=== PATIENT | female | born 1935 | race Caucasian/White ===

== ENCOUNTER 2017-04-07 12:33 | Emergency (ER) | payer MEDICARE, BC ==
[2017-04-07 12:46] VITALS: BP 160/62
[2017-04-07] MEDS ORDERED: Diltiazem IR 60 MG Tab PO ONE (13:30)
--- NOTE | 2017-04-07 13:30 | EDM.PDOC ---
ED HPI GENERAL MEDICAL PROBLEM - General Chief Complaint: Chest Pain Stated Complaint: [facility] Time Seen by Provider: 04/07/17 12:48 Source of Information: Reports: Patient History Limitations: Reports: No Limitations - History of Present Illness INITIAL COMMENTS - FREE TEXT/NARRATIVE: The patient is an 82-year-old female with a history of coronary artery disease, hypertension, myasthenia gravis, paroxysmal atrial fibrillation with chief complaint of chest pain. She states that her pain started around 11:30 this morning. She was at rest watching TV. States that she had some substernal heaviness. She thinks it may have radiated towards her left arm. The pain came on all of a sudden. There is no clear provoking factor. States that by the time the ambulance services arrived her pain was subsiding. She is not sure exactly how long it lasted. Her pain was completely gone before she got to the emergency department. She did not take any medications for the pain. States that she thinks it may be a bit like when she had her heart attack many years ago but not as severe. No shortness of breath. No nausea or abdominal pain. No cough, fever, or recent illness. She has chronic lower extremity swelling states this isn't any worse than usual. No leg pain. 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: Reports: EKG, IV/IO, Oxygen - Related Data Allergies Allergy/AdvReac Type Severity Reaction Status Date / Time amoxicillin [From Augmentin] Allergy Airway Verified 04/07/17 12:47 Tightness clavulanic acid Allergy Airway Verified 04/07/17 12:47 [From Augmentin] Tightness heparin Allergy Anaphylactic Verified 04/07/17 12:47 Shock Home Meds: Home Meds Aspirin [[place] Aspirin] 81 mg PO DAILY 05/26/14 [History] Losartan Potassium 100 mg PO DAILY 05/26/14 [History] Metoprolol Tartrate 75 mg PO BID 05/26/14 [History] sulfaSALAzine 500 mg PO BID 05/26/14 [History] Hyoscyamine Sulfate 0.125 mg PO QID 06/14/16 [History] Pyridostigmine [place] 60 mg PO DAILY 06/14/16 [History] Apixaban [Eliquis] 2.5 mg PO BID 04/07/17 [History] Calcium Citrate/Vitamin D3 [Calcium Citrate + D] 1 tab PO BIDMEALS 04/07/17 [ History] Diltiazem [Cardizem] 90 mg PO Q6HR 04/07/17 [History] Furosemide [Lasix] 40 mg PO DAILY 04/07/17 [History] Pantoprazole [ProTONIX] 40 mg PO ACBREAKFAST 04/07/17 [History] Prednisone [IJD: Prednisone] 12.5 mg PO DAILY 04/07/17 [History] atorvaSTATin [Lipitor] 40 mg PO BEDTIME 04/07/17 [History] Past Medical History HEENT History: Reports: Hard of Hearing, Impaired Vision Cardiovascular History: Reports: CAD, High Cholesterol, Hypertension, [place], Stents , Other (See Below) Other Cardiovascular History: edema, cardiolyte stress test in [place] February 2017 was clear Gastrointestinal History: Reports: Cholelithiasis, Other (See Below) Other Gastrointestinal History: ulcerative colitis Genitourinary History: Reports: Urinary Incontinence Musculoskeletal History: Reports: Arthritis Neurological History: Reports: Other (See Below) Other Neuro History: myasthinia gravis Hematologic History: Reports: Other (See Below) Other Hematologic History: is on blood thinners - Past Surgical History Cardiovascular Surgical History: Reports: Coronary Artery Stent GI Surgical History: Reports: Appendectomy, Cholecystectomy Female Surgical History: Reports: Hysterectomy Social & Family History - Family History Family Medical History: Noncontributory - Tobacco Use Smoking Status *Q: Never Smoker Second Hand Smoke Exposure: No - Caffeine Use Caffeine Use: Reports: None - Alcohol Use Days Per Week of Alcohol Use: 0 - Recreational Drug Use Recreational Drug Use: No ED ROS GENERAL - Review of Systems Review Of Systems: See Below Constitutional: Reports: No Symptoms. Denies: Fever, Weakness HEENT: Reports: No Symptoms Respiratory: Denies: Shortness of Breath, Cough Cardiovascular: Reports: Chest Pain Endocrine: Reports: No Symptoms GI/Abdominal: Denies: Abdominal Pain, Nausea : Reports: No Symptoms Musculoskeletal: Reports: No Symptoms Skin: Reports: No Symptoms Neurological: Reports: No Symptoms Psychiatric: Reports: No Symptoms ED EXAM, GENERAL - Physical Exam Exam: See Below Exam Limited By: No Limitations General Appearance: Alert, WD/WN, No Apparent Distress Eye Exam: Bilateral Eye: Normal Inspection Ears: Normal External Exam Nose: Normal Inspection, Normal Mucosa, No Blood Throat/Mouth: Normal Inspection, Normal Voice, No Airway Compromise Head: Atraumatic, Normocephalic Neck: Normal Inspection, Supple, Full Range of Motion Respiratory/Chest: No Respiratory Distress, Lungs Clear, Normal Breath Sounds, No Accessory Muscle Use Cardiovascular: Normal Peripheral Pulses, Regular Rate, Rhythm, No Murmur GI/Abdominal: Soft, Non-Tender. No: Rebound Back Exam: Normal Inspection Extremities: Non-Tender, Pedal Edema (mild, symmetric, 1+. ). No: Leg Pain Neurological: Alert, Oriented, Normal Cognition, No Motor/Sensory Deficits Psychiatric: Normal Affect, Normal Mood Skin Exam: Warm, Dry, Intact, Normal Color, No Rash Course - Vital Signs Last Recorded V/S: Last Vital Signs Temp 36.5 C 04/07/17 12:35 Pulse 58 L 04/07/17 12:35 Resp 18 04/07/17 12:35 BP 160/62 H 04/07/17 12:35 Pulse Ox 97 04/07/17 13:38 - Orders/Labs/Meds Orders: Active Orders 24 hr Category Date Time Status EKG 12 Lead [EKG Documentation Completion] [RC] STAT Care 04/07/17 12:48 Active Chest 1V Frontal [CR] Stat Exams 04/07/17 12:48 Taken Labs: Laboratory Tests 04/07/17 04/07/17 04/07/17 Range/Units 13:00 13:00 14:50 WBC 7.83 (3.98-10.04) K/mm3 RBC 4.13 (3.98-5.22) M/mm3 Hgb 14.1 (11.2-15.7) gm/L Hct 42.5 (34.1-44.9) % MCV 102.9 H (79.4-94.8) fl MCH 34.1 H (25.6-32.2) pg MCHC 33.2 (32.2-35.5) g/dl RDW Std Deviation 54.0 H (36.4-46.3) fL Plt Count 84 L (182-369) K/mm3 MPV 11.2 (9.4-12.3) fl Neut % (Auto) 87.7 H (34.0-71.1) % Lymph % (Auto) 6.6 L (19.3-51.7) % [place] % (Auto) 5.1 (4.7-12.5) % Eos % (Auto) 0 L (0.7-5.8) Baso % (Auto) 0.1 (0.1-1.2) % Neut # (Auto) 6.86 H (1.56-6.13) K/mm3 Lymph # (Auto) 0.52 L (1.18-3.74) K/mm3 [place] # (Auto) 0.40 H (0.24-0.36) K/mm3 Eos # (Auto) 0.00 L (0.04-0.36) K/mm3 Baso # (Auto) 0.01 (0.01-0.08) K/mm3 Manual Slide Review Abnormal smear Sodium 142 (136-145) mEq/L Potassium 3.7 (3.5-5.1) mEq/L Chloride 105 (98-107) mEq/L Carbon Dioxide 27 (21-32) mEq/L Anion Gap 13.7 (5-15) BUN 28 H (7-18) mg/dL Creatinine 1.6 H (0.55-1.02) mg/dL Est Cr Clr Drug Dosing 22.04 mL/min Estimated GFR (MDRD) 31 (>60) mL/min BUN/Creatinine Ratio 17.5 (14-18) Glucose 162 H (83-115) mg/dL Calcium 9.2 (8.5-10.1) mg/dL Total Bilirubin 0.5 (0.2-1.0) mg/dL AST 37 (15-37) U/L ALT 50 (14-59) U/L Alkaline Phosphatase 97 (46-116) U/L Troponin I < 0.017 < 0.017 (0.00-0.056) ng/mL Total Protein 7.4 (6.4-8.2) g/dl Albumin 3.7 (3.4-5.0) g/dl Globulin 3.7 gm/dL Albumin/Globulin Ratio 1.0 (1-2) Lipase 205 (73-393) U/L Meds: Medications Discontinued Medications Generic Name Dose Route Start Last Admin Trade Name Freq PRN Reason Stop Dose Admin Diltiazem HCl 90 mg 04/07/17 13:30 04/07/17 13:34 Cardizem PO 04/07/17 13:31 90 mg ONETIME ONE Administration Hyoscyamine 0.125 mg 04/07/17 14:40 06/29/17 14:51 Hyomax-Sl SL 04/07/17 14:41 0.125 mg ONETIME ONE Administration Pyridostigmine [place] 60 mg 04/07/17 15:00 04/07/17 14:51 Mestinon PO 04/07/17 15:01 60 mg ONETIME ONE Administration - Re-Assessments/Exams Free Text/Narrative Re-Assessment/Exam: 04/07/17 13:56 EKG shows normal sinus rhythm, T-wave flattening throughout the precordial leads , no significant ST abnormality. Chest x-ray shows mild cardiomegaly, otherwise unremarkable with no significant change compared to June 2016. Her first troponin is negative. Given her age, known history of coronary artery disease, and fairly typical story, we will observe her in the emergency department and repeat cardiac enzymes and EKG. 04/07/17 16:03 Repeat troponin negative. Patient has been chest pain free throughout her emergency department stay. She feels well and would like to go home. Discussed need for follow-up and also encouraged her to return to the emergency department should she have any recurrence of chest pain or other concerning symptoms. She understood. Departure - Departure Time of Disposition: 16:03 Disposition: Home, Self-Care 01 Clinical Impression: Chest pain Qualifiers: Chest pain type: unspecified Qualified Code(s): R07.9 - Chest pain, unspecified Instructions: Nonspecific Chest Pain, [id number] Referrals: Tom Slaughter MD [Primary Care Provider] - Forms: ED Department Discharge Additional Instructions: 1. Follow up with your primary doctor as soon as possible for further care 2. Return to the Emergency Department if you have return of chest pain, shortness of breath, or any other concerning symptoms - My Orders Last 24 Hours: My Active Orders 04/07/17 12:48 EKG 12 Lead [EKG Documentation Completion] [RC] STAT Chest 1V Frontal [CR] Stat - Assessment/Plan Last 24 Hours: My Active Orders 04/07/17 12:48 EKG 12 Lead [EKG Documentation Completion] [RC] STAT Chest 1V Frontal [CR] Stat
[2017-04-07] MEDS ORDERED: Hyoscyamine 0.125 MG Tab.SL SL ONE (14:40)
--- NOTE | 2017-04-08 08:25 | CR ---
Chest: Portable view of the chest was obtained. Comparison: Previous chest x-ray of 06/14/16. Heart is enlarged. Tortuous thoracic aorta is seen. Lungs are clear. Minimal scoliosis is present within the spine. Impression: 1. Scoliosis and mild cardiomegaly. 2. Nothing acute is appreciated on portable chest x-ray. Diagnostic code #2
== END 2017-04-07 16:09 | disposition home or self-care (01) ==
LOC: JD.ED 12:33
DX: R07.9 Chest pain, unspecified (principal); I10 Essential (primary) hypertension; I25.10 Atherosclerotic heart disease of native coronary artery without angina pectoris; I25.2 Old myocardial infarction; M19.90 Unspecified osteoarthritis, unspecified site; Z95.5 Presence of coronary angioplasty implant and graft; Z90.49 Acquired absence of other specified parts of digestive tract; Z90.710 Acquired absence of both cervix and uterus; Z79.82 Long term (current) use of aspirin; Z79.899 Other long term (current) drug therapy; Z88.1 Allergy status to other antibiotic agents; Z88.8 Allergy status to other drugs, medicaments and biological substances
CPT/HCPCS: 36415; 71010; 80053; 83690; 84484; 85025; 93005; 99285; A9270; 99284

== ENCOUNTER 2017-06-22 12:35 | Inpatient (IN) | payer MEDICARE, BC ==
[2017-06-22] MEDS ORDERED: Diltiazem 25 MG/5 ML SDV IVPUSH ONE ×2 (12:57→13:30)
[2017-06-22] MEDS ORDERED: Furosemide 40 MG/4 ML VIAL IVPUSH ONE (12:58)
--- NOTE | 2017-06-22 13:01 | EDM.PDOC ---
ED HPI GENERAL MEDICAL PROBLEM - General Chief Complaint: Cardiovascular Problem Stated Complaint: RAPID HEART RATE Time Seen by Provider: 06/22/17 12:48 Source of Information: Reports: Patient, Family (daughter) History Limitations: Reports: No Limitations - History of Present Illness INITIAL COMMENTS - FREE TEXT/NARRATIVE: 82-year-old female presents the ED with palpitations in her chest that she appreciated shortly before going to bed last night. She had to sleep sitting up part of the night due to developing differential dyspnea and orthopnea. She states she does have a mild cough which is bringing up a little bit of greenish sputum. No source associated fever or chills. Of note patient has a history of chronic atrial fibrillation. Monitor shows atrial fibrillation with a rate of high as high as 160/m. She has associated dizziness lightheadedness is weakness in her legs when she tries to walk. She denies any central chest pressure discomfort. Of note she is on Cardizem 90 mg 4 times a day and I'm not sure why she's on this regimen versus the extended release preparations. She is also on metoprolol 75 mg twice a day for heart rate control. She is on Lasix 40 mg once daily. She is appreciated her lower extremity is becoming more swollen the last while she blames it on the prednisone that she is slowly weaning off of. Onset: Sudden Onset Date: 06/21/17 Onset Time: 21:00 Duration: Hour(s): Location: Reports: Generalized (Palpitations in the chest with associated shortness of breath weakness and dizziness.) Quality: Reports: Same as Previous Episode Severity: Moderate Improves with: Reports: Rest Worsens with: Reports: Movement Context: Reports: Other. Denies: Activity, Lifting, Sick Contact, Trauma Associated Symptoms: Reports: Cough (With a little bit of greenish sputum at times.), Loss of Appetite, Malaise, Shortness of Breath, Weakness (Particularly in her lower extremities when she tries to walk). Denies: Confusion ( Spontaneous rapid heart rate about 21 hours last night), Chest Pain, Diaphoresis , Fever/Chills, Headaches, Nausea/Vomiting, Rash, Syncope Treatments SUCCESSFACTORS CONSULTANT: Reports: Other (see below) (None.) - Related Data Allergies Allergy/AdvReac Type Severity Reaction Status Date / Time amoxicillin [From Augmentin] Allergy Airway Verified 06/22/17 16:02 Tightness clavulanic acid Allergy Airway Verified 06/22/17 16:02 [From Augmentin] Tightness heparin Allergy Anaphylactic Verified 06/22/17 16:02 Shock Home Meds: Home Meds Aspirin [Gaines Aspirin] 81 mg PO DAILY 05/26/14 [History] Losartan Potassium 100 mg PO DAILY 05/26/14 [History] Metoprolol Tartrate 100 mg PO BID 05/26/14 [History] sulfaSALAzine 500 mg PO BID 05/26/14 [History] Hyoscyamine Sulfate 0.125 mg PO TID 06/14/16 [History] Pyridostigmine [place] 60 mg PO TID 06/14/16 [History] Apixaban [Eliquis] 2.5 mg PO BID 04/07/17 [History] Calcium Citrate/Vitamin D3 [Calcium Citrate + D] 1 tab PO BIDMEALS 04/07/17 [ History] Furosemide [Lasix] 40 mg PO QAM 04/07/17 [History] Pantoprazole [ProTONIX] 40 mg PO ACBREAKFAST 04/07/17 [History] Prednisone [IJD: Prednisone] 12.5 mg PO DAILY 04/07/17 [History] atorvaSTATin [Lipitor] 40 mg PO DAILY 04/07/17 [History] Furosemide [Lasix] 20 mg PO ASDIRECTED 06/22/17 [History] Past Medical History HEENT History: Reports: Hard of Hearing, Impaired Vision Cardiovascular History: Reports: CAD, High Cholesterol, Hypertension, [place], Stents , Other (See Below) Other Cardiovascular History: edema, cardiolyte stress test in [place] February 2017 was clear Gastrointestinal History: Reports: Cholelithiasis, Other (See Below) Other Gastrointestinal History: ulcerative colitis Genitourinary History: Reports: Urinary Incontinence Musculoskeletal History: Reports: Arthritis Neurological History: Reports: Other (See Below) Other Neuro History: myasthinia gravis Hematologic History: Reports: Other (See Below) Other Hematologic History: is on blood thinners - Past Surgical History Cardiovascular Surgical History: Reports: Coronary Artery Stent GI Surgical History: Reports: Appendectomy, Cholecystectomy Female Surgical History: Reports: Hysterectomy Social & Family History - Family History Family Medical History: Noncontributory - Tobacco Use Smoking Status *Q: Never Smoker Second Hand Smoke Exposure: No - Caffeine Use Caffeine Use: Reports: None - Alcohol Use Days Per Week of Alcohol Use: 0 - Recreational Drug Use Recreational Drug Use: No - Living Situation & Occupation Living situation: Reports: , Alone Occupation: Retired ED ROS GENERAL - Review of Systems Review Of Systems: See Below Constitutional: Reports: Malaise, Weakness, Fatigue, Decreased Appetite. Denies : Fever, Chills, Weight Loss HEENT: Reports: Other (Complains of sores in her nose. She blames whatever medications for this.) Respiratory: Reports: Shortness of Breath, Cough. Denies: Wheezing, Pleuritic Chest Pain, Hemoptysis (With a little greenish sputum once in a while) Cardiovascular: Reports: Blood Pressure Problem, Dyspnea on Exertion ( few weeks.), Edema (Worse the last), Lightheadedness, Palpitations. Denies: Chest Pain, Claudication, Orthopnea (Chronic hypertension) Endocrine: Reports: Fatigue (See history of present illness) GI/Abdominal: Reports: Diarrhea (Occasional problems with diarrhea. Never has to worry about constipation) : Reports: Frequency, Incontinence Musculoskeletal: Reports: Neck Pain, Shoulder Pain, Back Pain (Both urge and stress components), Joint Pain (Knees and hips at times) Skin: Reports: Bruising (Bruises easily because she is on Eliquis.) Neurological: Reports: No Symptoms Psychiatric: Reports: No Symptoms Hematologic/Lymphatic: Reports: No Symptoms Immunologic: Reports: No Symptoms ED EXAM, GENERAL - Physical Exam Exam: See Below Exam Limited By: No Limitations General Appearance: Alert, WD/WN, Anxious, Mild Distress Eye Exam: Bilateral Eye: Normal Inspection Throat/Mouth: Normal Inspection, Normal Oropharynx, Other (Lips are dry and chapped.) Head: Atraumatic, Normocephalic Neck: Normal Inspection, Supple, Limited Range of Motion, Tender Lateral. No: Full Range of Motion, Lymphadenopathy (L), Lymphadenopathy (R) Respiratory/Chest: No Accessory Muscle Use, Respiratory Distress (Mild tachypnea at rest 22-24/m), Rales (A few scattered rales in both bases with occasional expiratory wheeze in the right lung field.) Cardiovascular: No Gallop, No Murmur, No Rub, Tachycardia (Atrial fibrillation as high as 160/m), Irregularly Irregular. No: Normal Peripheral Pulses Peripheral Pulses: 1+: Posterior Tibial (L), Posterior Tibial (R), Dorsalis Pedis (L), Dorsalis Pedis (R) GI/Abdominal: Normal Bowel Sounds, Soft, Non-Tender, No Organomegaly, Distended (Mildly distended in the upper abdomen and tip into percussion compatible with some aerophagia.) Back Exam: Normal Inspection, Full Range of Motion, Other. No: CVA Tenderness ( L) (Mild kyphosis thoracic spine), CVA Tenderness (R) Extremities: Pedal Edema (3+ pitting edema almost up to the tibial tuberosities bilaterally.) Neurological: Alert, Oriented, CN II-XII Intact, Normal Cognition. No: Normal Gait Psychiatric: Normal Affect, Normal Mood Skin Exam: Warm, Dry, Intact, No Rash, Pallor (Slight pallor.) EKG INTERPRETATION EKG Date: 06/22/17 Time: 12:55 Rhythm: A-Fib (With rate of 90-1 60/m) Rate (Beats/Min): 143 [place]: LAD-Left Austin Deviation (Mild left axis deviation at -21) P-Wave: Variable QRS: Other (Decreased voltage in both the precordial and limb leads.) ST-T: Other (Abnormal repolarization pattern probably related to rate. Mild ST segment depression in V6 lead 1 nonspecific but could be apical ischemia.) QT: Normal Course - Vital Signs Last Recorded V/S: Last Vital Signs Temp 36.7 C 06/22/17 18:46 Pulse 92 06/22/17 18:46 Resp 20 06/22/17 18:46 BP 132/71 06/22/17 18:46 Pulse Ox 92 L 06/22/17 18:46 - Orders/Labs/Meds Orders: Active Orders 24 hr Category Date Time Status Admission Status [Patient Status] [ADT] Routine ADT 06/22/17 15:24 Active EKG Documentation Completion [RC] STAT Care 06/22/17 12:51 Inactive Peripheral IV Care [RC] Q2HR Care 06/22/17 12:57 Active Chest 1V Frontal [CR] Stat Exams 06/22/17 12:56 Taken Diltiazem 125 mg Med 06/22/17 13:00 Active Sodium Chloride 0.9% [Normal Saline] 100 ml IV ASDIRECTED Sodium Chloride 0.9% [Saline Flush] Med 06/22/17 12:57 Active 10 ml FLUSH ASDIRECTED PRN Peripheral IV Insertion Adult [OM.PC] Stat Oth 06/22/17 12:57 Ordered Medication Orders Acetaminophen (Tylenol) 650 mg PO Q4H PRN PRN Reason: Pain (Mild 1-3)/fever Hydrocodone Bitart/Acetaminophen ([place] 325-5 Mg) 1 tab PO Q4H PRN PRN Reason: Pain (moderate 4-6) Albuterol/Ipratropium (Duoneb 3.0-0.5 Mg/3 Ml) 3 ml NEB Q4H PRN PRN Reason: Shortness Of Breath/wheezing Apixaban (Eliquis) 2.5 mg PO BID [facility] Aspirin (Halfprin) 81 mg PO DAILY [facility] Bisacodyl (Dulcolax) 5 mg PO DAILY PRN PRN Reason: Constipation Calcium Carbonate (Calcium Carbonate/Vitamin D 1500 Mg-200 Unit) 1 tab PO BIDMEALS [facility] Last Admin: 06/22/17 17:15 Dose: 1 tab Docusate Sodium (Colace) 100 mg PO BID PRN PRN Reason: Constipation Furosemide (Lasix) 20 mg PO DAILY@1400 [facility] Last Admin: 06/22/17 16:32 Dose: Not Given Furosemide (Lasix) 40 mg PO QAM [facility] Hydralazine HCl (Apresoline) 20 mg IVPUSH Q4H PRN PRN Reason: Hypertension Hydromorphone HCl (Dilaudid) 0.25 mg IVPUSH Q2H PRN PRN Reason: Pain (severe 7-10) Hyoscyamine (Hyomax-Sl) 0.125 mg SL TID [facility] Last Admin: 06/22/17 17:21 Dose: Diltiazem HCl 125 mg/ Sodium (Chloride) 125 mls @ 10 mls/hr IV ASDIRECTED [facility] PRN Reason: 10 MG/HR Last Infusion: 06/22/17 19:17 Dose: 12.5 mg/hr, 12.5 mls/hr Infusion: 06/22/17 17:16 Dose: 15 mg/hr, 15 mls/hr Infusion: 06/22/17 16:28 Dose: 12.5 mg/hr, 12.5 mls/hr Infusion: 06/22/17 16:01 Dose: 10 mg/hr, 10 mls/hr Admin: 06/22/17 13:20 Dose: 10 mg/hr, 10 mls/hr Promethazine HCl 12.5 mg/ (Sodium Chloride) 50.5 mls @ 100 mls/hr IV Q6H PRN PRN Reason: Nausea/Vomiting Lorazepam (Ativan) 0.25 mg IV Q6H PRN PRN Reason: Anxiety Losartan Potassium (Cozaar) 100 mg PO DAILY [facility] Magnesium Sulfate (Pharmacy To Dose - Magnesium Replacement) 1 dose .XX ASDIRECTED [facility] Metoprolol Tartrate (Lopressor) 100 mg PO BID [facility] Metoprolol Tartrate (Lopressor) 5 mg IVPUSH Q4H PRN PRN Reason: Tachycardia Ondansetron HCl (Zofran) 4 mg IV Q6H PRN PRN Reason: Nausea/Vomiting Pantoprazole Sodium (Protonix) 40 mg PO ACBREAKFAST [facility] Polyethylene Glycol (Miralax) 17 gm PO DAILY PRN PRN Reason: Constipation Potassium Chloride (Pharmacy To Dose - Potassium Replacement) 1 dose .XX ASDIRECTED [facility] Prednisone (Prednisone) 12.5 mg PO DAILY [facility] Pyridostigmine [place] (Mestinon) 60 mg PO TID [facility] Rosuvastatin Calcium (Crestor) 10 mg PO DAILY [facility] Senna/Docusate Sodium (Senna Plus) 1 tab PO BID PRN PRN Reason: Constipation Sodium Chloride (Saline Flush) 10 ml FLUSH ASDIRECTED PRN PRN Reason: Keep Vein Open Last Admin: 06/22/17 13:20 Dose: 10 ml Sulfasalazine (Sulfasalazine) 500 mg PO BID [facility] Temazepam (Restoril) 7.5 mg PO BEDTIME PRN PRN Reason: Sleep Labs: Laboratory Tests 06/22/17 06/22/17 06/22/17 Range/Units 12:45 12:45 12:45 WBC 8.71 (3.98-10.04) K/mm3 RBC 4.36 (3.98-5.22) M/mm3 Hgb 14.5 (11.2-15.7) gm/L Hct 45.3 H (34.1-44.9) % MCV 103.9 H (79.4-94.8) fl MCH 33.3 H (25.6-32.2) pg MCHC 32.0 L (32.2-35.5) g/dl RDW Std Deviation 57.4 H (36.4-46.3) fL Plt Count 87 L (182-369) K/mm3 MPV 12.5 H (9.4-12.3) fl Neutrophils % (Manual) 72 H (40-60) % Band Neutrophils % 7 (0-10) % Lymphocytes % (Manual) 17 L (20-40) % Atypical Lymphs % 0 % Monocytes % (Manual) 4 (2-10) % Eosinophils % (Manual) 0 L (0.7-5.8) % Basophils % (Manual) 0 L (0.1-1.2) Platelet Estimate See note Anisocytosis 1+ slight Macrocytosis 1+ slight RBC Morph Comment Not Reportable PT 11.1 (8.0-13.0) SECONDS INR 1.02 Sodium 144 (136-145) mEq/L Potassium 3.2 L (3.5-5.1) mEq/L Chloride 105 (98-107) mEq/L Carbon Dioxide 30 (21-32) mEq/L Anion Gap 12.2 (5-15) BUN 15 (7-18) mg/dL Creatinine 1.3 H (0.55-1.02) mg/dL Est Cr Clr Drug Dosing 27.12 mL/min Estimated GFR (MDRD) 39 (>60) mL/min BUN/Creatinine Ratio 11.5 L (14-18) Glucose 141 H (83-115) mg/dL Calcium 9.1 (8.5-10.1) mg/dL Magnesium 1.7 L (1.8-2.4) mg/dl Total Bilirubin 0.6 (0.2-1.0) mg/dL AST 35 (15-37) U/L ALT 39 (14-59) U/L Alkaline Phosphatase 83 (46-116) U/L CK-MB (CK-2) 0.9 (0-3.6) ng/ml Troponin I < 0.017 (0.00-0.056) ng/mL C-Reactive Protein 0.5 (<1.0) mg/dL NT-Pro-B Natriuret Pep 1172 H (0-450) pg/mL Total Protein 7.6 (6.4-8.2) g/dl Albumin 3.6 (3.4-5.0) g/dl Globulin 4.0 gm/dL Albumin/Globulin Ratio 0.9 L (1-2) Free T4 (0.76-1.46) ng/dL TSH 3rd Generation (0.358-3.74) uIU/mL Urine Color (Yellow) Urine Appearance (Clear) Urine pH (5.0-8.0) Ur Specific [place] (1.005-1.030) Urine Protein (Negative) Urine Glucose (UA) (Negative) Urine Ketones (Negative) Urine Occult Blood (Negative) Urine Nitrite (Negative) Urine Bilirubin (Negative) Urine Urobilinogen (0.2-1.0) Ur Leukocyte Esterase (Negative) Urine RBC (0-5) /hpf Urine WBC (0-5) /hpf Ur Epithelial Cells (0-5) /hpf Urine Bacteria (FEW) /hpf Hyaline Casts (0-5) /lpf Urine Mucus (FEW) /hpf 06/22/17 06/22/17 Range/Units 12:45 15:20 WBC (3.98-10.04) K/mm3 RBC (3.98-5.22) M/mm3 Hgb (11.2-15.7) gm/L Hct (34.1-44.9) % MCV (79.4-94.8) fl MCH (25.6-32.2) pg MCHC (32.2-35.5) g/dl RDW Std Deviation (36.4-46.3) fL Plt Count (182-369) K/mm3 MPV (9.4-12.3) fl Neutrophils % (Manual) (40-60) % Band Neutrophils % (0-10) % Lymphocytes % (Manual) (20-40) % Atypical Lymphs % % Monocytes % (Manual) (2-10) % Eosinophils % (Manual) (0.7-5.8) % Basophils % (Manual) (0.1-1.2) Platelet Estimate Anisocytosis Macrocytosis RBC Morph Comment PT (8.0-13.0) SECONDS INR Sodium (136-145) mEq/L Potassium (3.5-5.1) mEq/L Chloride (98-107) mEq/L Carbon Dioxide (21-32) mEq/L Anion Gap (5-15) BUN (7-18) mg/dL Creatinine (0.55-1.02) mg/dL Est Cr Clr Drug Dosing mL/min Estimated GFR (MDRD) (>60) mL/min BUN/Creatinine Ratio (14-18) Glucose (83-115) mg/dL Calcium (8.5-10.1) mg/dL Magnesium (1.8-2.4) mg/dl Total Bilirubin (0.2-1.0) mg/dL AST (15-37) U/L ALT (14-59) U/L Alkaline Phosphatase (46-116) U/L CK-MB (CK-2) (0-3.6) ng/ml Troponin I (0.00-0.056) ng/mL C-Reactive Protein (<1.0) mg/dL NT-Pro-B Natriuret Pep (0-450) pg/mL Total Protein (6.4-8.2) g/dl Albumin (3.4-5.0) g/dl Globulin gm/dL Albumin/Globulin Ratio (1-2) Free T4 1.07 (0.76-1.46) ng/dL TSH 3rd Generation 1.215 (0.358-3.74) uIU/mL Urine Color Yellow (Yellow) Urine Appearance Clear (Clear) Urine pH 7.0 (5.0-8.0) Ur Specific [place] 1.015 (1.005-1.030) Urine Protein Negative (Negative) Urine Glucose (UA) Negative (Negative) Urine Ketones Negative (Negative) Urine Occult Blood Negative (Negative) Urine Nitrite Negative (Negative) Urine Bilirubin Negative (Negative) Urine Urobilinogen 0.2 (0.2-1.0) Ur Leukocyte Esterase Negative (Negative) Urine RBC 0-5 (0-5) /hpf Urine WBC 0-5 (0-5) /hpf Ur Epithelial Cells 0-5 (0-5) /hpf Urine Bacteria Rare (FEW) /hpf Hyaline Casts 0-5 (0-5) /lpf Urine Mucus Not seen (FEW) /hpf Meds: Medications Generic Name Dose Route Start Last Admin Trade Name Freq PRN Reason Stop Dose Admin Acetaminophen 650 mg 06/22/17 15:48 Tylenol PO Q4H PRN Pain (Mild 1-3)/fever Hydrocodone Bitart/Acetaminophen 1 tab 06/22/17 15:48 [place] 325-5 Mg PO Q4H PRN Pain (moderate 4-6) Albuterol/Ipratropium 3 ml 06/22/17 15:48 Duoneb 3.0-0.5 Mg/3 Ml NEB Q4H PRN Shortness Of Breath/wheezing Apixaban 2.5 mg 06/22/17 21:00 Eliquis PO BID [facility] Aspirin 81 mg 06/23/17 09:00 Halfprin PO DAILY [facility] Bisacodyl 5 mg 06/22/17 15:48 Dulcolax PO DAILY PRN Constipation Calcium Carbonate 1 tab 06/22/17 17:00 06/22/17 17:15 Calcium Carbonate/Vitamin D 1500 Mg-200 Unit PO 1 tab BIDMEALS [facility] Administration Docusate Sodium 100 mg 06/22/17 15:48 Colace PO BID PRN Constipation Furosemide 20 mg 06/22/17 16:00 06/22/17 16:32 Lasix PO Not Given DAILY@1400 [facility] Furosemide 40 mg 06/23/17 08:00 Lasix PO QAM [facility] Hydralazine HCl 20 mg 06/22/17 15:53 Apresoline IVPUSH Q4H PRN Hypertension Hydromorphone HCl 0.25 mg 06/22/17 15:48 Dilaudid IVPUSH Q2H PRN Pain (severe 7-10) Hyoscyamine 0.125 mg 06/22/17 16:04 06/22/17 17:21 Hyomax-Sl SL Not Given TID [facility] Diltiazem HCl 125 mg/ Sodium 125 mls @ 10 mls/hr 06/22/17 13:00 06/22/17 19: 17 Chloride IV 12.5 mg/hr ASDIRECTED [facility] 12.5 mls/hr 10 MG/HR Infusion Promethazine HCl 12.5 mg/ 50.5 mls @ 100 mls/hr 06/22/17 15:48 Sodium Chloride IV Q6H PRN Nausea/Vomiting Lorazepam 0.25 mg 06/22/17 15:48 Ativan IV Q6H PRN Anxiety Losartan Potassium 100 mg 06/23/17 09:00 Cozaar PO DAILY [facility] Magnesium Sulfate 1 dose 06/22/17 16:00 Pharmacy To Dose - Magnesium Replacement .XX ASDIRECTED [facility] Metoprolol Tartrate 100 mg 06/22/17 21:00 Lopressor PO BID [facility] Metoprolol Tartrate 5 mg 06/22/17 15:53 Lopressor IVPUSH Q4H PRN Tachycardia Ondansetron HCl 4 mg 06/22/17 15:48 Zofran IV Q6H PRN Nausea/Vomiting Pantoprazole Sodium 40 mg 06/23/17 06:00 Protonix PO ACBREAKFAST [facility] Polyethylene Glycol 17 gm 06/22/17 15:48 Miralax PO DAILY PRN Constipation Potassium Chloride 1 dose 06/22/17 16:00 Pharmacy To Dose - Potassium Replacement .XX ASDIRECTED [facility] Prednisone 12.5 mg 06/23/17 09:00 Prednisone PO DAILY [facility] Pyridostigmine [place] 60 mg 06/22/17 21:00 Mestinon PO TID [facility] Rosuvastatin Calcium 10 mg 06/23/17 09:00 Crestor PO DAILY [facility] Senna/Docusate Sodium 1 tab 06/22/17 15:48 Senna Plus PO BID PRN Constipation Sodium Chloride 10 ml 06/22/17 12:57 06/22/17 13:20 Saline Flush FLUSH 10 ml ASDIRECTED PRN Administration Keep Vein Open Sulfasalazine 500 mg 06/22/17 21:00 Sulfasalazine PO BID [facility] Temazepam 7.5 mg 06/22/17 15:48 Restoril PO BEDTIME PRN Sleep Discontinued Medications Generic Name Dose Route Start Last Admin Trade Name Freq PRN Reason Stop Dose Admin Diltiazem HCl 10 mg 06/22/17 12:57 06/22/17 13:19 Diltiazem IVPUSH 06/22/17 12:58 10 mg ONETIME ONE Administration Diltiazem HCl 10 mg 06/22/17 13:30 06/22/17 13:47 Diltiazem IVPUSH 06/22/17 13:31 10 mg ONETIME ONE Administration Furosemide 40 mg 06/22/17 12:58 06/22/17 13:19 Lasix IVPUSH 06/22/17 12:59 40 mg NOW ONE Administration - Radiology Interpretation Free Text/Narrative:: 82-year-old female presents the ED with palpitations that she recognizes started shortly after supper last night around 2100 hrs. She had a set up part of the night due to orthopnea and PND. She has a history of chronic atrial fibrillation usually controlled with Cardizem 90 mg 4 times daily and Toprol 75 mg twice a day. She presents with atrial fibrillation with a rate as high as 160 /min. Associated rales in both lower lobes congestive heart failure evident. She is dependent edema to both knees bilaterally. No chest pain. Plan Cardizem 10 mg IV bolus then drip at 10 mg per hour. Routine labs to include BNP. We'll also be given Lasix 40 mg IV as I can hear rales in both lower lobes. - Re-Assessments/Exams Free Text/Narrative Re-Assessment/Exam: 06/22/17 13:29 heart rate had come down into the 1 teens after the initial dose of Cardizem 10 mg IV bolus however it is back up to 144/m. Will give her another 10 mg Cardizem BP is 132/76. Free Text/Narrative Re-Assessment/Exam: 06/22/17 14:24 labs are from the back. They reveal a white count of 8.71 with 72 % neutrophils and 7% band cells. MCV is elevated at 103.9 hemoglobin is 14.5 hematocrit of 45.3 platelets are low side at 87,000. Coags show a PT of 11.1 INR 1.02. Sodium 144 potassium low at 3.2 chloride 105 bicarbonate 31. Creatinine is 1.3 EGFR is 39 and a gap is 12.2 glucose is 141. Magnesium slightly low at 1.7 BP and P is elevated at 1172. The discussion I had is that her Cardizem was recently discontinued by Dr. Allen taking press tender short goods as she was taking 90 mg 4 times daily. The reason for not being again on a long or extended release preparation apparently is because her insurance company would not pay for the medication. Dr. Allen taking it increased her metoprolol from 75 twice a day to 100 mg twice a day in the hopes of keeping her in regular rhythm. Obviously this has not worked. On speaking with the pharmacy they indicate that insurance company will pay for verapamil is likely to make her edema and her lower extremities a little worse however. It would be 80 mg 220 mg 3 times a day for rate control. Currently she is in failure and chest x-ray shows bilateral small pleural effusions. She would probably benefit therefore for short-term hospitalization to introduce cardiac calcium channel anshul to beta anshul therapy as it can cause a heart block. 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 06/22/17 14:26 Current rate is 80/min BP 108 /93 she feels much better [place] get a full deep breath. She is on Cardizem drip at 10 mg per hour. Departure - Departure Time of Disposition: 16:42 Disposition: Admitted As Inpatient 65 Condition: Fair Clinical Impression: Atrial fibrillation with RVR, Hypokalemia Congestive heart failure Qualifiers: Congestive heart failure type: unspecified congestive heart failure type Congestive heart failure chronicity: acute on chronic Qualified Code(s): I50.9 - Heart failure, unspecified - My Orders Last 24 Hours: My Active Orders 06/22/17 12:51 EKG Documentation Completion [RC] STAT 06/22/17 12:56 Chest 1V Frontal [CR] Stat 06/22/17 12:57 Peripheral IV Care [RC] Q2HR Sodium Chloride 0.9% [Saline Flush] 10 ml FLUSH ASDIRECTED PRN Peripheral IV Insertion Adult [OM.PC] Stat 06/22/17 13:00 Diltiazem 125 mg Sodium Chloride 0.9% [Normal Saline] 100 ml IV ASDIRECTED 06/22/17 15:24 Admission Status [Patient Status] [ADT] Routine - Assessment/Plan Last 24 Hours: My Active Orders 06/22/17 12:51 EKG Documentation Completion [RC] STAT 06/22/17 12:56 Chest 1V Frontal [CR] Stat 06/22/17 12:57 Peripheral IV Care [RC] Q2HR Sodium Chloride 0.9% [Saline Flush] 10 ml FLUSH ASDIRECTED PRN Peripheral IV Insertion Adult [OM.PC] Stat 06/22/17 13:00 Diltiazem 125 mg Sodium Chloride 0.9% [Normal Saline] 100 ml IV ASDIRECTED 06/22/17 15:24 Admission Status [Patient Status] [ADT] Routine
[2017-06-22] MEDS: Sodium Chloride 0.9% 10 ML Syringe FLUSH PRN (13:20)
[2017-06-22] MEDS: Diltiazem 125 MG in Sodium Chloride 0.9% 100 ML IV SCH ×2 (13:20→22:37)
--- NOTE | 2017-06-22 15:27 | PCM.HP ---
H&P History of Present Illness - General Date of Service: 06/22/17 Admit Problem/Dx: Atrial Fibrillation with RVR Source of Information: Patient, Old Records, Provider, RN Notes Reviewed History Limitations: Reports: No Limitations - History of Present Illness Initial Comments - Free Text/Narative: This is an 81-year-old elderly white female with past medical history of impaired hearing/vision, coronary artery disease, hypertension, hyperlipidemia, history of NH status post stents placement, edema, history of ulcerative colitis , cholelithiasis, urinary incontinence, history of partial arthritis, myasthenia gravis, and GERD who presents to the emergency department with complaints of heart palpitation that started last night. She reports an associated symptoms of mild cough with a little bit of greenish sputum, dizziness, lightheadedness and weakness on her lower extremity. She denies any fever or chills or shortness of breath. No chest pain or chest pressure. Patient carries a history of chronic atrial fibrillation on eliquis. Patient has been having issues related to rate control medications. She has been recently switched to a different type of rate control meds. Patient follows Dr. Choi for routine cardiac care. Her initial workup in the emergency department shows a CBC remarkable for hematocrit of 45.3, MCV of 103.9, MCHC of 32, platelet count of 87, neutrophils of 72% and lymphocytes of 17%. Her chemistry is remarkable for potassium of 3.2 , creatinine of 1.3, glucose of 141, and proBNP of 1172. Her UA is negative for urinary tract infection. Chest x-ray shows enlarged heart with possible bilateral pleural effusions. On presentation to the emergency department, she was found to have heart rates in the 140s-160s. She received initial treatment in the emergency department to improvement her heart rate. She was on Cardizem drip before she was sent to the unit for further management. She is full code. - Related Data Allergies/Adverse Reactions: Allergies Allergy/AdvReac Type Severity Reaction Status Date / Time amoxicillin [From Augmentin] Allergy Airway Verified 06/22/17 16:02 Tightness clavulanic acid Allergy Airway Verified 06/22/17 16:02 [From Augmentin] Tightness heparin Allergy Anaphylactic Verified 06/22/17 16:02 Shock Home Medications: Home Meds Aspirin [Drew Aspirin] 81 mg PO DAILY 08/17/14 [History] Losartan Potassium 100 mg PO DAILY 05/26/14 [History] Metoprolol Tartrate 100 mg PO BID 05/26/14 [History] sulfaSALAzine 500 mg PO BID 05/26/14 [History] Hyoscyamine Sulfate 0.125 mg PO TID 06/14/16 [History] Pyridostigmine [place] 60 mg PO TID 06/14/16 [History] Apixaban [Eliquis] 2.5 mg PO BID 04/07/17 [History] Calcium Citrate/Vitamin D3 [Calcium Citrate + D] 1 tab PO BIDMEALS 04/07/17 [ History] Furosemide [Lasix] 40 mg PO QAM 04/07/17 [History] Pantoprazole [ProTONIX] 40 mg PO ACBREAKFAST 04/07/17 [History] Prednisone [IJD: Prednisone] 12.5 mg PO DAILY 04/07/17 [History] atorvaSTATin [Lipitor] 40 mg PO DAILY 04/07/17 [History] Furosemide [Lasix] 20 mg PO ASDIRECTED 06/22/17 [History] Past Medical History HEENT History: Reports: Hard of Hearing, Impaired Vision Cardiovascular History: Reports: CAD, High Cholesterol, Hypertension, NH, Stents , Other (See Below) Other Cardiovascular History: edema[place] cardi[place] was clear Gastrointestinal History: Reports: Cholelithiasis, Other (See Below) Other Gastrointestinal History: ulcerative colitis Genitourinary History: Reports: Urinary Incontinence [employer]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: Reports: Musculoskeletal History: Reports: Arthritis Neurological History: Reports: Other (See Below) Other Neuro History: myasthinia gravis Hematologic History: Reports: Other (See Below) Other Hematologic History: is on blood thinners - Past Surgical History Cardiovascular Surgical History: Reports: Coronary Artery Stent GI Surgical History: Reports: Appendectomy, Cholecystectomy Female Surgical History: Reports: Hysterectomy Social & Family History - Family History Family Medical History: Noncontributory - Tobacco Use Smoking Status *Q: Never Smoker Second Hand Smoke Exposure: No - Caffeine Use Caffeine Use: Reports: None - Alcohol Use Days Per Week of Alcohol Use: 0 - Recreational Drug Use Recreational Drug Use: No - Living Situation & Occupation Living situation: Reports: , Alone Occupation: Retired H&P Review of Systems - Review of Systems: Review Of Systems: See Below General: Reports: Malaise, Weakness, Fatigue, Decreased Appetite. Denies: Fever , Chills HEENT: Reports: No Symptoms Pulmonary: Reports: Shortness of Breath, Cough Cardiovascular: Reports: Palpitations, Dyspnea on Exertion, Edema, Lightheadedness, Blood Pressure Problem. Denies: Chest Pain, Orthopnea, Syncope , Claudication Gastrointestinal: Reports: Diarrhea. Denies: Abdominal Pain, Nausea, Vomiting Genitourinary: Reports: Frequency, Incontinence Musculoskeletal: Reports: Neck Pain, Shoulder Pain, Back Pain, Joint Pain Skin: Reports: Bruising Psychiatric: Denies: Depression, Anxiety, Agitation, Hallucinations, Suicidal Ideation Neurological: Reports: Weakness, Gait Disturbance. Denies: Confusion, Difficulty Walking Hematologic/Lymphatic: Reports: Easy Bruising Immunologic: Reports: No Symptoms Exam - Exam Exam: See Below - Vital Signs Vital Signs: Last Vital Signs Temp 36.7 C 06/22/17 12:42 Pulse 145 H 06/22/17 12:42 Resp 22 H 06/22/17 12:42 BP 162/107 H 06/22/17 12:42 Pulse Ox 94 L 06/22/17 12:42 Weight: 170 kg - Exam General: Alert, Oriented, Cooperative, Mild Distress HEENT: Conjunctiva Clear, EACs Clear, EOMI, Mucosa Moist & [place], Nares Patent, Normal Nasal Septum, Posterior Pharynx Clear, Pupils Equal, Pupils Reactive, TMs Clear. No: Hearing Intact Neck: Supple, Trachea Midline, JVD Lungs: Normal Respiratory Effort, Decreased Breath Sounds Cardiovascular: Irregular Rhythm GI/Abdominal Exam: Normal Bowel Sounds, Soft, Non-Tender, No Organomegaly, No Distention, No Abnormal Bruit, No Mass, Pelvis Stable (Female) Exam: Deferred Rectal (Female) Exam: Deferred Back Exam: Normal Inspection, Decreased Range of Motion Extremities: Normal Inspection, Normal Range of Motion, Normal Capillary Refill , Pedal Edema Peripheral Pulses: 1+: Dorsalis Pedis (L), Dorsalis Pedis (R) Skin: Warm, Dry, Intact Neuro Extensive - Mental Status: Oriented x3, Normal Cognition, Memory Intact Neuro Extensive - Motor, Sensory, Reflexes: CN II-XII Intact (limited but intact ), Abnormal Gait Psychiatric: Alert, Normal Affect, Normal Mood - Patient Data Lab Results Last 24 hrs: Laboratory Results - last 24 hr 06/22/17 06/22/17 06/22/17 Range/Units 12:45 12:45 12:45 WBC 8.71 (3.98-10.04) K/mm3 RBC 4.36 (3.98-5.22) M/mm3 Hgb 14.5 (11.2-15.7) gm/L Hct 45.3 H (34.1-44.9) % MCV 103.9 H (79.4-94.8) fl MCH 33.3 H (25.6-32.2) pg MCHC 32.0 L (32.2-35.5) g/dl RDW Std Deviation 57.4 H (36.4-46.3) fL Plt Count 87 L (182-369) K/mm3 MPV 12.5 H (9.4-12.3) fl Neutrophils % (Manual) 72 H (40-60) % Band Neutrophils % 7 (0-10) % Lymphocytes % (Manual) 17 L (20-40) % Atypical Lymphs % 0 % Monocytes % (Manual) 4 (2-10) % Eosinophils % (Manual) 0 L (0.7-5.8) % Basophils % (Manual) 0 L (0.1-1.2) Platelet Estimate See note Anisocytosis 1+ slight Macrocytosis 1+ slight RBC Morph Comment Not Reportable PT 11.1 (8.0-13.0) SECONDS INR 1.02 Sodium 144 (136-145) mEq/L Potassium 3.2 L (3.5-5.1) mEq/L Chloride 105 (98-107) mEq/L Carbon Dioxide 30 (21-32) mEq/L Anion Gap 12.2 (5-15) BUN 15 (7-18) mg/dL Creatinine 1.3 H (0.55-1.02) mg/dL Est Cr Clr Drug Dosing 27.12 mL/min Estimated GFR (MDRD) 39 (>60) mL/min BUN/Creatinine Ratio 11.5 L (14-18) Glucose 141 H (83-115) mg/dL Calcium 9.1 (8.5-10.1) mg/dL Magnesium 1.7 L (1.8-2.4) mg/dl Total Bilirubin 0.6 (0.2-1.0) mg/dL AST 35 (15-37) U/L ALT 39 (14-59) U/L Alkaline Phosphatase 83 (46-116) U/L CK-MB (CK-2) 0.9 (0-3.6) ng/ml Troponin I < 0.017 (0.00-0.056) ng/mL C-Reactive Protein 0.5 (<1.0) mg/dL NT-Pro-B Natriuret Pep 1172 H (0-450) pg/mL Total Protein 7.6 (6.4-8.2) g/dl Albumin 3.6 (3.4-5.0) g/dl Globulin 4.0 gm/dL Albumin/Globulin Ratio 0.9 L (1-2) Result Diagrams: 06/23/17 06:22 06/23/17 06:22 EKG INTERPRETATION EKG Date: 06/22/17 Time: 12:55 Rhythm: A-Fib Rate (Beats/Min): 143 [place]: LAD-Left [place] Deviation QT: Normal *Q Meaningful Use (ADM) - VTE *Q VTE Criteria *Q: - Stroke *Q Stroke Criteria *Q: - AMI *Q AMI Criteria *Q: Problem List Initiated/Reviewed/Updated: Yes Orders Last 24hrs: Active Orders 24 hr Category Date Time Status EKG Documentation Completion [RC] STAT Care 06/22/17 12:51 Inactive EKG Documentation Completion [RC] STAT Care 06/22/17 12:56 Active Oxygen Therapy [RC] ASDIRECTED Care 06/22/17 12:57 Active Peripheral IV Care [RC] . DIRECTED Care 06/22/17 12:57 Active Chest 1V Frontal [CR] Stat Exams 06/22/17 12:56 Taken URINALYSIS W/MICROSCOPIC [UA W/MICROSCOPIC] [URIN] Stat Lab 06/22/17 15:20 Ordered Diltiazem 125 mg Med 06/22/17 13:00 Active Sodium Chloride 0.9% [Normal Saline] 100 ml IV ASDIRECTED Sodium Chloride 0.9% [Saline Flush] Med 06/22/17 12:57 Active 10 ml FLUSH ASDIRECTED PRN Peripheral IV Insertion Adult [OM.PC] Stat Oth 06/22/17 12:57 Ordered Medication Orders Diltiazem HCl 125 mg/ Sodium (Chloride) 125 mls @ 10 mls/hr IV ASDIRECTED ELVIN PRN Reason: 10 MG/HR Last Admin: 06/22/17 13:20 Dose: 10 mg/hr, 10 mls/hr Sodium Chloride (Saline Flush) 10 ml FLUSH ASDIRECTED PRN PRN Reason: Keep Vein Open Last Admin: 06/22/17 13:20 Dose: 10 ml Assessment/Plan Comment:: Assessment/Plan: Acute: A-Fib with RVR - HR as high as 160s - She does not drink alcohol or smoke cigarettes - She used to be on cardizem but now switched to Metoprolol 100 mg po BID 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 - She is on eliquis for stroke prophylaxis - Thyroid panel - Titrate to wean off cardizem drip and resume home Metoprolol regimen - If no response to BB, will call her greenhouse superintendent in am for further input Elevated Pro-BNP Level - ProBNP 1172 - She carries no hx/o HF - Unsure if she ever had 2D echo done in the past - This is likely 2/2 uncontrolled HR as above - 2D echo to r/o HF Mild E-lytes Abnormality - K 3.2 and Mg 1.7 - Will replete - Subsequent levels for pharmacy to replete and monitor Chronic: Severe hearing impairment Impaired vision Hypertension Hyperlipidemia CAD/NH status post stents History of cholelithiasis Ulcerative colitis Urinary incontinence Osteoarthritis Myasthenia gravis Plan: Admit to ICU Resume Home Meds Routine AM Labs PT/OT consult SW/CM for d/c planning Additional orders as above Code status: 1
[2017-06-22] MEDS ORDERED: Acetaminophen/HYDROcodone 325-5 MG Tab PO PRN (15:48)
[2017-06-22] MEDS ORDERED: Acetaminophen 325 MG Tab PO PRN (15:48)
[2017-06-22] MEDS ORDERED: Albuterol/Ipratropium 3.0-0.5 MG/3 ML Neb Soln NEB PRN (15:48)
[2017-06-22] MEDS ORDERED: HYDROmorphone 1 MG/ML Syringe IVPUSH PRN (15:48)
[2017-06-22] MEDS ORDERED: LORazepam 2 MG/ML MDV IV PRN (15:48)
[2017-06-22] MEDS ORDERED: Promethazine 12.5 MG in Sodium Chloride 0.9% 50 ML IV PRN (15:48)
[2017-06-22] MEDS ORDERED: Docusate Sodium 100 MG Cap PO PRN (15:48)
[2017-06-22] MEDS ORDERED: Polyethylene Glycol 3350 Powder 17 GM Packet PO PRN (15:48)
[2017-06-22] MEDS ORDERED: Ondansetron 4 MG/2 ML SDV IV PRN (15:48)
[2017-06-22] MEDS ORDERED: Bisacodyl 5 MG Tab PO PRN (15:48)
[2017-06-22] MEDS ORDERED: hydrALAZINE 20 MG/ML SDV IVPUSH PRN (15:53)
[2017-06-22] MEDS: Furosemide 20 MG Tab PO SCH (16:32)
[2017-06-22] MEDS: Calcium Carbonate/Vitamin D3 1500 MG-200 Units Tab PO SCH (17:15)
[2017-06-22] MEDS: Hyoscyamine 0.125 MG Tab.SL SL SCH ×2 (17:21→20:38)
[2017-06-22] MEDS ORDERED: FLU Vacc TS 2017-18 (65yr UP)/PF 180 MCG/0.5 ML Syringe IM ONE (17:30)
[2017-06-22] MEDS: Apixaban 5 MG Tab PO SCH (20:38)
[2017-06-22] MEDS: Metoprolol Tartrate 50 MG Tab PO SCH (20:38)
[2017-06-22] MEDS: sulfaSALAzine 500 MG Tab PO SCH (20:38)
[2017-06-22] MEDS ORDERED: Magnesium Sulfate/Water 2 GM in Premix Bag 1 BAG IV ONE (22:35)
[2017-06-22] MEDS: Potassium Chloride 10 MEQ in Premix Bag 1 BAG IV SCH (23:19)
[2017-06-23] MEDS: Potassium Chloride 10 MEQ in Premix Bag 1 BAG IV SCH (00:23)
[2017-06-23] MEDS: Temazepam 7.5 MG Cap PO PRN ×2 (01:28→20:24)
[2017-06-23] MEDS: Pantoprazole 40 MG Tab.CR PO SCH (06:20)
[2017-06-23] MEDS: Calcium Carbonate/Vitamin D3 1500 MG-200 Units Tab PO SCH ×2 (06:20→16:45)
[2017-06-23] MEDS: Furosemide 40 MG Tab PO SCH (07:45)
[2017-06-23] MEDS: Potassium Chloride 20 MEQ Tab.ER PO SCH ×2 (07:45→11:50)
[2017-06-23] MEDS: sulfaSALAzine 500 MG Tab PO SCH ×2 (09:04→20:24)
[2017-06-23] MEDS: predniSONE 5 MG Tab PO SCH (09:05)
[2017-06-23] MEDS: Apixaban 5 MG Tab PO SCH ×2 (09:07→20:24)
[2017-06-23] MEDS: Rosuvastatin 10 MG Tab PO SCH (09:08)
[2017-06-23] MEDS: Hyoscyamine 0.125 MG Tab.SL SL SCH ×3 (09:08→20:25)
[2017-06-23] MEDS: Metoprolol Tartrate 50 MG Tab PO SCH ×2 (09:09→20:21)
[2017-06-23] MEDS: Aspirin 81 MG Tab.EC PO SCH (09:09)
[2017-06-23] MEDS: Losartan 100 MG Tab PO SCH (09:10)
--- NOTE | 2017-06-23 10:31 | CR ---
Chest: Frontal view of the chest was obtained. Comparison: Previous chest x-ray of 04/07/17. Heart is slightly enlarged. Mild increased density noted within both lung bases. Lungs otherwise are clear. Pulmonary vessels are prominent which appear fairly stable. Bony structures are grossly intact. Impression: 1. Mild increased density within both lung bases most likely representing mild atelectasis. 2. Cardiomegaly with mild chronic pulmonary vascular congestion. Diagnostic code #3
--- NOTE | 2017-06-23 12:04 | PCM.PN ---
- General Info Date of Service: 06/23/17 Admission Dx/Problem (Free Text): Atrial Fibrillation with RVR Subjective Update: Follow Up Functional Status: Reports: Pain Controlled, Tolerating Diet, Urinating. Denies : New Symptoms - Review of Systems General: Denies: Fever, Weakness, Fatigue, Malaise, Chills HEENT: Reports: No Symptoms Pulmonary: Denies: Shortness of Breath Cardiovascular: Denies: Chest Pain, Palpitations, Dyspnea on Exertion, Edema, Lightheadedness Gastrointestinal: Denies: Abdominal Pain, Nausea, Vomiting Genitourinary: Reports: No Symptoms Musculoskeletal: Reports: No Symptoms Skin: Reports: No Symptoms Neurological: Reports: Gait Disturbance. Denies: Confusion, Difficulty Walking , Weakness Psychiatric: Denies: Depression, Anxiety, Agitation, Hallucinations, Suicidal Ideation Systems Review Comment:: No overnight or acute issues. Her heart rate is now much more controlled. She feels pretty good. She denies any acute issues - Patient Data Vitals - Most Recent: Last Vital Signs Temp 36.3 C 06/23/17 11:00 Pulse 63 06/23/17 11:00 Resp 19 06/23/17 11:00 BP 111/63 06/23/17 11:00 Pulse Ox 92 L 06/23/17 11:00 Weight - Most Recent: 78.517 kg I&O - Last 24 Hours: Intake & Output 06/22/17 06/23/17 06/23/17 22:59 06:59 14:59 Intake Total 180 747 300 Output Total 1150 200 300 Balance -970 547 0 Lab Results Last 24 Hours: Laboratory Results - last 24 hr 06/23/17 06/23/17 Range/Units 06:22 06:22 WBC 7.33 (3.98-10.04) K/mm3 RBC 4.05 (3.98-5.22) M/mm3 Hgb 13.8 (11.2-15.7) gm/L Hct 41.9 (34.1-44.9) % MCV 103.5 H (79.4-94.8) fl MCH 34.1 H (25.6-32.2) pg MCHC 32.9 (32.2-35.5) g/dl RDW Std Deviation 55.3 H (36.4-46.3) fL Plt Count 72 L (182-369) K/mm3 MPV 11.5 (9.4-12.3) fl Neut % (Auto) 66.6 (34.0-71.1) % Lymph % (Auto) 23.5 (19.3-51.7) % [place] % (Auto) 8.9 (4.7-12.5) % Eos % (Auto) 0.8 (0.7-5.8) Baso % (Auto) 0.1 (0.1-1.2) % Neut # (Auto) 4.88 (1.56-6.13) K/mm3 Lymph # (Auto) 1.72 (1.18-3.74) K/mm3 [place] # (Auto) 0.65 H (0.24-0.36) K/mm3 Eos # (Auto) 0.06 (0.04-0.36) K/mm3 Baso # (Auto) 0.01 (0.01-0.08) K/mm3 Manual Slide Review Abnormal smear Sodium 145 (136-145) mEq/L Potassium 3.3 L (3.5-5.1) mEq/L Chloride 107 (98-107) mEq/L Carbon Dioxide 29 (21-32) mEq/L Anion Gap 12.3 (5-15) BUN 14 (7-18) mg/dL Creatinine 1.0 (0.55-1.02) mg/dL Est Cr Clr Drug Dosing 35.26 mL/min Estimated GFR (MDRD) 53 (>60) mL/min BUN/Creatinine Ratio 14.0 (14-18) Glucose 99 (83-115) mg/dL Calcium 9.0 (8.5-10.1) mg/dL Magnesium 2.1 (1.8-2.4) mg/dl NT-Pro-B Natriuret Pep 1746 H (0-450) pg/mL Med Orders - Current: Current Medications Acetaminophen (Tylenol) 650 mg PO Q4H PRN PRN Reason: Pain (Mild 1-3)/fever Hydrocodone Bitart/Acetaminophen ([place] 325-5 Mg) 1 tab PO Q4H PRN PRN Reason: Pain (moderate 4-6) Albuterol/Ipratropium (Duoneb 3.0-0.5 Mg/3 Ml) 3 ml NEB Q4H PRN PRN Reason: Shortness Of Breath/wheezing Apixaban (Eliquis) 2.5 mg PO BID [facility] Last Admin: 06/23/17 09:07 Dose: 2.5 mg Aspirin (Halfprin) 81 mg PO DAILY [facility] Last Admin: 06/23/17 09:09 Dose: 81 mg Bisacodyl (Dulcolax) 5 mg PO DAILY PRN PRN Reason: Constipation Calcium Carbonate (Calcium Carbonate/Vitamin D 1500 Mg-200 Unit) 1 tab PO BIDMEALS [facility] Last Admin: 06/23/17 06:20 Dose: 1 tab Docusate Sodium (Colace) 100 mg PO BID PRN PRN Reason: Constipation Furosemide (Lasix) 20 mg PO DAILY@1400 [facility] Last Admin: 06/22/17 16:32 Dose: Not Given Furosemide (Lasix) 40 mg PO QAM [facility] Last Admin: 06/23/17 07:45 Dose: 40 mg Hydralazine HCl (Apresoline) 20 mg IVPUSH Q4H PRN PRN Reason: Hypertension Hydromorphone HCl (Dilaudid) 0.25 mg IVPUSH Q2H PRN PRN Reason: Pain (severe 7-10) Hyoscyamine (Hyomax-Sl) 0.125 mg SL TID [facility] Last Admin: 06/23/17 09:08 Dose: 0.125 mg Diltiazem HCl 125 mg/ Sodium (Chloride) 125 mls @ 10 mls/hr IV ASDIRECTED [facility] PRN Reason: 10 MG/HR Last Infusion: 06/23/17 11:44 Dose: 2.5 mg/hr, 2.5 mls/hr Promethazine HCl 12.5 mg/ (Sodium Chloride) 50.5 mls @ 100 mls/hr IV Q6H PRN PRN Reason: Nausea/Vomiting Lorazepam (Ativan) 0.25 mg IV Q6H PRN PRN Reason: Anxiety Losartan Potassium (Cozaar) 100 mg PO DAILY [facility] Last Admin: 06/23/17 09:10 Dose: 100 mg Magnesium Sulfate (Pharmacy To Dose - Magnesium Replacement) 1 dose .XX ASDIRECTED [facility] Metoprolol Tartrate (Lopressor) 100 mg PO BID [facility] Last Admin: 06/23/17 09:09 Dose: 100 mg Metoprolol Tartrate (Lopressor) 5 mg IVPUSH Q4H PRN PRN Reason: Tachycardia Ondansetron HCl (Zofran) 4 mg IV Q6H PRN PRN Reason: Nausea/Vomiting Pantoprazole Sodium (Protonix) 40 mg PO ACBREAKFAST [facility] Last Admin: 06/23/17 06:20 Dose: 40 mg Polyethylene Glycol (Miralax) 17 gm PO DAILY PRN PRN Reason: Constipation Potassium Chloride (Pharmacy To Dose - Potassium Replacement) 1 dose .XX ASDIRECTED [facility] Prednisone (Prednisone) 12.5 mg PO DAILY [facility] Last Admin: 06/23/17 09:05 Dose: 12.5 mg Pyridostigmine [place] (Mestinon) 60 mg PO TID [facility] Last Admin: 06/23/17 09:15 Dose: 60 mg Rosuvastatin Calcium (Crestor) 10 mg PO DAILY [facility] Last Admin: 06/23/17 09:08 Dose: 10 mg Senna/Docusate Sodium (Senna Plus) 1 tab PO BID PRN PRN Reason: Constipation Sodium Chloride (Saline Flush) 10 ml FLUSH ASDIRECTED PRN PRN Reason: Keep Vein Open Last Admin: 06/22/17 13:20 Dose: 10 ml Sulfasalazine (Sulfasalazine) 500 mg PO BID [facility] Last Admin: 06/23/17 09:04 Dose: 500 mg Temazepam (Restoril) 7.5 mg PO BEDTIME PRN PRN Reason: Sleep Last Admin: 06/23/17 01:28 Dose: 7.5 mg Discontinued Medications Diltiazem HCl (Diltiazem) 10 mg IVPUSH ONETIME ONE Stop: 06/22/17 12:58 Last Admin: 06/22/17 13:19 Dose: 10 mg Diltiazem HCl (Diltiazem) 10 mg IVPUSH ONETIME ONE Stop: 06/22/17 13:31 Last Admin: 06/22/17 13:47 Dose: 10 mg Furosemide (Lasix) 40 mg IVPUSH NOW ONE Stop: 06/22/17 12:59 Last Admin: 06/22/17 13:19 Dose: 40 mg Potassium Chloride 10 meq/ (Premix) 100 mls @ 100 mls/hr IV Q1H [facility] Stop: 06/23/17 00:44 Last Admin: 06/23/17 00:23 Dose: 100 mls/hr Magnesium Sulfate 2 gm/ Premix 50 mls @ 25 mls/hr IV ONETIME ONE Stop: 06/23/17 00:34 Last Admin: 06/22/17 23:21 Dose: 25 mls/hr Potassium Chloride (Klor-Con M20) 40 meq PO Q4H ELVIN Stop: 06/23/17 11:31 Last Admin: 06/23/17 11:50 Dose: 40 meq - Exam General: Alert, Oriented, Cooperative, No Acute Distress, Other (Obese) HEENT: Pupils Equal, Pupils Reactive, EOMI, Mucous Membr. Moist/[place], Other ( Very hard of hearing) Neck: Supple, Trachea Midline, No JVD, No Thyromegaly Lungs: Normal Respiratory Effort, Decreased Breath Sounds Cardiovascular: Irregular Rhythm GI/Abdominal Exam: Normal Bowel Sounds, Soft, Non-Tender, No Organomegaly, No Distention, No Abnormal Bruit, No Mass (Female) Exam: Deferred Back Exam: Normal Inspection, Decreased Range of Motion Extremities: Normal Inspection, Normal Range of Motion, Non-Tender, No Pedal Edema, Normal Capillary Refill Peripheral Pulses: 2+: Dorsalis Pedis (L), Dorsalis Pedis (R) Skin: Warm, Dry, Intact Neurological: No New Focal Deficit Psy/Mental Status: Alert, Normal Affect, Normal Mood - Problem List Review Problem List Initiated/Reviewed/Updated: Yes - My Orders Last 24 Hours: My Active Orders 06/22/17 15:48 Oxygen Therapy [RC] PRN Up With Assistance [RC] ASDIRECTED Up ad Mally [RC] ASDIRECTED VTE/DVT Education [RC] PER UNIT ROUTINE Vital Signs [RC] Q1H Acetaminophen [Tylenol] 650 mg PO Q4H PRN Acetaminophen/HYDROcodone [[place] 325-5 MG] 1 tab PO Q4H PRN Albuterol/Ipratropium [DuoNeb 3.0-0.5 MG/3 ML] 3 ml NEB Q4H PRN Bisacodyl [Dulcolax] 5 mg PO DAILY PRN Docusate Sodium [Colace] 100 mg PO BID PRN Docusate Sodium/Sennosides [Senna Plus] 1 tab PO BID PRN HYDROmorphone [Dilaudid] 0.25 mg IVPUSH Q2H PRN LORazepam [Ativan] 0.25 mg IV Q6H PRN Ondansetron [Zofran] 4 mg IV Q6H PRN Polyethylene Glycol 3350 [MiraLAX] 17 gm PO DAILY PRN Promethazine [Phenergan] 12.5 mg Sodium Chloride 0.9% [Normal Saline] 50 ml IV Q6H Temazepam [Restoril] 7.5 mg PO BEDTIME PRN Resuscitation Status Routine 06/22/17 15:50 RT Aerosol Therapy [RC] .PRN Consult to Case Management [CONS] Routine Consult to Digital Hardware Design Engineer [CONS] Routine Consult to Spiritual Care [CONS] Routine OT Evaluation and Treatment [CONS] Routine PT Evaluation and Treatment [CONS] Routine 06/22/17 15:53 Metoprolol Tartrate [Lopressor] 5 mg IVPUSH Q4H PRN hydrALAZINE [Apresoline] 20 mg IVPUSH Q4H PRN 06/22/17 16:00 Furosemide [Lasix] 20 mg PO DAILY@1400 Magnesium Rep Pharmacy to Dose [Pharmacy to Dose - Magnesium Replacement] 1 dose .XX ASDIRECTED Potassium Rep Pharmacy to Dose [Pharmacy to Dose - Potassium Replacement] 1 dose .XX ASDIRECTED 06/22/17 16:04 Hyoscyamine [Hyomax-SL] 0.125 mg SL TID 06/22/17 17:00 Calcium Carbonate/Vitamin D3 [Calcium Carbonate/Vitamin D 1500 MG-200 Unit] 1 tab PO BIDMEALS 06/22/17 21:00 Apixaban [Eliquis] 2.5 mg PO BID Metoprolol Tartrate [Lopressor] 100 mg PO BID Pyridostigmine [Mestinon] 60 mg PO TID sulfaSALAzine 500 mg PO BID 06/22/17 Dinner Heart Healthy Diet [DIET] 06/23/17 06:00 Pantoprazole [ProTONIX] 40 mg PO ACBREAKFAST 06/23/17 08:00 Furosemide [Lasix] 40 mg PO QAM 06/23/17 09:00 Aspirin [Halfprin] 81 mg PO DAILY Losartan [Cozaar] 100 mg PO DAILY Rosuvastatin [Crestor] 10 mg PO DAILY predniSONE 12.5 mg PO DAILY 06/23/17 16:00 Echo Comp wo Cont [US] Urgent 06/24/17 05:11 BASIC METABOLIC PANEL,BMP [CHEM] AM MAGNESIUM [CHEM] AM 06/25/17 05:11 BASIC METABOLIC PANEL,BMP [CHEM] AM MAGNESIUM [CHEM] AM 06/26/17 05:11 MAGNESIUM [CHEM] AM - Plan Plan:: Assessment/Plan: Acute: A-Fib with RVR - HR is now controlled - She does not drink alcohol or smoke cigarettes - She used to be on cardizem but now switched to Metoprolol 100 mg po BID 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 Choi - She is on eliquis for stroke prophylaxis - Thyroid panel: normal - Titrate to wean off cardizem drip - She is responding well to treatment Elevated Pro-BNP Level - ProBNP 1172 - She carries no hx/o HF - Unsure if she ever had 2D echo done in the past - This is likely 2/2 uncontrolled HR as above - 2D echo: report shows benign result with an EF of 55% Mild E-lytes Abnormality - K 3.2--> 3.3 and Mg 1.7---> 2.1 - Pharmacy to replete and monitor Chronic: Severe hearing impairment Impaired vision Hypertension Hyperlipidemia CAD/VT status post stents History of cholelithiasis Ulcerative colitis Urinary incontinence Osteoarthritis Myasthenia gravis Plan: She is clinically stable Continue to titrate Cardizem to wean off Routine AM Labs SW/CM for d/c planning Additional orders as above Code status: 1
[2017-06-23] MEDS: Furosemide 20 MG Tab PO SCH (13:02)
[2017-06-23] MEDS ORDERED: Bumetanide 1 MG/4 ML MDV IVPUSH ONE (16:24)
[2017-06-24] MEDS: Calcium Carbonate/Vitamin D3 1500 MG-200 Units Tab PO SCH ×2 (06:00→17:28)
[2017-06-24] MEDS: Pantoprazole 40 MG Tab.CR PO SCH (06:01)
[2017-06-24] MEDS: Metoprolol Tartrate 50 MG Tab PO SCH ×3 (07:19→20:26)
[2017-06-24] MEDS: Metoprolol Tartrate 5 MG/5 ML SDV IVPUSH PRN ×2 (07:24→14:17)
[2017-06-24] MEDS ORDERED: Diltiazem 25 MG/5 ML SDV IVPUSH ONE ×2 (07:58→11:08)
--- NOTE | 2017-06-24 08:05 | PCM.PN ---
- General Info Date of Service: 06/24/17 Admission Dx/Problem (Free Text): Atrial Fibrillation with RVR Subjective Update: Follow Up Functional Status: Reports: Pain Controlled, Tolerating Diet, Urinating. Denies : New Symptoms - Review of Systems General: Reports: Weakness, Malaise. Denies: Fever, Chills HEENT: Reports: No Symptoms Pulmonary: Denies: Shortness of Breath Cardiovascular: Reports: Palpitations. Denies: Chest Pain, Dyspnea on Exertion , Lightheadedness Gastrointestinal: Denies: Abdominal Pain, Nausea, Vomiting Genitourinary: Reports: No Symptoms Musculoskeletal: Reports: No Symptoms Skin: Denies: Cyanosis, Pruritis, Rash Neurological: Reports: Difficulty Walking, Weakness, Gait Disturbance. Denies: Confusion Psychiatric: Denies: Confusion, Depression, Anxiety, Agitation, Hallucinations Systems Review Comment:: She had an uneventful night. However this morning she a a sudden spike in her HR in the 140s-150s. She does not feel good and she feels her heart beating fast. She denies any chest pain or shortness of breath. No headaches or vision changes. - Patient Data Vitals - Most Recent: Last Vital Signs Temp 36.0 C 06/24/17 03:00 Pulse 141 H 06/24/17 07:24 Resp 15 06/24/17 03:00 BP 144/77 H 06/24/17 07:24 Pulse Ox 93 L 06/24/17 03:00 Weight - Most Recent: 76.566 kg I&O - Last 24 Hours: Intake & Output 06/23/17 06/24/17 06/24/17 22:59 06:59 14:59 Intake Total 397 450 Output Total 700 300 Balance -303 150 Lab Results Last 24 Hours: Laboratory Results - last 24 hr 06/23/17 06/24/17 Range/Units 06:22 06:15 Sodium 144 (136-145) mEq/L Potassium 3.8 (3.5-5.1) mEq/L Chloride 106 (98-107) mEq/L Carbon Dioxide 30 (21-32) mEq/L Anion Gap 11.8 (5-15) BUN 21 H (7-18) mg/dL Creatinine 1.2 H (0.55-1.02) mg/dL Est Cr Clr Drug Dosing 29.38 mL/min Estimated GFR (MDRD) 43 (>60) mL/min BUN/Creatinine Ratio 17.5 (14-18) Glucose 101 (83-115) mg/dL Calcium 9.2 (8.5-10.1) mg/dL Magnesium 2.0 (1.8-2.4) mg/dl NT-Pro-B Natriuret Pep 1746 H (0-450) pg/mL Med Orders - Current: Current Medications Acetaminophen (Tylenol) 650 mg PO Q4H PRN PRN Reason: Pain (Mild 1-3)/fever Hydrocodone Bitart/Acetaminophen ([place] 325-5 Mg) 1 tab PO Q4H PRN PRN Reason: Pain (moderate 4-6) Albuterol/Ipratropium (Duoneb 3.0-0.5 Mg/3 Ml) 3 ml NEB Q4H PRN PRN Reason: Shortness Of Breath/wheezing Apixaban (Eliquis) 2.5 mg PO BID [facility] Last Admin: 06/23/17 20:24 Dose: 2.5 mg Aspirin (Halfprin) 81 mg PO DAILY [facility] Last Admin: 06/23/17 09:09 Dose: 81 mg Bisacodyl (Dulcolax) 5 mg PO DAILY PRN PRN Reason: Constipation Calcium Carbonate (Calcium Carbonate/Vitamin D 1500 Mg-200 Unit) 1 tab PO BIDMEALS [facility] Last Admin: 06/24/17 06:00 Dose: 1 tab Diltiazem HCl (Diltiazem) 10 mg IVPUSH ONETIME ONE Stop: 06/24/17 07:59 Docusate Sodium (Colace) 100 mg PO BID PRN PRN Reason: Constipation Furosemide (Lasix) 20 mg PO DAILY@1400 [facility] Last Admin: 06/23/17 13:02 Dose: 20 mg Furosemide (Lasix) 40 mg PO QAM [facility] Last Admin: 06/23/17 07:45 Dose: 40 mg Hydralazine HCl (Apresoline) 20 mg IVPUSH Q4H PRN PRN Reason: Hypertension Last Admin: 06/24/17 06:01 Dose: 20 mg Hydromorphone HCl (Dilaudid) 0.25 mg IVPUSH Q2H PRN PRN Reason: Pain (severe 7-10) Hyoscyamine (Hyomax-Sl) 0.125 mg SL TID [facility] Last Admin: 06/23/17 20:25 Dose: 0.125 mg Promethazine HCl 12.5 mg/ (Sodium Chloride) 50.5 mls @ 100 mls/hr IV Q6H PRN PRN Reason: Nausea/Vomiting Lorazepam (Ativan) 0.25 mg IV Q6H PRN PRN Reason: Anxiety Losartan Potassium (Cozaar) 100 mg PO DAILY [facility] Last Admin: 06/23/17 09:10 Dose: 100 mg Magnesium Sulfate (Pharmacy To Dose - Magnesium Replacement) 1 dose .XX ASDIRECTED [facility] Metoprolol Tartrate (Lopressor) 100 mg PO BID [facility] Last Admin: 06/24/17 07:19 Dose: 100 mg Metoprolol Tartrate (Lopressor) 5 mg IVPUSH Q4H PRN PRN Reason: Tachycardia Last Admin: 06/24/17 07:24 Dose: 5 mg Ondansetron HCl (Zofran) 4 mg IV Q6H PRN PRN Reason: Nausea/Vomiting Pantoprazole Sodium (Protonix) 40 mg PO ACBREAKFAST [facility] Last Admin: 06/24/17 06:01 Dose: 40 mg Polyethylene Glycol (Miralax) 17 gm PO DAILY PRN PRN Reason: Constipation Potassium Chloride (Pharmacy To Dose - Potassium Replacement) 1 dose .XX ASDIRECTED [facility] Prednisone (Prednisone) 12.5 mg PO DAILY [facility] Last Admin: 06/23/17 09:05 Dose: 12.5 mg Pyridostigmine [place] (Mestinon) 60 mg PO TID [facility] Last Admin: 06/23/17 20:24 Dose: 60 mg Rosuvastatin Calcium (Crestor) 10 mg PO DAILY [facility] Last Admin: 06/23/17 09:08 Dose: 10 mg Senna/Docusate Sodium (Senna Plus) 1 tab PO BID PRN PRN Reason: Constipation Sodium Chloride (Saline Flush) 10 ml FLUSH ASDIRECTED PRN PRN Reason: Keep Vein Open Last Admin: 06/22/17 13:20 Dose: 10 ml Sulfasalazine (Sulfasalazine) 500 mg PO BID [facility] Last Admin: 06/23/17 20:24 Dose: 500 mg Temazepam (Restoril) 7.5 mg PO BEDTIME PRN PRN Reason: Sleep Last Admin: 06/23/17 20:24 Dose: 7.5 mg Discontinued Medications Bumetanide (Bumex) 0.5 mg IVPUSH ONETIME ONE Stop: 06/23/17 16:25 Last Admin: 06/23/17 16:45 Dose: 0.5 mg Diltiazem HCl (Diltiazem) 10 mg IVPUSH ONETIME ONE Stop: 06/22/17 12:58 Last Admin: 06/22/17 13:19 Dose: 10 mg Diltiazem HCl (Diltiazem) 10 mg IVPUSH ONETIME ONE Stop: 06/22/17 13:31 Last Admin: 06/22/17 13:47 Dose: 10 mg Furosemide (Lasix) 40 mg IVPUSH NOW ONE Stop: 06/22/17 12:59 Last Admin: 06/22/17 13:19 Dose: 40 mg Diltiazem HCl 125 mg/ Sodium (Chloride) 125 mls @ 10 mls/hr IV ASDIRECTED [facility] PRN Reason: 10 MG/HR Last Infusion: 06/23/17 11:44 Dose: 2.5 mg/hr, 2.5 mls/hr Potassium Chloride 10 meq/ (Premix) 100 mls @ 100 mls/hr IV Q1H [facility] Stop: 06/23/17 00:44 Last Admin: 06/23/17 00:23 Dose: 100 mls/hr Magnesium Sulfate 2 gm/ Premix 50 mls @ 25 mls/hr IV ONETIME ONE Stop: 06/23/17 00:34 Last Admin: 06/22/17 23:21 Dose: 25 mls/hr Potassium Chloride (Klor-Con M20) 40 meq PO Q4H [facility] Stop: 06/23/17 11:31 Last Admin: 06/23/17 11:50 Dose: 40 meq - Exam General: Alert, Oriented, Cooperative, No Acute Distress HEENT: Pupils Equal, Pupils Reactive, EOMI, Mucous Membr. Moist/[place], Other ( Very Hard of Hearing) Neck: Supple, Trachea Midline, No JVD, No Thyromegaly Lungs: Normal Respiratory Effort, Decreased Breath Sounds Cardiovascular: Irregular Rhythm, Other (Irregular Rate) GI/Abdominal Exam: Normal Bowel Sounds, Soft, Non-Tender, No Organomegaly, No Distention, No Abnormal Bruit, No Mass (Female) Exam: Deferred Back Exam: Normal Inspection, Decreased Range of Motion Extremities: Normal Inspection, Normal Range of Motion, Non-Tender, No Pedal Edema, Normal Capillary Refill Peripheral Pulses: 2+: Posterior Tibial (L), Posterior Tibial (R), Dorsalis Pedis (L), Dorsalis Pedis (R) Skin: Warm, Dry, Intact Neurological: No New Focal Deficit Psy/Mental Status: Alert, Normal Mood, Anxious - Problem List Review Problem List Initiated/Reviewed/Updated: Yes - My Orders Last 24 Hours: My Active Orders 06/23/17 08:00 Furosemide [Lasix] 40 mg PO QAM 06/23/17 09:00 Aspirin [Halfprin] 81 mg PO DAILY Losartan [Cozaar] 100 mg PO DAILY Rosuvastatin [Crestor] 10 mg PO DAILY predniSONE 12.5 mg PO DAILY 06/23/17 17:20 Patient Status [ADT] Routine 06/24/17 07:58 Diltiazem 10 mg IVPUSH ONETIME ONE 06/25/17 05:11 BASIC METABOLIC PANEL,BMP [CHEM] AM MAGNESIUM [CHEM] AM 06/26/17 05:11 MAGNESIUM [CHEM] AM - Plan Plan:: Assessment/Plan: Acute: A-Fib with Recurrent RVR - HR spi9ke back to 140s-150s - She does not drink alcohol or smoke cigarettes - She is responding well to metoprolol 100 mg po BID up until this morning Elevated Pro-BNP Level - ProBNP 1172 ---> 1746 - She carries no hx/o HF - Unsure if she ever had 2D echo done in the past - This is likely 2/2 uncontrolled HR as above - 2D echo: report shows benign result with an EF of 55% Resolved: Mild E-lytes Abnormality - K 3.2--> 3.3 --> 3.8 - Mg 1.7---> 2.1 - Pharmacy to replete and monitor Chronic: Severe hearing impairment Impaired vision Hypertension Hyperlipidemia CAD/FL status post stents History of cholelithiasis Ulcerative colitis Urinary incontinence Osteoarthritis Myasthenia gravis Plan: She does not look good clinically Give PRN IV Lopressor along with Oral Metoprolol dose Will call her eye care professional for further input If no response to treatment may re-start Cardizem drip Routine AM Labs SW/CM for d/c planning Additional orders as above Code status: 1
[2017-06-24] MEDS ORDERED: HYDROmorphone 0.5 MG/0.5 ML Syringe IVPUSH PRN (08:07)
[2017-06-24] MEDS: Furosemide 40 MG Tab PO SCH (08:25)
[2017-06-24] MEDS: Losartan 100 MG Tab PO SCH (08:25)
[2017-06-24] MEDS: Apixaban 5 MG Tab PO SCH ×2 (08:27→20:25)
[2017-06-24] MEDS: Hyoscyamine 0.125 MG Tab.SL SL SCH ×3 (08:28→20:26)
[2017-06-24] MEDS: Aspirin 81 MG Tab.EC PO SCH (08:28)
[2017-06-24] MEDS: Rosuvastatin 10 MG Tab PO SCH (08:29)
[2017-06-24] MEDS: sulfaSALAzine 500 MG Tab PO SCH ×3 (08:29→20:32)
[2017-06-24] MEDS: predniSONE 5 MG Tab PO SCH (08:30)
[2017-06-24] MEDS: Digoxin 500 MCG/2 ML Amp IVPUSH SCH ×3 (10:07→20:33)
[2017-06-24] MEDS: Diltiazem 125 MG in Sodium Chloride 0.9% 100 ML IV SCH ×2 (15:27→19:31)
[2017-06-24] MEDS ORDERED: Morphine 2 MG/ML Syringe IVPUSH ONE (15:33)
--- NOTE | 2017-06-24 20:26 | PCM.SN ---
- Free Text/Narrative Note: Attempted to reach Dr. Choi but w/o any success. Spoke to the on-call [employer] Service Supervisor in [place], . After discussing case with him, he recommends to cut down on her diuretics, keep BB dose and start her on digoxin for additional rate control. Info relayed to patient and family present at bedside.
[2017-06-25] MEDS: Calcium Carbonate/Vitamin D3 1500 MG-200 Units Tab PO SCH ×2 (06:47→16:33)
[2017-06-25] MEDS: Pantoprazole 40 MG Tab.CR PO SCH (06:47)
--- NOTE | 2017-06-25 07:43 | PCM.PN ---
- General Info Date of Service: 06/25/17 Admission Dx/Problem (Free Text): Atrial Fibrillation with RVR Subjective Update: Follow Up Functional Status: Reports: Pain Controlled, Tolerating Diet, Ambulating, Urinating. Denies: New Symptoms - Review of Systems General: Denies: Fever, Weakness, Fatigue, Malaise, Chills HEENT: Reports: No Symptoms Pulmonary: Denies: Shortness of Breath, Pleuritic Chest Pain, Cough Cardiovascular: Denies: Chest Pain, Palpitations, Dyspnea on Exertion, Edema, Lightheadedness Gastrointestinal: Denies: Abdominal Pain, Nausea, Vomiting Genitourinary: Reports: No Symptoms Musculoskeletal: Reports: No Symptoms Skin: Reports: Bruising. Denies: Cyanosis Neurological: Reports: Gait Disturbance. Denies: Confusion, Dizziness, Difficulty Walking, Weakness Psychiatric: Denies: Depression, Anxiety, Agitation, Cravings, Hallucinations Systems Review Comment:: No overnight or acute issues. She feels pretty good this am. She has ambulated this morning without much spike in her hear rates. She was taken off cardizem drip early this morning. Her HR runs in the 80s-90s. her K is slightly low at 3.4. She has no new complaints. - Patient Data Vitals - Most Recent: Last Vital Signs Temp 36.2 C 06/25/17 04:00 Pulse 80 06/25/17 06:00 Resp 15 06/25/17 04:00 BP 136/72 06/25/17 06:00 Pulse Ox 95 06/25/17 04:00 Weight - Most Recent: 76.34 kg I&O - Last 24 Hours: Intake & Output 06/24/17 06/25/17 06/25/17 22:59 06:59 14:59 Intake Total 720 109 Output Total 700 400 Balance 20 -291 Lab Results Last 24 Hours: Laboratory Results - last 24 hr 06/24/17 06/24/17 06/25/17 Range/Units 15:52 19:48 05:25 Sodium 143 (136-145) mEq/L Potassium 3.4 L (3.5-5.1) mEq/L Chloride 106 (98-107) mEq/L Carbon Dioxide 27 (21-32) mEq/L Anion Gap 13.4 (5-15) BUN 18 (7-18) mg/dL Creatinine 1.1 H (0.55-1.02) mg/dL Est Cr Clr Drug Dosing 32.06 mL/min Estimated GFR (MDRD) 47 (>60) mL/min BUN/Creatinine Ratio 16.4 (14-18) Glucose 93 (83-115) mg/dL Calcium 9.3 (8.5-10.1) mg/dL Magnesium 1.8 (1.8-2.4) mg/dl Troponin I 0.034 (0.00-0.056) ng/mL Digoxin 1.3 (0.9-2.0) ng/mL Med Orders - Current: Current Medications Acetaminophen (Tylenol) 650 mg PO Q4H PRN PRN Reason: Pain (Mild 1-3)/fever Hydrocodone Bitart/Acetaminophen ([place] 325-5 Mg) 1 tab PO Q4H PRN PRN Reason: Pain (moderate 4-6) Albuterol/Ipratropium (Duoneb 3.0-0.5 Mg/3 Ml) 3 ml NEB Q4H PRN PRN Reason: Shortness Of Breath/wheezing Apixaban (Eliquis) 2.5 mg PO BID [facility] Last Admin: 06/24/17 20:25 Dose: 2.5 mg Aspirin (Halfprin) 81 mg PO DAILY [facility] Last Admin: 06/24/17 08:28 Dose: 81 mg Bisacodyl (Dulcolax) 5 mg PO DAILY PRN PRN Reason: Constipation Calcium Carbonate (Calcium Carbonate/Vitamin D 1500 Mg-200 Unit) 1 tab PO BIDMEALS [facility] Last Admin: 06/25/17 06:47 Dose: 1 tab Docusate Sodium (Colace) 100 mg PO BID PRN PRN Reason: Constipation Furosemide (Lasix) 40 mg PO QAM [facility] Last Admin: 06/24/17 08:25 Dose: 40 mg Hydralazine HCl (Apresoline) 20 mg IVPUSH Q4H PRN PRN Reason: Hypertension Last Admin: 06/24/17 06:01 Dose: 20 mg Hydromorphone HCl (Dilaudid) 0.25 mg IVPUSH Q2H PRN PRN Reason: Pain (severe 7-10) Hyoscyamine (Hyomax-Sl) 0.125 mg SL TID [facility] Last Admin: 06/24/17 20:26 Dose: 0.125 mg Promethazine HCl 12.5 mg/ (Sodium Chloride) 50.5 mls @ 100 mls/hr IV Q6H PRN PRN Reason: Nausea/Vomiting Diltiazem HCl 125 mg/ Sodium (Chloride) 125 mls @ 5 mls/hr IV TITRATE [facility]; 5 MG /HR PRN Reason: Protocol Last Titration: 06/25/17 02:20 Dose: 0 mg/hr, 0 mls/hr Lorazepam (Ativan) 0.25 mg IV Q6H PRN PRN Reason: Anxiety Losartan Potassium (Cozaar) 100 mg PO DAILY [facility] Last Admin: 06/24/17 08:25 Dose: 100 mg Magnesium Sulfate (Pharmacy To Dose - Magnesium Replacement) 1 dose .XX ASDIRECTED [facility] Metoprolol Tartrate (Lopressor) 100 mg PO BID [facility] Last Admin: 06/24/17 20:26 Dose: 100 mg Metoprolol Tartrate (Lopressor) 5 mg IVPUSH Q4H PRN PRN Reason: Tachycardia Last Admin: 06/24/17 14:17 Dose: 5 mg Ondansetron HCl (Zofran) 4 mg IV Q6H PRN PRN Reason: Nausea/Vomiting Pantoprazole Sodium (Protonix) 40 mg PO ACBREAKFAST [facility] Last Admin: 06/25/17 06:47 Dose: 40 mg Polyethylene Glycol (Miralax) 17 gm PO DAILY PRN PRN Reason: Constipation Potassium Chloride (Pharmacy To Dose - Potassium Replacement) 1 dose .XX ASDIRECTED [facility] Prednisone (Prednisone) 12.5 mg PO DAILY [facility] Last Admin: 06/24/17 08:30 Dose: 12.5 mg Pyridostigmine [place] (Mestinon) 60 mg PO TID [facility] Last Admin: 06/24/17 20:29 Dose: 60 mg Rosuvastatin Calcium (Crestor) 10 mg PO DAILY [facility] Last Admin: 06/24/17 08:29 Dose: 10 mg Senna/Docusate Sodium (Senna Plus) 1 tab PO BID PRN PRN Reason: Constipation Sodium Chloride (Saline Flush) 10 ml FLUSH ASDIRECTED PRN PRN Reason: Keep Vein Open Last Admin: 06/22/17 13:20 Dose: 10 ml Sulfasalazine (Sulfasalazine) 500 mg PO BID [facility] Last Admin: 06/24/17 20:32 Dose: Not Given Temazepam (Restoril) 7.5 mg PO BEDTIME PRN PRN Reason: Sleep Last Admin: 06/23/17 20:24 Dose: 7.5 mg Discontinued Medications Bumetanide (Bumex) 0.5 mg IVPUSH ONETIME ONE Stop: 06/23/17 16:25 Last Admin: 06/23/17 16:45 Dose: 0.5 mg Digoxin (Lanoxin) 250 mcg IVPUSH Q6H [facility] Stop: 06/24/17 21:16 Last Admin: 06/24/17 20:33 Dose: 250 mcg Diltiazem HCl (Diltiazem) 10 mg IVPUSH ONETIME ONE Stop: 06/22/17 12:58 Last Admin: 06/22/17 13:19 Dose: 10 mg Diltiazem HCl (Diltiazem) 10 mg IVPUSH ONETIME ONE Stop: 06/22/17 13:31 Last Admin: 06/22/17 13:47 Dose: 10 mg Diltiazem HCl (Diltiazem) 10 mg IVPUSH ONETIME ONE Stop: 06/24/17 07:59 Last Admin: 06/24/17 08:32 Dose: 10 mg Diltiazem HCl (Diltiazem) 10 mg IVPUSH ONETIME ONE Stop: 06/24/17 11:09 Last Admin: 06/24/17 11:30 Dose: 10 mg Furosemide (Lasix) 40 mg IVPUSH NOW ONE Stop: 06/22/17 12:59 Last Admin: 06/22/17 13:19 Dose: 40 mg Furosemide (Lasix) 20 mg PO DAILY@1400 [facility] Last Admin: 06/23/17 13:02 Dose: 20 mg Hydromorphone HCl (Dilaudid) 0.25 mg IVPUSH Q2H PRN PRN Reason: Pain (severe 7-10) Diltiazem HCl 125 mg/ Sodium (Chloride) 125 mls @ 10 mls/hr IV ASDIRECTED [facility] PRN Reason: 10 MG/HR Last Infusion: 06/23/17 11:44 Dose: 2.5 mg/hr, 2.5 mls/hr Potassium Chloride 10 meq/ (Premix) 100 mls @ 100 mls/hr IV Q1H [facility] Stop: 06/23/17 00:44 Last Admin: 09/14/17 00:23 Dose: 100 mls/hr Magnesium Sulfate 2 gm/ Premix 50 mls @ 25 mls/hr IV ONETIME ONE Stop: 06/23/17 00:34 Last Admin: 06/22/17 23:21 Dose: 25 mls/hr Morphine Sulfate (Morphine) 0.25 mg IVPUSH ONETIME ONE Stop: 06/24/17 15:34 Last Admin: 06/24/17 17:13 Dose: Not Given Potassium Chloride (Klor-Con M20) 40 meq PO Q4H [facility] Stop: 06/23/17 11:31 Last Admin: 06/23/17 11:50 Dose: 40 meq - Exam General: Alert, Oriented, Cooperative, No Acute Distress HEENT: Pupils Equal, Pupils Reactive, EOMI, Mucous Membr. Moist/[place] Neck: Supple, Trachea Midline, No JVD, No Thyromegaly Lungs: Normal Respiratory Effort, Decreased Breath Sounds Cardiovascular: Irregular Rhythm GI/Abdominal Exam: Normal Bowel Sounds, Soft, Non-Tender, No Organomegaly, No Distention, No Abnormal Bruit, No Mass (Female) Exam: Deferred Back Exam: Normal Inspection, Decreased Range of Motion Extremities: Normal Inspection, Normal Range of Motion, Non-Tender, No Pedal Edema, Normal Capillary Refill Peripheral Pulses: 2+: Dorsalis Pedis (L), Dorsalis Pedis (R) Skin: Warm, Dry, Intact, Ecchymosis Neurological: No New Focal Deficit Psy/Mental Status: Alert, Normal Affect, Normal Mood - Problem List Review Problem List Initiated/Reviewed/Updated: Yes - My Orders Last 24 Hours: My Active Orders 06/24/17 08:07 HYDROmorphone [Dilaudid] 0.25 mg IVPUSH Q2H PRN 06/24/17 15:16 Patient Status [ADT] Routine 06/24/17 15:30 Diltiazem 125 mg Sodium Chloride 0.9% [Normal Saline] 100 ml IV TITRATE 06/26/17 05:11 MAGNESIUM [CHEM] AM - Plan Plan:: Assessment/Plan: Acute: A-Fib with Recurrent RVR, Resolved - HR is now controlled: 80s-90s - She does not drink alcohol or smoke cigarettes - She is now on metoprolol 100 mg po BID and Digoxin 250 mcg po daily Hypokalemia - K 3.4 - 2/2 Inadequate intake and diuretic use - Pharmacy to replete and monitor Resolved: Mild E-lytes Abnormality - K 3.2--> 3.3 --> 3.8 - Mg 1.7---> 2.1 - Pharmacy to replete and monitor Elevated Pro-BNP Level - ProBNP 1172 ---> 1746 - She carries no hx/o HF - Unsure if she ever had 2D echo done in the past - This is likely 2/2 uncontrolled HR as above - 2D echo: report shows benign result with an EF of 55% Chronic: Severe hearing impairment Impaired vision Hypertension Hyperlipidemia CAD/[place] status post stents History of cholelithiasis Ulcerative colitis Urinary incontinence Osteoarthritis Myasthenia gravis Plan: She does not look good clinically Give PRN IV Lopressonr along with Oral Metoprolol dose Will call her provider relations manager for further input If no response to treatment may re-start Cardizem drip Routine AM Labs SW/CM for d/c planning Additional orders as above Code status: 1 LOS anticipate > 96 hrs due to slow response to treatment
[2017-06-25] MEDS: Hyoscyamine 0.125 MG Tab.SL SL SCH ×3 (08:01→20:01)
[2017-06-25] MEDS: Rosuvastatin 10 MG Tab PO SCH (08:01)
[2017-06-25] MEDS: Aspirin 81 MG Tab.EC PO SCH (08:01)
[2017-06-25] MEDS: Apixaban 5 MG Tab PO SCH ×2 (08:03→20:01)
[2017-06-25] MEDS: Furosemide 40 MG Tab PO SCH (08:03)
[2017-06-25] MEDS: Losartan 100 MG Tab PO SCH (08:04)
[2017-06-25] MEDS: Metoprolol Tartrate 50 MG Tab PO SCH ×2 (08:06→20:00)
[2017-06-25] MEDS: sulfaSALAzine 500 MG Tab PO SCH ×2 (08:06→20:01)
[2017-06-25] MEDS: predniSONE 5 MG Tab PO SCH (08:07)
[2017-06-25] MEDS ORDERED: Digoxin 250 MCG Tab PO SCH (12:00)
[2017-06-25] MEDS ORDERED: Magnesium Sulfate/Water 2 GM in Premix Bag 1 BAG IV ONE (19:00)
[2017-06-25] MEDS: Potassium Chloride 20 MEQ Tab.ER PO SCH ×2 (19:26→22:38)
[2017-06-25] MEDS: Sodium Chloride 0.9% 10 ML Syringe FLUSH PRN (19:29)
[2017-06-26] MEDS ORDERED: Diltiazem IR 60 MG Tab PO SCH (06:00)
[2017-06-26] MEDS: Calcium Carbonate/Vitamin D3 1500 MG-200 Units Tab PO SCH ×2 (06:25→16:00)
[2017-06-26] MEDS: Pantoprazole 40 MG Tab.CR PO SCH (06:25)
[2017-06-26] MEDS: Losartan 100 MG Tab PO SCH (08:31)
[2017-06-26] MEDS: Furosemide 40 MG Tab PO SCH (08:31)
[2017-06-26] MEDS: sulfaSALAzine 500 MG Tab PO SCH ×2 (08:32→20:04)
[2017-06-26] MEDS: Hyoscyamine 0.125 MG Tab.SL SL SCH ×3 (08:32→20:03)
[2017-06-26] MEDS: predniSONE 5 MG Tab PO SCH (08:32)
[2017-06-26] MEDS: Apixaban 5 MG Tab PO SCH ×2 (08:32→20:04)
[2017-06-26] MEDS: Aspirin 81 MG Tab.EC PO SCH (08:32)
[2017-06-26] MEDS: Rosuvastatin 10 MG Tab PO SCH (08:32)
[2017-06-26] MEDS: Metoprolol Tartrate 50 MG Tab PO SCH ×2 (08:33→21:39)
[2017-06-26] MEDS ORDERED: Diltiazem 120 MG Cap.CD PO SCH (09:00)
[2017-06-26] MEDS ORDERED: Digoxin 125 MCG Tab PO SCH (12:00)
--- NOTE | 2017-06-26 15:39 | PCM.PN ---
- General Info Date of Service: 06/26/17 Admission Dx/Problem (Free Text): Atrial Fibrillation with RVR Subjective Update: Follow Up Functional Status: Reports: Pain Controlled, Tolerating Diet, Ambulating, Urinating. Denies: New Symptoms - Review of Systems General: Denies: Fever, Weakness, Fatigue, Malaise, Chills HEENT: Reports: No Symptoms Pulmonary: Denies: Shortness of Breath Cardiovascular: Denies: Chest Pain, Palpitations, Dyspnea on Exertion, Edema, Lightheadedness Gastrointestinal: Denies: Abdominal Pain, Nausea, Vomiting Genitourinary: Reports: No Symptoms Musculoskeletal: Reports: No Symptoms Skin: Denies: Cyanosis, Mottled Neurological: Denies: Confusion, Difficulty Walking, Weakness, Gait Disturbance Psychiatric: Denies: No Symptoms, Depression, Anxiety, Agitation, Cravings, Hallucinations Systems Review Comment:: No overnight or acute issues. However she spike again in the 120s-130s this morning at bed. She was not however symptomatic. She is on combined Metoprolol and Digoxin for rate control medications. She denies any new complaints. - Patient Data Vitals - Most Recent: Last Vital Signs Temp 36.6 C 06/26/17 12:00 Pulse 112 H 06/26/17 08:56 Resp 18 06/26/17 12:00 BP 122/77 06/26/17 12:00 Pulse Ox 95 06/26/17 12:00 Weight - Most Recent: 73.21 kg I&O - Last 24 Hours: Intake & Output 06/26/17 06/26/17 06/26/17 06:59 14:59 22:59 Intake Total 600 660 Output Total 600 700 Balance 0 -40 Lab Results Last 24 Hours: Laboratory Results - last 24 hr 06/26/17 06/26/17 Range/Units 05:56 05:56 Sodium 142 (136-145) mEq/L Potassium 3.9 (3.5-5.1) mEq/L Chloride 107 (98-107) mEq/L Carbon Dioxide 25 (21-32) mEq/L Anion Gap 13.9 (5-15) BUN 23 H (7-18) mg/dL Creatinine 1.2 H (0.55-1.02) mg/dL Est Cr Clr Drug Dosing 29.38 mL/min Estimated GFR (MDRD) 43 (>60) mL/min BUN/Creatinine Ratio 19.2 H (14-18) Glucose 102 (83-115) mg/dL Calcium 9.3 (8.5-10.1) mg/dL Magnesium 2.2 2.2 (1.8-2.4) mg/dl Med Orders - Current: Current Medications Acetaminophen (Tylenol) 650 mg PO Q4H PRN PRN Reason: Pain (Mild 1-3)/fever Hydrocodone Bitart/Acetaminophen ([place] 325-5 Mg) 1 tab PO Q4H PRN PRN Reason: Pain (moderate 4-6) Albuterol/Ipratropium (Duoneb 3.0-0.5 Mg/3 Ml) 3 ml NEB Q4H PRN PRN Reason: Shortness Of Breath/wheezing Apixaban (Eliquis) 2.5 mg PO BID [facility] Last Admin: 06/26/17 08:32 Dose: 2.5 mg Aspirin (Halfprin) 81 mg PO DAILY [facility] Last Admin: 06/26/17 08:32 Dose: 81 mg Bisacodyl (Dulcolax) 5 mg PO DAILY PRN PRN Reason: Constipation Calcium Carbonate (Calcium Carbonate/Vitamin D 1500 Mg-200 Unit) 1 tab PO BIDMEALS [facility] Last Admin: 06/26/17 06:25 Dose: 1 tab Diltiazem HCl (Cardizem Cd) 240 mg PO DAILY [facility] Last Admin: 06/26/17 08:56 Dose: 240 mg Docusate Sodium (Colace) 100 mg PO BID PRN PRN Reason: Constipation Furosemide (Lasix) 40 mg PO QAM [facility] Last Admin: 06/26/17 08:31 Dose: 40 mg Hydralazine HCl (Apresoline) 20 mg IVPUSH Q4H PRN PRN Reason: Hypertension Last Admin: 06/24/17 06:01 Dose: 20 mg Hydromorphone HCl (Dilaudid) 0.25 mg IVPUSH Q2H PRN PRN Reason: Pain (severe 7-10) Hyoscyamine (Hyomax-Sl) 0.125 mg SL TID [facility] Last Admin: 06/26/17 08:32 Dose: 0.125 mg Promethazine HCl 12.5 mg/ (Sodium Chloride) 50.5 mls @ 100 mls/hr IV Q6H PRN PRN Reason: Nausea/Vomiting Diltiazem HCl 125 mg/ Sodium (Chloride) 125 mls @ 5 mls/hr IV TITRATE [facility]; 5 MG /HR PRN Reason: Protocol Last Titration: 06/25/17 02:20 Dose: 0 mg/hr, 0 mls/hr Lorazepam (Ativan) 0.25 mg IV Q6H PRN PRN Reason: Anxiety Losartan Potassium (Cozaar) 100 mg PO DAILY [facility] Last Admin: 06/26/17 08:31 Dose: 100 mg Magnesium Sulfate (Pharmacy To Dose - Magnesium Replacement) 1 dose .XX ASDIRECTED [facility] Metoprolol Tartrate (Lopressor) 5 mg IVPUSH Q4H PRN PRN Reason: Tachycardia Last Admin: 06/24/17 14:17 Dose: 5 mg Ondansetron HCl (Zofran) 4 mg IV Q6H PRN PRN Reason: Nausea/Vomiting Pantoprazole Sodium (Protonix) 40 mg PO ACBREAKFAST [facility] Last Admin: 06/26/17 06:25 Dose: 40 mg Polyethylene Glycol (Miralax) 17 gm PO DAILY PRN PRN Reason: Constipation Potassium Chloride (Pharmacy To Dose - Potassium Replacement) 1 dose .XX ASDIRECTED [facility] Prednisone (Prednisone) 12.5 mg PO DAILY [facility] Last Admin: 06/26/17 08:32 Dose: 12.5 mg Pyridostigmine [place] (Mestinon) 60 mg PO TID [facility] Last Admin: 06/26/17 08:32 Dose: 60 mg Rosuvastatin Calcium (Crestor) 10 mg PO DAILY [facility] Last Admin: 06/26/17 08:32 Dose: 10 mg Senna/Docusate Sodium (Senna Plus) 1 tab PO BID PRN PRN Reason: Constipation Sodium Chloride (Saline Flush) 10 ml FLUSH ASDIRECTED PRN PRN Reason: Keep Vein Open Last Admin: 06/25/17 19:29 Dose: 10 ml Sulfasalazine (Sulfasalazine) 500 mg PO BID [facility] Last Admin: 06/26/17 08:32 Dose: 500 mg Temazepam (Restoril) 7.5 mg PO BEDTIME PRN PRN Reason: Sleep Last Admin: 06/23/17 20:24 Dose: 7.5 mg Discontinued Medications Bumetanide (Bumex) 0.5 mg IVPUSH ONETIME ONE Stop: 06/23/17 16:25 Last Admin: 06/23/17 16:45 Dose: 0.5 mg Digoxin (Lanoxin) 250 mcg IVPUSH Q6H [facility] Stop: 06/24/17 21:16 Last Admin: 06/24/17 20:33 Dose: 250 mcg Digoxin (Lanoxin) 250 mcg PO DAILY@1200 [facility] Last Admin: 06/25/17 12:14 Dose: 250 mcg Digoxin (Lanoxin) 125 mcg PO DAILY [facility] Diltiazem HCl (Diltiazem) 10 mg IVPUSH ONETIME ONE Stop: 06/22/17 12:58 Last Admin: 06/22/17 13:19 Dose: 10 mg Diltiazem HCl (Diltiazem) 10 mg IVPUSH ONETIME ONE Stop: 06/22/17 13:31 Last Admin: 06/22/17 13:47 Dose: 10 mg Diltiazem HCl (Diltiazem) 10 mg IVPUSH ONETIME ONE Stop: 06/24/17 07:59 Last Admin: 06/24/17 08:32 Dose: 10 mg Diltiazem HCl (Diltiazem) 10 mg IVPUSH ONETIME ONE Stop: 06/24/17 11:09 Last Admin: 06/24/17 11:30 Dose: 10 mg Furosemide (Lasix) 40 mg IVPUSH NOW ONE Stop: 06/22/17 12:59 Last Admin: 06/22/17 13:19 Dose: 40 mg Furosemide (Lasix) 20 mg PO DAILY@1400 [facility] Last Admin: 06/23/17 13:02 Dose: 20 mg Hydromorphone HCl (Dilaudid) 0.25 mg IVPUSH Q2H PRN PRN Reason: Pain (severe 7-10) Diltiazem HCl 125 mg/ Sodium (Chloride) 125 mls @ 10 mls/hr IV ASDIRECTED [facility] PRN Reason: 10 MG/HR Last Infusion: 06/23/17 11:44 Dose: 2.5 mg/hr, 2.5 mls/hr Potassium Chloride 10 meq/ (Premix) 100 mls @ 100 mls/hr IV Q1H [facility] Stop: 06/23/17 00:44 Last Admin: 06/23/17 00:23 Dose: 100 mls/hr Magnesium Sulfate 2 gm/ Premix 50 mls @ 25 mls/hr IV ONETIME ONE Stop: 06/23/17 00:34 Last Admin: 06/22/17 23:21 Dose: 25 mls/hr Magnesium Sulfate 2 gm/ Premix 50 mls @ 25 mls/hr IV ONETIME ONE Stop: 06/25/17 20:59 Last Admin: 06/25/17 19:30 Dose: 25 mls/hr Metoprolol Tartrate (Lopressor) 100 mg PO BID [facility] Last Admin: 06/26/17 08:33 Dose: 100 mg Morphine Sulfate (Morphine) 0.25 mg IVPUSH ONETIME ONE Stop: 06/24/17 15:34 Last Admin: 06/24/17 17:13 Dose: Not Given Potassium Chloride (Klor-Con M20) 40 meq PO Q4H [facility] Stop: 06/23/17 11:31 Last Admin: 06/23/17 11:50 Dose: 40 meq Potassium Chloride (Klor-Con M20) 20 meq PO Q3H [facility] Stop: 06/25/17 22:01 Last Admin: 06/25/17 22:38 Dose: 20 meq - Exam General: Alert, Oriented, Cooperative, No Acute Distress HEENT: Pupils Equal, Pupils Reactive, EOMI, Mucous Membr. Moist/[place] Neck: Supple, Trachea Midline, No JVD Lungs: Normal Respiratory Effort, Decreased Breath Sounds Cardiovascular: Irregular Rhythm, Other (Irregular Rate) GI/Abdominal Exam: Normal Bowel Sounds, Soft, Non-Tender, No Organomegaly, No Distention, No Abnormal Bruit, No Mass (Female) Exam: Deferred Back Exam: Normal Inspection, Decreased Range of Motion Extremities: Normal Inspection, Normal Range of Motion, Non-Tender, No Pedal Edema, Normal Capillary Refill Peripheral Pulses: 2+: Posterior Tibial (L), Posterior Tibial (R), Dorsalis Pedis (L), Dorsalis Pedis (R) Skin: Warm, Dry, Intact Neurological: No New Focal Deficit Psy/Mental Status: Alert, Normal Affect, Normal Mood - Problem List Review Problem List Initiated/Reviewed/Updated: Yes - My Orders Last 24 Hours: My Active Orders 06/26/17 09:00 Diltiazem [Cardizem CD] 240 mg PO DAILY - Plan Plan:: Assessment/Plan: Acute: A-Fib with Recurrent RVR, - HR is not fully controlled - Will switch her on cardizem oral and stick to possibly lower dose of Metroprolol BID - Her heart rate responds well to treatment but each time she comes off CCB, she goes back to RVR - Verapamil would be a good choice but this medications may exacerbate her her MG, one of Verapamil's Drug Warning - She does not drink alcohol or smoke cigarettes - She is now on metoprolol 100 mg po BID and Digoxin 250 mcg po daily Resolved: Mild E-lytes Abnormality - K 3.2--> 3.3 --> 3.8 - Mg 1.7---> 2.1 - Pharmacy to replete and monitor Elevated Pro-BNP Level - ProBNP 1172 ---> 1746 - She carries no hx/o HF - Unsure if she ever had 2D echo done in the past - This is likely 2/2 uncontrolled HR as above - 2D echo: report shows benign result with an EF of 55% Hypokalemia - K 3.4 ---> 3.9 - 2/2 Inadequate intake and diuretic use - Pharmacy to replete and monitor Chronic: Severe hearing impairment Impaired vision Hypertension Hyperlipidemia CAD/OR status post stents History of cholelithiasis Ulcerative colitis Urinary incontinence Osteoarthritis Myasthenia gravis Plan: She looks much better She failed combination BB and Digoxin She is not responding well with it, will re-start oral cardizem with possible lower dose of BB Start Cardizem CD 240 mg po daily Routine AM Labs SW/CM for d/c planning Additional orders as above Code status: 1 LOS > 96 hrs due to stubborn heart, i.e. slow response to treatment
[2017-06-26] MEDS: Sodium Chloride 0.9% 10 ML Syringe FLUSH PRN (20:04)
[2017-06-27] MEDS ORDERED: Diltiazem IR 60 MG Tab PO SCH (06:00)
[2017-06-27] MEDS: Pantoprazole 40 MG Tab.CR PO SCH (06:53)
[2017-06-27] MEDS: Calcium Carbonate/Vitamin D3 1500 MG-200 Units Tab PO SCH (06:53)
[2017-06-27] MEDS: Apixaban 5 MG Tab PO SCH (08:21)
[2017-06-27] MEDS: predniSONE 5 MG Tab PO SCH (08:21)
[2017-06-27] MEDS: Furosemide 40 MG Tab PO SCH (08:21)
[2017-06-27] MEDS: sulfaSALAzine 500 MG Tab PO SCH (08:21)
[2017-06-27] MEDS: Hyoscyamine 0.125 MG Tab.SL SL SCH (08:21)
[2017-06-27] MEDS: Aspirin 81 MG Tab.EC PO SCH (08:21)
[2017-06-27] MEDS: Metoprolol Tartrate 50 MG Tab PO SCH (08:22)
[2017-06-27] MEDS: Rosuvastatin 10 MG Tab PO SCH (08:22)
[2017-06-27] MEDS: Losartan 100 MG Tab PO SCH (08:24)
[2017-06-27] MEDS ORDERED: Diltiazem 180 MG Cap.CD PO ONE (11:39)
[2017-06-27 12:25] VITALS: BP 123/71
--- NOTE | 2017-06-27 14:48 | PCM.DCSUM1 ---
Discharge Summary - Hospital Course Brief History: This is an 81-year-old elderly white female with past medical history of impaired hearing/vision, coronary artery disease, hypertension, hyperlipidemia, history of VA status post stents placement, edema, history of ulcerative colitis, cholelithiasis, urinary incontinence, history of partial arthritis, myasthenia gravis, and GERD who presents to the emergency department with complaints of heart palpitation and was admitted for medical management of Atrial Fibrillation with RVR. - Discharge Data Discharge Date: 06/27/17 Discharge Disposition: Home, Self-Care 01 Condition: Good - Discharge Diagnosis/Problem(s) (1) Atrial fibrillation with RVR SNOMED Code(s): 686452588289299 ICD Code: I48.91 - UNSPECIFIED ATRIAL FIBRILLATION Status: Acute - Patient Summary/Data Operative Procedure(s) Performed: None Complications: None Consults: Consultations 06/22/17 15:50 Consult to Case Management [CONS] Routine Consult to Building Construction Supervisor [CONS] Routine Consult to Spiritual Care [CONS] Routine OT Evaluation and Treatment [CONS] Routine PT Evaluation and Treatment [CONS] Routine Labs Pending at D/C: None Recommended Follow-up Testing/Procedures: Cardiology and Audiology Hospital Course: Patient was primarily admitted for medical management of acute atrial fibrillation with RVR. Patient carried a history of chronic atrial fibrillation on eliquis. She was initially managed with short acting Cardizem. But due to insurance issues along with peripheral edema, the patient was switched to metoprolol 100 mg by mouth twice a day by her fur designer, Dr. Choi. Unfortunately the patient did not do well and therefore she presented to the emergency department for further management. On presentation, she was found to have heart rates in the 140s and 160s. She received initial treatment with Cardizem drip along with her metoprolol before she was sent to the unit for further treatment. After she was discontinued on Cardizem drip, the patient's heart rate spiked up into the 140s. We attempted to reach her fur designer but without much success. However we were able to get a hold of the on-call cardiology, Dr. Rutherford and based on my discussions with him , he recommended to add digoxin on top of her metoprolol regimen. We felt at the beginning that the combination of digoxin and metoprolol would work out just fine for rate control medications. But our hope quickly diminished , when her heart rate went back up in the 130s-140s. Therefore she was put back on cardizem drip to control her atrial fibrillation with RVR. We offered her Verapamil as an option but the patient and family refused it due to possible exacerbation associated with her underlying myasthenia gravis. With the help of our nurse case management, we were be able to find out that her current insurance would cover long acting Cardizem daily to control her heart rate. Therefore the patient was started on long acting cardizem and her heart rate improved immediately. Her hospital course was fairly uncomplicated. The rest of her chronic medical illness remained stable during this admission. Her heart rate had been fully controlled. However she was advised to check her blood pressure 3 times a day until she sees her primary care doctor on follow-up appointment. She was further advised to only take 20 of her Lasix daily and to take 2 pills ( PRN) for sudden onset of shortness of breath or peripheral edema. Patient expressed understanding and in agreement with the plans as discussed above. All questions were answered. - Patient Instructions Diet: Heart Healthy Diet, Usual Diet as Tolerated Activity: As Tolerated Driving: Do Not Drive Showering/Bathing: May Shower Notify Provider of: Fever, Increased Pain, Swelling and Redness, Nausea and/or Vomiting Other/Special Instructions: - Please take all medications as directed. - Please check you vitals 3 times a day until you see your family doctor. Show your log on follow up visit. - If your symptoms persist or get worse, call your doctor or go to the nearest medical facility and seek immediate care - Discharge Plan Prescriptions/Med Rec: Diltiazem [Cardizem CD] 240 mg PO DAILY #30 cap.cd Home Medications: Home Meds Aspirin [[place] Aspirin] 81 mg PO DAILY 05/26/14 [History] sulfaSALAzine 500 mg PO BID 05/26/14 [History] Hyoscyamine Sulfate 0.125 mg PO TID 06/14/16 [History] Pyridostigmine [place] 60 mg PO TID 06/14/16 [History] Apixaban [Eliquis] 2.5 mg PO BID 04/07/17 [History] Calcium Citrate/Vitamin D3 [Calcium Citrate + D] 1 tab PO BIDMEALS 04/07/17 [ History] Pantoprazole [ProTONIX] 40 mg PO ACBREAKFAST 04/07/17 [History] Prednisone [IJD: Prednisone] 12.5 mg PO DAILY 04/07/17 [History] Diltiazem [Cardizem CD] 240 mg PO DAILY #30 cap.cd 06/27/17 [Rx] Furosemide [Lasix] 20 mg PO ASDIRECTED #0 06/27/17 [Rx] Losartan Potassium 100 mg PO DAILY #0 06/27/17 [Rx] Metoprolol Tartrate 100 mg PO BID #0 06/27/17 [Rx] Patient Handouts: Atrial Fibrillation, [id number] Referrals: Tyler Larsen MD [Physician] - 06/28/17 9:45 am (please arrive 15 minutes early to appt. this appt. is on the [facility] side of the hospital (clinic side)) Tom Slaughter MD [Primary Care Provider] - - Discharge Summary/Plan Comment DC Time >30 min.: Yes (45 mins) Discharge Summary/Plan Comment: Discharge to Home - General Info Date of Service: 06/27/17 Admission Dx/Problem (Free Text: Atrial Fibrillation with RVR Subjective Update: Follow Up Functional Status: Denies: Pain Controlled, Tolerating Diet, Ambulating, Urinating, New Symptoms - Review of Systems General: Denies: Fever, Weakness, Fatigue, Malaise, Chills HEENT: Reports: No Symptoms Pulmonary: Denies: Shortness of Breath Cardiovascular: Denies: Chest Pain, Palpitations, Dyspnea on Exertion, Edema, Lightheadedness Gastrointestinal: Denies: Abdominal Pain, Nausea, Vomiting Musculoskeletal: Reports: No Symptoms Skin: Denies: Cyanosis, Jaundice, Mottled, Pallor, Diaphoresis Neurological: Reports: Gait Disturbance. Denies: Confusion, Difficulty Walking , Weakness Psychiatric: Denies: Depression, Anxiety, Agitation, Cravings, Hallucinations Systems Review Comment: No overnight or acute issues. She is doing relatively well. Her HR is pretty much controlled with oral Cardizem and Metoprolol. She has no new complaints. - Patient Data Vitals - Most Recent: Last Vital Signs Temp 36.6 C 06/27/17 12:00 Pulse 114 H 06/27/17 08:22 Resp 18 06/27/17 12:00 BP 123/71 06/27/17 12:00 Pulse Ox 94 L 06/27/17 12:00 Weight - Most Recent: 73.255 kg I&O - Last 24 hours: Intake & Output 06/26/17 06/27/17 06/27/17 22:59 06:59 14:59 Intake Total 420 360 320 Output Total 700 400 200 Balance -280 -40 120 Med Orders - Current: Current Medications Acetaminophen (Tylenol) 650 mg PO Q4H PRN PRN Reason: Pain (Mild 1-3)/fever Hydrocodone Bitart/Acetaminophen ([place] 325-5 Mg) 1 tab PO Q4H PRN PRN Reason: Pain (moderate 4-6) Albuterol/Ipratropium (Duoneb 3.0-0.5 Mg/3 Ml) 3 ml NEB Q4H PRN PRN Reason: Shortness Of Breath/wheezing Apixaban (Eliquis) 2.5 mg PO BID [facility] Last Admin: 06/27/17 08:21 Dose: 2.5 mg Aspirin (Halfprin) 81 mg PO DAILY [facility] Last Admin: 06/27/17 08:21 Dose: 81 mg Bisacodyl (Dulcolax) 5 mg PO DAILY PRN PRN Reason: Constipation Calcium Carbonate (Calcium Carbonate/Vitamin D 1500 Mg-200 Unit) 1 tab PO BIDMEALS [facility] Last Admin: 06/27/17 06:53 Dose: 1 tab Diltiazem HCl (Cardizem) 60 mg PO Q6HR [facility] Last Admin: 06/27/17 06:53 Dose: 60 mg Docusate Sodium (Colace) 100 mg PO BID PRN PRN Reason: Constipation Furosemide (Lasix) 40 mg PO QAM [facility] Last Admin: 06/27/17 08:21 Dose: 40 mg Hydralazine HCl (Apresoline) 20 mg IVPUSH Q4H PRN PRN Reason: Hypertension Last Admin: 06/24/17 06:01 Dose: 20 mg Hydromorphone HCl (Dilaudid) 0.25 mg IVPUSH Q2H PRN PRN Reason: Pain (severe 7-10) Hyoscyamine (Hyomax-Sl) 0.125 mg SL TID [facility] Last Admin: 06/27/17 08:21 Dose: 0.125 mg Promethazine HCl 12.5 mg/ (Sodium Chloride) 50.5 mls @ 100 mls/hr IV Q6H PRN PRN Reason: Nausea/Vomiting Diltiazem HCl 125 mg/ Sodium (Chloride) 125 mls @ 5 mls/hr IV TITRATE [facility]; 5 MG /HR PRN Reason: Protocol Last Titration: 06/25/17 02:20 Dose: 0 mg/hr, 0 mls/hr Lorazepam (Ativan) 0.25 mg IV Q6H PRN PRN Reason: Anxiety Losartan Potassium (Cozaar) 100 mg PO DAILY [facility] Last Admin: 06/27/17 08:24 Dose: 100 mg Magnesium Sulfate (Pharmacy To Dose - Magnesium Replacement) 1 dose .XX ASDIRECTED [facility] Metoprolol Tartrate (Lopressor) 5 mg IVPUSH Q4H PRN PRN Reason: Tachycardia Last Admin: 06/24/17 14:17 Dose: 5 mg Metoprolol Tartrate (Lopressor) 50 mg PO Q12HR [facility] Last Admin: 06/27/17 08:22 Dose: 50 mg Ondansetron HCl (Zofran) 4 mg IV Q6H PRN PRN Reason: Nausea/Vomiting Pantoprazole Sodium (Protonix) 40 mg PO ACBREAKFAST [facility] Last Admin: 06/27/17 06:53 Dose: 40 mg Polyethylene Glycol (Miralax) 17 gm PO DAILY PRN PRN Reason: Constipation Potassium Chloride (Pharmacy To Dose - Potassium Replacement) 1 dose .XX ASDIRECTED [facility] Prednisone (Prednisone) 12.5 mg PO DAILY [facility] Last Admin: 06/27/17 08:21 Dose: 12.5 mg Pyridostigmine [place] (Mestinon) 60 mg PO TID [facility] Last Admin: 06/27/17 08:21 Dose: 60 mg Rosuvastatin Calcium (Crestor) 10 mg PO DAILY [facility] Last Admin: 06/27/17 08:22 Dose: 10 mg Senna/Docusate Sodium (Senna Plus) 1 tab PO BID PRN PRN Reason: Constipation Sodium Chloride (Saline Flush) 10 ml FLUSH ASDIRECTED PRN PRN Reason: Keep Vein Open Last Admin: 06/26/17 20:04 Dose: 10 ml Sulfasalazine (Sulfasalazine) 500 mg PO BID [facility] Last Admin: 06/27/17 08:21 Dose: 500 mg Temazepam (Restoril) 7.5 mg PO BEDTIME PRN PRN Reason: Sleep Last Admin: 06/23/17 20:24 Dose: 7.5 mg Discontinued Medications Bumetanide (Bumex) 0.5 mg IVPUSH ONETIME ONE Stop: 06/23/17 16:25 Last Admin: 06/23/17 16:45 Dose: 0.5 mg Digoxin (Lanoxin) 250 mcg IVPUSH Q6H [facility] Stop: 06/24/17 21:16 Last Admin: 06/24/17 20:33 Dose: 250 mcg Digoxin (Lanoxin) 250 mcg PO DAILY@1200 [facility] Last Admin: 06/25/17 12:14 Dose: 250 mcg Digoxin (Lanoxin) 125 mcg PO DAILY [facility] Diltiazem HCl (Diltiazem) 10 mg IVPUSH ONETIME ONE Stop: 06/22/17 12:58 Last Admin: 06/22/17 13:19 Dose: 10 mg Diltiazem HCl (Diltiazem) 10 mg IVPUSH ONETIME ONE Stop: 06/22/17 13:31 Last Admin: 06/22/17 13:47 Dose: 10 mg Diltiazem HCl (Diltiazem) 10 mg IVPUSH ONETIME ONE Stop: 06/24/17 07:59 Last Admin: 06/24/17 08:32 Dose: 10 mg Diltiazem HCl (Diltiazem) 10 mg IVPUSH ONETIME ONE Stop: 06/24/17 11:09 Last Admin: 06/24/17 11:30 Dose: 10 mg Diltiazem HCl (Cardizem Cd) 240 mg PO DAILY [facility] Last Admin: 06/26/17 08:56 Dose: 240 mg Diltiazem HCl (Cardizem) 60 mg PO Q6HR [facility] Diltiazem HCl (Cardizem Cd) 180 mg PO ONETIME ONE Stop: 06/27/17 11:40 Last Admin: 06/27/17 11:53 Dose: 180 mg Furosemide (Lasix) 40 mg IVPUSH NOW ONE Stop: 06/22/17 12:59 Last Admin: 06/22/17 13:19 Dose: 40 mg Furosemide (Lasix) 20 mg PO DAILY@1400 [facility] Last Admin: 06/23/17 13:02 Dose: 20 mg Hydromorphone HCl (Dilaudid) 0.25 mg IVPUSH Q2H PRN PRN Reason: Pain (severe 7-10) Diltiazem HCl 125 mg/ Sodium (Chloride) 125 mls @ 10 mls/hr IV ASDIRECTED [facility] PRN Reason: 10 MG/HR Last Infusion: 06/23/17 11:44 Dose: 2.5 mg/hr, 2.5 mls/hr Potassium Chloride 10 meq/ (Premix) 100 mls @ 100 mls/hr IV Q1H [facility] Stop: 06/23/17 00:44 Last Admin: 06/23/17 00:23 Dose: 100 mls/hr Magnesium Sulfate 2 gm/ Premix 50 mls @ 25 mls/hr IV ONETIME ONE Stop: 06/23/17 00:34 Last Admin: 06/22/17 23:21 Dose: 25 mls/hr Magnesium Sulfate 2 gm/ Premix 50 mls @ 25 mls/hr IV ONETIME ONE Stop: 06/25/17 20:59 Last Admin: 06/25/17 19:30 Dose: 25 mls/hr Metoprolol Tartrate (Lopressor) 100 mg PO BID [facility] Last Admin: 06/26/17 08:33 Dose: 100 mg Morphine Sulfate (Morphine) 0.25 mg IVPUSH ONETIME ONE Stop: 06/24/17 15:34 Last Admin: 06/24/17 17:13 Dose: Not Given Potassium Chloride (Klor-Con M20) 40 meq PO Q4H [facility] Stop: 06/23/17 11:31 Last Admin: 06/23/17 11:50 Dose: 40 meq Potassium Chloride (Klor-Con M20) 20 meq PO Q3H [facility] Stop: 06/25/17 22:01 Last Admin: 06/25/17 22:38 Dose: 20 meq - Exam General: Reports: Alert, Oriented, Cooperative, No Acute Distress HEENT: Reports: Pupils Equal, Pupils Reactive, EOMI, Mucous Membr. Moist/[place] Neck: Reports: Supple, Trachea Midline, No JVD, No Thyromegaly Lungs: Reports: Normal Respiratory Effort, Decreased Breath Sounds Cardiovascular: Reports: Irregular Rhythm GI/Abdominal Exam: Normal Bowel Sounds, Soft, Non-Tender, No Organomegaly, No Distention, No Abnormal Bruit, No Mass (Female) Exam: Deferred Rectal (Female) Exam: Deferred Back Exam: Reports: Normal Inspection, Decreased Range of Motion Extremities: Normal Inspection, Normal Range of Motion, Non-Tender, No Pedal Edema, Normal Capillary Refill Skin: Reports: Warm, Dry, Intact Neurological: Reports: No New Focal Deficit Psy/Mental Status: Reports: Alert, Normal Affect, Normal Mood *Q Meaningful Use (DIS) - VTE *Q VTE Criteria *Q: - Stroke *Q Stroke Criteria *Q: - AMI *Q AMI Criteria *Q:
== END 2017-06-27 15:50 | disposition home or self-care (01) | DRG 310 ==
LOC: JD.ED 12:35 → JD.ICU 15:28
PROVIDERS: ADMIT Internal Medicine; ATTEND Internal Medicine
DX: I48.2 Chronic atrial fibrillation (principal); E87.6 Hypokalemia; R60.9 Edema, unspecified; I25.10 Atherosclerotic heart disease of native coronary artery without angina pectoris; I10 Essential (primary) hypertension; Z95.5 Presence of coronary angioplasty implant and graft; E78.00 Pure hypercholesterolemia, unspecified; E78.5 Hyperlipidemia, unspecified; I25.2 Old myocardial infarction; R32 Unspecified urinary incontinence; G70.00 Myasthenia gravis without (acute) exacerbation; K21.9 Gastro-esophageal reflux disease without esophagitis; H91.90 Unspecified hearing loss, unspecified ear; H54.7 Unspecified visual loss; M19.90 Unspecified osteoarthritis, unspecified site; Z79.01 Long term (current) use of anticoagulants; Z79.82 Long term (current) use of aspirin; Z79.899 Other long term (current) drug therapy; Z88.1 Allergy status to other antibiotic agents; Z88.8 Allergy status to other drugs, medicaments and biological substances
CPT/HCPCS: 36415; 71010; 80053; 81001; 82553; 83735; 83880; 84439; 84443; 84484; 85025; 85610; 86140; 93005; 96365; 96366; 96375; 99285; J1940; J3490 ×2; J7030; J7050; 80048; 80162; 93306; 97162-GP; 97165-GO; A9270-GY; J0360; J1160; J3475; J3480

== ENCOUNTER 2017-09-25 20:18 | Emergency (ER) | payer MEDICARE, BC ==
[2017-09-25] MEDS ORDERED: Metoprolol Tartrate 50 MG Tab PO ONE (20:52)
--- NOTE | 2017-09-25 20:58 | EDM.PDOC ---
ED HPI GENERAL MEDICAL PROBLEM - General Chief Complaint: Cardiovascular Problem Stated Complaint: FELL ON ICE KNEE AND HEAD HURTING HER Time Seen by Provider: 09/25/17 20:24 Source of Information: Reports: Patient History Limitations: Reports: No Limitations - History of Present Illness INITIAL COMMENTS - FREE TEXT/NARRATIVE: The patient is an 82-year-old female with a chief complaint of knee pain. She has a history of atrial fibrillation and is on Elaquis for this. She has many other additional medical problems. She states that she slipped and fell and landed on her knee. No loss of consciousness. Denies head injury. She's complaining of left knee pain. Pain is in the front of the knee and is sharp. She is still able to ambulate. Denies headache. No neck pain or back pain. No chest pain or shortness of breath. No abdominal pain. No hip pain. No foot pain. No numbness or tingling or weakness. States she's taken her medications as prescribed. Has not yet taken her evening dose of metoprolol. Declines pain medications at this time. Left Knee Pain Score (Numeric/FACES): 1 - Related Data Allergies Allergy/AdvReac Type Severity Reaction Status Date / Time amoxicillin [From Augmentin] Allergy Airway Verified 06/22/17 16:02 Tightness clavulanic acid Allergy Airway Verified 06/22/17 16:02 [From Augmentin] Tightness heparin Allergy Anaphylactic Verified 06/22/17 16:02 Shock Home Meds: Home Meds Aspirin [[place] Aspirin] 81 mg PO DAILY 05/26/14 [History] sulfaSALAzine 500 mg PO BID 05/26/14 [History] Hyoscyamine Sulfate 0.125 mg PO TID 06/14/16 [History] Pyridostigmine [place] 60 mg PO TID 06/14/16 [History] Apixaban [Eliquis] 2.5 mg PO BID 04/07/17 [History] Calcium Citrate/Vitamin D3 [Calcium Citrate + D] 1 tab PO BIDMEALS 04/07/17 [ History] Pantoprazole [ProTONIX] 40 mg PO ACBREAKFAST 04/07/17 [History] Prednisone [IJD: Prednisone] 10 mg PO DAILY 04/07/17 [History] Diltiazem [Cardizem CD] 240 mg PO DAILY #30 cap.cd 06/27/17 [Rx] Furosemide [Lasix] 20 mg PO DAILY 09/25/17 [History] Furosemide [Lasix] 40 mg PO DAILY 09/25/17 [History] Immodium 2 mg PO ASDIRECTED PRN 09/25/17 [History] Losartan [Cozaar] 100 mg PO DAILY 09/25/17 [History] Metoprolol Tartrate 50 mg PO BID 09/25/17 [History] atorvaSTATin [Lipitor] 40 mg PO DAILY 09/25/17 [History] Past Medical History HEENT History: Reports: Hard of Hearing, Impaired Vision Cardiovascular History: Reports: CAD, High Cholesterol, Hypertension, [place], Stents , Other (See Below) Other Cardiovascular History: [place] Gastrointestinal History: Reports: Cholelithiasis, Other (See Below) Other Gastrointestinal History: ulcerative colitis Genitourinary History: Reports: Urinary Incontinence [employer]ER History: Reports: Musculoskeletal History: Reports: Arthritis Neurological History: Reports: Other (See Below) Other Neuro History: myasthinia gravis Hematologic History: Reports: Other (See Below) Other Hematologic History: is on blood thinners - Past Surgical History Cardiovascular Surgical History: Reports: Coronary Artery Stent GI Surgical History: Reports: Appendectomy, Cholecystectomy Female Surgical History: Reports: Hysterectomy Social & Family History - Family History Family Medical History: Noncontributory - Tobacco Use Smoking Status *Q: Never Smoker Second Hand Smoke Exposure: No - Caffeine Use Caffeine Use: Reports: Coffee, Soda, Tea - Alcohol Use Days Per Week of Alcohol Use: 0 - Recreational Drug Use Recreational Drug Use: No - Living Situation & Occupation Living situation: Reports: , Alone Occupation: Retired ED ROS GENERAL - Review of Systems Review Of Systems: See Below Constitutional: Reports: No Symptoms HEENT: Reports: No Symptoms Respiratory: Denies: Shortness of Breath, Cough Cardiovascular: Denies: Chest Pain Endocrine: Reports: No Symptoms GI/Abdominal: Denies: Abdominal Pain : Reports: No Symptoms Musculoskeletal: Reports: Leg Pain. Denies: Neck Pain, Back Pain Skin: Reports: No Symptoms Neurological: Denies: Dizziness, Headache Psychiatric: Reports: No Symptoms Hematologic/Lymphatic: Reports: No Symptoms Immunologic: Reports: No Symptoms ED EXAM, GENERAL - Physical Exam Exam: See Below Exam Limited By: No Limitations General Appearance: Alert, WD/WN, No Apparent Distress Ears: Normal External Exam Nose: Normal Inspection Throat/Mouth: Normal Inspection, Normal Oropharynx, Normal Voice, No Airway Compromise Head: Atraumatic, Normocephalic Neck: Normal Inspection, Supple, Non-Tender, Full Range of Motion Respiratory/Chest: No Respiratory Distress, Lungs Clear, Normal Breath Sounds, Chest Non-Tender Cardiovascular: Tachycardia, Irregularly Irregular, Other (2+ bilateral lower extremity pitting edema) GI/Abdominal: Soft, Non-Tender, No Distention Back Exam: Normal Inspection. No: Vertebral Tenderness Extremities: Other (Lower extremity: no hip tenderness. No femur tenderness. Positive ecchymosis diffusely of anterior knee and proximal tibia. No deformity. No palpable effusion. Mild to moderate tenderness of the anterior knee at the patella and insertion site. Full range of motion. No distal tibia/ fibula, ankle, or foot tenderness. 2+ pedal pulses present. Distal motor/ sensation/perfusion intact. No additional extremity abnormality.) Neurological: Alert, Oriented, Normal Cognition, No Motor/Sensory Deficits Psychiatric: Normal Affect, Normal Mood Skin Exam: Warm, Dry, Intact, Normal Color, No Rash Course - Vital Signs Last Recorded V/S: Last Vital Signs Temp 36.2 C 09/25/17 20:35 Pulse 141 H 09/25/17 21:40 Resp 22 H 09/25/17 20:35 BP 139/102 H 09/25/17 21:40 Pulse Ox 95 09/25/17 20:35 - Orders/Labs/Meds Orders: Active Orders 24 hr Category Date Time Status EKG 12 Lead [EKG Documentation Completion] [RC] STAT Care 09/25/17 20:46 Active Chest 1V Frontal [CR] Stat Exams 09/25/17 20:46 Taken Knee Min 4V Lt [CR] Stat Exams 09/25/17 20:53 Taken Tibia Fibula Lt [CR] Stat Exams 09/25/17 20:53 Taken Labs: Laboratory Tests 09/25/17 09/25/17 Range/Units 20:45 20:45 WBC 6.43 (3.98-10.04) K/mm3 RBC 4.31 (3.98-5.22) M/mm3 Hgb 14.1 (11.2-15.7) gm/L Hct 43.2 (34.1-44.9) % MCV 100.2 H (79.4-94.8) fl MCH 32.7 H (25.6-32.2) pg MCHC 32.6 (32.2-35.5) g/dl RDW Std Deviation 52.8 H (36.4-46.3) fL Plt Count 109 L (182-369) K/mm3 MPV 12.0 (9.4-12.3) fl Neut % (Auto) 77.8 H (34.0-71.1) % Lymph % (Auto) 10.9 L (19.3-51.7) % [place] % (Auto) 10.3 (4.7-12.5) % Eos % (Auto) 0.3 L (0.7-5.8) Baso % (Auto) 0.2 (0.1-1.2) % Neut # (Auto) 5.01 (1.56-6.13) K/mm3 Lymph # (Auto) 0.70 L (1.18-3.74) K/mm3 [place] # (Auto) 0.66 H (0.24-0.36) K/mm3 Eos # (Auto) 0.02 L (0.04-0.36) K/mm3 Baso # (Auto) 0.01 (0.01-0.08) K/mm3 Sodium 144 (136-145) mEq/L Potassium 3.8 (3.5-5.1) mEq/L Chloride 107 (98-107) mEq/L Carbon Dioxide 26 (21-32) mEq/L Anion Gap 14.8 (5-15) BUN 16 (7-18) mg/dL Creatinine 1.3 H (0.55-1.02) mg/dL Est Cr Clr Drug Dosing 27.12 mL/min Estimated GFR (MDRD) 39 (>60) mL/min BUN/Creatinine Ratio 12.3 L (14-18) Glucose 131 H (83-115) mg/dL Calcium 9.4 (8.5-10.1) mg/dL Magnesium 1.7 L (1.8-2.4) mg/dl Total Bilirubin 0.4 (0.2-1.0) mg/dL AST 36 (15-37) U/L ALT 29 (14-59) U/L Alkaline Phosphatase 92 (46-116) U/L Troponin I < 0.017 (0.00-0.056) ng/mL NT-Pro-B Natriuret Pep 1199 H (0-450) pg/mL Total Protein 7.3 (6.4-8.2) g/dl Albumin 3.4 (3.4-5.0) g/dl Globulin 3.9 gm/dL Albumin/Globulin Ratio 0.9 L (1-2) Meds: Medications Discontinued Medications Generic Name Dose Route Start Last Admin Trade Name Jori PRN Reason Stop Dose Admin Metoprolol Tartrate 50 mg 09/25/17 20:52 09/25/17 21:33 Lopressor PO 09/25/17 20:53 50 mg ONETIME ONE Administration Metoprolol Tartrate 5 mg 09/25/17 21:32 09/25/17 21:40 Lopressor IVPUSH 09/25/17 21:33 5 mg ONETIME ONE Administration - Re-Assessments/Exams Free Text/Narrative Re-Assessment/Exam: 09/25/17 20:57 Noted to be tachycardic by nursing staff at triage. EKG shows atrial fibrillation with rapid ventricular response. Rate is ranging from 140 260. Blood pressure is normal. Patient has no complaint. She states that her heart rate is often fast. She has not yet taken her evening dose of metoprolol. Will give now and monitor. Meanwhile, she states she feels perfectly fine and seems annoyed that we are concerned about her heart rate when she is really here for her knee. She does have 2+ lower extremity edema which she states is a little bit worse than usual. She does take a diuretic and states she's been compliant with it. We will also get a chest x-ray and basic labs in addition to a knee x- ray. 09/25/17 22:17 X-ray of the knee shows small effusion, no fracture. We gave 5 mg of metoprolol IV and also gave her her oral evening dose of 50 mg of metoprolol. Her heart rate is now much improved, now 85-110, she continues to feel well and have a normal blood pressure. She would like to go home. We will discharge her home with plan for primary care follow-up as needed. Discussed return precautions. Departure - Departure Time of Disposition: 22:13 Disposition: Home, Self-Care 01 Clinical Impression: Atrial fibrillation with rapid ventricular response Contusion of left knee Qualifiers: Encounter type: initial encounter Qualified Code(s): S80.02XA - Contusion of left knee, initial encounter Referrals: Tom Slaughter MD [Primary Care Provider] - Forms: ED Department Discharge Additional Instructions: 1. Elevate knee when possible. Ice knee off and on tomorrow. 2. Take acetaminophen (Tylenol) as needed for pain. 3. Follow up with your primary doctor as soon as possible for further care, including a recheck of your knee and to check your heart rate and adjust medications if your heart rate is consistently above 100. 4. Return to the Emergency Department if you have any new concerning symptoms, including worsening pain, difficulty breathing, chest pain, or any other concerning symptoms. - My Orders Last 24 Hours: My Active Orders 09/25/17 20:46 EKG 12 Lead [EKG Documentation Completion] [RC] STAT Chest 1V Frontal [CR] Stat 09/25/17 20:53 Knee Min 4V Lt [CR] Stat Tibia Fibula Lt [CR] Stat - Assessment/Plan Last 24 Hours: My Active Orders 09/25/17 20:46 EKG 12 Lead [EKG Documentation Completion] [RC] STAT Chest 1V Frontal [CR] Stat 09/25/17 20:53 Knee Min 4V Lt [CR] Stat Tibia Fibula Lt [CR] Stat
[2017-09-25] MEDS ORDERED: Metoprolol Tartrate 5 MG/5 ML SDV IVPUSH ONE (21:32)
[2017-09-25 21:33] VITALS: BP 139/102
--- NOTE | 2017-09-26 08:32 | CR ---
Chest: Portable view of the chest was obtained. Comparison: Prior chest x-ray of 06/22/17. Heart size at the upper limits of normal. Atherosclerotic change is noted within the thoracic aorta. Minimal blunting of the costophrenic angles is seen which appears stable. Central pulmonary vessels are mildly increased which also appear stable. Scoliosis and degenerative change is seen within the spine. Impression: 1. Findings as noted above. No significant change from prior chest x-ray. Diagnostic code #3
--- NOTE | 2017-09-26 08:32 | CR ---
Left tibia and fibula: Two views of the left tibia and fibula were obtained. Soft tissue swelling is identified. Osteopenia is noted. Small spur is noted at the attachment of the Achilles tendon to the calcaneus. No acute fracture or other bony abnormality is identified. Impression: 1. Incidental findings. No acute bony abnormality is identified. Diagnostic code #2
--- NOTE | 2017-09-26 08:32 | CR ---
Left knee: Four portable views of the left knee were obtained. Comparison: No prior knee exam. Mild chondrocalcinosis is noted within the medial and lateral menisci. Bony structures are osteopenic. Soft tissue swelling appears to be present anteriorly. Incidental spur is noted at the attachment of the quadriceps and patellar tendons within the patella. Mild degenerative cystic change is seen within the patella. No acute bony abnormality is appreciated. Impression: 1. Chondrocalcinosis. Soft tissue swelling. 2. No acute bony abnormality is appreciated. Diagnostic code #2
== END 2017-09-25 22:25 | disposition home or self-care (01) ==
LOC: SUPCPDRO 20:18 → JD.ED 20:18
DX: S80.02XA Contusion of left knee, initial encounter (principal); I48.91 Unspecified atrial fibrillation; I10 Essential (primary) hypertension; E78.00 Pure hypercholesterolemia, unspecified; I25.10 Atherosclerotic heart disease of native coronary artery without angina pectoris; Z88.1 Allergy status to other antibiotic agents; Z88.8 Allergy status to other drugs, medicaments and biological substances; Z79.82 Long term (current) use of aspirin; Z79.899 Other long term (current) drug therapy; Z95.5 Presence of coronary angioplasty implant and graft; W01.0XXA Fall on same level from slipping, tripping and stumbling without subsequent striking against object, initial encounter
CPT/HCPCS: 36415; 71010; 73564; 73590; 80053; 83735; 83880; 84484; 85025; 93005; 96374; 99284; A9270; 99283; J3490

== ENCOUNTER 2018-01-15 16:02 | Inpatient (IN) | payer MEDICARE, BC ==
[2018-01-15] MEDS ORDERED: Sodium Chloride 0.9% 10 ML Syringe FLUSH PRN (16:23)
[2018-01-15] MEDS ORDERED: Diltiazem 25 MG/5 ML SDV IVPUSH ONE (16:39)
[2018-01-15] MEDS: Diltiazem 125 MG in Sodium Chloride 0.9% 100 ML IV SCH (17:46)
[2018-01-15] MEDS ORDERED: Furosemide 20 MG/2 ML VIAL IVPUSH ONE (17:52)
--- NOTE | 2018-01-15 18:08 | EDM.PDOC ---
ED HPI GENERAL MEDICAL PROBLEM - General Chief Complaint: Cardiovascular Problem Stated Complaint: SHORTNESS OF BREATH Time Seen by Provider: 01/15/18 17:52 Source of Information: Reports: Patient, Old Records History Limitations: Reports: No Limitations - History of Present Illness INITIAL COMMENTS - FREE TEXT/NARRATIVE: 82-year-old female presents for evaluation and treatment of shortness of breath. Reports she's been experiencing shortness of breath for the last 3 days. She also reports orthopnea and worsening of her edema. No chest pain or waking. No fevers, chills, cough, nausea, vomiting or syncope. Patient reports she has a past medical history of A. fib and is currently on blood thinners. Patient also is on Lasix 40 mg in the morning 20 mg evening. She states Her dose of her Lasix so she had 40 mg morning he milligrams this evening due to her worsening edema. PCP is Dr. Eugene. - Related Data Allergies Allergy/AdvReac Type Severity Reaction Status Date / Time amoxicillin [From Augmentin] Allergy Airway Verified 06/22/17 16:02 Tightness clavulanic acid Allergy Airway Verified 06/22/17 16:02 [From Augmentin] Tightness heparin Allergy Anaphylactic Verified 06/22/17 16:02 Shock Home Meds: Home Meds Aspirin [[place] Aspirin] 81 mg PO DAILY 05/26/14 [History] sulfaSALAzine 500 mg PO BID 05/26/14 [History] Hyoscyamine Sulfate 0.125 mg PO TID 06/14/16 [History] Pyridostigmine Only 60 mg PO TID 06/14/16 [History] Apixaban [Eliquis] 2.5 mg PO BID 04/07/17 [History] Calcium Citrate/Vitamin D3 [Calcium Citrate + D] 1 tab PO BIDMEALS 04/07/17 [ History] Pantoprazole [ProTONIX] 40 mg PO ACBREAKFAST 04/07/17 [History] Prednisone [IJD: Prednisone] 10 mg PO DAILY 04/07/17 [History] Diltiazem [Cardizem CD] 240 mg PO DAILY #30 cap.cd 06/27/17 [Rx] Furosemide [Lasix] 20 mg PO DAILY 09/25/17 [History] Furosemide [Lasix] 40 mg PO DAILY 09/25/17 [History] Immodium 2 mg PO ASDIRECTED PRN 09/25/17 [History] Losartan [Cozaar] 100 mg PO DAILY 09/25/17 [History] Metoprolol Tartrate 50 mg PO BID 09/25/17 [History] atorvaSTATin [Lipitor] 40 mg PO DAILY 09/25/17 [History] Past Medical History HEENT History: Reports: Hard of Hearing, Impaired Vision Cardiovascular History: Reports: CAD, High Cholesterol, Hypertension, [place], Stents , Other (See Below) Other Cardiovascular History: edema, cardiolyte stress test in [place] February 2017 was clear Gastrointestinal History: Reports: Cholelithiasis, Other (See Below) Other Gastrointestinal History: ulcerative colitis Genitourinary History: Reports: Urinary Incontinence 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: Musculoskeletal History: Reports: Arthritis Neurological History: Reports: Other (See Below) Other Neuro History: myasthinia gravis Hematologic History: Reports: Other (See Below) Other Hematologic History: is on blood thinners - Past Surgical History Cardiovascular Surgical History: Reports: Coronary Artery Stent GI Surgical History: Reports: Appendectomy, Cholecystectomy Female Surgical History: Reports: Hysterectomy Social & Family History - Family History Family Medical History: Noncontributory - Tobacco Use Smoking Status *Q: Never Smoker Second Hand Smoke Exposure: No - Caffeine Use Caffeine Use: Reports: Coffee, Soda, Tea - Alcohol Use Days Per Week of Alcohol Use: 0 - Recreational Drug Use Recreational Drug Use: No - Living Situation & Occupation Living situation: Reports: , Alone Occupation: Retired ED ROS GENERAL - Review of Systems Review Of Systems: See Below Constitutional: Denies: Fever, Chills Respiratory: Reports: Shortness of Breath. Denies: Cough Cardiovascular: Reports: Edema, Orthopnea. Denies: Chest Pain GI/Abdominal: Denies: Abdominal Pain, Nausea, Vomiting ED EXAM, GENERAL - Physical Exam Exam: See Below Exam Limited By: No Limitations General Appearance: Alert, WD/WN, No Apparent Distress, Obese Ears: Normal External Exam Nose: Normal Inspection Throat/Mouth: Normal Inspection, Normal Voice, No Airway Compromise Respiratory/Chest: No Respiratory Distress, Crackles (right lung base) Cardiovascular: No Murmur, Tachycardia, Irregularly Irregular GI/Abdominal: Soft, Non-Tender Neurological: Alert, Oriented, Normal Cognition Psychiatric: Normal Affect, Normal Mood Skin Exam: Warm, Dry, Normal Color EKG INTERPRETATION EKG Date: 01/15/18 Time: 16:20 Rhythm: A-Fib Rate (Beats/Min): 150 [place]: Normal P-Wave: Present QRS: Normal ST-T: Normal QT: Normal EKG Interpretation Comments: a.fib with RVR rate of 150 bpm. Reviewed by myself and Dr. Mayorga. Course - Vital Signs Last Recorded V/S: Last Vital Signs Temp 36.3 C 01/15/18 16:15 Pulse 150 H 01/15/18 16:15 Resp 20 01/15/18 18:24 BP 119/81 01/15/18 18:24 Pulse Ox 96 01/15/18 18:24 - Orders/Labs/Meds Orders: Active Orders 24 hr Category Date Time Status Cardiac Monitoring [RC] . DIRECTED Care 01/15/18 16:23 Active EKG Documentation Completion [RC] ASDIRECTED Care 01/15/18 16:23 Active Peripheral IV Care [RC] . DIRECTED Care 01/15/18 16:23 Active Chest 1V Frontal [CR] Stat Exams 01/15/18 16:24 Taken UA W/MICROSCOPIC [URIN] Stat Lab 01/15/18 18:04 Ordered Diltiazem 125 mg Med 01/15/18 17:45 Active Sodium Chloride 0.9% [Normal Saline] 100 ml IV TITRATE Sodium Chloride 0.9% [Saline Flush] Med 01/15/18 16:23 Active 10 ml FLUSH ASDIRECTED PRN Peripheral IV Insertion Adult [OM.PC] Routine Oth 01/15/18 16:23 Ordered EKG 12 Lead [EK] Stat Ther 01/15/18 16:23 Ordered Medication Orders Diltiazem HCl 125 mg/ Sodium (Chloride) 125 mls @ 10 mls/hr IV TITRATE ELVIN; Protocol Last Admin: 01/15/18 17:46 Dose: 10 mg/hr, 10 mls/hr Sodium Chloride (Saline Flush) 10 ml FLUSH ASDIRECTED PRN PRN Reason: Keep Vein Open Last Admin: 01/15/18 16:36 Dose: 10 ml Labs: Laboratory Tests 01/15/18 01/15/18 01/15/18 Range/Units 16:33 16:33 16:33 WBC 7.47 (3.98-10.04) K/mm3 RBC 4.52 (3.98-5.22) M/mm3 Hgb 14.4 (11.2-15.7) gm/L Hct 45.2 H (34.1-44.9) % MCV 100.0 H (79.4-94.8) fl MCH 31.9 (25.6-32.2) pg MCHC 31.9 L (32.2-35.5) g/dl RDW Std Deviation 61.4 H (36.4-46.3) fL Plt Count 86 L (182-369) K/mm3 MPV 12.4 H (9.4-12.3) fl Neutrophils % (Manual) 92 H (40-60) % Band Neutrophils % 0 (0-10) % Lymphocytes % (Manual) 6 L (20-40) % Atypical Lymphs % 0 % Monocytes % (Manual) 2 (2-10) % Eosinophils % (Manual) 0 L (0.7-5.8) % Basophils % (Manual) 0 L (0.1-1.2) Platelet Estimate Decreased Plt Morphology Comment See note Poikilocytosis 1+ slight Anisocytosis 1+ slight Macrocytosis 1+ slight RBC Morph Comment Not Reportable PT 11.3 (8.0-13.0) SECONDS INR 1.06 APTT 25 (22-36) SECONDS Sodium 145 (136-145) mEq/L Potassium 4.0 (3.5-5.1) mEq/L Chloride 105 (98-107) mEq/L Carbon Dioxide 31 (21-32) mEq/L Anion Gap 13.0 (5-15) BUN 20 H (7-18) mg/dL Creatinine 1.2 H (0.55-1.02) mg/dL Est Cr Clr Drug Dosing 28.09 mL/min Estimated GFR (MDRD) 43 (>60) mL/min BUN/Creatinine Ratio 16.7 (14-18) Glucose 145 H (83-115) mg/dL Calcium 9.3 (8.5-10.1) mg/dL Magnesium 1.8 (1.8-2.4) mg/dl Total Bilirubin 0.6 (0.2-1.0) mg/dL AST 63 H (15-37) U/L ALT 48 (14-59) U/L Alkaline Phosphatase 195 H (46-116) U/L Troponin I (0.00-0.056) ng/mL NT-Pro-B Natriuret Pep (0-450) pg/mL Total Protein 7.1 (6.4-8.2) g/dl Albumin 3.2 L (3.4-5.0) g/dl Globulin 3.9 gm/dL Albumin/Globulin Ratio 0.8 L (1-2) 01/15/18 01/15/18 Range/Units 16:33 16:33 WBC (3.98-10.04) K/mm3 RBC (3.98-5.22) M/mm3 Hgb (11.2-15.7) gm/L Hct (34.1-44.9) % MCV (79.4-94.8) fl MCH (25.6-32.2) pg MCHC (32.2-35.5) g/dl RDW Std Deviation (36.4-46.3) fL Plt Count (182-369) K/mm3 MPV (9.4-12.3) fl Neutrophils % (Manual) (40-60) % Band Neutrophils % (0-10) % Lymphocytes % (Manual) (20-40) % Atypical Lymphs % % Monocytes % (Manual) (2-10) % Eosinophils % (Manual) (0.7-5.8) % Basophils % (Manual) (0.1-1.2) Platelet Estimate Plt Morphology Comment Poikilocytosis Anisocytosis Macrocytosis RBC Morph Comment PT (8.0-13.0) SECONDS INR APTT (22-36) SECONDS Sodium (136-145) mEq/L Potassium (3.5-5.1) mEq/L Chloride (98-107) mEq/L Carbon Dioxide (21-32) mEq/L Anion Gap (5-15) BUN (7-18) mg/dL Creatinine (0.55-1.02) mg/dL Est Cr Clr Drug Dosing mL/min Estimated GFR (MDRD) (>60) mL/min BUN/Creatinine Ratio (14-18) Glucose (83-115) mg/dL Calcium (8.5-10.1) mg/dL Magnesium (1.8-2.4) mg/dl Total Bilirubin (0.2-1.0) mg/dL AST (15-37) U/L ALT (14-59) U/L Alkaline Phosphatase (46-116) U/L Troponin I 0.017 (0.00-0.056) ng/mL NT-Pro-B Natriuret Pep 979 H (0-450) pg/mL Total Protein (6.4-8.2) g/dl Albumin (3.4-5.0) g/dl Globulin gm/dL Albumin/Globulin Ratio (1-2) Meds: Medications Generic Name Dose Route Start Last Admin Trade Name Freq PRN Reason Stop Dose Admin Diltiazem HCl 125 mg/ Sodium 125 mls @ 10 mls/hr 01/15/18 17:45 01/15/18 17: 46 Chloride IV 10 mg/hr TITRATE ELVIN 10 mls/hr Administration Protocol 10 MG/HR Sodium Chloride 10 ml 01/15/18 16:23 01/15/18 16:36 Saline Flush FLUSH 10 ml ASDIRECTED PRN Administration Keep Vein Open Discontinued Medications Generic Name Dose Route Start Last Admin Trade Name Freq PRN Reason Stop Dose Admin Diltiazem HCl 10 mg 01/15/18 16:39 01/15/18 16:44 Diltiazem IVPUSH 01/15/18 16:40 10 mg ONETIME ONE Administration Furosemide 20 mg 01/15/18 17:52 01/15/18 18:23 Lasix IVPUSH 01/15/18 17:53 20 mg ONETIME ONE Administration - Radiology Interpretation Free Text/Narrative:: chest xray shows a small right sided pleural effusion. - Re-Assessments/Exams Free Text/Narrative Re-Assessment/Exam: 01/15/18 19:02 Patient is feeling improved after the Cardizem bolus and drip. However, her heart rate is still ranging from 90s to 120s on the 10 mg per hour Cardizem drip. We also did put her on some oxygen her oxygen sats would dip into the low 90s on room air. I Feel her shortness breath is accommodation of a small pleural effusion on her chest x-ray and A. fib with RVR. I discussed the labs, imaging EKG with the patient. I do feel she would benefit for an admission for medication adjustments and to stay on the Cardizem drip. She is in agreement with this. I discussed the case with Dr. Evans, hospice on-call. He agrees to the admission. She'll go to the ICU due to her Cardizem drip. Departure - Departure Time of Disposition: 19:11 Disposition: Admitted As Inpatient 65 Condition: Fair Clinical Impression: Atrial fibrillation with RVR, Pleural effusion on right, Hypoxia Referrals: Tom Slaughter MD [Primary Care Provider] - Forms: ED Department Discharge Additional Instructions: Patient admitted to ICU under Dr. Evans for A. fib with RVR, hypoxia and a right-sided pleural effusion. - My Orders Last 24 Hours: My Active Orders 01/15/18 16:23 Cardiac Monitoring [RC] . DIRECTED EKG Documentation Completion [RC] ASDIRECTED Peripheral IV Care [RC] . DIRECTED Sodium Chloride 0.9% [Saline Flush] 10 ml FLUSH ASDIRECTED PRN Peripheral IV Insertion Adult [OM.PC] Routine EKG 12 Lead [EK] Stat 01/15/18 16:24 Chest 1V Frontal [CR] Stat 01/15/18 17:45 Diltiazem 125 mg Sodium Chloride 0.9% [Normal Saline] 100 ml IV TITRATE 01/15/18 18:04 UA W/MICROSCOPIC [URIN] Stat - Assessment/Plan Last 24 Hours: My Active Orders 01/15/18 16:23 Cardiac Monitoring [RC] . DIRECTED EKG Documentation Completion [RC] ASDIRECTED Peripheral IV Care [RC] . DIRECTED Sodium Chloride 0.9% [Saline Flush] 10 ml FLUSH ASDIRECTED PRN Peripheral IV Insertion Adult [OM.PC] Routine EKG 12 Lead [EK] Stat 01/15/18 16:24 Chest 1V Frontal [CR] Stat 01/15/18 17:45 Diltiazem 125 mg Sodium Chloride 0.9% [Normal Saline] 100 ml IV TITRATE 01/15/18 18:04 UA W/MICROSCOPIC [URIN] Stat
[2018-01-15] MEDS ORDERED: Acetaminophen/HYDROcodone 325-5 MG Tab PO PRN (19:16)
[2018-01-15] MEDS ORDERED: Temazepam 7.5 MG Cap PO PRN (19:16)
[2018-01-15] MEDS ORDERED: LORazepam 2 MG/ML SDV IV PRN (19:16)
[2018-01-15] MEDS ORDERED: HYDROmorphone 0.5 MG/0.5 ML SYRINGE IVPUSH PRN (19:16)
[2018-01-15] MEDS ORDERED: Polyethylene Glycol 3350 Powder 17 GM Packet PO PRN (19:16)
[2018-01-15] MEDS ORDERED: Bisacodyl 5 MG Tab PO PRN (19:16)
[2018-01-15] MEDS ORDERED: Promethazine 6.25 MG in Sodium Chloride 0.9% 50 ML IV PRN (19:16)
[2018-01-15] MEDS ORDERED: Docusate Sodium 100 MG Cap PO PRN (19:16)
[2018-01-15] MEDS ORDERED: Acetaminophen 325 MG Tab PO PRN (19:16)
[2018-01-15] MEDS ORDERED: Albuterol/Ipratropium 3.0-0.5 MG/3 ML Neb Soln NEB PRN (19:16)
[2018-01-15] MEDS ORDERED: Magnesium Sulfate/Water 2 GM in Premix Bag 1 BAG IV PRN (19:29)
[2018-01-15] MEDS ORDERED: LORazepam 2 MG/ML SDV IVPUSH PRN (19:29)
[2018-01-15] MEDS ORDERED: Magnesium Sulfate/Water 50 ML IV ONE (20:30)
[2018-01-15] MEDS: Metoprolol Tartrate 50 MG Tab PO SCH (20:39)
[2018-01-15] MEDS: sulfaSALAzine 500 MG Tab PO SCH (20:39)
[2018-01-15] MEDS: Apixaban 5 MG Tab PO SCH (20:40)
[2018-01-15] MEDS: Hyoscyamine 0.125 MG Tab.SL PO SCH (20:41)
[2018-01-15] MEDS ORDERED: Metoprolol Tartrate 50 MG Tab PO SCH (21:00)
--- NOTE | 2018-01-15 21:02 | PCM.HP ---
H&P History of Present Illness - General Date of Service: 01/15/18 Admit Problem/Dx: Admission Diagnosis/Problem Admission Diagnosis/Problem Atrial fibrillation with rapid ventricular response Source of Information: Patient, Old Records, Provider, RN Notes Reviewed History Limitations: Reports: No Limitations - History of Present Illness Initial Comments - Free Text/Narative: This is an 82-year-old female with past medical hx/o Impaired Vision/Hearing, HTN, HLD, CAD/[place] S/p Stents Placement, Hx/o UC, Urinary Incontinence, OA/DJD and Myasthenia Gravis who presents for evaluation of worsening shortness of breath that has been going on for 3 days now. Her symptom is associated with orthopnea and increasing leg edema. She denies any chest pain, fevers, chills, cough, nausea, vomiting and syncope. Patient carries a hx/o chronic atrial fibrillation and currently on eliquis. Patient tells me she has not felt the same since she was switched to 1 pill a day on her cardizem. She follows Dr. Choi for her routine cardiac care. On presentation to ED, she was found with heart rate in the 150s. Her initial work up in ED shows a CBC remarkable for HCT of 45.2, MCV of 100, MCHC of 31.9, RDW of 61.4, Platelet count of 86, MPV of 12.4, Neutrophils of 92% , and Lymphocytes of 6%. Her chemistry is remarkable for BUN of 20, Cr of 1.2, Glucose of 145, AST of 63, Alk Phos of 195, ProBNP of 979 and Albumin of 3.2. Her UA is not suggestive of UTI. Her CXR shows bilateral pleural effusion. Patient is currently on cardizem drip. She is being admitted to ICU for management of atrial fibrillation with RVR. She is full code. - Related Data Allergies/Adverse Reactions: Allergies Allergy/AdvReac Type Severity Reaction Status Date / Time amoxicillin [From Augmentin] Allergy Airway Verified 06/22/17 16:02 Tightness clavulanic acid Allergy Airway Verified 06/22/17 16:02 [From Augmentin] Tightness heparin Allergy Anaphylactic Verified 06/22/17 16:02 Shock Home Medications: Home Meds Aspirin [[place] Aspirin] 81 mg PO DAILY 05/26/14 [History] sulfaSALAzine 500 mg PO BID 05/26/14 [History] Hyoscyamine Sulfate 0.125 mg PO Q4H 06/14/16 [History] Pyridostigmine [place] 60 mg PO TID 06/14/16 [History] Apixaban [Eliquis] 2.5 mg PO BID 04/07/17 [History] Calcium Citrate/Vitamin D3 [Calcium Citrate + D] 1 tab PO BIDMEALS 04/07/17 [ History] Pantoprazole [ProTONIX] 40 mg PO ACBREAKFAST 04/07/17 [History] Prednisone [IJD: Prednisone] 10 mg PO DAILY 04/07/17 [History] Diltiazem [Cardizem CD] 240 mg PO DAILY #30 cap.cd 06/27/17 [Rx] Furosemide [Lasix] 20 mg PO [id number] 09/25/17 [History] Furosemide [Lasix] 40 mg PO DAILY 09/25/17 [History] Immodium 2 mg PO ASDIRECTED PRN 09/25/17 [History] Losartan [Cozaar] 100 mg PO DAILY 09/25/17 [History] Metoprolol Tartrate 50 mg PO BID 09/25/17 [History] atorvaSTATin [Lipitor] 40 mg PO DAILY 09/25/17 [History] Hyoscyamine [Levsin] 0.125 mg PO TID 01/15/18 [History] Nystatin [Nystatin Oint] 1 applic TOP BID PRN 01/15/18 [History] Potassium Chloride 20 meq PO BID 01/15/18 [History] Past Medical History HEENT History: Reports: Hard of Hearing, Impaired Vision Cardiovascular History: Reports: CAD, High Cholesterol, Hypertension, [place], Stents , Other (See Below) Other Cardiovascular History: edema, cardiolyte stress test in [place] February 2017 was clear Other Respiratory History: Current visit small pleural effusion Gastrointestinal History: Reports: Cholelithiasis, Other (See Below) Other Gastrointestinal History: ulcerative colitis Genitourinary History: Reports: Urinary Incontinence 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: Musculoskeletal History: Reports: Arthritis Neurological History: Reports: Other (See Below) Other Neuro History: myasthinia gravis Hematologic History: Reports: Other (See Below) Other Hematologic History: is on blood thinners - Infectious Disease History Infectious Disease History: Reports: Chicken Pox, Hepatitis C, Measles, Shingles - Past Surgical History Cardiovascular Surgical History: Reports: Coronary Artery Stent GI Surgical History: Reports: Appendectomy, Cholecystectomy Female Surgical History: Reports: Hysterectomy Social & Family History - Family History Family Medical History: Noncontributory - Tobacco Use Smoking Status *Q: Never Smoker Second Hand Smoke Exposure: No - Caffeine Use Caffeine Use: Reports: Coffee, Soda, Tea - Alcohol Use Days Per Week of Alcohol Use: 0 - Recreational Drug Use Recreational Drug Use: No - Living Situation & Occupation Living situation: Reports: , Alone Occupation: Retired H&P Review of Systems - Review of Systems: Review Of Systems: See Below General: Reports: Malaise, Fatigue. Denies: Fever, Chills, Weakness, Decreased Appetite HEENT: Reports: No Symptoms Pulmonary: Reports: Shortness of Breath. Denies: Wheezing, Cough Cardiovascular: Reports: Orthopnea, Edema. Denies: Palpitations, Dyspnea on Exertion, Lightheadedness, Syncope, Claudication, Blood Pressure Problem Gastrointestinal: Denies: Abdominal Pain, Nausea, Vomiting Genitourinary: Reports: No Symptoms Musculoskeletal: Reports: No Symptoms Skin: Denies: Cyanosis, Mottled, Diaphoresis, Bruising Psychiatric: Denies: Confusion, Depression, Mood Lability, Agitation, Cravings, Hallucinations Neurological: Reports: Weakness. Denies: Confusion, Trouble Speaking, Difficulty Walking, Gait Disturbance Hematologic/Lymphatic: Reports: No Symptoms Immunologic: Reports: No Symptoms Exam - Exam Exam: See Below - Vital Signs Vital Signs: Last Vital Signs Temp 36.3 C 01/15/18 16:15 Pulse 111 H 01/15/18 20:39 Resp 20 01/15/18 18:24 BP 122/72 01/15/18 20:39 Pulse Ox 97 01/15/18 20:11 Weight: 73.936 kg - Exam General: Alert, Oriented, Cooperative HEENT: Conjunctiva Clear, EACs Clear, EOMI, Hearing Intact, Mucosa Moist & [place] , Nares Patent, Normal Nasal Septum, Posterior Pharynx Clear, Pupils Equal, Pupils Reactive Neck: Supple, Trachea Midline Lungs: Normal Respiratory Effort, Decreased Breath Sounds Cardiovascular: Irregular Rhythm, Other (Irregular rate) GI/Abdominal Exam: Normal Bowel Sounds, Soft, Non-Tender, No Organomegaly, No Distention, No Abnormal Bruit, No Mass (Female) Exam: Deferred Rectal (Female) Exam: Deferred Back Exam: Normal Inspection, Decreased Range of Motion Extremities: Normal Inspection, Normal Range of Motion, Non-Tender, Other ( Bilateral lower extemity Edema +1) Peripheral Pulses: 2+: Posterior Tibial (L), Posterior Tibial (R), Dorsalis Pedis (L), Dorsalis Pedis (R) Skin: Warm, Dry, Intact Neuro Extensive - Mental Status: Oriented x3, Normal Mood/Affect, Normal Cognition Neuro Extensive - Motor, Sensory, Reflexes: CN II-XII Intact, Abnormal Gait Psychiatric: Alert, Normal Affect, Normal Mood - Patient Data Lab Results Last 24 hrs: Laboratory Results - last 24 hr 01/15/18 01/15/18 01/15/18 Range/Units 16:33 16:33 16:33 WBC 7.47 (3.98-10.04) K/mm3 RBC 4.52 (3.98-5.22) M/mm3 Hgb 14.4 (11.2-15.7) gm/L Hct 45.2 H (34.1-44.9) % MCV 100.0 H (79.4-94.8) fl MCH 31.9 (25.6-32.2) pg MCHC 31.9 L (32.2-35.5) g/dl RDW Std Deviation 61.4 H (36.4-46.3) fL Plt Count 86 L (182-369) K/mm3 MPV 12.4 H (9.4-12.3) fl Neutrophils % (Manual) 92 H (40-60) % Band Neutrophils % 0 (0-10) % Lymphocytes % (Manual) 6 L (20-40) % Atypical Lymphs % 0 % Monocytes % (Manual) 2 (2-10) % Eosinophils % (Manual) 0 L (0.7-5.8) % Basophils % (Manual) 0 L (0.1-1.2) Platelet Estimate Decreased Plt Morphology Comment See note Poikilocytosis 1+ slight Anisocytosis 1+ slight Macrocytosis 1+ slight RBC Morph Comment Not Reportable PT 11.3 (8.0-13.0) SECONDS INR 1.06 APTT 25 (22-36) SECONDS Sodium 145 (136-145) mEq/L Potassium 4.0 (3.5-5.1) mEq/L Chloride 105 (98-107) mEq/L Carbon Dioxide 31 (21-32) mEq/L Anion Gap 13.0 (5-15) BUN 20 H (7-18) mg/dL Creatinine 1.2 H (0.55-1.02) mg/dL Est Cr Clr Drug Dosing 28.09 mL/min Estimated GFR (MDRD) 43 (>60) mL/min BUN/Creatinine Ratio 16.7 (14-18) Glucose 145 H (83-115) mg/dL Calcium 9.3 (8.5-10.1) mg/dL Magnesium 1.8 (1.8-2.4) mg/dl Total Bilirubin 0.6 (0.2-1.0) mg/dL AST 63 H (15-37) U/L ALT 48 (14-59) U/L Alkaline Phosphatase 195 H (46-116) U/L Troponin I (0.00-0.056) ng/mL NT-Pro-B Natriuret Pep (0-450) pg/mL Total Protein 7.1 (6.4-8.2) g/dl Albumin 3.2 L (3.4-5.0) g/dl Globulin 3.9 gm/dL Albumin/Globulin Ratio 0.8 L (1-2) 01/15/18 01/15/18 Range/Units 16:33 16:33 WBC (3.98-10.04) K/mm3 RBC (3.98-5.22) M/mm3 Hgb (11.2-15.7) gm/L Hct (34.1-44.9) % MCV (79.4-94.8) fl MCH (25.6-32.2) pg MCHC (32.2-35.5) g/dl RDW Std Deviation (36.4-46.3) fL Plt Count (182-369) K/mm3 MPV (9.4-12.3) fl Neutrophils % (Manual) (40-60) % Band Neutrophils % (0-10) % Lymphocytes % (Manual) (20-40) % Atypical Lymphs % % Monocytes % (Manual) (2-10) % Eosinophils % (Manual) (0.7-5.8) % Basophils % (Manual) (0.1-1.2) Platelet Estimate Plt Morphology Comment Poikilocytosis Anisocytosis Macrocytosis RBC Morph Comment PT (8.0-13.0) SECONDS INR APTT (22-36) SECONDS Sodium (136-145) mEq/L Potassium (3.5-5.1) mEq/L Chloride (98-107) mEq/L Carbon Dioxide (21-32) mEq/L Anion Gap (5-15) BUN (7-18) mg/dL Creatinine (0.55-1.02) mg/dL Est Cr Clr Drug Dosing mL/min Estimated GFR (MDRD) (>60) mL/min BUN/Creatinine Ratio (14-18) Glucose (83-115) mg/dL Calcium (8.5-10.1) mg/dL Magnesium (1.8-2.4) mg/dl Total Bilirubin (0.2-1.0) mg/dL AST (15-37) U/L ALT (14-59) U/L Alkaline Phosphatase (46-116) U/L Troponin I 0.017 (0.00-0.056) ng/mL NT-Pro-B Natriuret Pep 979 H (0-450) pg/mL Total Protein (6.4-8.2) g/dl Albumin (3.4-5.0) g/dl Globulin gm/dL Albumin/Globulin Ratio (1-2) Result Diagrams: 01/16/18 05:17 01/16/18 05:17 EKG INTERPRETATION EKG Date: 01/15/18 Time: 16:20 Rhythm: A-Fib Rate (Beats/Min): 150 [place]: Normal P-Wave: Absent QRS: Normal ST-T: Normal QT: Normal Problem List Initiated/Reviewed/Updated: Yes Orders Last 24hrs: Active Orders 24 hr Category Date Time Status Admission Status [Patient Status] [ADT] Routine ADT 01/15/18 19:58 Active Ambulate [RC] ASDIRECTED Care 01/15/18 19:16 Active Cardiac Monitoring [RC] . DIRECTED Care 01/15/18 16:23 Active Cardiac Monitoring [RC] CONTINUOUS Care 01/15/18 19:16 Active Height and Weight [RC] DAILY Care 01/15/18 19:16 Active Intake and Output [RC] QSHIFT Care 01/15/18 19:16 Active Oxygen Therapy [RC] PRN Care 01/15/18 19:16 Active Peripheral IV Care [RC] . DIRECTED Care 01/15/18 16:23 Active RT Aerosol Therapy [RC] ASDIRECTED Care 01/15/18 19:19 Active Up ad Mally [RC] ASDIRECTED Care 01/15/18 19:16 Active VTE/DVT Education [RC] PER UNIT ROUTINE Care 01/15/18 19:16 Active Vital Signs [RC] Q4H Care 01/15/18 19:16 Active Consult to Case Management [CONS] Routine Cons 01/15/18 19:19 Active Consult to [place] [CONS] Routine Cons 01/15/18 19:19 Active Consult to Spiritual Care [CONS] Routine Cons 01/15/18 19:19 Active OT Evaluation and Treatment [CONS] Routine Cons 01/15/18 19:19 Active PT Evaluation and Treatment [CONS] Routine Cons 01/15/18 19:19 Active Respiratory Care Assess and Treatment [CONS] Routine Cons 01/15/18 19:19 Active Heart Healthy Diet [DIET] Diet 01/15/18 Dinner Active Chest 1V Frontal [CR] Stat Exams 01/15/18 16:24 Taken BASIC METABOLIC PANEL,BMP [CHEM] AM Lab 01/16/18 05:11 Ordered BASIC METABOLIC PANEL,BMP [CHEM] AM Lab 01/17/18 05:11 Ordered BASIC METABOLIC PANEL,BMP [CHEM] AM Lab 01/18/18 05:11 Ordered CBC WITH AUTO DIFF [HEME] AM Lab 01/16/18 05:11 Ordered CKMB [CHEM] AM Lab 01/16/18 05:11 Ordered CKMB [CHEM] Routine Lab 01/16/18 13:00 Ordered MAGNESIUM [CHEM] AM Lab 01/16/18 05:11 Ordered MAGNESIUM [CHEM] AM Lab 01/17/18 05:11 Ordered MAGNESIUM [CHEM] AM Lab 01/18/18 05:11 Ordered T4 FREE [CHEM] AM Lab 01/16/18 05:11 Ordered TROPONIN I [CHEM] Routine Lab 01/16/18 13:00 Ordered TSH [CHEM] AM Lab 01/16/18 05:11 Ordered UA W/MICROSCOPIC [URIN] Stat Lab 01/15/18 18:04 Ordered Acetaminophen [Tylenol] Med 01/15/18 19:16 Active 650 mg PO Q4H PRN Acetaminophen/HYDROcodone [[place] 325-5 MG] Med 01/15/18 19:16 Active 1 tab PO Q4H PRN Albuterol/Ipratropium [DuoNeb 3.0-0.5 MG/3 ML] Med 01/15/18 19:16 Active 3 ml NEB Q4H PRN Apixaban [Eliquis] Med 01/15/18 21:00 Active 2.5 mg PO BID Aspirin [Halfprin] Med 01/16/18 09:00 Active 81 mg PO DAILY Bisacodyl [Dulcolax] Med 01/15/18 19:16 Active 5 mg PO DAILY PRN Calcium Citrate/Vitamin D3 Med 01/16/18 07:00 Pending 1 tab PO BIDMEALS Diltiazem 125 mg Med 01/15/18 17:45 Active Sodium Chloride 0.9% [Normal Saline] 100 ml IV TITRATE Diltiazem IR [Cardizem] Med 01/16/18 00:00 Active 60 mg PO Q6HR Docusate Sodium [Colace] Med 01/15/18 19:16 Active 100 mg PO BID PRN Docusate Sodium/Sennosides [Senna Plus] Med 01/15/18 19:16 Active 1 tab PO BID PRN Furosemide [Lasix] Med 01/16/18 14:00 Active 20 mg PO DAILY@1400 Furosemide [Lasix] Med 01/16/18 06:00 Active 40 mg PO DAILY@0600 HYDROmorphone [Dilaudid] Med 01/15/18 19:16 Active 0.25 mg IVPUSH Q2H PRN Hyoscyamine [Hyomax-SL] Med 01/15/18 21:00 Active 0.125 mg PO TID LORazepam [Ativan] Med 01/15/18 19:16 Active 0.25 mg IV Q6H PRN LORazepam [Ativan] Med 01/15/18 19:29 Active 2 mg IVPUSH Q4H PRN Magnesium Rep Pharmacy to Dose [Pharmacy to Dose - Med 01/15/18 19:30 Pending Magnesium Replacement] 1 dose .XX ASDIRECTED Magnesium Sulfate/Water [Magnesium Sulfate 2 GM in Med 01/15/18 19:29 Pending Water 50 ML] 2 gm Premix Bag 1 bag IV ASDIRECTED Magnesium Sulfate/Water [Magnesium Sulfate 2 GM in Med 01/15/18 20:30 Active Water 50 ML] 50 ml IV ONETIME Metoprolol Tartrate [Lopressor] Med 01/15/18 21:00 Active 25 mg PO BID Metoprolol Tartrate [Lopressor] Med 01/15/18 19:29 Active 5 mg IVPUSH Q4H PRN Ondansetron [Zofran] Med 01/15/18 19:16 Active 4 mg IV Q6H PRN Pantoprazole [ProTONIX] Med 01/16/18 06:00 Active 40 mg PO ACBREAKFAST Polyethylene Glycol 3350 [MiraLAX] Med 01/15/18 19:16 Active 17 gm PO DAILY PRN Potassium Rep Pharmacy to Dose [Pharmacy to Dose - Med 01/15/18 19:30 Pending Potassium Replacement] 1 dose .XX ASDIRECTED Promethazine [Phenergan] 6.25 mg Med 01/15/18 19:16 Active Sodium Chloride 0.9% [Normal Saline] 50 ml IV Q6H Pyridostigmine [Mestinon] Med 01/15/18 21:00 Active 60 mg PO TID Rosuvastatin [Crestor] Med 01/16/18 09:00 Active 10 mg PO DAILY Sodium Chloride 0.9% [Saline Flush] Med 01/15/18 16:23 Active 10 ml FLUSH ASDIRECTED PRN Temazepam [Restoril] Med 01/15/18 19:16 Active 7.5 mg PO BEDTIME PRN hydrALAZINE [Apresoline] Med 01/15/18 19:29 Active 10 mg IVPUSH Q4H PRN predniSONE Med 01/16/18 07:00 Active 10 mg PO WITHBREAKFAST sulfaSALAzine Med 01/15/18 21:00 Active 500 mg PO BIDPC Peripheral IV Insertion Adult [OM.PC] Routine Oth 01/15/18 16:23 Ordered EKG 12 Lead [EK] Stat Ther 01/15/18 16:23 Ordered Medication Orders Acetaminophen (Tylenol) 650 mg PO Q4H PRN PRN Reason: Pain (Mild 1-3)/fever Hydrocodone Bitart/Acetaminophen ([place] 325-5 Mg) 1 tab PO Q4H PRN PRN Reason: Pain (moderate 4-6) Albuterol/Ipratropium (Duoneb 3.0-0.5 Mg/3 Ml) 3 ml NEB Q4H PRN PRN Reason: Shortness Of Breath/wheezing Apixaban (Eliquis) 2.5 mg PO BID [facility] Last Admin: 01/15/18 20:40 Dose: 2.5 mg Aspirin (Halfprin) 81 mg PO DAILY [facility] Bisacodyl (Dulcolax) 5 mg PO DAILY PRN PRN Reason: Constipation Diltiazem HCl (Cardizem) 60 mg PO Q6HR [facility] Docusate Sodium (Colace) 100 mg PO BID PRN PRN Reason: Constipation Furosemide (Lasix) 20 mg PO DAILY@1400 [facility] Furosemide (Lasix) 40 mg PO DAILY@0600 [facility] Hydralazine HCl (Apresoline) 10 mg IVPUSH Q4H PRN PRN Reason: Hypertension Hydromorphone HCl (Dilaudid) 0.25 mg IVPUSH Q2H PRN PRN Reason: Pain (severe 7-10) Hyoscyamine (Hyomax-Sl) 0.125 mg PO TID [facility] Last Admin: 01/15/18 20:41 Dose: 0.125 mg Diltiazem HCl 125 mg/ Sodium (Chloride) 125 mls @ 10 mls/hr IV TITRATE [facility]; Protocol Last Admin: 01/15/18 17:46 Dose: 10 mg/hr, 10 mls/hr Promethazine HCl 6.25 mg/ (Sodium Chloride) 50.25 mls @ 100 mls/hr IV Q6H PRN PRN Reason: Nausea/Vomiting Magnesium Sulfate 2 gm/ Premix 50 mls @ 25 mls/hr IV ASDIRECTED PRN PRN Reason: Other Magnesium Sulfate (Magnesium Sulfate 2 Gm In Water 50 Ml) 50 mls @ 25 mls/hr IV ONETIME ONE Stop: 01/15/18 22:29 Last Admin: 01/15/18 20:38 Dose: 25 mls/hr Lorazepam (Ativan) 0.25 mg IV Q6H PRN PRN Reason: Anxiety Lorazepam (Ativan) 2 mg IVPUSH Q4H PRN PRN Reason: Seizures Magnesium Sulfate (Pharmacy To Dose - Magnesium Replacement) 1 dose .XX ASDIRECTED [facility] Metoprolol Tartrate (Lopressor) 25 mg PO BID [facility] Last Admin: 01/15/18 20:39 Dose: 25 mg Metoprolol Tartrate (Lopressor) 5 mg IVPUSH Q4H PRN PRN Reason: Tachycardia Non-Formulary Medication (Calcium Citrate/Vitamin D3) 1 tab PO BIDMEALS [facility] Ondansetron HCl (Zofran) 4 mg IV Q6H PRN PRN Reason: Nausea/Vomiting Pantoprazole Sodium (Protonix) 40 mg PO ACBREAKFAST [facility] Polyethylene Glycol (Miralax) 17 gm PO DAILY PRN PRN Reason: Constipation Potassium Chloride (Pharmacy To Dose - Potassium Replacement) 1 dose .XX ASDIRECTED [facility] Prednisone (Prednisone) 10 mg PO WITHBREAKFAST [facility] Pyridostigmine [place] (Mestinon) 60 mg PO TID [facility] Rosuvastatin Calcium (Crestor) 10 mg PO DAILY [facility] Senna/Docusate Sodium (Senna Plus) 1 tab PO BID PRN PRN Reason: Constipation Sodium Chloride (Saline Flush) 10 ml FLUSH ASDIRECTED PRN PRN Reason: Keep Vein Open Last Admin: 01/15/18 16:36 Dose: 10 ml Sulfasalazine (Sulfasalazine) 500 mg PO BIDPC [facility] Last Admin: 01/15/18 20:39 Dose: 500 mg Temazepam (Restoril) 7.5 mg PO BEDTIME PRN PRN Reason: Sleep Assessment/Plan Comment:: Assessment/Plan: Acute: Atrial Fibrillation with RVR - HR in the 150s - She is symptomatic - She carries a hx/o chronic atrial fibrillation on eliquis - She states, she was doing okay before she was switched to 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 a day 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 - She is currently on cardizem drip; titrate to wean wean off - Will start cardizem 60 mg po Q6H once off cardizem drip - Cut down Metoprolol from 50 to 25 mg po BID - Continue eliquis for stroke prophylaxis Pleural Effusion - CXR small right sided effusion - ProBNP 979, mildly elevated - Continue diuretic Mild Congestive Heart Failure - HF with Preserved EF 55% with Moderately Dilated Left Atrium 06/23/2017 - Induced by recent atrial fibrillation - ProBNP 979, mildly elevated - Pleural effusion/Pulmonary Congestion and mild peripheral edema - Heart failure protocol: diuretics, Is/Os, dietary restrictions and daily weight checks Chronic: Impaired Vision/Hearing HTN HLD CAD/[place] S/p Stents Placement Hx/o UC Urinary Incontinence OA/DJD Myasthenia Gravis Plan: Admit to ICU Routine AM Labs Resume Home Meds except BB and CCB PT/OT consult DVT PPx: Already on Eliquis SW/CM for d/c planning Code Status: 1
[2018-01-15] MEDS ORDERED: Nystatin Crm 30 GM Tube TOP PRN (21:57)
[2018-01-16] MEDS ORDERED: Diltiazem IR 60 MG Tab PO SCH
[2018-01-16] MEDS: Pantoprazole 40 MG Tab.CR PO SCH (05:14)
[2018-01-16] MEDS: Diltiazem IR 60 MG Tab PO SCH ×3 (05:14→17:50)
[2018-01-16] MEDS: Furosemide 40 MG Tab PO SCH (05:14)
[2018-01-16] MEDS: hydrALAZINE 20 MG/ML SDV IVPUSH PRN (05:15)
[2018-01-16] MEDS: Metoprolol Tartrate 5 MG/5 ML SDV IVPUSH PRN (05:38)
--- NOTE | 2018-01-16 07:38 | CR ---
Chest: Portable view of the chest was obtained. Comparison: Prior chest x-ray of 09/25/17. Slight blunting of the costophrenic angles are seen. Findings on the right side slightly more prominent than on prior study presumably representing small pleural effusion. Mild pulmonary vascular congestion is seen with slight cardiomegaly which appears stable. Atherosclerotic change is noted within the aorta as well as mild tortuosity. Scoliosis is noted within the spine with scattered degenerative change. Impression: 1. Slight increased right sided pleural effusion from prior study. Pulmonary vascular congestion which appears fairly stable with cardiomegaly and other incidental findings. Diagnostic code #3
[2018-01-16] MEDS: predniSONE 10 MG Tab PO SCH (07:55)
[2018-01-16] MEDS: Potassium Chloride 20 MEQ Tab.ER PO SCH ×2 (07:55→17:50)
[2018-01-16] MEDS ORDERED: Potassium Chloride 20 MEQ Tab.ER PO ONE (08:00)
[2018-01-16] MEDS: Aspirin 81 MG Tab.EC PO SCH (08:09)
[2018-01-16] MEDS: Hyoscyamine 0.125 MG Tab.SL PO SCH ×3 (08:09→20:07)
[2018-01-16] MEDS: Metoprolol Tartrate 50 MG Tab PO SCH (08:09)
[2018-01-16] MEDS: Rosuvastatin 10 MG Tab PO SCH (08:11)
[2018-01-16] MEDS: Apixaban 5 MG Tab PO SCH ×2 (08:11→20:07)
[2018-01-16] MEDS: sulfaSALAzine 500 MG Tab PO SCH ×2 (08:11→17:50)
--- NOTE | 2018-01-16 08:20 | PCM.PN ---
- General Info Date of Service: 01/16/18 Admission Dx/Problem (Free Text): Admission Diagnosis/Problem Admission Diagnosis/Problem Atrial fibrillation with rapid ventricular response Subjective Update: Follow Up Functional Status: Reports: Pain Controlled, Tolerating Diet, Ambulating, Urinating - Review of Systems General: Reports: Fatigue. Denies: Fever, Weakness, Malaise, Chills HEENT: Reports: No Symptoms Pulmonary: Denies: Shortness of Breath Cardiovascular: Reports: Palpitations. Denies: Chest Pain, Dyspnea on Exertion , Lightheadedness Gastrointestinal: Denies: Abdominal Pain, Nausea, Vomiting Genitourinary: Reports: Frequency Musculoskeletal: Reports: No Symptoms Skin: Reports: Bruising. Denies: Cyanosis, Jaundice, Pallor, Diaphoresis Neurological: Denies: Confusion, Difficulty Walking, Weakness, Gait Disturbance Psychiatric: Denies: Depression, Anxiety, Agitation, Hallucinations Systems Review Comment:: No acute issues. She slept pretty good last night. Her K is lightly low this morning. - Patient Data Vitals - Most Recent: Last Vital Signs Temp 36.0 C 01/16/18 07:41 Pulse 133 H 01/16/18 08:09 Resp 20 01/16/18 07:41 BP 133/77 01/16/18 08:09 Pulse Ox 92 L 01/16/18 07:41 Weight - Most Recent: 73.936 kg I&O - Last 24 Hours: Intake & Output 01/15/18 01/16/18 01/16/18 22:59 06:59 14:59 Intake Total 285 Output Total 400 500 Balance -115 -500 Lab Results Last 24 Hours: Laboratory Results - last 24 hr 01/15/18 01/15/18 01/15/18 Range/Units 16:33 16:33 16:33 WBC 7.47 (3.98-10.04) K/mm3 RBC 4.52 (3.98-5.22) M/mm3 Hgb 14.4 (11.2-15.7) gm/L Hct 45.2 H (34.1-44.9) % MCV 100.0 H (79.4-94.8) fl MCH 31.9 (25.6-32.2) pg MCHC 31.9 L (32.2-35.5) g/dl RDW Std Deviation 61.4 H (36.4-46.3) fL Plt Count 86 L (182-369) K/mm3 MPV 12.4 H (9.4-12.3) fl Neut % (Auto) (34.0-71.1) % Lymph % (Auto) (19.3-51.7) % [place] % (Auto) (4.7-12.5) % Eos % (Auto) (0.7-5.8) Baso % (Auto) (0.1-1.2) % Neut # (Auto) (1.56-6.13) K/mm3 Lymph # (Auto) (1.18-3.74) K/mm3 [place] # (Auto) (0.24-0.36) K/mm3 Eos # (Auto) (0.04-0.36) K/mm3 Baso # (Auto) (0.01-0.08) K/mm3 Neutrophils % (Manual) 92 H (40-60) % Band Neutrophils % 0 (0-10) % Lymphocytes % (Manual) 6 L (20-40) % Atypical Lymphs % 0 % Monocytes % (Manual) 2 (2-10) % Eosinophils % (Manual) 0 L (0.7-5.8) % Basophils % (Manual) 0 L (0.1-1.2) Manual Slide Review Platelet Estimate Decreased Plt Morphology Comment See note Poikilocytosis 1+ slight Anisocytosis 1+ slight Macrocytosis 1+ slight RBC Morph Comment Not Reportable PT 11.3 (8.0-13.0) SECONDS INR 1.06 APTT 25 (22-36) SECONDS Sodium 145 (136-145) mEq/L Potassium 4.0 (3.5-5.1) mEq/L Chloride 105 (98-107) mEq/L Carbon Dioxide 31 (21-32) mEq/L Anion Gap 13.0 (5-15) BUN 20 H (7-18) mg/dL Creatinine 1.2 H (0.55-1.02) mg/dL Est Cr Clr Drug Dosing 28.09 mL/min Estimated GFR (MDRD) 43 (>60) mL/min BUN/Creatinine Ratio 16.7 (14-18) Glucose 145 H (83-115) mg/dL Calcium 9.3 (8.5-10.1) mg/dL Magnesium 1.8 (1.8-2.4) mg/dl Total Bilirubin 0.6 (0.2-1.0) mg/dL AST 63 H (15-37) U/L ALT 48 (14-59) U/L Alkaline Phosphatase 195 H (46-116) U/L CK-MB (CK-2) (0-3.6) ng/ml Troponin I (0.00-0.056) ng/mL NT-Pro-B Natriuret Pep (0-450) pg/mL Total Protein 7.1 (6.4-8.2) g/dl Albumin 3.2 L (3.4-5.0) g/dl Globulin 3.9 gm/dL Albumin/Globulin Ratio 0.8 L (1-2) Free T4 (0.76-1.46) ng/dL TSH 3rd Generation (0.358-3.74) uIU/mL Urine Color (Yellow) Urine Appearance (Clear) Urine pH (5.0-8.0) Ur Specific [place] (1.005-1.030) Urine Protein (Negative) Urine Glucose (UA) (Negative) Urine Ketones (Negative) Urine Occult Blood (Negative) Urine Nitrite (Negative) Urine Bilirubin (Negative) Urine Urobilinogen (0.2-1.0) Ur Leukocyte Esterase (Negative) Urine RBC (0-5) /hpf Urine WBC (0-5) /hpf Ur Epithelial Cells (0-5) /hpf Urine Bacteria (FEW) /hpf Hyaline Casts (0-5) /lpf Waxy Casts (0-5) /lpf Urine Mucus (FEW) /hpf 01/15/18 01/15/18 01/15/18 Range/Units 16:33 16:33 21:00 WBC (3.98-10.04) K/mm3 RBC (3.98-5.22) M/mm3 Hgb (11.2-15.7) gm/L Hct (34.1-44.9) % MCV (79.4-94.8) fl MCH (25.6-32.2) pg MCHC (32.2-35.5) g/dl RDW Std Deviation (36.4-46.3) fL Plt Count (182-369) K/mm3 MPV (9.4-12.3) fl Neut % (Auto) (34.0-71.1) % Lymph % (Auto) (19.3-51.7) % [place] % (Auto) (4.7-12.5) % Eos % (Auto) (0.7-5.8) Baso % (Auto) (0.1-1.2) % Neut # (Auto) (1.56-6.13) K/mm3 Lymph # (Auto) (1.18-3.74) K/mm3 [place] # (Auto) (0.24-0.36) K/mm3 Eos # (Auto) (0.04-0.36) K/mm3 Baso # (Auto) (0.01-0.08) K/mm3 Neutrophils % (Manual) (40-60) % Band Neutrophils % (0-10) % Lymphocytes % (Manual) (20-40) % Atypical Lymphs % % Monocytes % (Manual) (2-10) % Eosinophils % (Manual) (0.7-5.8) % Basophils % (Manual) (0.1-1.2) Manual Slide Review Platelet Estimate Plt Morphology Comment Poikilocytosis Anisocytosis Macrocytosis RBC Morph Comment PT (8.0-13.0) SECONDS INR APTT (22-36) SECONDS Sodium (136-145) mEq/L Potassium (3.5-5.1) mEq/L Chloride (98-107) mEq/L Carbon Dioxide (21-32) mEq/L Anion Gap (5-15) BUN (7-18) mg/dL Creatinine (0.55-1.02) mg/dL Est Cr Clr Drug Dosing mL/min Estimated GFR (MDRD) (>60) mL/min BUN/Creatinine Ratio (14-18) Glucose (83-115) mg/dL Calcium (8.5-10.1) mg/dL Magnesium (1.8-2.4) mg/dl Total Bilirubin (0.2-1.0) mg/dL AST (15-37) U/L ALT (14-59) U/L Alkaline Phosphatase (46-116) U/L CK-MB (CK-2) (0-3.6) ng/ml Troponin I 0.017 (0.00-0.056) ng/mL NT-Pro-B Natriuret Pep 979 H (0-450) pg/mL Total Protein (6.4-8.2) g/dl Albumin (3.4-5.0) g/dl Globulin gm/dL Albumin/Globulin Ratio (1-2) Free T4 (0.76-1.46) ng/dL TSH 3rd Generation (0.358-3.74) uIU/mL Urine Color Yellow (Yellow) Urine Appearance Clear (Clear) Urine pH 7.0 (5.0-8.0) Ur Specific [place] 1.020 (1.005-1.030) Urine Protein Negative (Negative) Urine Glucose (UA) Negative (Negative) Urine Ketones Negative (Negative) Urine Occult Blood Trace-intact H (Negative) Urine Nitrite Negative (Negative) Urine Bilirubin Negative (Negative) Urine Urobilinogen 0.2 (0.2-1.0) Ur Leukocyte Esterase Negative (Negative) Urine RBC 0-5 (0-5) /hpf Urine WBC 0-5 (0-5) /hpf Ur Epithelial Cells 0-5 (0-5) /hpf Urine Bacteria Rare (FEW) /hpf Hyaline Casts 0-5 (0-5) /lpf Waxy Casts 0-5 (0-5) /lpf Urine Mucus Not seen (FEW) /hpf 01/16/18 01/16/18 Range/Units 05:17 05:17 WBC 6.61 (3.98-10.04) K/mm3 RBC 4.33 (3.98-5.22) M/mm3 Hgb 14.1 (11.2-15.7) gm/L Hct 42.8 (34.1-44.9) % MCV 98.8 H (79.4-94.8) fl MCH 32.6 H (25.6-32.2) pg MCHC 32.9 (32.2-35.5) g/dl RDW Std Deviation 60.3 H (36.4-46.3) fL Plt Count 70 L (182-369) K/mm3 MPV 12.8 H (9.4-12.3) fl Neut % (Auto) 74.7 H (34.0-71.1) % Lymph % (Auto) 14.8 L (19.3-51.7) % [place] % (Auto) 10.0 (4.7-12.5) % Eos % (Auto) 0.3 L (0.7-5.8) Baso % (Auto) 0.2 (0.1-1.2) % Neut # (Auto) 4.94 (1.56-6.13) K/mm3 Lymph # (Auto) 0.98 L (1.18-3.74) K/mm3 [place] # (Auto) 0.66 H (0.24-0.36) K/mm3 Eos # (Auto) 0.02 L (0.04-0.36) K/mm3 Baso # (Auto) 0.01 (0.01-0.08) K/mm3 Neutrophils % (Manual) (40-60) % Band Neutrophils % (0-10) % Lymphocytes % (Manual) (20-40) % Atypical Lymphs % % Monocytes % (Manual) (2-10) % Eosinophils % (Manual) (0.7-5.8) % Basophils % (Manual) (0.1-1.2) Manual Slide Review Abnormal smear Platelet Estimate Plt Morphology Comment Poikilocytosis Anisocytosis Macrocytosis RBC Morph Comment PT (8.0-13.0) SECONDS INR APTT (22-36) SECONDS Sodium 145 (136-145) mEq/L Potassium 3.3 L (3.5-5.1) mEq/L Chloride 107 (98-107) mEq/L Carbon Dioxide 30 (21-32) mEq/L Anion Gap 11.3 (5-15) BUN 22 H (7-18) mg/dL Creatinine 1.2 H (0.55-1.02) mg/dL Est Cr Clr Drug Dosing 28.09 mL/min Estimated GFR (MDRD) 43 (>60) mL/min BUN/Creatinine Ratio 18.3 H (14-18) Glucose 97 (83-115) mg/dL Calcium 8.9 (8.5-10.1) mg/dL Magnesium 2.4 (1.8-2.4) mg/dl Total Bilirubin (0.2-1.0) mg/dL AST (15-37) U/L ALT (14-59) U/L Alkaline Phosphatase (46-116) U/L CK-MB (CK-2) 0.6 (0-3.6) ng/ml Troponin I (0.00-0.056) ng/mL NT-Pro-B Natriuret Pep (0-450) pg/mL Total Protein (6.4-8.2) g/dl Albumin (3.4-5.0) g/dl Globulin gm/dL Albumin/Globulin Ratio (1-2) Free T4 1.18 (0.76-1.46) ng/dL TSH 3rd Generation 0.713 (0.358-3.74) uIU/mL Urine Color (Yellow) Urine Appearance (Clear) Urine pH (5.0-8.0) Ur Specific [place] (1.005-1.030) Urine Protein (Negative) Urine Glucose (UA) (Negative) Urine Ketones (Negative) Urine Occult Blood (Negative) Urine Nitrite (Negative) Urine Bilirubin (Negative) Urine Urobilinogen (0.2-1.0) Ur Leukocyte Esterase (Negative) Urine RBC (0-5) /hpf Urine WBC (0-5) /hpf Ur Epithelial Cells (0-5) /hpf Urine Bacteria (FEW) /hpf Hyaline Casts (0-5) /lpf Waxy Casts (0-5) /lpf Urine Mucus (FEW) /hpf Med Orders - Current: Current Medications Acetaminophen (Tylenol) 650 mg PO Q4H PRN PRN Reason: Pain (Mild 1-3)/fever Hydrocodone Bitart/Acetaminophen ([place] 325-5 Mg) 1 tab PO Q4H PRN PRN Reason: Pain (moderate 4-6) Albuterol/Ipratropium (Duoneb 3.0-0.5 Mg/3 Ml) 3 ml NEB Q4H PRN PRN Reason: Shortness Of Breath/wheezing Apixaban (Eliquis) 2.5 mg PO BID [facility] Last Admin: 01/16/18 08:11 Dose: 2.5 mg Aspirin (Halfprin) 81 mg PO DAILY [facility] Last Admin: 01/16/18 08:09 Dose: 81 mg Bisacodyl (Dulcolax) 5 mg PO DAILY PRN PRN Reason: Constipation Diltiazem HCl (Cardizem) 60 mg PO Q6HR [facility] Last Admin: 01/16/18 05:14 Dose: 60 mg Docusate Sodium (Colace) 100 mg PO BID PRN PRN Reason: Constipation Furosemide (Lasix) 20 mg PO DAILY@1400 [facility] Furosemide (Lasix) 40 mg PO DAILY@0600 [facility] Last Admin: 01/16/18 05:14 Dose: 40 mg Hydralazine HCl (Apresoline) 10 mg IVPUSH Q4H PRN PRN Reason: Hypertension Last Admin: 01/16/18 05:15 Dose: 10 mg Hydromorphone HCl (Dilaudid) 0.25 mg IVPUSH Q2H PRN PRN Reason: Pain (severe 7-10) Hyoscyamine (Hyomax-Sl) 0.125 mg PO TID [facility] Last Admin: 01/16/18 08:09 Dose: 0.125 mg Diltiazem HCl 125 mg/ Sodium (Chloride) 125 mls @ 10 mls/hr IV TITRATE [facility]; Protocol Last Titration: 01/16/18 00:44 Dose: 0 mg/hr, 0 mls/hr Promethazine HCl 6.25 mg/ (Sodium Chloride) 50.25 mls @ 100 mls/hr IV Q6H PRN PRN Reason: Nausea/Vomiting Lorazepam (Ativan) 0.25 mg IV Q6H PRN PRN Reason: Anxiety Lorazepam (Ativan) 2 mg IVPUSH Q4H PRN PRN Reason: Seizures Magnesium Sulfate (Pharmacy To Dose - Magnesium Replacement) 1 dose .XX ASDIRECTED [facility] Metoprolol Tartrate (Lopressor) 25 mg PO BID [facility] Last Admin: 01/16/18 08:09 Dose: 25 mg Metoprolol Tartrate (Lopressor) 5 mg IVPUSH Q4H PRN PRN Reason: Tachycardia Last Admin: 01/16/18 05:38 Dose: 5 mg Non-Formulary Medication (Calcium Citrate/Vitamin D3) 1 tab PO BIDMEALS [facility] Non-Formulary Medication (Nystatin) 1 applic TOP BID PRN PRN Reason: Rash Ondansetron HCl (Zofran) 4 mg IV Q6H PRN PRN Reason: Nausea/Vomiting Pantoprazole Sodium (Protonix) 40 mg PO ACBREAKFAST [facility] Last Admin: 01/16/18 05:14 Dose: 40 mg Polyethylene Glycol (Miralax) 17 gm PO DAILY PRN PRN Reason: Constipation Potassium Chloride (Pharmacy To Dose - Potassium Replacement) 1 dose .XX ASDIRECTED [facility] Potassium Chloride (Klor-Con M20) 20 meq PO BIDMEALS [facility] Last Admin: 01/16/18 07:55 Dose: 20 meq Prednisone (Prednisone) 10 mg PO WITHBREAKFAST [facility] Last Admin: 01/16/18 07:55 Dose: 10 mg Pyridostigmine [place] (Mestinon) 60 mg PO TID [facility] Last Admin: 01/15/18 22:02 Dose: Not Given Rosuvastatin Calcium (Crestor) 10 mg PO DAILY [facility] Last Admin: 01/16/18 08:11 Dose: 10 mg Senna/Docusate Sodium (Senna Plus) 1 tab PO BID PRN PRN Reason: Constipation Sodium Chloride (Saline Flush) 10 ml FLUSH ASDIRECTED PRN PRN Reason: Keep Vein Open Last Admin: 01/15/18 16:36 Dose: 10 ml Sulfasalazine (Sulfasalazine) 500 mg PO BIDPC [facility] Last Admin: 01/16/18 08:11 Dose: 500 mg Temazepam (Restoril) 7.5 mg PO BEDTIME PRN PRN Reason: Sleep Discontinued Medications Diltiazem HCl (Diltiazem) 10 mg IVPUSH ONETIME ONE Stop: 01/15/18 16:40 Last Admin: 01/15/18 16:44 Dose: 10 mg Diltiazem HCl (Cardizem) 60 mg PO Q6HR [facility] Furosemide (Lasix) 20 mg IVPUSH ONETIME ONE Stop: 01/15/18 17:53 Last Admin: 01/15/18 18:23 Dose: 20 mg Magnesium Sulfate 2 gm/ Premix 50 mls @ 25 mls/hr IV ASDIRECTED PRN PRN Reason: Other Magnesium Sulfate (Magnesium Sulfate 2 Gm In Water 50 Ml) 50 mls @ 25 mls/hr IV ONETIME ONE Stop: 01/15/18 22:29 Last Admin: 01/15/18 20:38 Dose: 25 mls/hr Metoprolol Tartrate (Lopressor) 50 mg PO BID [facility] Non-Formulary Medication (Diltiazem) 240 mg PO DAILY [facility] Non-Formulary Medication (Hyoscyamine [Levsin]) 0.125 mg PO TID [facility] Potassium Chloride (Klor-Con M20) 40 meq PO ONETIME ONE Stop: 01/16/18 08:01 Last Admin: 01/16/18 08:12 Dose: 40 meq - Exam Quality Assessment: No: Supplemental Oxygen General: Alert, Oriented, Cooperative, No Acute Distress HEENT: Pupils Equal, Pupils Reactive, EOMI, Mucous Membr. Moist/[place] Neck: Supple, Trachea Midline, No JVD Lungs: Normal Respiratory Effort, Crackles (right base) Cardiovascular: Irregular Rhythm GI/Abdominal Exam: Normal Bowel Sounds, Soft, Non-Tender, No Organomegaly, No Distention, No Abnormal Bruit, No Mass (Female) Exam: Deferred Back Exam: Normal Inspection, Decreased Range of Motion Extremities: Normal Inspection, Normal Range of Motion, Non-Tender, Normal Capillary Refill, Other (mild bilateral lower extremity edema) Peripheral Pulses: 2+: Dorsalis Pedis (L), Dorsalis Pedis (R) Skin: Warm, Dry, Intact Neurological: No New Focal Deficit Psy/Mental Status: Alert, Normal Affect, Normal Mood - Problem List Review Problem List Initiated/Reviewed/Updated: Yes - My Orders Last 24 Hours: My Active Orders 01/15/18 19:16 Ambulate [RC] ASDIRECTED Cardiac Monitoring [RC] 03,09,15,21 Height and Weight [RC] 04 Intake and Output [RC] 04,16 Oxygen Therapy [RC] PRN Up ad Mally [RC] ASDIRECTED VTE/DVT Education [RC] PER UNIT ROUTINE Vital Signs [RC] Q4HR Acetaminophen [Tylenol] 650 mg PO Q4H PRN Acetaminophen/HYDROcodone [[place] 325-5 MG] 1 tab PO Q4H PRN Albuterol/Ipratropium [DuoNeb 3.0-0.5 MG/3 ML] 3 ml NEB Q4H PRN Bisacodyl [Dulcolax] 5 mg PO DAILY PRN Docusate Sodium [Colace] 100 mg PO BID PRN Docusate Sodium/Sennosides [Senna Plus] 1 tab PO BID PRN HYDROmorphone [Dilaudid] 0.25 mg IVPUSH Q2H PRN LORazepam [Ativan] 0.25 mg IV Q6H PRN Ondansetron [Zofran] 4 mg IV Q6H PRN Polyethylene Glycol 3350 [MiraLAX] 17 gm PO DAILY PRN Promethazine [Phenergan] 6.25 mg Sodium Chloride 0.9% [Normal Saline] 50 ml IV Q6H Temazepam [Restoril] 7.5 mg PO BEDTIME PRN 01/15/18 19:19 RT Aerosol Therapy [RC] ASDIRECTED Consult to Case Management [CONS] Routine Consult to Taker Off Braker Machine [CONS] Routine Consult to Spiritual Care [CONS] Routine OT Evaluation and Treatment [CONS] Routine PT Evaluation and Treatment [CONS] Routine Respiratory Care Assess and Treatment [CONS] Routine 01/15/18 19:29 LORazepam [Ativan] 2 mg IVPUSH Q4H PRN Metoprolol Tartrate [Lopressor] 5 mg IVPUSH Q4H PRN hydrALAZINE [Apresoline] 10 mg IVPUSH Q4H PRN 01/15/18 19:30 Magnesium Rep Pharmacy to Dose [Pharmacy to Dose - Magnesium Replacement] 1 dose .XX ASDIRECTED Potassium Rep Pharmacy to Dose [Pharmacy to Dose - Potassium Replacement] 1 dose .XX ASDIRECTED 01/15/18 21:00 Apixaban [Eliquis] 2.5 mg PO BID Hyoscyamine [Hyomax-SL] 0.125 mg PO TID Metoprolol Tartrate [Lopressor] 25 mg PO BID Pyridostigmine [Mestinon] 60 mg PO TID sulfaSALAzine 500 mg PO BIDPC 01/15/18 21:57 Nystatin 1 applic TOP BID PRN 01/15/18 23:41 Code Status [Resuscitation Status] Routine 01/15/18 Dinner Heart Healthy Diet [DIET] 01/16/18 06:00 Diltiazem IR [Cardizem] 60 mg PO Q6HR Furosemide [Lasix] 40 mg PO DAILY@0600 Pantoprazole [ProTONIX] 40 mg PO ACBREAKFAST 01/16/18 07:00 Calcium Citrate/Vitamin D3 1 tab PO BIDMEALS Potassium Chloride [Klor-Con M20] 20 meq PO BIDMEALS predniSONE 10 mg PO WITHBREAKFAST 01/16/18 09:00 Aspirin [Halfprin] 81 mg PO DAILY Rosuvastatin [Crestor] 10 mg PO DAILY 01/16/18 13:00 CKMB [CHEM] Routine TROPONIN I [CHEM] Routine 01/16/18 14:00 Furosemide [Lasix] 20 mg PO DAILY@1400 01/16/18 Breakfast Fluid Restriction [DIET] Sodium Restricted Diet [DIET] 01/17/18 05:11 BASIC METABOLIC PANEL,BMP [CHEM] AM MAGNESIUM [CHEM] AM 01/18/18 05:11 BASIC METABOLIC PANEL,BMP [CHEM] AM MAGNESIUM [CHEM] AM - Plan Plan:: Assessment/Plan: Acute: Atrial Fibrillation with RVR, Improved - HR in the 150s--> HR < 100 overnight but went into 120s at rest this morning - She is no longer symptomatic - She carries a hx/o chronic atrial fibrillation on eliquis - She states, she was doing okay before she was switched to 1 pill a day cardizem by her infant caregiver - Thyroid panel is within normal limits - She is now off cardizem drip; tstand by if needed if she remains at 120s or higher - Continue Cardizem 60 mg po Q6H - Resume home dose Metoprolol of 50 mg po BID - Continue eliquis for stroke prophylaxis Pleural Effusion, Stable - CXR small right sided effusion - ProBNP 979, mildly elevated - Continue diuretic Mild Congestive Heart Failure - HF with Preserved EF 55% with Moderately Dilated Left Atrium 06/23/2017 - Induced by recent atrial fibrillation - ProBNP 979, mildly elevated - Pleural effusion/Pulmonary Congestion and mild peripheral edema - Heart failure protocol: diuretics, Is/Os, dietary restrictions and daily weight checks Mild Hypokalemia - K 3.3 - 2/2 diuresis - Replete and monitor Chronic: Impaired Vision/Hearing HTN HLD CAD/ND S/p Stents Placement Hx/o UC Renal Insufficiency/CKD Stage 3 Urinary Incontinence OA/DJD Myasthenia Gravis Plan: She is much better clinically but heart rate not fully controlled Continue current treatment Routine AM Labs PT/OT consult DVT PPx: Already on Eliquis SW/CM for d/c planning Additional orders as above Code Status: 1
[2018-01-16] MEDS ORDERED: Metoprolol Tartrate 5 MG/5 ML SDV IVPUSH ONE (08:28)
--- NOTE | 2018-01-16 08:46 | PCM.SN ---
- Free Text/Narrative Note: No acute issues overnight. When asked if she slept good last night, She states "the best night I've had for a long time". Her cardizem drip was stopped at midnight. This morning her resting heart rate was in the 120s and went up to 160s-170s with activity or ambulation. Will give one time dose of PRN Metoprolol of 5 mg IVP and resume back her home Metoprolol dose of 50 mg po BID. Will continue with Cardizem 60 mg po Q6H.
[2018-01-16] MEDS ORDERED: Non-Formulary Medication 1 Each (Hyoscyamine [Levsin] 0.125 MG) PO SCH (09:00)
[2018-01-16] MEDS ORDERED: Metoprolol Tartrate 25 MG Tab PO ONE (09:00)
[2018-01-16] MEDS ORDERED: Non-Formulary Medication 1 Each (Diltiazem 240 MG) PO SCH (09:00)
[2018-01-16] MEDS ORDERED: Non-Formulary Medication 1 Each (Atorvastatin 40 MG) PO SCH (09:00)
[2018-01-16] MEDS: Calcium Carbonate/Vitamin D3 600 MG-200 Units Tab PO SCH ×2 (10:02→17:50)
[2018-01-16] MEDS: Furosemide 20 MG Tab PO SCH (14:48)
[2018-01-16] MEDS ORDERED: Metoprolol Tartrate 50 MG Tab PO SCH (21:00)
[2018-01-17] MEDS: hydrALAZINE 20 MG/ML SDV IVPUSH PRN (05:25)
[2018-01-17] MEDS: Diltiazem IR 60 MG Tab PO SCH ×3 (05:34→12:02)
[2018-01-17] MEDS: Furosemide 40 MG Tab PO SCH (05:34)
[2018-01-17] MEDS: Pantoprazole 40 MG Tab.CR PO SCH (05:34)
[2018-01-17] MEDS: Metoprolol Tartrate 5 MG/5 ML SDV IVPUSH PRN ×3 (06:00→18:53)
--- NOTE | 2018-01-17 07:11 | PCM.PN ---
- General Info Date of Service: 01/17/18 Admission Dx/Problem (Free Text): Admission Diagnosis/Problem Admission Diagnosis/Problem Atrial fibrillation with rapid ventricular response Subjective Update: Follow Up Functional Status: Reports: Pain Controlled, Tolerating Diet, Ambulating, Urinating - Review of Systems General: Reports: Fatigue, Malaise. Denies: Fever, Weakness, Chills HEENT: Denies: Headaches Pulmonary: Denies: Shortness of Breath, Pleuritic Chest Pain, Sputum, Wheezing Cardiovascular: Denies: Chest Pain, Palpitations, Dyspnea on Exertion, Lightheadedness Gastrointestinal: Denies: Abdominal Pain, Constipation, Decreased Appetite, Nausea, Vomiting Genitourinary: Reports: No Symptoms Musculoskeletal: Reports: No Symptoms Skin: Denies: Jaundice, Mottled, Pallor, Diaphoresis, Bruising Neurological: Denies: Confusion, Difficulty Walking, Weakness, Gait Disturbance Psychiatric: Denies: Depression, Anxiety, Agitation, Hallucinations Systems Review Comment:: She did not sleep good last night, she could not tell why and she does not feel good this morning. This morning she went into similar episode yesterday morning. Her heart rate went up to 140s-150s with activity, she had gotten her scheduled oral Cardizem, and PRN IVP Lopressor but so far she is still hovering in the 130a-150s. She is not in acute distress but less energetic than yesterday. Her labs are fairly unremarkable. - Patient Data Vitals - Most Recent: Last Vital Signs Temp 36.2 C 01/17/18 05:23 Pulse 156 H 01/17/18 06:00 Resp 14 01/17/18 06:00 BP 117/81 01/17/18 06:00 Pulse Ox 93 L 01/17/18 06:00 Weight - Most Recent: 73.754 kg I&O - Last 24 Hours: Intake & Output 01/16/18 01/17/18 01/17/18 22:59 06:59 14:59 Intake Total 680 240 Output Total 550 250 Balance 130 -10 Lab Results Last 24 Hours: Laboratory Results - last 24 hr 01/16/18 01/16/18 01/17/18 Range/Units 05:17 13:10 05:25 Sodium 145 136 (136-145) mEq/L Potassium 3.3 L 3.8 (3.5-5.1) mEq/L Chloride 107 103 (98-107) mEq/L Carbon Dioxide 30 32 (21-32) mEq/L Anion Gap 11.3 4.8 L (5-15) BUN 22 H 25 H (7-18) mg/dL Creatinine 1.2 H 1.2 H (0.55-1.02) mg/dL Est Cr Clr Drug Dosing 28.09 28.09 mL/min Estimated GFR (MDRD) 43 43 (>60) mL/min BUN/Creatinine Ratio 18.3 H 20.8 H (14-18) Glucose 97 98 (83-115) mg/dL Calcium 8.9 9.5 (8.5-10.1) mg/dL Magnesium 2.4 2.1 (1.8-2.4) mg/dl CK-MB (CK-2) 0.6 0.5 (0-3.6) ng/ml Troponin I 0.019 (0.00-0.056) ng/mL NT-Pro-B Natriuret Pep (0-450) pg/mL Free T4 1.18 (0.76-1.46) ng/dL TSH 3rd Generation 0.713 (0.358-3.74) uIU/mL 01/17/18 Range/Units 05:25 Sodium (136-145) mEq/L Potassium (3.5-5.1) mEq/L Chloride (98-107) mEq/L Carbon Dioxide (21-32) mEq/L Anion Gap (5-15) BUN (7-18) mg/dL Creatinine (0.55-1.02) mg/dL Est Cr Clr Drug Dosing mL/min Estimated GFR (MDRD) (>60) mL/min BUN/Creatinine Ratio (14-18) Glucose (83-115) mg/dL Calcium (8.5-10.1) mg/dL Magnesium (1.8-2.4) mg/dl CK-MB (CK-2) (0-3.6) ng/ml Troponin I (0.00-0.056) ng/mL NT-Pro-B Natriuret Pep 706 H (0-450) pg/mL Free T4 (0.76-1.46) ng/dL TSH 3rd Generation (0.358-3.74) uIU/mL Med Orders - Current: Current Medications Acetaminophen (Tylenol) 650 mg PO Q4H PRN PRN Reason: Pain (Mild 1-3)/fever Hydrocodone Bitart/Acetaminophen ([place] 325-5 Mg) 1 tab PO Q4H PRN PRN Reason: Pain (moderate 4-6) Albuterol/Ipratropium (Duoneb 3.0-0.5 Mg/3 Ml) 3 ml NEB Q4H PRN PRN Reason: Shortness Of Breath/wheezing Apixaban (Eliquis) 2.5 mg PO BID [facility] Last Admin: 01/16/18 20:07 Dose: 2.5 mg Aspirin (Halfprin) 81 mg PO DAILY [facility] Last Admin: 01/16/18 08:09 Dose: 81 mg Bisacodyl (Dulcolax) 5 mg PO DAILY PRN PRN Reason: Constipation Calcium Carbonate (Calcium Carbonate/Vitamin D 600 Mg-200 Unit) 1 tab PO BIDMEALS [facility] Last Admin: 01/16/18 17:50 Dose: 1 tab Diltiazem HCl (Cardizem) 60 mg PO Q6HR [facility] Last Admin: 01/17/18 05:34 Dose: 60 mg Docusate Sodium (Colace) 100 mg PO BID PRN PRN Reason: Constipation Furosemide (Lasix) 20 mg PO DAILY@1400 [facility] Last Admin: 01/16/18 14:48 Dose: 20 mg Furosemide (Lasix) 40 mg PO DAILY@0600 [facility] Last Admin: 01/17/18 05:34 Dose: 40 mg Hydralazine HCl (Apresoline) 10 mg IVPUSH Q4H PRN PRN Reason: Hypertension Last Admin: 01/17/18 05:25 Dose: 10 mg Hydromorphone HCl (Dilaudid) 0.25 mg IVPUSH Q2H PRN PRN Reason: Pain (severe 7-10) Hyoscyamine (Hyomax-Sl) 0.125 mg PO TID [facility] Last Admin: 01/16/18 20:07 Dose: 0.125 mg Diltiazem HCl 125 mg/ Sodium (Chloride) 125 mls @ 10 mls/hr IV TITRATE [facility]; Protocol Last Titration: 01/16/18 00:44 Dose: 0 mg/hr, 0 mls/hr Promethazine HCl 6.25 mg/ (Sodium Chloride) 50.25 mls @ 100 mls/hr IV Q6H PRN PRN Reason: Nausea/Vomiting Lorazepam (Ativan) 0.25 mg IV Q6H PRN PRN Reason: Anxiety Lorazepam (Ativan) 2 mg IVPUSH Q4H PRN PRN Reason: Seizures Magnesium Sulfate (Pharmacy To Dose - Magnesium Replacement) 1 dose .XX ASDIRECTED [facility] Metoprolol Tartrate (Lopressor) 5 mg IVPUSH Q4H PRN PRN Reason: Tachycardia Last Admin: 01/17/18 06:00 Dose: 5 mg Metoprolol Tartrate (Lopressor) 50 mg PO BID [facility] Last Admin: 01/16/18 20:07 Dose: 50 mg Nystatin (Nystatin Crm) 0 gm TOP BID PRN PRN Reason: Rash Ondansetron HCl (Zofran) 4 mg IV Q6H PRN PRN Reason: Nausea/Vomiting Pantoprazole Sodium (Protonix) 40 mg PO ACBREAKFAST [facility] Last Admin: 01/17/18 05:34 Dose: 40 mg Polyethylene Glycol (Miralax) 17 gm PO DAILY PRN PRN Reason: Constipation Potassium Chloride (Pharmacy To Dose - Potassium Replacement) 1 dose .XX ASDIRECTED [facility] Potassium Chloride (Klor-Con M20) 20 meq PO BIDMEALS [facility] Last Admin: 01/16/18 17:50 Dose: 20 meq Prednisone (Prednisone) 10 mg PO WITHBREAKFAST [facility] Last Admin: 01/16/18 07:55 Dose: 10 mg Pyridostigmine [place] (Mestinon) 60 mg PO TID [facility] Last Admin: 01/16/18 20:06 Dose: 60 mg Rosuvastatin Calcium (Crestor) 10 mg PO DAILY [facility] Last Admin: 01/16/18 08:11 Dose: 10 mg Senna/Docusate Sodium (Senna Plus) 1 tab PO BID PRN PRN Reason: Constipation Sodium Chloride (Saline Flush) 10 ml FLUSH ASDIRECTED PRN PRN Reason: Keep Vein Open Last Admin: 01/15/18 16:36 Dose: 10 ml Sulfasalazine (Sulfasalazine) 500 mg PO BIDPC [facility] Last Admin: 01/16/18 17:50 Dose: 500 mg Temazepam (Restoril) 7.5 mg PO BEDTIME PRN PRN Reason: Sleep Last Admin: 01/17/18 00:00 Dose: 7.5 mg Discontinued Medications Diltiazem HCl (Diltiazem) 10 mg IVPUSH ONETIME ONE Stop: 01/15/18 16:40 Last Admin: 01/15/18 16:44 Dose: 10 mg Diltiazem HCl (Cardizem) 60 mg PO Q6HR [facility] Furosemide (Lasix) 20 mg IVPUSH ONETIME ONE Stop: 01/15/18 17:53 Last Admin: 01/15/18 18:23 Dose: 20 mg Magnesium Sulfate 2 gm/ Premix 50 mls @ 25 mls/hr IV ASDIRECTED PRN PRN Reason: Other Magnesium Sulfate (Magnesium Sulfate 2 Gm In Water 50 Ml) 50 mls @ 25 mls/hr IV ONETIME ONE Stop: 01/15/18 22:29 Last Admin: 01/15/18 20:38 Dose: 25 mls/hr Metoprolol Tartrate (Lopressor) 50 mg PO BID [facility] Metoprolol Tartrate (Lopressor) 25 mg PO BID [facility] Last Admin: 01/16/18 08:09 Dose: 25 mg Metoprolol Tartrate (Lopressor) 5 mg IVPUSH ONETIME ONE Stop: 01/16/18 08:29 Last Admin: 01/16/18 08:33 Dose: 5 mg Metoprolol Tartrate (Lopressor) 25 mg PO ONETIME ONE Stop: 01/16/18 09:01 Last Admin: 01/16/18 10:04 Dose: Not Given Non-Formulary Medication (Diltiazem) 240 mg PO DAILY [facility] Non-Formulary Medication (Hyoscyamine [Levsin]) 0.125 mg PO TID [facility] Potassium Chloride (Klor-Con M20) 40 meq PO ONETIME ONE Stop: 01/16/18 08:01 Last Admin: 01/16/18 08:12 Dose: 40 meq - Exam General: Alert, Oriented, Cooperative, No Acute Distress, Other (appears weak and less energetic ) HEENT: Pupils Equal, Pupils Reactive, Mucous Membr. Moist/[place] Neck: Supple, Trachea Midline, No Thyromegaly Lungs: Normal Respiratory Effort, Decreased Breath Sounds Cardiovascular: Irregular Rhythm, Other (Irregular Rate) GI/Abdominal Exam: Normal Bowel Sounds, Soft, Non-Tender, No Organomegaly, No Distention, No Abnormal Bruit (Female) Exam: Deferred Back Exam: Normal Inspection, Decreased Range of Motion Extremities: Normal Inspection, Normal Range of Motion, Non-Tender, Normal Capillary Refill, Other (Mild distal peripheral edema) Peripheral Pulses: 2+: Dorsalis Pedis (L), Dorsalis Pedis (R) Skin: Warm, Dry, Intact Neurological: No New Focal Deficit Psy/Mental Status: Alert, Normal Affect, Normal Mood - Problem List Review Problem List Initiated/Reviewed/Updated: Yes - My Orders Last 24 Hours: My Active Orders 01/16/18 07:00 Potassium Chloride [Klor-Con M20] 20 meq PO BIDMEALS predniSONE 10 mg PO WITHBREAKFAST 01/16/18 08:21 Incentive Spirometry [RT Incentive Spirometry] [RC] ASDIRECTED 01/16/18 09:00 Aspirin [Halfprin] 81 mg PO DAILY Rosuvastatin [Crestor] 10 mg PO DAILY 01/16/18 09:45 Calcium Carbonate/Vitamin D3 [Calcium Carbonate/Vitamin D 600 MG-200 Unit] 1 tab PO BIDMEALS 01/16/18 14:00 Furosemide [Lasix] 20 mg PO DAILY@1400 01/16/18 21:00 Metoprolol Tartrate [Lopressor] 50 mg PO BID 01/16/18 Breakfast Fluid Restriction [DIET] Sodium Restricted Diet [DIET] 01/18/18 05:11 BASIC METABOLIC PANEL,BMP [CHEM] AM MAGNESIUM [CHEM] AM - Plan Plan:: Assessment/Plan: Acute: Atrial Fibrillation with RVR, - HR this am in the 140s-160s this morning - She is again symptomatic - She carries a hx/o chronic atrial fibrillation on eliquis - She states, she was doing okay before she was switched to 1 pill a day cardizem by her cork floor installer - Thyroid panel is within normal limits - She is now off cardizem drip; stand by if needed if she remains at 120s or higher - Continue Cardizem 60 mg po Q6H; may consider starting 120 mg po BID for concern with compliance - She is now on Metoprolol of 50 mg po BID; may consider to bump it to 75 mg po BID - Continue eliquis for stroke prophylaxis Pleural Effusion, Stable - CXR small right sided effusion - ProBNP 979, mildly elevated--> today 706 - Continue diuretic Mild Congestive Heart Failure - HF with Preserved EF 55% with Moderately Dilated Left Atrium 06/23/2017 - Induced by recent atrial fibrillation - ProBNP 979, mildly elevated--> 706 - Pleural effusion/Pulmonary Congestion and mild peripheral edema - Heart failure protocol: diuretics, Is/Os, dietary restrictions and daily weight checks Resolved: S/p Mild Hypokalemia - K 3.3--> 3.8 - 2/2 diuresis - Replete and monitor Chronic: Impaired Vision/Hearing HTN HLD CAD/TN S/p Stents Placement Hx/o UC Renal Insufficiency/CKD Stage 3 Urinary Incontinence OA/DJD Myasthenia Gravis Plan: She remains in ICU due to not well controlled HR She is not as good as yesterday Will adjust rate control medications Routine AM Labs Hold off PT/OT consult DVT PPx: Already on Eliquis SW/CM for d/c planning Additional orders as above Code Status: 1
[2018-01-17] MEDS: Metoprolol Tartrate 50 MG Tab PO SCH ×3 (07:56→20:50)
[2018-01-17] MEDS: Potassium Chloride 20 MEQ Tab.ER PO SCH ×2 (09:17→17:01)
[2018-01-17] MEDS: Calcium Carbonate/Vitamin D3 600 MG-200 Units Tab PO SCH ×2 (09:17→17:01)
[2018-01-17] MEDS: sulfaSALAzine 500 MG Tab PO SCH ×2 (09:18→18:41)
[2018-01-17] MEDS: Apixaban 5 MG Tab PO SCH ×2 (09:18→20:49)
[2018-01-17] MEDS: Aspirin 81 MG Tab.EC PO SCH (09:19)
[2018-01-17] MEDS: Hyoscyamine 0.125 MG Tab.SL PO SCH ×3 (09:19→20:49)
[2018-01-17] MEDS: Rosuvastatin 10 MG Tab PO SCH (09:19)
[2018-01-17] MEDS: predniSONE 10 MG Tab PO SCH (09:19)
--- NOTE | 2018-01-17 11:22 | PCM.SN ---
- Free Text/Narrative Note: In house pharmacist, Sue, tells me after she was reviewing patient home medications that Salma's Metoprolol was recently increased to 100 mg po BID. However admission MAR showed patient was on 50 mg po BID. Sue also found out patient had no recent fill on her diuretic and yet she was on Lasix 40 mg po at 0600 and 20 mg po at 1400 daily. On the day of admission, patient told me she still got her old rx for Cardizem 60 mg po Q6H but her most recently prescribed dose from her meat cooler was 240 mg po daily. With these inconsistencies, it appears there is a non- compliance in here medical treatment. Will talk to family as soon as they get here today.
[2018-01-17] MEDS: Ondansetron 4 MG/2 ML SDV IV PRN (12:16)
[2018-01-17] MEDS: Furosemide 20 MG Tab PO SCH (13:36)
[2018-01-17] MEDS ORDERED: Diltiazem IR 60 MG Tab PO SCH (21:00)
[2018-01-17] MEDS ORDERED: Diltiazem 120 MG Cap.CD PO ONE (21:53)
[2018-01-18] MEDS: Metoprolol Tartrate 5 MG/5 ML SDV IVPUSH PRN (04:38)
[2018-01-18] MEDS: Calcium Carbonate/Vitamin D3 600 MG-200 Units Tab PO SCH ×2 (06:07→18:07)
[2018-01-18] MEDS: Potassium Chloride 20 MEQ Tab.ER PO SCH ×2 (06:07→18:06)
[2018-01-18] MEDS: Furosemide 40 MG Tab PO SCH (06:07)
[2018-01-18] MEDS: predniSONE 10 MG Tab PO SCH (06:07)
[2018-01-18] MEDS: Pantoprazole 40 MG Tab.CR PO SCH (06:08)
--- NOTE | 2018-01-18 07:03 | PCM.PN ---
- General Info Date of Service: 01/18/18 Admission Dx/Problem (Free Text): Admission Diagnosis/Problem Admission Diagnosis/Problem Atrial fibrillation with rapid ventricular response Subjective Update: Follow Up Functional Status: Reports: Pain Controlled, Tolerating Diet, Ambulating, Urinating - Review of Systems General: Denies: Fever, Weakness, Fatigue, Malaise, Chills HEENT: Reports: No Symptoms Pulmonary: Denies: Shortness of Breath, Pleuritic Chest Pain Cardiovascular: Reports: Edema. Denies: Chest Pain, Palpitations, Dyspnea on Exertion, Lightheadedness Gastrointestinal: Denies: Abdominal Pain, Nausea, Vomiting Genitourinary: Reports: No Symptoms Musculoskeletal: Reports: No Symptoms Skin: Reports: No Symptoms Neurological: Reports: Gait Disturbance. Denies: Confusion, Difficulty Walking , Weakness Psychiatric: Denies: Depression, Anxiety, Agitation, Hallucinations Systems Review Comment:: No overnight or acute issues. She slept all night and feels better this AM. Her heart rate still poorly controlled. She has no complaints this morning. - Patient Data Vitals - Most Recent: Last Vital Signs Temp 36.1 C 01/18/18 04:00 Pulse 126 H 01/18/18 04:38 Resp 16 01/18/18 04:00 BP 110/85 01/18/18 04:38 Pulse Ox 93 L 01/18/18 04:00 Weight - Most Recent: 75.432 kg I&O - Last 24 Hours: Intake & Output 01/17/18 01/18/18 01/18/18 22:59 06:59 14:59 Intake Total 400 200 Output Total 450 200 Balance -50 0 Lab Results Last 24 Hours: Laboratory Results - last 24 hr 01/17/18 01/18/18 Range/Units 05:25 05:33 Sodium 136 145 (136-145) mEq/L Potassium 3.8 4.6 (3.5-5.1) mEq/L Chloride 103 106 (98-107) mEq/L Carbon Dioxide 32 32 (21-32) mEq/L Anion Gap 4.8 L 11.6 (5-15) BUN 25 H 24 H (7-18) mg/dL Creatinine 1.2 H 1.5 H (0.55-1.02) mg/dL Est Cr Clr Drug Dosing 28.09 22.47 mL/min Estimated GFR (MDRD) 43 33 (>60) mL/min BUN/Creatinine Ratio 20.8 H 16.0 (14-18) Glucose 98 98 (83-115) mg/dL Calcium 9.5 9.1 (8.5-10.1) mg/dL Magnesium 2.1 2.0 (1.8-2.4) mg/dl Med Orders - Current: Current Medications Acetaminophen (Tylenol) 650 mg PO Q4H PRN PRN Reason: Pain (Mild 1-3)/fever Hydrocodone Bitart/Acetaminophen ([place] 325-5 Mg) 1 tab PO Q4H PRN PRN Reason: Pain (moderate 4-6) Albuterol/Ipratropium (Duoneb 3.0-0.5 Mg/3 Ml) 3 ml NEB Q4H PRN PRN Reason: Shortness Of Breath/wheezing Apixaban (Eliquis) 2.5 mg PO BID [facility] Last Admin: 01/17/18 20:49 Dose: 2.5 mg Aspirin (Halfprin) 81 mg PO DAILY [facility] Last Admin: 01/17/18 09:19 Dose: 81 mg Bisacodyl (Dulcolax) 5 mg PO DAILY PRN PRN Reason: Constipation Calcium Carbonate (Calcium Carbonate/Vitamin D 600 Mg-200 Unit) 1 tab PO BIDMEALS [facility] Last Admin: 01/18/18 06:07 Dose: 1 tab Diltiazem HCl (Cardizem Cd) 120 mg PO BID [facility] Docusate Sodium (Colace) 100 mg PO BID PRN PRN Reason: Constipation Furosemide (Lasix) 20 mg PO DAILY@1400 [facility] Last Admin: 01/17/18 13:36 Dose: 20 mg Furosemide (Lasix) 40 mg PO DAILY@0600 [facility] Last Admin: 01/18/18 06:07 Dose: 40 mg Hydralazine HCl (Apresoline) 10 mg IVPUSH Q4H PRN PRN Reason: Hypertension Last Admin: 01/17/18 05:25 Dose: 10 mg Hydromorphone HCl (Dilaudid) 0.25 mg IVPUSH Q2H PRN PRN Reason: Pain (severe 7-10) Hyoscyamine (Hyomax-Sl) 0.125 mg PO TID [facility] Last Admin: 01/17/18 20:49 Dose: 0.125 mg Diltiazem HCl 125 mg/ Sodium (Chloride) 125 mls @ 10 mls/hr IV TITRATE [facility]; Protocol Last Titration: 01/16/18 00:44 Dose: 0 mg/hr, 0 mls/hr Promethazine HCl 6.25 mg/ (Sodium Chloride) 50.25 mls @ 100 mls/hr IV Q6H PRN PRN Reason: Nausea/Vomiting Lorazepam (Ativan) 0.25 mg IV Q6H PRN PRN Reason: Anxiety Lorazepam (Ativan) 2 mg IVPUSH Q4H PRN PRN Reason: Seizures Magnesium Sulfate (Pharmacy To Dose - Magnesium Replacement) 1 dose .XX ASDIRECTED [facility] Metoprolol Tartrate (Lopressor) 5 mg IVPUSH Q4H PRN PRN Reason: Tachycardia Last Admin: 01/18/18 04:38 Dose: 5 mg Metoprolol Tartrate (Lopressor) 75 mg PO BID [facility] Last Admin: 01/17/18 20:50 Dose: 75 mg Nystatin (Nystatin Crm) 0 gm TOP BID PRN PRN Reason: Rash Ondansetron HCl (Zofran) 4 mg IV Q6H PRN PRN Reason: Nausea/Vomiting Last Admin: 01/17/18 12:16 Dose: 4 mg Pantoprazole Sodium (Protonix) 40 mg PO ACBREAKFAST [facility] Last Admin: 01/18/18 06:08 Dose: 40 mg Polyethylene Glycol (Miralax) 17 gm PO DAILY PRN PRN Reason: Constipation Potassium Chloride (Pharmacy To Dose - Potassium Replacement) 1 dose .XX ASDIRECTED [facility] Potassium Chloride (Klor-Con M20) 20 meq PO BIDMEALS [facility] Last Admin: 01/18/18 06:07 Dose: 20 meq Prednisone (Prednisone) 10 mg PO WITHBREAKFAST [facility] Last Admin: 01/18/18 06:07 Dose: 10 mg Prednisone (Prednisone) 2.5 mg PO DAILY [facility] Pyridostigmine [place] (Mestinon) 60 mg PO TID [facility] Last Admin: 01/17/18 20:51 Dose: 60 mg Rosuvastatin Calcium (Crestor) 10 mg PO DAILY [facility] Last Admin: 01/17/18 09:19 Dose: 10 mg Senna/Docusate Sodium (Senna Plus) 1 tab PO BID PRN PRN Reason: Constipation Sodium Chloride (Saline Flush) 10 ml FLUSH ASDIRECTED PRN PRN Reason: Keep Vein Open Last Admin: 01/15/18 16:36 Dose: 10 ml [facility]) [facility] Last Admin: 01/17/18 18:41 Dose: 500 mg Temazepam (Restoril) 7.5 mg PO BEDTIME PRN PRN Reason: Sleep Last Admin: 01/17/18 00:00 Dose: 7.5 mg Discontinued Medications Diltiazem HCl (Diltiazem) 10 mg IVPUSH ONETIME ONE Stop: 01/15/18 16:40 Last Admin: 01/15/18 16:44 Dose: 10 mg Diltiazem HCl (Cardizem) 60 mg PO Q6HR [facility] Diltiazem HCl (Cardizem) 60 mg PO Q6HR [facility] Last Admin: 01/17/18 12:02 Dose: 60 mg Diltiazem HCl (Cardizem) 120 mg PO BID [facility] Diltiazem HCl (Cardizem Cd) 120 mg PO ONETIME ONE Stop: 01/17/18 21:54 Last Admin: 01/17/18 22:34 Dose: 120 mg Furosemide (Lasix) 20 mg IVPUSH ONETIME ONE Stop: 01/15/18 17:53 Last Admin: 01/15/18 18:23 Dose: 20 mg Magnesium Sulfate 2 gm/ Premix 50 mls @ 25 mls/hr IV ASDIRECTED PRN PRN Reason: Other Magnesium Sulfate (Magnesium Sulfate 2 Gm In Water 50 Ml) 50 mls @ 25 mls/hr IV ONETIME ONE Stop: 01/15/18 22:29 Last Admin: 01/15/18 20:38 Dose: 25 mls/hr Metoprolol Tartrate (Lopressor) 50 mg PO BID [facility] Metoprolol Tartrate (Lopressor) 25 mg PO BID [facility] Last Admin: 01/16/18 08:09 Dose: 25 mg Metoprolol Tartrate (Lopressor) 5 mg IVPUSH ONETIME ONE Stop: 01/16/18 08:29 Last Admin: 01/16/18 08:33 Dose: 5 mg Metoprolol Tartrate (Lopressor) 25 mg PO ONETIME ONE Stop: 01/16/18 09:01 Last Admin: 01/16/18 10:04 Dose: Not Given Metoprolol Tartrate (Lopressor) 50 mg PO BID [facility] Last Admin: 01/16/18 20:07 Dose: 50 mg Non-Formulary Medication (Diltiazem) 240 mg PO DAILY [facility] Non-Formulary Medication (Hyoscyamine [Levsin]) 0.125 mg PO TID [facility] Potassium Chloride (Klor-Con M20) 40 meq PO ONETIME ONE Stop: 01/16/18 08:01 Last Admin: 01/16/18 08:12 Dose: 40 meq - Exam General: Alert, Oriented, No Acute Distress. No: Cooperative Lungs: Normal Respiratory Effort, Decreased Breath Sounds Cardiovascular: Irregular Rhythm GI/Abdominal Exam: Normal Bowel Sounds, Soft, Non-Tender, No Organomegaly, No Distention, No Abnormal Bruit (Female) Exam: Deferred Back Exam: Normal Inspection, Decreased Range of Motion Extremities: Normal Inspection, Normal Range of Motion, Non-Tender, Slow Capillary Refill, Other (mild bilateral lower extremity edema) Peripheral Pulses: 1+: Dorsalis Pedis (R) Skin: Warm, Dry, Intact Neurological: No New Focal Deficit. No: Normal Gait Psy/Mental Status: Alert, Normal Affect, Normal Mood - Problem List Review Problem List Initiated/Reviewed/Updated: Yes - My Orders Last 24 Hours: My Active Orders 01/17/18 07:38 Metoprolol Tartrate [Lopressor] 75 mg PO BID 01/18/18 09:00 Diltiazem [Cardizem CD] 120 mg PO BID predniSONE 2.5 mg PO DAILY - Plan Plan:: Assessment/Plan: Acute: Atrial Fibrillation with RVR, Still not well controlled - HR still spikes in the 120s-130s with activity/exertion - She is asymptomatic this morning - She carries a hx/o chronic atrial fibrillation on eliquis - She states, she was doing okay before she was switched to 1 pill a day cardizem by her tissue rewinder - Thyroid panel is within normal limits - S/p cardizem drip; currently on Cardizem 120 mg po daily - She is now on Metoprolol of 75 mg po BID - Continue eliquis for stroke prophylaxis - Will consult her Liaison Planner for further input Pleural Effusion, Stable - CXR small right sided effusion - ProBNP 979, mildly elevated--> today 706 - Continue diuretic Congestive Heart Failure, Stable - HF with Preserved EF 55% with Moderately Dilated Left Atrium 06/23/2017 - Induced by recent atrial fibrillation - ProBNP 979, mildly elevated--> 706 - Pleural effusion/Pulmonary Congestion and mild peripheral edema - Heart failure protocol: diuretics, Is/Os, dietary restrictions and daily weight checks Resolved: S/p Mild Hypokalemia - K 3.3--> 3.8 - 2/2 diuresis - Replete and monitor Chronic: Impaired Vision/Hearing HTN HLD CAD/MD S/p Stents Placement Hx/o UC Renal Insufficiency/CKD Stage 3 Urinary Incontinence OA/DJD Myasthenia Gravis Plan: She is clinically stable but not her heart rate Will consider rhythm control medication on top of her rate control-pending input from Dr. Choi Routine AM Labs Hold off PT/OT consult DVT PPx: Already on Eliquis SW/CM for d/c planning Additional orders as above Code Status: 1 LOS > 96 hrs due to slow response to treatment
[2018-01-18] MEDS: Apixaban 5 MG Tab PO SCH ×2 (08:16→20:45)
[2018-01-18] MEDS: Rosuvastatin 10 MG Tab PO SCH (08:17)
[2018-01-18] MEDS: sulfaSALAzine 500 MG Tab PO SCH ×2 (08:18→18:06)
[2018-01-18] MEDS: Hyoscyamine 0.125 MG Tab.SL PO SCH ×3 (08:18→20:45)
[2018-01-18] MEDS: Aspirin 81 MG Tab.EC PO SCH (08:20)
[2018-01-18] MEDS: Metoprolol Tartrate 50 MG Tab PO SCH (08:21)
[2018-01-18] MEDS ORDERED: Diltiazem 120 MG Cap.CD PO SCH (09:00)
--- NOTE | 2018-01-18 09:07 | PCM.SN ---
- Free Text/Narrative Note: Patient's HR still not well controlled. She is already on Cardizem 120 mg po CD daily and Metoprolol Tartrate 75 mg po daily. Her heart rate is in the low tens to teens at rest but jumps to 120s-130s with activities. Decided to call Dr. Choi for input, and we agreed to put her on combination of CCB and Rhythm control meds. So we decided, to d/c BB, continue current dose of Cardizem and start Amiodarone drip (1mg/min for 6 hrs and then 0.5 mg/min for the next 18 hrs); once off drip she will be on Amiodarone 200 mg po BID thereafter. Informed patient and her family about the changes in her cardiac medications.
[2018-01-18] MEDS: predniSONE 5 MG Tab PO SCH (10:16)
[2018-01-18] MEDS: Furosemide 20 MG Tab PO SCH (14:49)
--- NOTE | 2018-01-19 06:47 | PCM.PN ---
- General Info Date of Service: 01/19/18 Admission Dx/Problem (Free Text): Admission Diagnosis/Problem Admission Diagnosis/Problem Atrial fibrillation with rapid ventricular response Subjective Update: Follow Up Functional Status: Reports: Pain Controlled, Tolerating Diet, Ambulating, Urinating - Review of Systems General: Reports: Fatigue HEENT: Reports: No Symptoms Pulmonary: Reports: No Symptoms Cardiovascular: Reports: Edema Gastrointestinal: Reports: No Symptoms Genitourinary: Reports: No Symptoms Musculoskeletal: Reports: No Symptoms Skin: Reports: Bruising Neurological: Reports: No Symptoms Psychiatric: Reports: No Symptoms Systems Review Comment:: No significant overnight or acute issues. She does not feel as good as yesterday but denies any chest pain, shortness of breath or heart palpitations. Her labs are fairly unremarkable. - Patient Data Vitals - Most Recent: Last Vital Signs Temp 37.1 C 01/19/18 04:00 Pulse 102 H 01/18/18 18:23 Resp 24 H 01/19/18 04:00 BP 119/96 H 01/19/18 05:00 Pulse Ox 95 01/19/18 04:00 Weight - Most Recent: 74.933 kg I&O - Last 24 Hours: Intake & Output 01/18/18 01/18/18 01/19/18 14:59 22:59 06:59 Intake Total 300 980 350 Output Total 700 600 Balance 300 280 -250 Lab Results Last 24 Hours: Laboratory Results - last 24 hr 01/17/18 01/18/18 01/18/18 Range/Units 05:25 05:33 05:33 WBC (3.98-10.04) K/mm3 RBC (3.98-5.22) M/mm3 Hgb (11.2-15.7) gm/L Hct (34.1-44.9) % MCV (79.4-94.8) fl MCH (25.6-32.2) pg MCHC (32.2-35.5) g/dl RDW Std Deviation (36.4-46.3) fL Plt Count (182-369) K/mm3 MPV (9.4-12.3) fl Neut % (Auto) (34.0-71.1) % Lymph % (Auto) (19.3-51.7) % Rock % (Auto) (4.7-12.5) % Eos % (Auto) (0.7-5.8) Baso % (Auto) (0.1-1.2) % Neut # (Auto) (1.56-6.13) K/mm3 Lymph # (Auto) (1.18-3.74) K/mm3 Rock # (Auto) (0.24-0.36) K/mm3 Eos # (Auto) (0.04-0.36) K/mm3 Baso # (Auto) (0.01-0.08) K/mm3 Manual Slide Review Sodium 146 H 145 (136-145) mEq/L Potassium 4.6 (3.5-5.1) mEq/L Chloride 106 (98-107) mEq/L Carbon Dioxide 32 (21-32) mEq/L Anion Gap 14.8 11.6 (5-15) BUN 24 H (7-18) mg/dL Creatinine 1.5 H (0.55-1.02) mg/dL Est Cr Clr Drug Dosing 22.47 mL/min Estimated GFR (MDRD) 33 (>60) mL/min BUN/Creatinine Ratio 16.0 (14-18) Glucose 98 (83-115) mg/dL Calcium 9.1 (8.5-10.1) mg/dL Magnesium 2.0 (1.8-2.4) mg/dl Free T4 1.24 (0.76-1.46) ng/dL TSH 3rd Generation 1.291 (0.358-3.74) uIU/mL 01/19/18 01/19/18 Range/Units 05:00 05:00 WBC 7.66 (3.98-10.04) K/mm3 RBC 4.32 (3.98-5.22) M/mm3 Hgb 14.1 (11.2-15.7) gm/L Hct 43.0 (34.1-44.9) % MCV 99.5 H (79.4-94.8) fl MCH 32.6 H (25.6-32.2) pg MCHC 32.8 (32.2-35.5) g/dl RDW Std Deviation 60.6 H (36.4-46.3) fL Plt Count 89 L (182-369) K/mm3 MPV 12.4 H (9.4-12.3) fl Neut % (Auto) 70.4 (34.0-71.1) % Lymph % (Auto) 18.1 L (19.3-51.7) % Rock % (Auto) 10.3 (4.7-12.5) % Eos % (Auto) 0.7 (0.7-5.8) Baso % (Auto) 0.1 (0.1-1.2) % Neut # (Auto) 5.39 (1.56-6.13) K/mm3 Lymph # (Auto) 1.39 (1.18-3.74) K/mm3 Rock # (Auto) 0.79 H (0.24-0.36) K/mm3 Eos # (Auto) 0.05 (0.04-0.36) K/mm3 Baso # (Auto) 0.01 (0.01-0.08) K/mm3 Manual Slide Review Abnormal smear Sodium 143 (136-145) mEq/L Potassium 4.2 (3.5-5.1) mEq/L Chloride 103 (98-107) mEq/L Carbon Dioxide 32 (21-32) mEq/L Anion Gap 12.2 (5-15) BUN 24 H (7-18) mg/dL Creatinine 1.5 H (0.55-1.02) mg/dL Est Cr Clr Drug Dosing 22.47 mL/min Estimated GFR (MDRD) 33 (>60) mL/min BUN/Creatinine Ratio 16.0 (14-18) Glucose 102 (83-115) mg/dL Calcium 9.3 (8.5-10.1) mg/dL Magnesium 2.0 (1.8-2.4) mg/dl Free T4 (0.76-1.46) ng/dL TSH 3rd Generation (0.358-3.74) uIU/mL Med Orders - Current: Current Medications Acetaminophen (Tylenol) 650 mg PO Q4H PRN PRN Reason: Pain (Mild 1-3)/fever Hydrocodone Bitart/Acetaminophen ([place] 325-5 Mg) 1 tab PO Q4H PRN PRN Reason: Pain (moderate 4-6) Albuterol/Ipratropium (Duoneb 3.0-0.5 Mg/3 Ml) 3 ml NEB Q4H PRN PRN Reason: Shortness Of Breath/wheezing Apixaban (Eliquis) 2.5 mg PO BID [facility] Last Admin: 01/18/18 20:45 Dose: 2.5 mg Aspirin (Halfprin) 81 mg PO DAILY [facility] Last Admin: 01/18/18 08:20 Dose: 81 mg Bisacodyl (Dulcolax) 5 mg PO DAILY PRN PRN Reason: Constipation Calcium Carbonate (Calcium Carbonate/Vitamin D 600 Mg-200 Unit) 1 tab PO BIDMEALS [facility] Last Admin: 01/18/18 18:07 Dose: 1 tab Diltiazem HCl (Cardizem Cd) 120 mg PO DAILY [facility] Docusate Sodium (Colace) 100 mg PO BID PRN PRN Reason: Constipation Furosemide (Lasix) 20 mg PO DAILY@1400 [facility] Last Admin: 01/18/18 14:49 Dose: 20 mg Furosemide (Lasix) 40 mg PO DAILY@0600 [facility] Last Admin: 01/18/18 06:07 Dose: 40 mg Hydralazine HCl (Apresoline) 10 mg IVPUSH Q4H PRN PRN Reason: Hypertension Last Admin: 01/17/18 05:25 Dose: 10 mg Hydromorphone HCl (Dilaudid) 0.25 mg IVPUSH Q2H PRN PRN Reason: Pain (severe 7-10) Hyoscyamine (Hyomax-Sl) 0.125 mg PO TID [facility] Last Admin: 01/18/18 20:45 Dose: 0.125 mg Diltiazem HCl 125 mg/ Sodium (Chloride) 125 mls @ 10 mls/hr IV TITRATE [facility]; Protocol Last Titration: 01/16/18 00:44 Dose: 0 mg/hr, 0 mls/hr Promethazine HCl 6.25 mg/ (Sodium Chloride) 50.25 mls @ 100 mls/hr IV Q6H PRN PRN Reason: Nausea/Vomiting Amiodarone HCl/Dextrose (Nexterone In Dextrose 360 Mg/200 Ml) 360 mg in 200 mls @ 16.6 mls/hr IV ASDIRECTED [facility] Stop: 01/19/18 09:30 Last Admin: 01/19/18 03:08 Dose: 16.6 mls/hr Lorazepam (Ativan) 0.25 mg IV Q6H PRN PRN Reason: Anxiety Lorazepam (Ativan) 2 mg IVPUSH Q4H PRN PRN Reason: Seizures Magnesium Sulfate (Pharmacy To Dose - Magnesium Replacement) 1 dose .XX ASDIRECTED [facility] Metoprolol Tartrate (Lopressor) 5 mg IVPUSH Q4H PRN PRN Reason: Tachycardia Last Admin: 01/18/18 04:38 Dose: 5 mg Nystatin (Nystatin Crm) 0 gm TOP BID PRN PRN Reason: Rash Ondansetron HCl (Zofran) 4 mg IV Q6H PRN PRN Reason: Nausea/Vomiting Last Admin: 01/17/18 12:16 Dose: 4 mg Pantoprazole Sodium (Protonix) 40 mg PO ACBREAKFAST [facility] Last Admin: 01/18/18 06:08 Dose: 40 mg Polyethylene Glycol (Miralax) 17 gm PO DAILY PRN PRN Reason: Constipation Potassium Chloride (Pharmacy To Dose - Potassium Replacement) 1 dose .XX ASDIRECTED [facility] Potassium Chloride (Klor-Con M20) 20 meq PO BIDMEALS [facility] Last Admin: 01/18/18 18:06 Dose: 20 meq Prednisone (Prednisone) 10 mg PO WITHBREAKFAST [facility] Last Admin: 01/18/18 06:07 Dose: 10 mg Prednisone (Prednisone) 2.5 mg PO WITHBREAKFAST [facility] Last Admin: 01/18/18 10:16 Dose: 2.5 mg Pyridostigmine [place] (Mestinon) 60 mg PO TID [facility] Last Admin: 01/18/18 20:45 Dose: 60 mg Rosuvastatin Calcium (Crestor) 10 mg PO DAILY [facility] Last Admin: 01/18/18 08:17 Dose: 10 mg Senna/Docusate Sodium (Senna Plus) 1 tab PO BID PRN PRN Reason: Constipation Sodium Chloride (Saline Flush) 10 ml FLUSH ASDIRECTED PRN PRN Reason: Keep Vein Open Last Admin: 01/15/18 16:36 Dose: 10 ml Sulfasalazine (Sulfasalazine) 500 mg PO BIDPC [facility] Last Admin: 01/18/18 18:06 Dose: 500 mg Temazepam (Restoril) 7.5 mg PO BEDTIME PRN PRN Reason: Sleep Last Admin: 01/17/18 00:00 Dose: 7.5 mg Discontinued Medications Diltiazem HCl (Diltiazem) 10 mg IVPUSH ONETIME ONE Stop: 01/15/18 16:40 Last Admin: 01/15/18 16:44 Dose: 10 mg Diltiazem HCl (Cardizem) 60 mg PO Q6HR [facility] Diltiazem HCl (Cardizem) 60 mg PO Q6HR [facility] Last Admin: 01/17/18 12:02 Dose: 60 mg Diltiazem HCl (Cardizem) 120 mg PO BID [facility] Last Admin: 01/18/18 20:39 Dose: Not Given Diltiazem HCl (Cardizem Cd) 120 mg PO BID [facility] Last Admin: 01/18/18 08:19 Dose: 120 mg Diltiazem HCl (Cardizem Cd) 120 mg PO ONETIME ONE Stop: 01/17/18 21:54 Last Admin: 01/17/18 22:34 Dose: 120 mg Furosemide (Lasix) 20 mg IVPUSH ONETIME ONE Stop: 01/15/18 17:53 Last Admin: 01/15/18 18:23 Dose: 20 mg Magnesium Sulfate 2 gm/ Premix 50 mls @ 25 mls/hr IV ASDIRECTED PRN PRN Reason: Other Magnesium Sulfate (Magnesium Sulfate 2 Gm In Water 50 Ml) 50 mls @ 25 mls/hr IV ONETIME ONE Stop: 01/15/18 22:29 Last Admin: 01/15/18 20:38 Dose: 25 mls/hr Amiodarone HCl/Dextrose (Nexterone In Dextrose 360 Mg/200 Ml) 360 mg in 200 mls @ 33.333 mls/hr IV ONETIME ONE Stop: 01/18/18 15:29 Last Admin: 01/18/18 10:14 Dose: 33.333 mls/hr Metoprolol Tartrate (Lopressor) 50 mg PO BID [facility] Metoprolol Tartrate (Lopressor) 25 mg PO BID [facility] Last Admin: 01/16/18 08:09 Dose: 25 mg Metoprolol Tartrate (Lopressor) 5 mg IVPUSH ONETIME ONE Stop: 01/16/18 08:29 Last Admin: 01/16/18 08:33 Dose: 5 mg Metoprolol Tartrate (Lopressor) 25 mg PO ONETIME ONE Stop: 01/16/18 09:01 Last Admin: 01/16/18 10:04 Dose: Not Given Metoprolol Tartrate (Lopressor) 50 mg PO BID [facility] Last Admin: 01/16/18 20:07 Dose: 50 mg Metoprolol Tartrate (Lopressor) 75 mg PO BID [facility] Last Admin: 01/18/18 08:21 Dose: 75 mg Non-Formulary Medication (Diltiazem) 240 mg PO DAILY [facility] Non-Formulary Medication (Hyoscyamine [Levsin]) 0.125 mg PO TID [facility] Potassium Chloride (Klor-Con M20) 40 meq PO ONETIME ONE Stop: 01/16/18 08:01 Last Admin: 01/16/18 08:12 Dose: 40 meq - Exam Quality Assessment: Supplemental Oxygen, DVT Prophylaxis General: Alert, Oriented, Cooperative, No Acute Distress HEENT: Mucous Membr. Moist/[place] Neck: Supple, Trachea Midline, No JVD Lungs: Normal Respiratory Effort, Crackles Cardiovascular: Regular Rate, Irregular Rhythm, Tachycardia GI/Abdominal Exam: Normal Bowel Sounds, Soft, Non-Tender, No Distention (Female) Exam: Deferred Back Exam: Normal Inspection, Full Range of Motion Extremities: Normal Inspection, Normal Range of Motion, Non-Tender, Normal Capillary Refill, Pedal Edema, Other (bilateral hand edema and post tibial +2) Peripheral Pulses: 2+: Radial (L), Radial (R) Skin: Warm, Dry, Intact, Ecchymosis Neurological: No New Focal Deficit, Normal Speech, Normal Tone Psy/Mental Status: Alert, Normal Affect, Normal Mood - Problem List Review Problem List Initiated/Reviewed/Updated: Yes - My Orders Last 24 Hours: My Active Orders 01/18/18 07:00 predniSONE 2.5 mg PO WITHBREAKFAST 01/18/18 15:30 Amiodarone In Dextrose,Iso-Osm [Nexterone in Dextrose 360 MG/200 ML] 360 mg in 200 ml IV ASDIRECTED 01/19/18 10:00 Diltiazem [Cardizem CD] 120 mg PO DAILY - Plan Plan:: Assessment/Plan: Acute: Atrial Fibrillation with RVR, Essentially No Change - HR still spikes in the 120s-130s with activity/exertion - She is asymptomatic this morning - She carries a hx/o chronic atrial fibrillation on eliquis - She states, she was doing okay before she was switched to 1 pill a day cardizem by her ham clerk - Thyroid panel is within normal limits - Continues Cardizem 120 mg po daily; currently on Amiodarone drip--> will switch to oral dosing sometime today - Continue eliquis for stroke prophylaxis - Consulted Dr. Choi and started Amiodarone drip, will d/c gtt at 1100 and then start 200 mg po BID Pleural Effusion, Stable - CXR small right sided effusion --> repeat CXR shows no change - ProBNP 979, mildly elevated--> 706 - Continue IS as directed - Continue diuretic Resolved: S/p Mild Hypokalemia - K 3.3--> 3.8 --> 4.2 - 2/2 diuresis - Replete and monitor S/p Congestive Heart Failure, Stable - HF with Preserved EF 55% with Moderately Dilated Left Atrium 06/23/2017 - Induced by recent atrial fibrillation - ProBNP 979, mildly elevated--> 706 - Pleural effusion/Pulmonary Congestion and mild peripheral edema - Heart failure protocol: diuretics, Is/Os, dietary restrictions and daily weight checks Chronic: Impaired Vision/Hearing HTN HLD CAD/FL S/p Stents Placement Hx/o UC Renal Insufficiency/CKD Stage 3 Urinary Incontinence OA/DJD Myasthenia Gravis Plan: She remains clinically stable and heart rate is essentially the same Continue current treatment Routine AM Labs PT/OT, nursing to ambulate DVT PPx: Already on Eliquis SW/CM for d/c planning Additional orders as above Ambulates w/o symptoms but heart rate about the same with activity Code Status: 1 LOS > 96 hrs due to slow response to treatment
[2018-01-19] MEDS: Pantoprazole 40 MG Tab.CR PO SCH (06:50)
[2018-01-19] MEDS: Furosemide 40 MG Tab PO SCH (06:50)
[2018-01-19] MEDS: Apixaban 5 MG Tab PO SCH ×2 (08:09→20:06)
[2018-01-19] MEDS: Rosuvastatin 10 MG Tab PO SCH (08:09)
[2018-01-19] MEDS: Hyoscyamine 0.125 MG Tab.SL PO SCH ×3 (08:09→20:05)
[2018-01-19] MEDS: Calcium Carbonate/Vitamin D3 600 MG-200 Units Tab PO SCH ×2 (08:09→16:52)
[2018-01-19] MEDS: Aspirin 81 MG Tab.EC PO SCH (08:10)
[2018-01-19] MEDS: predniSONE 10 MG Tab PO SCH (08:10)
[2018-01-19] MEDS: predniSONE 5 MG Tab PO SCH (08:10)
[2018-01-19] MEDS: Potassium Chloride 20 MEQ Tab.ER PO SCH ×2 (08:10→16:52)
[2018-01-19] MEDS: sulfaSALAzine 500 MG Tab PO SCH ×2 (08:11→17:02)
[2018-01-19] MEDS: Metoprolol Tartrate 5 MG/5 ML SDV IVPUSH PRN ×3 (08:27→17:03)
[2018-01-19] MEDS ORDERED: Amiodarone 200 MG Tab PO SCH (10:00)
[2018-01-19] MEDS ORDERED: Diltiazem 120 MG Cap.CD PO SCH (10:00)
--- NOTE | 2018-01-19 10:39 | CR ---
Chest: Frontal view of the chest is obtained utilizing portable technique. Comparison: Prior chest x-ray of 01/15/18. Heart is enlarged. Tortuous thoracic aorta is seen. Continued blunting of the lateral costophrenic angle is noted which appears stable. Pulmonary vessels are slightly congested which is also stable. Bony structures show degenerative change within the spine. Impression: 1. Findings as noted above. No significant change is seen from previous chest x-ray. Diagnostic code #3
[2018-01-19] MEDS: Furosemide 20 MG Tab PO SCH (14:38)
[2018-01-19] MEDS ORDERED: Amiodarone 200 MG Tab PO ONE (19:04)
[2018-01-19] MEDS: Diltiazem 125 MG in Sodium Chloride 0.9% 100 ML IV SCH (23:47)
[2018-01-20] MEDS: Furosemide 40 MG Tab PO SCH (05:49)
[2018-01-20] MEDS: Pantoprazole 40 MG Tab.CR PO SCH (05:50)
[2018-01-20] MEDS: Diltiazem 120 MG Cap.CD PO SCH ×2 (06:01→08:35)
[2018-01-20] MEDS: predniSONE 10 MG Tab PO SCH (06:03)
[2018-01-20] MEDS: predniSONE 5 MG Tab PO SCH (06:03)
[2018-01-20] MEDS: Calcium Carbonate/Vitamin D3 600 MG-200 Units Tab PO SCH ×2 (06:04→17:23)
[2018-01-20] MEDS: Potassium Chloride 20 MEQ Tab.ER PO SCH ×2 (06:04→17:23)
[2018-01-20] MEDS: Amiodarone 200 MG Tab PO SCH ×3 (06:05→20:15)
[2018-01-20] MEDS ORDERED: Diltiazem 120 MG Cap.CD PO SCH (07:00)
--- NOTE | 2018-01-20 07:24 | PCM.PN ---
- General Info Date of Service: 01/20/18 Admission Dx/Problem (Free Text): Admission Diagnosis/Problem Admission Diagnosis/Problem Atrial fibrillation with rapid ventricular response Subjective Update: Follow Up Functional Status: Reports: Pain Controlled, Tolerating Diet, Ambulating, Urinating - Review of Systems General: Reports: Fatigue. Denies: Fever, Weakness, Malaise, Chills HEENT: Reports: No Symptoms Pulmonary: Denies: Shortness of Breath, Pleuritic Chest Pain, Cough Cardiovascular: Denies: Chest Pain, Palpitations, Dyspnea on Exertion, Lightheadedness Gastrointestinal: Denies: Abdominal Pain, Decreased Appetite, Nausea, Vomiting Genitourinary: Reports: No Symptoms Musculoskeletal: Reports: No Symptoms Skin: Reports: Bruising. Denies: Cyanosis, Mottled, Pallor, Diaphoresis Neurological: Denies: Confusion, Difficulty Walking, Weakness, Gait Disturbance Psychiatric: Denies: Depression, Anxiety, Agitation, Hallucinations Systems Review Comment:: No significant overnight or acute issues. She slept pretty good but feels tired/ fatigued. Her HRs were mostly in the 90s-low tens. She has no complaints. - Patient Data Vitals - Most Recent: Last Vital Signs Temp 35.9 C 01/20/18 05:53 Pulse 126 H 01/20/18 06:01 Resp 20 01/20/18 05:53 BP 119/95 H 01/20/18 06:01 Pulse Ox 93 L 01/20/18 05:53 Weight - Most Recent: 74.571 kg I&O - Last 24 Hours: Intake & Output 01/19/18 01/20/18 01/20/18 22:59 06:59 14:59 Intake Total 1100 433 Output Total 825 725 Balance 275 -292 Lab Results Last 24 Hours: Laboratory Results - last 24 hr 01/20/18 01/20/18 01/20/18 Range/Units 05:33 05:33 05:33 WBC 6.61 (3.98-10.04) K/mm3 RBC 4.32 (3.98-5.22) M/mm3 Hgb 13.6 (11.2-15.7) gm/L Hct 43.4 (34.1-44.9) % MCV 100.5 H (79.4-94.8) fl MCH 31.5 (25.6-32.2) pg MCHC 31.3 L (32.2-35.5) g/dl RDW Std Deviation 59.3 H (36.4-46.3) fL Plt Count 77 L (182-369) K/mm3 MPV 11.4 (9.4-12.3) fl Neut % (Auto) 72.9 H (34.0-71.1) % Lymph % (Auto) 15.1 L (19.3-51.7) % [place] % (Auto) 11.2 (4.7-12.5) % Eos % (Auto) 0.3 L (0.7-5.8) Baso % (Auto) 0.2 (0.1-1.2) % Neut # (Auto) 4.82 (1.56-6.13) K/mm3 Lymph # (Auto) 1.00 L (1.18-3.74) K/mm3 [place] # (Auto) 0.74 H (0.24-0.36) K/mm3 Eos # (Auto) 0.02 L (0.04-0.36) K/mm3 Baso # (Auto) 0.01 (0.01-0.08) K/mm3 Manual Slide Review Abnormal smear Sodium 146 H (136-145) mEq/L Potassium 3.8 (3.5-5.1) mEq/L Chloride 106 (98-107) mEq/L Carbon Dioxide 31 (21-32) mEq/L Anion Gap 12.8 (5-15) BUN 20 H (7-18) mg/dL Creatinine 1.3 H (0.55-1.02) mg/dL Est Cr Clr Drug Dosing 25.93 mL/min Estimated GFR (MDRD) 39 (>60) mL/min BUN/Creatinine Ratio 15.4 (14-18) Glucose 96 (83-115) mg/dL Calcium 9.4 (8.5-10.1) mg/dL Magnesium 1.7 L (1.8-2.4) mg/dl NT-Pro-B Natriuret Pep 962 H (0-450) pg/mL Med Orders - Current: Current Medications Acetaminophen (Tylenol) 650 mg PO Q4H PRN PRN Reason: Pain (Mild 1-3)/fever Hydrocodone Bitart/Acetaminophen ([place] 325-5 Mg) 1 tab PO Q4H PRN PRN Reason: Pain (moderate 4-6) Albuterol/Ipratropium (Duoneb 3.0-0.5 Mg/3 Ml) 3 ml NEB Q4H PRN PRN Reason: Shortness Of Breath/wheezing Amiodarone HCl (Cordarone) 400 mg PO BID [facility] Last Admin: 01/20/18 06:05 Dose: 400 mg Apixaban (Eliquis) 2.5 mg PO BID [facility] Last Admin: 01/19/18 20:06 Dose: 2.5 mg Aspirin (Halfprin) 81 mg PO DAILY [facility] Last Admin: 01/19/18 08:10 Dose: 81 mg Bisacodyl (Dulcolax) 5 mg PO DAILY PRN PRN Reason: Constipation Calcium Carbonate (Calcium Carbonate/Vitamin D 600 Mg-200 Unit) 1 tab PO BIDMEALS [facility] Last Admin: 01/20/18 06:04 Dose: 1 tab Diltiazem HCl (Cardizem Cd) 240 mg PO DAILY [facility] Last Admin: 01/20/18 06:01 Dose: 240 mg Docusate Sodium (Colace) 100 mg PO BID PRN PRN Reason: Constipation Furosemide (Lasix) 20 mg PO DAILY@1400 [facility] Last Admin: 01/19/18 14:38 Dose: 20 mg Furosemide (Lasix) 40 mg PO DAILY@0600 [facility] Last Admin: 01/20/18 05:49 Dose: 40 mg Hydralazine HCl (Apresoline) 10 mg IVPUSH Q4H PRN PRN Reason: Hypertension Last Admin: 01/17/18 05:25 Dose: 10 mg Hydromorphone HCl (Dilaudid) 0.25 mg IVPUSH Q2H PRN PRN Reason: Pain (severe 7-10) Hyoscyamine (Hyomax-Sl) 0.125 mg PO TID [facility] Last Admin: 01/19/18 20:05 Dose: 0.125 mg Diltiazem HCl 125 mg/ Sodium (Chloride) 125 mls @ 10 mls/hr IV TITRATE [facility]; Protocol Last Titration: 01/20/18 06:12 Dose: 0 mg/hr, 0 mls/hr Promethazine HCl 6.25 mg/ (Sodium Chloride) 50.25 mls @ 100 mls/hr IV Q6H PRN PRN Reason: Nausea/Vomiting Lorazepam (Ativan) 0.25 mg IV Q6H PRN PRN Reason: Anxiety Lorazepam (Ativan) 2 mg IVPUSH Q4H PRN PRN Reason: Seizures Magnesium Sulfate (Pharmacy To Dose - Magnesium Replacement) 1 dose .XX ASDIRECTED [facility] Metoprolol Tartrate (Lopressor) 5 mg IVPUSH Q4H PRN PRN Reason: Tachycardia Last Admin: 01/19/18 17:03 Dose: 5 mg Nystatin (Nystatin Crm) 0 gm TOP BID PRN PRN Reason: Rash Ondansetron HCl (Zofran) 4 mg IV Q6H PRN PRN Reason: Nausea/Vomiting Last Admin: 01/17/18 12:16 Dose: 4 mg Pantoprazole Sodium (Protonix) 40 mg PO ACBREAKFAST [facility] Last Admin: 01/20/18 05:50 Dose: 40 mg Polyethylene Glycol (Miralax) 17 gm PO DAILY PRN PRN Reason: Constipation Potassium Chloride (Pharmacy To Dose - Potassium Replacement) 1 dose .XX ASDIRECTED [facility] Potassium Chloride (Klor-Con M20) 20 meq PO BIDMEALS [facility] Last Admin: 01/20/18 06:04 Dose: 20 meq Prednisone (Prednisone) 10 mg PO WITHBREAKFAST [facility] Last Admin: 01/20/18 06:03 Dose: 10 mg Prednisone (Prednisone) 2.5 mg PO WITHBREAKFAST [facility] Last Admin: 01/20/18 06:03 Dose: 2.5 mg Pyridostigmine [place] (Mestinon) 60 mg PO TID [facility] Last Admin: 01/19/18 20:05 Dose: 60 mg Rosuvastatin Calcium (Crestor) 10 mg PO DAILY [facility] Last Admin: 01/19/18 08:09 Dose: 10 mg Senna/Docusate Sodium (Senna Plus) 1 tab PO BID PRN PRN Reason: Constipation Sodium Chloride (Saline Flush) 10 ml FLUSH ASDIRECTED PRN PRN Reason: Keep Vein Open Last Admin: 01/15/18 16:36 Dose: 10 ml Sulfasalazine (Sulfasalazine) 500 mg PO BIDPC [facility] Last Admin: 01/19/18 17:02 Dose: 500 mg Temazepam (Restoril) 7.5 mg PO BEDTIME PRN PRN Reason: Sleep Last Admin: 01/17/18 00:00 Dose: 7.5 mg Discontinued Medications Amiodarone HCl (Cordarone) 200 mg PO BID [facility] Last Admin: 01/19/18 10:10 Dose: 200 mg Amiodarone HCl (Cordarone) 400 mg PO ONETIME ONE Stop: 01/19/18 19:05 Last Admin: 01/19/18 19:57 Dose: 400 mg Diltiazem HCl (Diltiazem) 10 mg IVPUSH ONETIME ONE Stop: 01/15/18 16:40 Last Admin: 01/15/18 16:44 Dose: 10 mg Diltiazem HCl (Cardizem) 60 mg PO Q6HR [place]VIN Diltiazem HCl (Cardizem) 60 mg PO Q6HR [facility] Last Admin: 01/17/18 12:02 Dose: 60 mg Diltiazem HCl (Cardizem) 120 mg PO BID [facility] Last Admin: 01/18/18 20:39 Dose: Not Given Diltiazem HCl (Cardizem Cd) 120 mg PO BID [facility] Last Admin: 01/18/18 08:19 Dose: 120 mg Diltiazem HCl (Cardizem Cd) 120 mg PO ONETIME ONE Stop: 01/17/18 21:54 Last Admin: 01/17/18 22:34 Dose: 120 mg Diltiazem HCl (Cardizem Cd) 120 mg PO DAILY [facility] Last Admin: 01/19/18 10:10 Dose: 120 mg Diltiazem HCl (Cardizem Cd) 120 mg PO DAILY [facility] Furosemide (Lasix) 20 mg IVPUSH ONETIME ONE Stop: 01/15/18 17:53 Last Admin: 01/15/18 18:23 Dose: 20 mg Magnesium Sulfate 2 gm/ Premix 50 mls @ 25 mls/hr IV ASDIRECTED PRN PRN Reason: Other Magnesium Sulfate (Magnesium Sulfate 2 Gm In Water 50 Ml) 50 mls @ 25 mls/hr IV ONETIME ONE Stop: 01/15/18 22:29 Last Admin: 01/15/18 20:38 Dose: 25 mls/hr Amiodarone HCl/Dextrose (Nexterone In Dextrose 360 Mg/200 Ml) 360 mg in 200 mls @ 33.333 mls/hr IV ONETIME ONE Stop: 01/18/18 15:29 Last Admin: 01/18/18 10:14 Dose: 33.333 mls/hr Amiodarone HCl/Dextrose (Nexterone In Dextrose 360 Mg/200 Ml) 360 mg in 200 mls @ 16.6 mls/hr IV ASDIRECTED [facility] Stop: 01/19/18 09:30 Last Admin: 01/19/18 03:08 Dose: 16.6 mls/hr Metoprolol Tartrate (Lopressor) 50 mg PO BID [facility] Metoprolol Tartrate (Lopressor) 25 mg PO BID [facility] Last Admin: 01/16/18 08:09 Dose: 25 mg Metoprolol Tartrate (Lopressor) 5 mg IVPUSH ONETIME ONE Stop: 01/16/18 08:29 Last Admin: 01/16/18 08:33 Dose: 5 mg Metoprolol Tartrate (Lopressor) 25 mg PO ONETIME ONE Stop: 01/16/18 09:01 Last Admin: 01/16/18 10:04 Dose: Not Given Metoprolol Tartrate (Lopressor) 50 mg PO BID [facility] Last Admin: 01/16/18 20:07 Dose: 50 mg Metoprolol Tartrate (Lopressor) 75 mg PO BID [facility] Last Admin: 01/18/18 08:21 Dose: 75 mg Non-Formulary Medication (Diltiazem) 240 mg PO DAILY [facility] Non-Formulary Medication (Hyoscyamine [Levsin]) 0.125 mg PO TID [facility] Potassium Chloride (Klor-Con M20) 40 meq PO ONETIME ONE Stop: 01/16/18 08:01 Last Admin: 01/16/18 08:12 Dose: 40 meq - Exam Quality Assessment: No: Supplemental Oxygen General: Alert, Oriented, Cooperative, No Acute Distress HEENT: Pupils Equal, Pupils Reactive, EOMI, Mucous Membr. Moist/[place] Neck: Supple, Trachea Midline, No JVD Lungs: Normal Respiratory Effort, Decreased Breath Sounds Cardiovascular: Irregular Rhythm GI/Abdominal Exam: Normal Bowel Sounds, Soft, Non-Tender, No Organomegaly, No Distention, No Abnormal Bruit, No Mass (Female) Exam: Deferred Back Exam: Normal Inspection, Decreased Range of Motion Extremities: Normal Inspection, Normal Range of Motion, Non-Tender, Normal Capillary Refill, Pedal Edema, Other (Mild bilateral lower extremity edema) Peripheral Pulses: 2+: Dorsalis Pedis (L), Dorsalis Pedis (R) Skin: Warm, Dry, Intact, Ecchymosis Neurological: No New Focal Deficit. No: Normal Gait Psy/Mental Status: Alert, Normal Affect, Normal Mood - Problem List Review Problem List Initiated/Reviewed/Updated: Yes - My Orders Last 24 Hours: My Active Orders 01/20/18 07:00 EKG 12 Lead [EKG Documentation Completion] [RC] AM Amiodarone [Cordarone] 400 mg PO BID Diltiazem [Cardizem CD] 240 mg PO DAILY - Plan Plan:: Assessment/Plan: Acute: Atrial Fibrillation S/p RVR - HR is much improved - She is asymptomatic this morning - She carries a hx/o chronic atrial fibrillation on eliquis - She states, she was doing okay before she was switched to 1 pill a day cardizem by her supervisor [employer] - Thyroid panel is within normal limits - He is fully controlled with Cardizem 240 mg po daily, Amiodarone 400 mg po BID, and Atenolol 50 mg po BID - She ambulates with HR fully controlled; HR < 100 - Continue eliquis for stroke prophylaxis - Consulted Dr. Choi for Amiodarone drip and Cardizem regimen Pleural Effusion, Stable - CXR small right sided effusion --> repeat CXR shows no change - ProBNP 979, mildly elevated--> 706 - Continue IS as directed - Continue diuretic Mild Hypomagnesemia - Mg 1.7 - 2/2 inadequate intake - Pharmacy to replete and monitor Resolved: S/p Mild Hypokalemia - K 3.3--> 3.8 --> 4.2 - 2/2 diuresis - Replete and monitor S/p Congestive Heart Failure, Stable - HF with Preserved EF 55% with Moderately Dilated Left Atrium 06/23/2017 - Induced by recent atrial fibrillation - ProBNP 979, mildly elevated--> 706 - Pleural effusion/Pulmonary Congestion and mild peripheral edema - Heart failure protocol: diuretics, Is/Os, dietary restrictions and daily weight checks Chronic: Impaired Vision/Hearing HTN HLD CAD/AL S/p Stents Placement Hx/o UC Renal Insufficiency/CKD Stage 3 Urinary Incontinence OA/DJD Myasthenia Gravis Chronic Fatigue 2/2 Myasthenia Gravis Plan: She remains clinically stable Continue current treatment Routine AM Labs Nursing to ambulate DVT PPx: Already on Eliquis SW/CM for d/c planning Additional orders as above Ambulates w/o symptoms and heart rate is controlled with activity Code Status: 1 LOS > 96 hrs due to slow response to treatment. Possible d/c in AM
[2018-01-20] MEDS ORDERED: Magnesium Oxide 400 MG Tab PO ONE (08:00)
[2018-01-20] MEDS: Apixaban 5 MG Tab PO SCH ×2 (08:10→20:13)
[2018-01-20] MEDS: Rosuvastatin 10 MG Tab PO SCH (08:10)
[2018-01-20] MEDS: Hyoscyamine 0.125 MG Tab.SL PO SCH ×3 (08:10→20:14)
[2018-01-20] MEDS: Aspirin 81 MG Tab.EC PO SCH (08:10)
[2018-01-20] MEDS: sulfaSALAzine 500 MG Tab PO SCH ×2 (08:10→17:23)
[2018-01-20] MEDS: Metoprolol Tartrate 5 MG/5 ML SDV IVPUSH PRN (08:17)
[2018-01-20] MEDS ORDERED: Loperamide 2 MG Cap PO ONE (08:41)
[2018-01-20] MEDS: Atenolol 50 MG Tab PO SCH ×2 (09:06→20:14)
[2018-01-20] MEDS: Calcium Carbonate 500 MG Tab.Chew PO PRN (11:46)
[2018-01-20] MEDS: Furosemide 20 MG Tab PO SCH (13:59)
--- NOTE | 2018-01-20 18:19 | PCM.SN ---
- Free Text/Narrative Note: Patient did very well today she was on combination of Cardizem and Amiodarone and later on Atenolol was added. Her HR at rest was in the 80s-90s. During ambulation she was asymptomatic and did well. Her observed heat rates were in the 70s-80s.
[2018-01-21] MEDS: Pantoprazole 40 MG Tab.CR PO SCH (05:48)
[2018-01-21] MEDS: Furosemide 40 MG Tab PO SCH (05:48)
[2018-01-21] MEDS: Calcium Carbonate 500 MG Tab.Chew PO PRN ×2 (07:18→11:25)
[2018-01-21] MEDS: Diltiazem 120 MG Cap.CD PO SCH (08:22)
[2018-01-21] MEDS: predniSONE 5 MG Tab PO SCH (08:22)
[2018-01-21] MEDS: Amiodarone 200 MG Tab PO SCH ×2 (08:23→20:03)
[2018-01-21] MEDS: Atenolol 50 MG Tab PO SCH (08:23)
[2018-01-21] MEDS: Aspirin 81 MG Tab.EC PO SCH (08:23)
[2018-01-21] MEDS: Rosuvastatin 10 MG Tab PO SCH (08:24)
[2018-01-21] MEDS: Apixaban 5 MG Tab PO SCH ×2 (08:24→20:02)
[2018-01-21] MEDS: Hyoscyamine 0.125 MG Tab.SL PO SCH ×3 (08:24→20:02)
[2018-01-21] MEDS: predniSONE 10 MG Tab PO SCH (08:24)
[2018-01-21] MEDS: Potassium Chloride 20 MEQ Tab.ER PO SCH ×2 (08:24→17:51)
[2018-01-21] MEDS: Calcium Carbonate/Vitamin D3 600 MG-200 Units Tab PO SCH ×2 (08:24→17:51)
[2018-01-21] MEDS: sulfaSALAzine 500 MG Tab PO SCH ×2 (08:24→17:51)
--- NOTE | 2018-01-21 08:43 | PCM.DCSUM1 ---
Discharge Summary - Hospital Course Brief History: This is an 82-year-old female with past medical hx/o Impaired Vision/Hearing, HTN, HLD, CAD/SC S/p Stents Placement, Hx/o UC, Urinary Incontinence, OA/DJD and Myasthenia Gravis who presents for evaluation of worsening shortness of breath that has been going on for 3 days now. Her symptom is associated with orthopnea and increasing leg edema. She denies any chest pain, fevers, chills, cough, nausea, vomiting and syncope. Patient carries a hx/o chronic atrial fibrillation and currently on eliquis. Patient tells me she has not felt the same since she was switched to 1 pill a day on her cardizem. She follows Dr. Choi for her routine cardiac care. On presentation to ED, she was found with heart rate in the 150s. Her initial work up in ED shows a CBC remarkable for HCT of 45.2, MCV of 100, MCHC of 31.9, RDW of 61.4, Platelet count of 86, MPV of 12.4, Neutrophils of 92%, and Lymphocytes of 6%. Her chemistry is remarkable for BUN of 20, Cr of 1.2, Glucose of 145, AST of 63, Alk Phos of 195, ProBNP of 979 and Albumin of 3.2. Her UA is not suggestive of UTI. Her CXR shows bilateral pleural effusion. Patient is currently on cardizem drip. She is being admitted to ICU for management of atrial fibrillation with RVR. - Discharge Data Discharge Date: 01/22/18 Discharge Disposition: Home, Self-Care 01 Condition: Good - Discharge Diagnosis/Problem(s) (1) Nocturnal hypoxia SNOMED Code(s): 499280928 ICD Code: G47.34 - IDIO SLEEP RELATED NONOBSTRUCTIVE ALVEOLAR HYPOVENTILATION Status: Acute (2) Atrial fibrillation with RVR SNOMED Code(s): 088677084007101 ICD Code: I48.91 - UNSPECIFIED ATRIAL FIBRILLATION Status: Resolved (3) Pleural effusion on right SNOMED Code(s): 40598991 ICD Code: J90 - PLEURAL EFFUSION, NOT ELSEWHERE CLASSIFIED Status: Chronic - Patient Summary/Data Operative Procedure(s) Performed: None Complications: None Consults: Consultations 01/15/18 19:19 Consult to Case Management [CONS] Routine Consult to Molder Feeder [CONS] Routine Consult to Spiritual Care [CONS] Routine OT Evaluation and Treatment [CONS] Routine PT Evaluation and Treatment [CONS] Routine Respiratory Care Assess and Treatment [CONS] Routine Labs Pending at D/C: None Recommended Follow-up Testing/Procedures: None Planned Operative Procedure(s) after DC: None Hospital Course: Patient was primarily admitted for medical management of atrial fibrillation with RVR. She carried a past medical hx/o it and was mainly managed with combined Cardizem IR and Metoprolol XL. We reviewed her current outpatient regimen and it did not match with what she supposed to be on. This we felt the reason why her heart rate was not fully controlled. However; treatment henry, she received Cardizem drip in ED before she was moved to the unit for further management. We resumed her Metoprolol XL home dose of 50 mg po BID (She supposed to be on 100 mg po BID) and she responded well initially. However as soon as she came off the Cardizem drip, she went back to having a poorly controlled hear rate. Her rate stayed in the low tens and teens at rest but went up in the 120s-130s with activities or ambulation. We consulted her pilot highway patrol (Dr. Choi) and he recommended Amiodarone drip along with Cardizem 120 mg po CD. We thought this new regimen would take care her stubborn heart rate but remained unresponsive until we added Atenolol. Thereafter, her rate stayed in the 60-70s at rest and 80-90s with activities. Unfortunately, she was intolerant to the regimen above so we adjusted it down further to Amiodarone 200 mg po BID along with Metoprolol XL 100 mg po BID and that kept her rate pretty much controlled with reduced side effects. Her hospital course was fairly uncomplicated and the rest of her chronic medical illness remained stable during this admission. Patient was stable upon discharge. She was advised to take her new medication as directed and follow her new cardiac regimen. She was further advised to call her PCP or Waiter/[employer] for any issues or concerns after discharge. And most importantly, she was advised to come back or seek immediate care should her symptoms persist or get worse. On the day or discharge, her family members were informed to make sure she checks her vitals and log it as well as to follow parameters provided before she takes her cardiac medications. Patient and her family expressed understanding and in agreement with the plans as discussed above. All their questions were answered. - Patient Instructions Diet: Heart Healthy Diet, Usual Diet as Tolerated Activity: As Tolerated Driving: Do Not Drive Showering/Bathing: May Shower Notify Provider of: Fever, Increased Pain, Swelling and Redness, Nausea and/or Vomiting Other/Special Instructions: - Please take new medication as directed. - Resume all home medications and continue routine home activities as tolerated. - Check you vitals (blood pressure and heart) at least 3 x day and show log on your follow up appointment your PCP and Waiter/[employer]ress [employer]. - Follow blood pressure or heart rate parameters for your cardiac medications as noted on your discharge medication list. - Call or follow up with your PCP for any questions or concerns after discharge. - Come back or seek immediate care should your symptoms persist or get worse - Discharge Plan Prescriptions/Med Rec: Amiodarone [Cordarone] 200 mg PO BID #60 tab Home Medications: Home Meds Aspirin [Ronan Aspirin] 81 mg PO DAILY 05/26/14 [History] sulfaSALAzine 500 mg PO BID 05/26/14 [History] Pyridostigmine La[place] 60 mg PO TID 06/14/16 [History] Apixaban [Eliquis] 2.5 mg PO BID 04/07/17 [History] Calcium Citrate/Vitamin D3 [Calcium Citrate + D] 1 tab PO BIDMEALS 04/07/17 [ History] Pantoprazole [ProTONIX] 40 mg PO ACBREAKFAST 04/07/17 [History] Prednisone [IJD: Prednisone] 10 mg PO DAILY 04/07/17 [History] Furosemide [Lasix] 20 mg PO [id number] 09/25/17 [History] Furosemide [Lasix] 40 mg PO DAILY 09/25/17 [History] Immodium 2 mg PO ASDIRECTED PRN 09/25/17 [History] atorvaSTATin [Lipitor] 40 mg PO DAILY 09/25/17 [History] Hyoscyamine [Levsin] 0.125 mg PO TID 01/15/18 [History] Nystatin [Nystatin Oint] 1 applic TOP BID PRN 01/15/18 [History] Potassium Chloride 20 meq PO BID 01/15/18 [History] predniSONE [Prednisone] 2.5 mg PO DAILY 01/16/18 [History] Metoprolol Tartrate 100 mg PO BID #0 01/21/18 [Rx] Amiodarone [Cordarone] 200 mg PO BID #60 tab 01/22/18 [Rx] Losartan [Cozaar] 100 mg PO DAILY #0 01/22/18 [Rx] Patient Handouts: Hypoxemia, Pleural Effusion, Atrial Fibrillation, Easy-to- Read Referrals: Tom Slaughter MD [Primary Care Provider] - - Discharge Summary/Plan Comment DC Time >30 min.: Yes (45 mins) Discharge Summary/Plan Comment: Discharge to Home - General Info Date of Service: 01/22/18 Admission Dx/Problem (Free Text: Admission Diagnosis/Problem Admission Diagnosis/Problem Atrial fibrillation with rapid ventricular response Subjective Update: Follow Up Functional Status: Reports: Pain Controlled, Tolerating Diet, Ambulating, Urinating. Denies: New Symptoms - Review of Systems General: Reports: Fatigue. Denies: Fever, Weakness, Malaise, Chills HEENT: Reports: No Symptoms Pulmonary: Denies: Shortness of Breath, Pleuritic Chest Pain, Cough Cardiovascular: Denies: Palpitations, Dyspnea on Exertion, Lightheadedness Gastrointestinal: Denies: Abdominal Pain, Nausea, Vomiting Genitourinary: Reports: No Symptoms Musculoskeletal: Reports: No Symptoms Skin: Reports: Bruising. Denies: Cyanosis, Mottled, Pallor, Diaphoresis Neurological: Reports: Gait Disturbance. Denies: Confusion, Difficulty Walking , Weakness Psychiatric: Denies: No Symptoms, Depression, Anxiety, Hallucinations Systems Review Comment: No overnight or cute issues. She slept pretty good. She has no complaints other than on and off fatigue. Her heart rate remains stable; 60-70s at rest and 80s- 90s with ambulation and activities. - Patient Data Vitals - Most Recent: Last Vital Signs Temp 36.4 C 01/21/18 07:22 Pulse 71 01/21/18 08:23 Resp 20 01/21/18 07:22 BP 111/84 01/21/18 08:23 Pulse Ox 90 L 01/21/18 07:22 Weight - Most Recent: 75.75 kg I&O - Last 24 hours: Intake & Output 01/20/18 01/21/18 01/21/18 22:59 06:59 14:59 Intake Total 400 400 Output Total 200 Balance 200 400 Med Orders - Current: Current Medications Acetaminophen (Tylenol) 650 mg PO Q4H PRN PRN Reason: Pain (Mild 1-3)/fever Hydrocodone Bitart/Acetaminophen ([place] 325-5 Mg) 1 tab PO Q4H PRN PRN Reason: Pain (moderate 4-6) Albuterol/Ipratropium (Duoneb 3.0-0.5 Mg/3 Ml) 3 ml NEB Q4H PRN PRN Reason: Shortness Of Breath/wheezing Amiodarone HCl (Cordarone) 400 mg PO BID REPLACED BY [facility] Last Admin: 01/21/18 08:23 Dose: 400 mg Apixaban (Eliquis) 2.5 mg PO BID REPLACED BY [facility] Last Admin: 01/21/18 08:24 Dose: 2.5 mg Aspirin (Halfprin) 81 mg PO DAILY REPLACED BY [facility] Last Admin: 01/21/18 08:23 Dose: 81 mg Atenolol (Tenormin) 50 mg PO BID REPLACED BY [facility] Last Admin: 01/21/18 08:23 Dose: 50 mg Bisacodyl (Dulcolax) 5 mg PO DAILY PRN PRN Reason: Constipation Calcium Carbonate (Calcium Carbonate/Vitamin D 600 Mg-200 Unit) 1 tab PO BIDMEALS REPLACED BY [facility] Last Admin: 01/21/18 08:24 Dose: 1 tab Calcium Carbonate/Glycine (Tums) 500 mg PO Q2H PRN PRN Reason: Indigestion Last Admin: 01/21/18 07:18 Dose: 500 mg Diltiazem HCl (Cardizem Cd) 240 mg PO DAILY REPLACED BY [facility] Last Admin: 01/21/18 08:22 Dose: 240 mg Docusate Sodium (Colace) 100 mg PO BID PRN PRN Reason: Constipation Furosemide (Lasix) 20 mg PO DAILY@1400 REPLACED BY [facility] Last Admin: 01/20/18 13:59 Dose: 20 mg Furosemide (Lasix) 40 mg PO DAILY@0600 REPLACED BY [facility] Last Admin: 01/21/18 05:48 Dose: 40 mg Hydralazine HCl (Apresoline) 10 mg IVPUSH Q4H PRN PRN Reason: Hypertension Last Admin: 01/17/18 05:25 Dose: 10 mg Hydromorphone HCl (Dilaudid) 0.25 mg IVPUSH Q2H PRN PRN Reason: Pain (severe 7-10) Hyoscyamine (Hyomax-Sl) 0.125 mg PO TID REPLACED BY [facility] Last Admin: 01/21/18 08:24 Dose: 0.125 mg Diltiazem HCl 125 mg/ Sodium (Chloride) 125 mls @ 10 mls/hr IV TITRATE REPLACED BY [facility]; Protocol Last Titration: 01/20/18 06:12 Dose: 0 mg/hr, 0 mls/hr Promethazine HCl 6.25 mg/ (Sodium Chloride) 50.25 mls @ 100 mls/hr IV Q6H PRN PRN Reason: Nausea/Vomiting Lorazepam (Ativan) 0.25 mg IV Q6H PRN PRN Reason: Anxiety Lorazepam (Ativan) 2 mg IVPUSH Q4H PRN PRN Reason: Seizures Magnesium Sulfate (Pharmacy To Dose - Magnesium Replacement) 1 dose .XX ASDIRECTED REPLACED BY [facility] Metoprolol Tartrate (Lopressor) 5 mg IVPUSH Q4H PRN PRN Reason: Tachycardia Last Admin: 01/20/18 08:17 Dose: 5 mg Nystatin (Nystatin Crm) 0 gm TOP BID PRN PRN Reason: Rash Ondansetron HCl (Zofran) 4 mg IV Q6H PRN PRN Reason: Nausea/Vomiting Last Admin: 01/17/18 12:16 Dose: 4 mg Pantoprazole Sodium (Protonix) 40 mg PO ACBREAKFAST REPLACED BY [facility] Last Admin: 01/21/18 05:48 Dose: 40 mg Polyethylene Glycol (Miralax) 17 gm PO DAILY PRN PRN Reason: Constipation Potassium Chloride (Pharmacy To Dose - Potassium Replacement) 1 dose .XX ASDIRECTED REPLACED BY [facility] Potassium Chloride (Klor-Con M20) 20 meq PO BIDMEALS REPLACED BY [facility] Last Admin: 01/21/18 08:24 Dose: 20 meq Prednisone (Prednisone) 10 mg PO WITHBREAKFAST REPLACED BY [facility] Last Admin: 01/21/18 08:24 Dose: 10 mg Prednisone (Prednisone) 2.5 mg PO WITHBREAKFAST REPLACED BY [facility] Last Admin: 01/21/18 08:22 Dose: 2.5 mg Pyridostigmine Laurel (Mestinon) 60 mg PO TID REPLACED BY [facility] Last Admin: 01/21/18 08:24 Dose: 60 mg Rosuvastatin Calcium (Crestor) 10 mg PO DAILY REPLACED BY [facility] Last Admin: 01/21/18 08:24 Dose: 10 mg Senna/Docusate Sodium (Senna Plus) 1 tab PO BID PRN PRN Reason: Constipation Sodium Chloride (Saline Flush) 10 ml FLUSH ASDIRECTED PRN PRN Reason: Keep Vein Open Last Admin: 01/15/18 16:36 Dose: 10 ml [facility]al[facility]) [facility] Last Admin: 01/21/18 08:24 Dose: 500 mg Temazepam (Restoril) 7.5 mg PO BEDTIME PRN PRN Reason: Sleep Last Admin: 01/17/18 00:00 Dose: 7.5 mg Discontinued Medications Amiodarone HCl (Cordarone) 200 mg PO BID REPLACED BY [facility] Last Admin: 01/19/18 10:10 Dose: 200 mg Amiodarone HCl (Cordarone) 400 mg PO ONETIME ONE Stop: 01/19/18 19:05 Last Admin: 01/19/18 19:57 Dose: 400 mg Diltiazem HCl (Diltiazem) 10 mg IVPUSH ONETIME ONE Stop: 01/15/18 16:40 Last Admin: 01/15/18 16:44 Dose: 10 mg Diltiazem HCl (Cardizem) 60 mg PO Q6HR REPLACED BY [facility] Diltiazem HCl (Cardizem) 60 mg PO Q6HR REPLACED BY [facility] Last Admin: 01/17/18 12:02 Dose: 60 mg Diltiazem HCl (Cardizem) 120 mg PO BID REPLACED BY [facility] Last Admin: 01/18/18 20:39 Dose: Not Given Diltiazem HCl (Cardizem Cd) 120 mg PO BID REPLACED BY [facility] Last Admin: 01/18/18 08:19 Dose: 120 mg Diltiazem HCl (Cardizem Cd) 120 mg PO ONETIME ONE Stop: 01/17/18 21:54 Last Admin: 01/17/18 22:34 Dose: 120 mg Diltiazem HCl (Cardizem Cd) 120 mg PO DAILY REPLACED BY [facility] Last Admin: 01/19/18 10:10 Dose: 120 mg Diltiazem HCl (Cardizem Cd) 120 mg PO DAILY REPLACED BY [facility] Furosemide (Lasix) 20 mg IVPUSH ONETIME ONE Stop: 01/15/18 17:53 Last Admin: 01/15/18 18:23 Dose: 20 mg Magnesium Sulfate 2 gm/ Premix 50 mls @ 25 mls/hr IV ASDIRECTED PRN PRN Reason: Other Magnesium Sulfate (Magnesium Sulfate 2 Gm In Water 50 Ml) 50 mls @ 25 mls/hr IV ONETIME ONE Stop: 01/15/18 22:29 Last Admin: 01/15/18 20:38 Dose: 25 mls/hr Amiodarone HCl/Dextrose (Nexterone In Dextrose 360 Mg/200 Ml) 360 mg in 200 mls @ 33.333 mls/hr IV ONETIME ONE Stop: 01/18/18 15:29 Last Admin: 01/18/18 10:14 Dose: 33.333 mls/hr Amiodarone HCl/Dextrose (Nexterone In Dextrose 360 Mg/200 Ml) 360 mg in 200 mls @ 16.6 mls/hr IV ASDIRECTED REPLACED BY [facility] Stop: 01/19/18 09:30 Last Admin: 01/19/18 03:08 Dose: 16.6 mls/hr Loperamide HCl (Imodium) 2 mg PO ONETIME ONE Stop: 01/20/18 08:42 Last Admin: 01/20/18 08:55 Dose: 2 mg Magnesium Oxide (Magnesium Oxide) 800 mg PO ONETIME ONE Stop: 01/20/18 08:01 Last Admin: 01/20/18 08:15 Dose: 800 mg Metoprolol Tartrate (Lopressor) 50 mg PO BID REPLACED BY [facility] Metoprolol Tartrate (Lopressor) 25 mg PO BID REPLACED BY [facility] Last Admin: 01/16/18 08:09 Dose: 25 mg Metoprolol Tartrate (Lopressor) 5 mg IVPUSH ONETIME ONE Stop: 01/16/18 08:29 Last Admin: 01/16/18 08:33 Dose: 5 mg Metoprolol Tartrate (Lopressor) 25 mg PO ONETIME ONE Stop: 01/16/18 09:01 Last Admin: 01/16/18 10:04 Dose: Not Given Metoprolol Tartrate (Lopressor) 50 mg PO BID REPLACED BY [facility] Last Admin: 01/16/18 20:07 Dose: 50 mg Metoprolol Tartrate (Lopressor) 75 mg PO BID REPLACED BY [facility] Last Admin: 01/18/18 08:21 Dose: 75 mg Non-Formulary Medication (Diltiazem) 240 mg PO DAILY REPLACED BY [facility] Non-Formulary Medication (Hyoscyamine [Levsin]) 0.125 mg PO TID REPLACED BY [facility] Potassium Chloride (Klor-Con M20) 40 meq PO ONETIME ONE Stop: 01/16/18 08:01 Last Admin: 01/16/18 08:12 Dose: 40 meq - Exam Quality Assessment: Denies: Supplemental Oxygen General: Reports: Alert, Oriented, Cooperative, No Acute Distress HEENT: Reports: Pupils Equal, Pupils Reactive, EOMI, Mucous Membr. Moist/[place] Neck: Reports: Supple, Trachea Midline, No JVD, No Thyromegaly Lungs: Reports: Normal Respiratory Effort, Decreased Breath Sounds Cardiovascular: Reports: Irregular Rhythm GI/Abdominal Exam: Normal Bowel Sounds, Soft, Non-Tender, No Organomegaly, No Distention, No Abnormal Bruit, No Mass (Female) Exam: Deferred Rectal (Female) Exam: Deferred Back Exam: Reports: Normal Inspection, Decreased Range of Motion Extremities: Normal Inspection, Normal Range of Motion, Non-Tender, No Pedal Edema, Normal Capillary Refill, Other (Trace edema on bilateral lower extremity) Skin: Reports: Warm, Dry, Intact Neurological: Reports: No New Focal Deficit Psy/Mental Status: Reports: Alert, Normal Affect, Normal Mood
[2018-01-21] MEDS ORDERED: Scopolamine 1.5 MG Transdermal Patch TOP ONE (11:02)
[2018-01-21] MEDS: Ondansetron 4 MG/2 ML SDV IV PRN (11:25)
[2018-01-21] MEDS: Furosemide 20 MG Tab PO SCH (14:38)
--- NOTE | 2018-01-21 16:36 | PCM.PN ---
- General Info Date of Service: 01/21/18 Admission Dx/Problem (Free Text): Admission Diagnosis/Problem Admission Diagnosis/Problem Atrial fibrillation with rapid ventricular response Subjective Update: Follow Up Functional Status: Reports: Pain Controlled, Tolerating Diet, Ambulating, Urinating - Review of Systems General: Reports: Fatigue. Denies: Fever, Weakness, Malaise, Chills HEENT: Reports: No Symptoms Pulmonary: Denies: Shortness of Breath, Cough, Wheezing Gastrointestinal: Reports: Abdominal Pain (more of discomfort), Flatus, Nausea, Other (dry heaves). Denies: Constipation, Decreased Appetite, Diarrhea, Difficulty Swallowing, Melena Genitourinary: Reports: No Symptoms Musculoskeletal: Reports: No Symptoms Skin: Reports: Bruising. Denies: Mottled, Pallor, Diaphoresis Neurological: Reports: Gait Disturbance. Denies: Confusion, Pre-Existing Deficit, Difficulty Walking, Weakness Psychiatric: Denies: Depression, Anxiety, Agitation, Hallucinations Systems Review Comment:: No significant overnight or acute issues. She is doing just fine. Her HR remains controlled. No Morning labs today. - Patient Data Vitals - Most Recent: Last Vital Signs Temp 36.6 C 01/21/18 16:00 Pulse 71 01/21/18 08:23 Resp 18 01/21/18 16:00 BP 113/70 01/21/18 16:00 Pulse Ox 91 L 01/21/18 16:00 Weight - Most Recent: 75.75 kg I&O - Last 24 Hours: Intake & Output 01/21/18 01/21/18 01/21/18 06:59 14:59 22:59 Intake Total 400 120 400 Output Total 400 Balance 400 -280 400 Med Orders - Current: Current Medications Acetaminophen (Tylenol) 650 mg PO Q4H PRN PRN Reason: Pain (Mild 1-3)/fever Hydrocodone Bitart/Acetaminophen ([place] 325-5 Mg) 1 tab PO Q4H PRN PRN Reason: Pain (moderate 4-6) Albuterol/Ipratropium (Duoneb 3.0-0.5 Mg/3 Ml) 3 ml NEB Q4H PRN PRN Reason: Shortness Of Breath/wheezing Amiodarone HCl (Cordarone) 400 mg PO BID [facility] Last Admin: 01/21/18 08:23 Dose: 400 mg Apixaban (Eliquis) 2.5 mg PO BID [facility] Last Admin: 01/21/18 08:24 Dose: 2.5 mg Aspirin (Halfprin) 81 mg PO DAILY [facility] Last Admin: 01/21/18 08:23 Dose: 81 mg Atenolol (Tenormin) 50 mg PO BID [facility] Last Admin: 01/21/18 08:23 Dose: 50 mg Bisacodyl (Dulcolax) 5 mg PO DAILY PRN PRN Reason: Constipation Calcium Carbonate (Calcium Carbonate/Vitamin D 600 Mg-200 Unit) 1 tab PO BIDMEALS [facility] Last Admin: 01/21/18 08:24 Dose: 1 tab Calcium Carbonate/Glycine (Tums) 500 mg PO Q2H PRN PRN Reason: Indigestion Last Admin: 01/21/18 11:25 Dose: 500 mg Diltiazem HCl (Cardizem Cd) 240 mg PO DAILY [facility] Last Admin: 01/21/18 08:22 Dose: 240 mg Docusate Sodium (Colace) 100 mg PO BID PRN PRN Reason: Constipation Furosemide (Lasix) 20 mg PO DAILY@1400 [facility] Last Admin: 01/21/18 14:38 Dose: 20 mg Furosemide (Lasix) 40 mg PO DAILY@0600 [facility] Last Admin: 01/21/18 05:48 Dose: 40 mg Hydralazine HCl (Apresoline) 10 mg IVPUSH Q4H PRN PRN Reason: Hypertension Last Admin: 01/17/18 05:25 Dose: 10 mg Hydromorphone HCl (Dilaudid) 0.25 mg IVPUSH Q2H PRN PRN Reason: Pain (severe 7-10) Hyoscyamine (Hyomax-Sl) 0.125 mg PO TID [facility] Last Admin: 01/21/18 14:38 Dose: 0.125 mg Diltiazem HCl 125 mg/ Sodium (Chloride) 125 mls @ 10 mls/hr IV TITRATE [facility]; Protocol Last Titration: 01/20/18 06:12 Dose: 0 mg/hr, 0 mls/hr Promethazine HCl 6.25 mg/ (Sodium Chloride) 50.25 mls @ 100 mls/hr IV Q6H PRN PRN Reason: Nausea/Vomiting Lorazepam (Ativan) 0.25 mg IV Q6H PRN PRN Reason: Anxiety Lorazepam (Ativan) 2 mg IVPUSH Q4H PRN PRN Reason: Seizures Magnesium Sulfate (Pharmacy To Dose - Magnesium Replacement) 1 dose .XX ASDIRECTED [facility] Metoprolol Tartrate (Lopressor) 5 mg IVPUSH Q4H PRN PRN Reason: Tachycardia Last Admin: 01/20/18 08:17 Dose: 5 mg Miscellaneous Information (Remove Patch) 1 ea TRDERM ONETIME ONE Stop: 01/24/18 11:16 Nystatin (Nystatin Crm) 0 gm TOP BID PRN PRN Reason: Rash Ondansetron HCl (Zofran) 4 mg IV Q6H PRN PRN Reason: Nausea/Vomiting Last Admin: 01/21/18 11:25 Dose: 4 mg Pantoprazole Sodium (Protonix) 40 mg PO ACBREAKFAST [facility] Last Admin: 01/21/18 05:48 Dose: 40 mg Polyethylene Glycol (Miralax) 17 gm PO DAILY PRN PRN Reason: Constipation Potassium Chloride (Pharmacy To Dose - Potassium Replacement) 1 dose .XX ASDIRECTED [facility] Potassium Chloride (Klor-Con M20) 20 meq PO BIDMEALS [facility] Last Admin: 01/21/18 08:24 Dose: 20 meq Prednisone (Prednisone) 10 mg PO WITHBREAKFAST [facility] Last Admin: 01/21/18 08:24 Dose: 10 mg Prednisone (Prednisone) 2.5 mg PO WITHBREAKFAST [facility] Last Admin: 01/21/18 08:22 Dose: 2.5 mg Pyridostigmine [place] (Mestinon) 60 mg PO TID [facility] Last Admin: 01/21/18 14:38 Dose: 60 mg Rosuvastatin Calcium (Crestor) 10 mg PO DAILY [facility] Last Admin: 01/21/18 08:24 Dose: 10 mg Senna/Docusate Sodium (Senna Plus) 1 tab PO BID PRN PRN Reason: Constipation Sodium Chloride (Saline Flush) 10 ml FLUSH ASDIRECTED PRN PRN Reason: Keep Vein Open Last Admin: 01/15/18 16:36 Dose: 10 ml Sulfasalazine (Sulfasalazine) 500 mg PO BIDPC [facility] Last Admin: 01/21/18 08:24 Dose: 500 mg Temazepam (Restoril) 7.5 mg PO BEDTIME PRN PRN Reason: Sleep Last Admin: 01/17/18 00:00 Dose: 7.5 mg Discontinued Medications Amiodarone HCl (Cordarone) 200 mg PO BID [facility] Last Admin: 01/19/18 10:10 Dose: 200 mg Amiodarone HCl (Cordarone) 400 mg PO ONETIME ONE Stop: 01/19/18 19:05 Last Admin: 01/19/18 19:57 Dose: 400 mg Diltiazem HCl (Diltiazem) 10 mg IVPUSH ONETIME ONE Stop: 01/15/18 16:40 Last Admin: 01/15/18 16:44 Dose: 10 mg Diltiazem HCl (Cardizem) 60 mg PO Q6HR [facility] Diltiazem HCl (Cardizem) 60 mg PO Q6HR [facility] Last Admin: 01/17/18 12:02 Dose: 60 mg Diltiazem HCl (Cardizem) 120 mg PO BID [facility] Last Admin: 01/18/18 20:39 Dose: Not Given Diltiazem HCl (Cardizem Cd) 120 mg PO BID [facility] Last Admin: 01/18/18 08:19 Dose: 120 mg Diltiazem HCl (Cardizem Cd) 120 mg PO ONETIME ONE Stop: 01/17/18 21:54 Last Admin: 01/17/18 22:34 Dose: 120 mg Diltiazem HCl (Cardizem Cd) 120 mg PO DAILY [facility] Last Admin: 01/19/18 10:10 Dose: 120 mg Diltiazem HCl (Cardizem Cd) 120 mg PO DAILY [facility] Furosemide (Lasix) 20 mg IVPUSH ONETIME ONE Stop: 01/15/18 17:53 Last Admin: 01/15/18 18:23 Dose: 20 mg Magnesium Sulfate 2 gm/ Premix 50 mls @ 25 mls/hr IV ASDIRECTED PRN PRN Reason: Other Magnesium Sulfate (Magnesium Sulfate 2 Gm In Water 50 Ml) 50 mls @ 25 mls/hr IV ONETIME ONE Stop: 01/15/18 22:29 Last Admin: 01/15/18 20:38 Dose: 25 mls/hr Amiodarone HCl/Dextrose (Nexterone In Dextrose 360 Mg/200 Ml) 360 mg in 200 mls @ 33.333 mls/hr IV ONETIME ONE Stop: 01/18/18 15:29 Last Admin: 01/18/18 10:14 Dose: 33.333 mls/hr Amiodarone HCl/Dextrose (Nexterone In Dextrose 360 Mg/200 Ml) 360 mg in 200 mls @ 16.6 mls/hr IV ASDIRECTED [facility] Stop: 01/19/18 09:30 Last Admin: 01/19/18 03:08 Dose: 16.6 mls/hr Loperamide HCl (Imodium) 2 mg PO ONETIME ONE Stop: 01/20/18 08:42 Last Admin: 01/20/18 08:55 Dose: 2 mg Magnesium Oxide (Magnesium Oxide) 800 mg PO ONETIME ONE Stop: 01/20/18 08:01 Last Admin: 01/20/18 08:15 Dose: 800 mg Metoprolol Tartrate (Lopressor) 50 mg PO BID [facility] Metoprolol Tartrate (Lopressor) 25 mg PO BID [facility] Last Admin: 01/16/18 08:09 Dose: 25 mg Metoprolol Tartrate (Lopressor) 5 mg IVPUSH ONETIME ONE Stop: 01/16/18 08:29 Last Admin: 01/16/18 08:33 Dose: 5 mg Metoprolol Tartrate (Lopressor) 25 mg PO ONETIME ONE Stop: 01/16/18 09:01 Last Admin: 01/16/18 10:04 Dose: Not Given Metoprolol Tartrate (Lopressor) 50 mg PO BID [facility] Last Admin: 01/16/18 20:07 Dose: 50 mg Metoprolol Tartrate (Lopressor) 75 mg PO BID [facility] Last Admin: 01/18/18 08:21 Dose: 75 mg Non-Formulary Medication (Diltiazem) 240 mg PO DAILY [facility] Non-Formulary Medication (Hyoscyamine [Levsin]) 0.125 mg PO TID [facility] Potassium Chloride (Klor-Con M20) 40 meq PO ONETIME ONE Stop: 01/16/18 08:01 Last Admin: 01/16/18 08:12 Dose: 40 meq Scopolamine (Transderm-Scop) 1.5 mg TOP ONETIME ONE Stop: 01/21/18 11:03 Last Admin: 01/21/18 11:23 Dose: 1.5 mg - Exam General: Alert, Oriented, Cooperative, No Acute Distress HEENT: Pupils Equal, Pupils Reactive, EOMI, Mucous Membr. Moist/[place] Neck: Supple, Trachea Midline, No JVD, No Thyromegaly Lungs: Normal Respiratory Effort, Decreased Breath Sounds Cardiovascular: Irregular Rhythm GI/Abdominal Exam: Normal Bowel Sounds, Soft, Non-Tender, No Organomegaly, No Distention, No Abnormal Bruit, No Mass. No: Guarding, Rigid, Rebound, Tender, Abnormal Bowel Sounds (Female) Exam: Deferred Back Exam: Normal Inspection, Decreased Range of Motion Extremities: Normal Inspection, Normal Range of Motion, Non-Tender, Pedal Edema , Other (mild bilateral lower extremity edema) Peripheral Pulses: 2+: Dorsalis Pedis (L), Dorsalis Pedis (R) Skin: Warm, Dry, Intact Neurological: No New Focal Deficit Psy/Mental Status: Alert, Normal Affect, Normal Mood - Problem List & Annotations (1) Nocturnal hypoxia SNOMED Code(s): 943971491 Code(s): G47.34 - IDIO SLEEP RELATED NONOBSTRUCTIVE ALVEOLAR HYPOVENTILATION Status: Acute Current Visit: Yes (2) Atrial fibrillation with RVR SNOMED Code(s): 905408675147153 Code(s): I48.91 - UNSPECIFIED ATRIAL FIBRILLATION Status: Resolved Current Visit: Yes (3) Pleural effusion on right SNOMED Code(s): 34832441 Code(s): J90 - PLEURAL EFFUSION, NOT ELSEWHERE CLASSIFIED Status: Chronic Current Visit: Yes - Problem List Review Problem List Initiated/Reviewed/Updated: Yes - My Orders Last 24 Hours: My Active Orders 01/20/18 19:39 Overnight Pulse Oximetry [Overnight Pulse Oximetry] [RC] CONTINUOUS 01/21/18 06:19 Patient Status [ADT] Routine 01/21/18 08:38 Ready for Discharge [RC] PER UNIT ROUTINE 01/24/18 11:15 Remove Patch 1 ea TRDERM ONETIME ONE - Plan Plan:: Assessment/Plan: Acute: Atrial Fibrillation S/p RVR, HR Controlled - HR is much improved - She is asymptomatic this morning - She carries a hx/o chronic atrial fibrillation on eliquis - She states, she was doing okay before she was switched to 1 pill a day 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 Choi for Amiodarone drip and Cardizem regimen Pleural Effusion, Stable - CXR small right sided effusion --> repeat CXR shows no change - ProBNP 979, mildly elevated--> 706 - Continue IS as directed - Continue diuretic Mild Hypomagnesemia - Likely Resolved - Mg 1.7 - 2/2 inadequate intake - Pharmacy to replete and monitor Resolved: S/p Mild Hypokalemia - K 3.3--> 3.8 --> 4.2 - 2/2 diuresis - Replete and monitor S/p Congestive Heart Failure, Stable - HF with Preserved EF 55% with Moderately Dilated Left Atrium 06/23/2017 - Induced by recent atrial fibrillation - ProBNP 979, mildly elevated--> 706 - Pleural effusion/Pulmonary Congestion and mild peripheral edema - Heart failure protocol: diuretics, Is/Os, dietary restrictions and daily weight checks Chronic: Impaired Vision/Hearing HTN HLD CAD/SD S/p Stents Placement Hx/o UC Renal Insufficiency/CKD Stage 3 Urinary Incontinence OA/DJD Myasthenia Gravis Chronic Fatigue 2/2 Myasthenia Gravis Plan: She remains clinically stable Continue current treatment Routine AM Labs: BMP and Mg Nursing to ambulate DVT PPx: Already on Eliquis SW/CM for d/c planning Additional orders as above Ambulates w/o symptoms and heart rate is controlled with activity Code Status: 1 LOS > 96 hrs due to slow response to treatment. She is not ready for d/c today since she is nauseous/dry heaving.
[2018-01-21] MEDS ORDERED: Amiodarone 200 MG Tab PO SCH (19:00)
[2018-01-21] MEDS: Metoprolol Tartrate 100 MG Tab PO SCH (20:03)
[2018-01-22] MEDS: Pantoprazole 40 MG Tab.CR PO SCH (05:45)
[2018-01-22] MEDS: Furosemide 40 MG Tab PO SCH (05:45)
[2018-01-22] MEDS: Amiodarone 200 MG Tab PO SCH (09:01)
[2018-01-22] MEDS: Hyoscyamine 0.125 MG Tab.SL PO SCH (09:01)
[2018-01-22] MEDS: Rosuvastatin 10 MG Tab PO SCH (09:01)
[2018-01-22] MEDS: Apixaban 5 MG Tab PO SCH (09:01)
[2018-01-22] MEDS: Potassium Chloride 20 MEQ Tab.ER PO SCH (09:02)
[2018-01-22] MEDS: predniSONE 10 MG Tab PO SCH (09:02)
[2018-01-22] MEDS: predniSONE 5 MG Tab PO SCH (09:02)
[2018-01-22] MEDS: sulfaSALAzine 500 MG Tab PO SCH (09:02)
[2018-01-22] MEDS: Calcium Carbonate/Vitamin D3 600 MG-200 Units Tab PO SCH (09:03)
[2018-01-22] MEDS: Aspirin 81 MG Tab.EC PO SCH (09:03)
[2018-01-22] MEDS: Metoprolol Tartrate 100 MG Tab PO SCH (09:14)
[2018-01-22 09:17] VITALS: BP 114/68
[2018-01-22] MEDS ORDERED: Magnesium Oxide 400 MG Tab PO ONE (11:00)
[2018-01-24] MEDS ORDERED: Remove Patch **SCOPOLAMINE TRDERM ONE (11:15)
== END 2018-01-22 12:45 | disposition home or self-care (01) | DRG 309 ==
LOC: JD.ED 16:02 → JD.ICU 19:49
PROVIDERS: ADMIT Internal Medicine; ATTEND Internal Medicine
DX: I48.91 Unspecified atrial fibrillation (principal); I48.2 Chronic atrial fibrillation; J90 Pleural effusion, not elsewhere classified; I50.32 Chronic diastolic (congestive) heart failure; E78.00 Pure hypercholesterolemia, unspecified; I10 Essential (primary) hypertension; I13.0 Hypertensive heart and chronic kidney disease with heart failure and stage 1 through stage 4 chronic kidney disease, or unspecified chronic kidney disease; R09.02 Hypoxemia; E78.5 Hyperlipidemia, unspecified; E87.6 Hypokalemia; N18.3 Chronic kidney disease, stage 3 (moderate); I25.10 Atherosclerotic heart disease of native coronary artery without angina pectoris; R06.02 Shortness of breath; R06.01 Orthopnea; R60.9 Edema, unspecified; H91.90 Unspecified hearing loss, unspecified ear; H54.7 Unspecified visual loss; R32 Unspecified urinary incontinence; M19.90 Unspecified osteoarthritis, unspecified site; E83.42 Hypomagnesemia; G70.00 Myasthenia gravis without (acute) exacerbation; I25.2 Old myocardial infarction; Z79.01 Long term (current) use of anticoagulants; Z88.1 Allergy status to other antibiotic agents; Z88.8 Allergy status to other drugs, medicaments and biological substances; Z79.82 Long term (current) use of aspirin; Z95.5 Presence of coronary angioplasty implant and graft; Z90.49 Acquired absence of other specified parts of digestive tract; Z90.710 Acquired absence of both cervix and uterus; Z79.52 Long term (current) use of systemic steroids; Z79.899 Other long term (current) drug therapy
CPT/HCPCS: 36415; 71045; 80053; 83735; 83880; 84484; 85025; 85610; 85730; 93005; 96365; 96366; 96375; 96376; 99285; A9270; J3490; J7030; J7050; 80048; 81001; 82553; 84439; 84443; 93010; 94762; 97110-GP; 97116-GP; 97162-GP; 97165-GO; 97530-GO; J0282; J0360; J2405; J3475

== ENCOUNTER 2018-02-21 21:33 | Inpatient (IN) | payer MEDICARE, BC ==
--- NOTE | 2018-02-21 22:14 | EDM.PDOC ---
ED HPI GENERAL MEDICAL PROBLEM - General Chief Complaint: Respiratory Problem Stated Complaint: COUGH Time Seen by Provider: 02/21/18 22:14 Source of Information: Reports: Patient History Limitations: Reports: No Limitations - History of Present Illness INITIAL COMMENTS - FREE TEXT/NARRATIVE: anastasiia female presents the ED per wheelchair due to increased paroxysmal productive cough for the last 3 days. Sputum is dark green in color. No hemoptysis. She did eat a little bit today but appetite is poor. He feels cold all the time someone I therefore no comment that she's had any definitive rigors or severe chills. Not aware of any fever. She is prone to pneumonia. She has COPD. She was never smoker. She uses oxygen usually at 1 L during the nighttime. Sometimes during the day when resting. History of congestive heart failure. Denies any recent chest pain. Throat is sore from coughing so much. Is also somewhat painful to swallow at times. Bowels are working okay. Denies any genitourinary complaints.She uses an incentive spirometer home but does not have any nebulized medications. Onset: Gradual Onset Date: 02/19/18 Duration: Day(s):, Getting Worse Location: Reports: Chest (productive sounding cough take green sputum being produced.) Quality: Reports: Ache, Other (aches all over) Severity: Moderate (low-grade fever) Improves with: Reports: None Worsens with: Reports: Movement Context: Denies: Activity (and lying down.), Exercise, Sick Contact, Trauma, Other Associated Symptoms: Reports: No Other Symptoms (rom coughing so much central chest.), Chest Pain, Cough, cough w sputum, Loss of Appetite, Malaise, Shortness of Breath. 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 below) (none.) - Related Data Allergies Allergy/AdvReac Type Severity Reaction Status Date / Time amoxicillin [From Augmentin] Allergy Airway Verified 02/21/18 21:54 Tightness clavulanic acid Allergy Airway Verified 02/21/18 21:54 [From Augmentin] Tightness heparin Allergy Anaphylactic Verified 02/21/18 21:54 Shock Home Meds: Home Meds Aspirin [[place] Aspirin] 81 mg PO DAILY 05/26/14 [History] sulfaSALAzine 500 mg PO BID 05/26/14 [History] Pyridostigmine Hornell 60 mg PO TID 06/14/16 [History] Apixaban [Eliquis] 2.5 mg PO BID 04/07/17 [History] Calcium Citrate/Vitamin D3 [Calcium Citrate + D] 1 tab PO BIDMEALS 04/07/17 [ History] Pantoprazole [ProTONIX] 40 mg PO ACBREAKFAST 04/07/17 [History] Prednisone [IJD: Prednisone] 10 mg PO DAILY 04/07/17 [History] Furosemide [Lasix] 40 mg PO 0600,1400 09/25/17 [History] Immodium 2 mg PO ASDIRECTED PRN 09/25/17 [History] atorvaSTATin [Lipitor] 40 mg PO DAILY 09/25/17 [History] Hyoscyamine [Levsin] 0.125 mg PO TID 01/15/18 [History] Potassium Chloride 20 meq PO BID 01/15/18 [History] Metoprolol Tartrate 100 mg PO BID #0 01/21/18 [Rx] Amiodarone [Cordarone] 200 mg PO DAILY 02/22/18 [History] Losartan [Cozaar] 50 mg PO BID 02/22/18 [History] Past Medical History HEENT History: Reports: Hard of Hearing, Impaired Vision Cardiovascular History: Reports: Afib (is on Eliquis for this.), CAD, High Cholesterol, Hypertension, OR, Stents, Other (See Below) Other Cardiovascular History: edema, cardiolyte stress test in [place] February 2017 was clear Other Respiratory History: Current visit small pleural effusion Gastrointestinal History: Reports: Cholelithiasis, Other (See Below) Other Gastrointestinal History: ulcerative colitis Genitourinary History: Reports: Urinary Incontinence 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: Musculoskeletal History: Reports: Arthritis Neurological History: Reports: Other (See Below) Other Neuro History: myasthinia gravis Hematologic History: Reports: Other (See Below) Other Hematologic History: is on blood thinners - Infectious Disease History Infectious Disease History: Reports: Chicken Pox, Hepatitis C, Measles, Shingles - Past Surgical History Cardiovascular Surgical History: Reports: Coronary Artery Stent GI Surgical History: Reports: Appendectomy, Cholecystectomy Female Surgical History: Reports: Hysterectomy Social & Family History - Family History Family Medical History: Noncontributory - Tobacco Use Smoking Status *Q: Never Smoker - Caffeine Use Caffeine Use: Reports: Coffee, Soda, Tea Other Caffeine Use: 1-2 cups of coffee and tea per day - Recreational Drug Use Recreational Drug Use: No - Living Situation & Occupation Living situation: Reports: , Alone Occupation: Retired ED ROS GENERAL - Review of Systems Review Of Systems: See Below Constitutional: Reports: Fever, Chills, Malaise, Weakness, Fatigue, Decreased Appetite HEENT: Reports: Hearing Loss (ears bilateral hearing aids.) Respiratory: Reports: Shortness of Breath, Wheezing, Cough, Sputum, Other. Denies: Pleuritic Chest Pain, Hemoptysis (dark green sputum) Cardiovascular: Reports: Chest Pain (has known COPD), Blood Pressure Problem ( rom coughing so much), Dyspnea on Exertion (sometimes mild fluid in her legs), Edema, Palpitations. Denies: Claudication, Lightheadedness, Orthopnea ( hypertension) Endocrine: Reports: Fatigue (ue to being in atrial fibrillation.) GI/Abdominal: Reports: Decreased Appetite, Difficulty Swallowing. Denies: Abdominal Pain, Anorexia, Distension, Flatus (painful to swallow from coughing so much.), Hematemesis, Hematochezia, Melena, Nausea, Vomiting : Reports: Frequency, Incontinence Musculoskeletal: Reports: Back Pain (both urge and stress components to her incontinence), Joint Pain (sips lower back sometime shoulders and neck pain as well.) Skin: Reports: Bruising (ruises very easily as she is on Eliquis for atrial fib. ) Neurological: Reports: Difficulty Walking (in her lower extremities difficulty walking today and yesterday.), Weakness, Gait Disturbance (chronically). Denies : Confusion, Dizziness, Headache, Syncope, Tremors, Trouble Speaking, Change in Speech Psychiatric: Reports: No Symptoms Hematologic/Lymphatic: Reports: No Symptoms Immunologic: Reports: No Symptoms ED EXAM, GENERAL - Physical Exam Exam: See Below Exam Limited By: No Limitations General Appearance: Alert, WD/WN, Mild Distress, Other (looks miserable.) Eye Exam: Bilateral Eye: Periorbital Changes (mild periorbital erythema. No true conjunctivitis.) Ears: Normal TMs (with hearing aids removed TMs appear to be normal.) Throat/Mouth: Normal Inspection, Normal Lips, Normal Oropharynx. No: Normal Teeth Head: Atraumatic, Normocephalic Neck: Normal Inspection, Supple, Non-Tender, Limited Range of Motion (rapid this on lateral rotation.). No: Lymphadenopathy (L), Lymphadenopathy (R) Respiratory/Chest: No Respiratory Distress, Decreased Breath Sounds (facial expiratory wheeze appreciated.reath sounds are diminished in the lower 30% of lungs posteriorly.), Rales, Rhonchi (There is a few rales in both bases as well. ), Wheezing, Other (she is 85% O2 on arrival. 95% on 3 L.). No: Lungs Clear, Normal Breath Sounds, Chest Non-Tender Cardiovascular: No Edema (heart rate is irregular irregular rate around 100/m compared with atrial fibrillation.), No Murmur, No Rub, Irregularly Irregular. No: Normal Peripheral Pulses, Regular Rate, Rhythm Peripheral Pulses: 1+: Posterior Tibial (L), Posterior Tibial (R), Dorsalis Pedis (L), Dorsalis Pedis (R) GI/Abdominal: Normal Bowel Sounds, Soft, Non-Tender, No Organomegaly, Distended (mildly distended upper abdomen with tympany to percussion compatible with aerophagia.), Other. No: Guarding, Rigid, Rebound, Tender (lower abdomen is firm to palpation but nontender.) Back Exam: Normal Inspection, Decreased Range of Motion, Other Extremities: Other (vidence posterior 30 changes both knees both hips with decreased range of motion.) Neurological: Alert, Oriented, CN II-XII Intact, Normal Cognition Psychiatric: Normal Affect, Normal Mood Skin Exam: Warm, Dry, Other (etechial-like hemorrhages particularly on both forearms and dorsal hands likely from being on aliquots.) EKG INTERPRETATION EKG Date: 02/21/18 Time: 22:05 Rhythm: A-Fib (with a rate of 80-160 bpm.) Rate (Beats/Min): 100 Higbee: LAD-Left Higbee Deviation (left axis deviation of -33.) P-Wave: Absent QRS: Other (here is a Q-wave in V1 near Q waves V2 Q-wave in V3. Consider old anteroseptal myocardial infarction. Q waves leads 3 and aVF compatible with old inferior wall myocardial infarction. Tall R-wave lead 1 suggest left ventricular hypertrophy pattern. Decreased voltage throughout the precordial leads compose COPD pattern.) ST-T: Other (T waves inverted in 1 and aVL.Cannot rule out ischemia.) QT: Prolonged (moderately prolonged.) EKG Interpretation Comments: bnormal ECG. Course - Vital Signs Last Recorded V/S: Last Vital Signs Temp 36.4 C 02/21/18 21:55 Pulse 111 H 02/21/18 21:55 Resp 18 02/21/18 21:55 BP 136/96 H 02/21/18 21:55 Pulse Ox 97 02/21/18 22:44 - Orders/Labs/Meds Orders: Active Orders 24 hr Category Date Time Status Oxygen Therapy [RC] ASDIRECTED Care 02/21/18 22:23 Active RT Aerosol Therapy [RC] ASDIRECTED Care 02/21/18 22:26 Active Chest 1V Frontal [CR] Stat Exams 02/21/18 22:22 Taken CULTURE BLOOD [BC] Stat Lab 02/21/18 23:00 Received CULTURE BLOOD [BC] Stat Lab 02/21/18 23:10 Received CULTURE SPUTUM + SMEAR [RM] Stat Lab 02/21/18 22:24 Ordered INFLUENZA A+B AG SCREEN [RM] Stat Lab 02/21/18 23:00 Ordered Sodium Chloride 0.9% [Normal Saline] 1,000 ml Med 02/21/18 22:30 Active IV ASDIRECTED Blood Culture x2 Reflex Set [OM.PC] Stat Oth 02/21/18 22:38 Ordered Medication Orders Acetaminophen (Tylenol) 650 mg PO Q4H PRN PRN Reason: Pain (Mild 1-3)/fever Hydrocodone Bitart/Acetaminophen (Kirkman 325-5 Mg) 1 tab PO Q4H PRN PRN Reason: Pain (moderate 4-6) Albuterol/Ipratropium (Duoneb 3.0-0.5 Mg/3 Ml) 3 ml NEB Q4H PRN PRN Reason: Shortness Of Breath/wheezing Amiodarone HCl (Cordarone) 200 mg PO DAILY [facility]VIN Aspirin (Halfprin) 81 mg PO DAILY [facility]VIN Bisacodyl (Dulcolax) 5 mg PO DAILY PRN PRN Reason: Constipation Docusate Sodium (Colace) 100 mg PO BID PRN PRN Reason: Constipation Furosemide (Lasix) 40 mg PO 0600,1400 [facility]VIN Guaifenesin/Phenylephrine HCl (Robitussin Dm) 10 ml PO Q4H PRN PRN Reason: Cough Hydralazine HCl (Apresoline) 10 mg IVPUSH Q4H PRN PRN Reason: Hypertension Hydromorphone HCl (Dilaudid) 0.25 mg IVPUSH Q2H PRN PRN Reason: Pain (severe 7-10) Sodium Chloride (Normal Saline) 1,000 mls @ 50 mls/hr IV ASDIRECTED [facility] Last Admin: 02/21/18 23:01 Dose: 50 mls/hr Promethazine HCl 6.25 mg/ (Sodium Chloride) 50.25 mls @ 100 mls/hr IV Q6H PRN PRN Reason: Nausea/Vomiting Lorazepam (Ativan) 2 mg IVPUSH Q4H PRN PRN Reason: Seizures Lorazepam (Ativan) 0.25 mg IV Q6H PRN PRN Reason: Anxiety Losartan Potassium (Cozaar) 50 mg PO BID [facility] Magnesium Sulfate (Pharmacy To Dose - Magnesium Replacement) 1 dose .XX ASDIRECTED [facility] Metoprolol Tartrate (Lopressor) 5 mg IVPUSH Q4H PRN PRN Reason: Tachycardia Metoprolol Tartrate (Lopressor) 100 mg PO BID [facility] Non-Formulary Medication (Atorvastatin) 40 mg PO DAILY [facility] Non-Formulary Medication (Calcium Citrate/Vitamin D3) 1 tab PO BIDMEALS [facility] Non-Formulary Medication (Hyoscyamine [Levsin]) 0.125 mg PO TID [facility] Non-Formulary Medication (Immodium) 2 mg PO ASDIRECTED PRN PRN Reason: Diarrhea Non-Formulary Medication (Potassium Chloride [Potassium Chloride]) 20 meq PO BID [facility] Ondansetron HCl (Zofran) 4 mg IV Q6H PRN PRN Reason: Nausea/Vomiting Pantoprazole Sodium (Protonix) 40 mg PO ACBREAKFAST [facility] Polyethylene Glycol (Miralax) 17 gm PO DAILY PRN PRN Reason: Constipation Potassium Chloride (Pharmacy To Dose - Potassium Replacement) 1 dose .XX ASDIRECTED [facility] Potassium Chloride (Klor-Con M20) 40 meq PO Q4H [facility] Stop: 02/22/18 05:01 Prednisone (Prednisone) 10 mg PO DAILY [facility] Pyridostigmine Hornell (Mestinon) 60 mg PO TID [facility] Senna/Docusate Sodium (Senna Plus) 1 tab PO BID PRN PRN Reason: Constipation Sulfasalazine (Sulfasalazine) 500 mg PO BID [facility] Temazepam (Restoril) 7.5 mg PO BEDTIME PRN PRN Reason: Sleep Labs: Laboratory Tests 02/21/18 02/21/18 02/21/18 Range/Units 23:00 23:00 23:00 WBC 7.66 (3.98-10.04) K/mm3 RBC 4.24 (3.98-5.22) M/mm3 Hgb 13.8 (11.2-15.7) gm/L Hct 43.1 (34.1-44.9) % MCV 101.7 H (79.4-94.8) fl MCH 32.5 H (25.6-32.2) pg MCHC 32.0 L (32.2-35.5) g/dl RDW Std Deviation 59.4 H (36.4-46.3) fL Plt Count 85 L (182-369) K/mm3 MPV 12.5 H (9.4-12.3) fl Neutrophils % (Manual) 92 H (40-60) % Band Neutrophils % 0 (0-10) % Lymphocytes % (Manual) 3 L (20-40) % Atypical Lymphs % 0 % Monocytes % (Manual) 5 (2-10) % Eosinophils % (Manual) 0 L (0.7-5.8) % Basophils % (Manual) 0 L (0.1-1.2) Platelet Estimate Decreased Plt Morphology Comment Normal Poikilocytosis 1+ slight Anisocytosis 1+ slight Microcytosis 1+ slight Macrocytosis 1+ slight RBC Morph Comment Abnormal PT 11.4 (9.5-12.1) SECONDS INR 1.05 Sodium 138 (136-145) mEq/L Potassium 3.3 L (3.5-5.1) mEq/L Chloride 98 (98-107) mEq/L Carbon Dioxide 29 (21-32) mEq/L Anion Gap 14.3 (5-15) BUN 17 (7-18) mg/dL Creatinine 1.5 H (0.55-1.02) mg/dL Est Cr Clr Drug Dosing 20.41 mL/min Estimated GFR (MDRD) 33 (>60) mL/min BUN/Creatinine Ratio 11.3 L (14-18) Glucose 118 H (83-115) mg/dL Calcium 9.5 (8.5-10.1) mg/dL Magnesium 2.0 (1.8-2.4) mg/dl Total Bilirubin 1.3 H (0.2-1.0) mg/dL AST 144 H (15-37) U/L ALT 98 H (14-59) U/L Alkaline Phosphatase 364 H (46-116) U/L CK-MB (CK-2) 0.6 (0-3.6) ng/ml Troponin I < 0.017 (0.00-0.056) ng/mL C-Reactive Protein 7.7 H* (<1.0) mg/dL NT-Pro-B Natriuret Pep (0-450) pg/mL Total Protein 7.9 (6.4-8.2) g/dl Albumin 3.1 L (3.4-5.0) g/dl Globulin 4.8 gm/dL Albumin/Globulin Ratio 0.7 L (1-2) /18 Range/Units 23:00 WBC (3.98-10.04) K/mm3 RBC (3.98-5.22) M/mm3 Hgb (11.2-15.7) gm/L Hct (34.1-44.9) % MCV (79.4-94.8) fl MCH (25.6-32.2) pg MCHC (32.2-35.5) g/dl RDW Std Deviation (36.4-46.3) fL Plt Count (182-369) K/mm3 MPV (9.4-12.3) fl Neutrophils % (Manual) (40-60) % Band Neutrophils % (0-10) % Lymphocytes % (Manual) (20-40) % Atypical Lymphs % % Monocytes % (Manual) (2-10) % Eosinophils % (Manual) (0.7-5.8) % Basophils % (Manual) (0.1-1.2) Platelet Estimate Plt Morphology Comment Poikilocytosis Anisocytosis Microcytosis Macrocytosis RBC Morph Comment PT (9.5-12.1) SECONDS INR Sodium (136-145) mEq/L Potassium (3.5-5.1) mEq/L Chloride (98-107) mEq/L Carbon Dioxide (21-32) mEq/L Anion Gap (5-15) BUN (7-18) mg/dL Creatinine (0.55-1.02) mg/dL Est Cr Clr Drug Dosing mL/min Estimated GFR (MDRD) (>60) mL/min BUN/Creatinine Ratio (14-18) Glucose (83-115) mg/dL Calcium (8.5-10.1) mg/dL Magnesium (1.8-2.4) mg/dl Total Bilirubin (0.2-1.0) mg/dL AST (15-37) U/L ALT (14-59) U/L Alkaline Phosphatase (46-116) U/L CK-MB (CK-2) (0-3.6) ng/ml Troponin I (0.00-0.056) ng/mL C-Reactive Protein (<1.0) mg/dL NT-Pro-B Natriuret Pep 1088 H (0-450) pg/mL Total Protein (6.4-8.2) g/dl Albumin (3.4-5.0) g/dl Globulin gm/dL Albumin/Globulin Ratio (1-2) Meds: Medications Generic Name Dose Route Start Last Admin Trade Name Freq PRN Reason Stop Dose Admin Acetaminophen 650 mg 02/22/18 01:22 Tylenol PO Q4H PRN Pain (Mild 1-3)/fever Hydrocodone Bitart/Acetaminophen 1 tab 02/22/18 01:22 Kirkman 325-5 Mg PO Q4H PRN Pain (moderate 4-6) Albuterol/Ipratropium 3 ml 02/22/18 01:22 Duoneb 3.0-0.5 Mg/3 Ml NEB Q4H PRN Shortness Of Breath/wheezing Amiodarone HCl 200 mg 02/22/18 09:00 Cordarone PO DAILY ELVIN Aspirin 81 mg 02/22/18 09:00 Halfprin PO DAILY ELVIN Bisacodyl 5 mg 02/22/18 01:22 Dulcolax PO DAILY PRN Constipation Docusate Sodium 100 mg 02/22/18 01:22 Colace PO BID PRN Constipation Furosemide 40 mg 02/22/18 06:00 Lasix PO 0600,1400 ELVIN Guaifenesin/Phenylephrine HCl 10 ml 02/22/18 01:32 Robitussin Dm PO Q4H PRN Cough Hydralazine HCl 10 mg 02/22/18 01:21 Apresoline IVPUSH Q4H PRN Hypertension Hydromorphone HCl 0.25 mg 02/22/18 01:22 Dilaudid IVPUSH Q2H PRN Pain (severe 7-10) Sodium Chloride 1,000 mls @ 50 mls/hr 02/21/18 22:30 02/21/18 23:01 Normal Saline IV 50 mls/hr ASDIRECTED ELVIN Administration Promethazine HCl 6.25 mg/ 50.25 mls @ 100 mls/hr 02/22/18 01:22 Sodium Chloride IV Q6H PRN Nausea/Vomiting Lorazepam 2 mg 02/22/18 01:21 Ativan IVPUSH Q4H PRN Seizures Lorazepam 0.25 mg 02/22/18 01:22 Ativan IV Q6H PRN Anxiety Losartan Potassium 50 mg 02/22/18 09:00 Cozaar PO BID [facility] Magnesium Sulfate 1 dose 02/22/18 01:30 Pharmacy To Dose - Magnesium Replacement .XX ASDIRECTED [facility]VIN Metoprolol Tartrate 5 mg 02/22/18 01:21 Lopressor IVPUSH Q4H PRN Tachycardia Metoprolol Tartrate 100 mg 02/22/18 09:00 Lopressor PO BID [facility]IN Non-Formulary Medication 40 mg 02/22/18 09:00 Atorvastatin PO DAILY [facility] Non-Formulary Medication 1 tab 02/22/18 07:00 Calcium Citrate/Vitamin D3 PO BIDMEALS [facility] Non-Formulary Medication 0.125 mg 02/22/18 09:00 Hyoscyamine [Levsin] PO TID [facility] Non-Formulary Medication 2 mg 02/22/18 01:28 Immodium PO ASDIRECTED PRN Diarrhea Non-Formulary Medication 20 meq 02/22/18 09:00 Potassium Chloride [Potassium Chloride] PO BID [facility] Ondansetron HCl 4 mg 02/22/18 01:22 Zofran IV Q6H PRN Nausea/Vomiting Pantoprazole Sodium 40 mg 02/22/18 06:00 Protonix PO ACBREAKFAST [facility] Polyethylene Glycol 17 gm 02/22/18 01:22 Miralax PO DAILY PRN Constipation Potassium Chloride 1 dose 02/22/18 01:30 Pharmacy To Dose - Potassium Replacement .XX ASDIRECTED [facility] Potassium Chloride 40 meq 05/16/18 01:00 Klor-Con M20 PO 02/22/18 05:01 Q4H [facility] Prednisone 10 mg 02/22/18 09:00 Prednisone PO DAILY [facility] Pyridostigmine Hornell 60 mg 02/22/18 09:00 Mestinon PO TID [facility] Senna/Docusate Sodium 1 tab 02/22/18 01:22 Senna Plus PO BID PRN Constipation Sulfasalazine 500 mg 02/22/18 09:00 Sulfasalazine PO BID [facility] Temazepam 7.5 mg 02/22/18 01:22 Restoril PO BEDTIME PRN Sleep Discontinued Medications Generic Name Dose Route Start Last Admin Trade Name Freq PRN Reason Stop Dose Admin Albuterol/Ipratropium 3 ml 02/21/18 22:25 02/21/18 22:44 Duoneb 3.0-0.5 Mg/3 Ml NEB 02/21/18 22:26 3 ml ONETIME ONE Administration Levofloxacin/Dextrose 750 mg/ 150 mls @ 100 mls/hr 02/21/18 23:20 02/21/18 23 :26 Premix IV 02/22/18 00:49 100 mls/hr ONETIME ONE Administration - Radiology Interpretation Free Text/Narrative:: 82-year-old female presents the ED with gradually worsening cough over the last 3 days. Sputum is dark green in color and was produced when I was in the examining room. No hemoptysis. Patient has a history of COPD and congestive heart failure. O2 sats were 85% on room air 93-95% on 3 L/m by nasal cannula. Patient is in chronic atrial fibrillation with a rate of anywhere between 80 and 1 60/m. Examination suggests crackles in both bases as well as rhonchi particularly left lower lobe compatible with suspect pneumonia. Plan chest x-ray /ECG routine labs but cultures 2influenza screen. She will likely require admission to the hospital. - Re-Assessments/Exams Free Text/Narrative Re-Assessment/Exam: 02/21/18 23:19 chest x-ray done portably reveals bilateral pleural effusions certainly blunted costophrenic angle on the right side. Cardiac silhouette isenlarged. Her's to be hazy infiltrate at the base of the right lung suggestive of a pneumonia. There is mild diffuse vascular congestion pattern as well. Labs are not yet available. 02/22/18 00:07 Labs are just started to come back now. White count is 7.66 differential pending. Hemoglobin is good at 13.8 with hematocrit of 43.1. MCV is mildly elevated at 101.7. Platelet count is low at 85,000. PT is 11.4 with an INR 1.05. BNP is elevated at 1088. The rest of the labs are pending. 02/22/18 00:26 Differential is now available on the white count. It is 92% neutrophils and no bands. There is 1+ Poikylocytosis, 1+ aniscytosis and 1+ microcytosis and 1+ macrocytosis. Sodium was 138 with slightly low potassium at 3.3. Chloride is 98 with a bicarbonate of 29. Anion gap is 14.3. BUN is 17. Creatinine is 1.5. GFR is 33 i.e. stage IV chronic kidney disease. Glucose is 118. Calcium is 9.5. Magnesium is 2.0. Total bilirubin is 1.3. AST is 144. ALT is 98. Alkaline phosphatase stays elevated at 364. This may be from chronic hepatic congestion. CK-MB fraction is 0.6 with a troponin I of less than 0.017. C-reactive protein is elevated at 7.7. BNP is 1088. Total protein is 7.9 with a slightly low albumin fraction of 3.1. Urinalysis has not yet been done. 02/22/18 00:[address] 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 She is maintaining sats of 93-95% on 3 L /m by nasal cannula. I think she's stable enough to go to the floor on telemetry. 02/22/18 00:39i have spoken with Dr. Sims and he agrees with admission to med surgery floor on telemetry. Departure - Departure Time of Disposition: 00:39 Disposition: Home, Self-Care 01 Preliminary Cause of *Q: Respiratory Failure Condition: Poor Clinical Impression: Hypoxia, Hypokalemia Pneumonia Qualifiers: Pneumonia type: due to unspecified organism Laterality: right Lung location: lower lobe of lung Qualified Code(s): J18.1 - Lobar pneumonia, unspecified organism COPD (chronic obstructive pulmonary disease) Qualifiers: COPD type: COPD with acute exacerbation Qualified Code(s): J44.1 - Chronic obstructive pulmonary disease with (acute) exacerbation CHF exacerbation Qualifiers: Heart failure type: diastolic Qualified Code(s): I50.33 - Acute on chronic diastolic (congestive) heart failure - Discharge Information - My Orders Last 24 Hours: My Active Orders 02/21/18 22:22 Chest 1V Frontal [CR] Stat 02/21/18 22:23 Oxygen Therapy [RC] ASDIRECTED 02/21/18 22:24 CULTURE SPUTUM + SMEAR [RM] Stat 02/21/18 22:26 RT Aerosol Therapy [RC] ASDIRECTED 02/21/18 22:30 Sodium Chloride 0.9% [Normal Saline] 1,000 ml IV ASDIRECTED 02/21/18 22:38 Blood Culture x2 Reflex Set [OM.PC] Stat 02/21/18 23:00 CULTURE BLOOD [BC] Stat INFLUENZA A+B AG SCREEN [RM] Stat 02/21/18 23:10 CULTURE BLOOD [BC] Stat - Assessment/Plan Last 24 Hours: My Active Orders 02/21/18 22:22 Chest 1V Frontal [CR] Stat 02/21/18 22:23 Oxygen Therapy [RC] ASDIRECTED 02/21/18 22:24 CULTURE SPUTUM + SMEAR [RM] Stat 02/21/18 22:26 RT Aerosol Therapy [RC] ASDIRECTED 02/21/18 22:30 Sodium Chloride 0.9% [Normal Saline] 1,000 ml IV ASDIRECTED 02/21/18 22:38 Blood Culture x2 Reflex Set [OM.PC] Stat 02/21/18 23:00 CULTURE BLOOD [BC] Stat INFLUENZA A+B AG SCREEN [RM] Stat 02/21/18 23:10 CULTURE BLOOD [BC] Stat
[2018-02-21] MEDS ORDERED: Albuterol/Ipratropium 3.0-0.5 MG/3 ML Neb Soln NEB ONE (22:25)
[2018-02-21] MEDS ORDERED: Sodium Chloride 0.9% 1,000 ML IV SCH (22:30)
[2018-02-21] MEDS ORDERED: Levofloxacin/Dextrose 5%-Water 750 MG in Premix Bag 1 BAG IV ONE (23:20)
[2018-02-22] MEDS ORDERED: Metoprolol Tartrate 5 MG/5 ML SDV IVPUSH PRN (01:21)
[2018-02-22] MEDS ORDERED: LORazepam 2 MG/ML SDV IVPUSH PRN (01:21)
[2018-02-22] MEDS ORDERED: hydrALAZINE 20 MG/ML SDV IVPUSH PRN (01:21)
[2018-02-22] MEDS ORDERED: Ondansetron 4 MG/2 ML SDV IV PRN (01:22)
[2018-02-22] MEDS ORDERED: Promethazine 6.25 MG in Sodium Chloride 0.9% 50 ML IV PRN (01:22)
[2018-02-22] MEDS ORDERED: Temazepam 7.5 MG Cap PO PRN (01:22)
[2018-02-22] MEDS ORDERED: Polyethylene Glycol 3350 Powder 17 GM Packet PO PRN (01:22)
[2018-02-22] MEDS ORDERED: HYDROmorphone 0.5 MG/0.5 ML SYRINGE IVPUSH PRN (01:22)
[2018-02-22] MEDS ORDERED: Acetaminophen/HYDROcodone 325-5 MG Tab PO PRN (01:22)
[2018-02-22] MEDS ORDERED: Acetaminophen 325 MG Tab PO PRN (01:22)
[2018-02-22] MEDS ORDERED: Bisacodyl 5 MG Tab PO PRN (01:22)
[2018-02-22] MEDS ORDERED: Docusate Sodium 100 MG Cap PO PRN (01:22)
[2018-02-22] MEDS ORDERED: LORazepam 2 MG/ML SDV IV PRN (01:22)
[2018-02-22] MEDS ORDERED: Albuterol/Ipratropium 3.0-0.5 MG/3 ML Neb Soln NEB PRN (01:22)
[2018-02-22] MEDS ORDERED: guaiFENesin/Dextromethorphan 100-10 MG/5 ML Soln 5 ML Cup PO PRN (01:32)
--- NOTE | 2018-02-22 01:35 | PCM.HP ---
H&P History of Present Illness - General Date of Service: 02/22/18 Admit Problem/Dx: Admission Diagnosis/Problem Admission Diagnosis/Problem Pneumonia Source of Information: Patient, Family, Old Records, Provider, RN Notes Reviewed History Limitations: Reports: Respiratory Distress - History of Present Illness Initial Comments - Free Text/Narative: This is an 82 yo elderly white female with past medical hx/o hearing and vision , atrial fibrillation on eliquis, coronary artery disease, hyperlipidemia, hypertension, history of [place] status post stent placement, peripheral edema, history of spinal pleural effusion, ulcerative colitis, urinary incontinence, osteoarthritis/DJD, and myasthenia gravis who was brought into the emergency department for 3 day hx/o worsening productive cough that is dark greenish in color. She denies any fevers or chills. Patient is known me from past numerous admissions for treatment of atrial fibrillation. Her initial workup in the emergency department shows a CBC remarkable for MCV of 101.7, MCH of 32.5, MCHC of 32, RDW of 59.4, platelet count 85, MPV of 12.5, neutrophils of 92%, and lymphocytes of 3%. Her chemistry is remarkable for hypertension and 2.3, creatinine of 1.5, glucose of 118, total bilirubin of 1.3 , AST of 144, ALT of 98, alkaline phosphatase of 364, CRP of 7.7, proBNP of 1088 , and albumin at 3.1. Chest x-ray shows small bilateral pleural effusions with compressive atelectasis. Patient is being admitted for acute bronchitis with possible worsening pleural effusion. She is full code, - Related Data Allergies/Adverse Reactions: Allergies Allergy/AdvReac Type Severity Reaction Status Date / Time amoxicillin [From Augmentin] Allergy Airway Verified 02/21/18 21:54 Tightness clavulanic acid Allergy Airway Verified 02/21/18 21:54 [From Augmentin] Tightness heparin Allergy Anaphylactic Verified 02/21/18 21:54 Shock Home Medications: Home Meds Aspirin [[place] Aspirin] 81 mg PO DAILY 05/26/14 [History] sulfaSALAzine 500 mg PO BID 05/26/14 [History] Pyridostigmine [place] 60 mg PO TID 06/14/16 [History] Apixaban [Eliquis] 2.5 mg PO BID 04/07/17 [History] Calcium Citrate/Vitamin D3 [Calcium Citrate + D] 1 tab PO BIDMEALS 04/07/17 [ History] Pantoprazole [ProTONIX] 40 mg PO ACBREAKFAST 04/07/17 [History] Prednisone [IJD: Prednisone] 10 mg PO DAILY 04/07/17 [History] Furosemide [Lasix] 40 mg PO 0600,1400 09/25/17 [History] Immodium 2 mg PO ASDIRECTED PRN 09/25/17 [History] atorvaSTATin [Lipitor] 40 mg PO DAILY 09/25/17 [History] Hyoscyamine [Levsin] 0.125 mg PO Q4H 01/15/18 [History] Potassium Chloride 20 meq PO BID 01/15/18 [History] Metoprolol Tartrate 100 mg PO BID #0 01/21/18 [Rx] Amiodarone [Cordarone] 200 mg PO DAILY 02/22/18 [History] Ciprofloxacin [Ciprofloxacin 0.3% Ophth Soln] 1 drop EYELF QID 02/22/18 [History ] Ganciclovir [Zirgan] 1 drop EYELF TID 02/22/18 [History] Losartan [Cozaar] 50 mg PO BID 02/22/18 [History] Past Medical History HEENT History: Reports: Hard of Hearing, Impaired Vision Cardiovascular History: Reports: Afib (is on Eliquis for this.), CAD, High Cholesterol, Hypertension, [place], Stents, Other (See Below) Other Cardiovascular History: edema, cardiolyte stress test in [place] February 2017 was clear Other Respiratory History: Current visit small pleural effusion Gastrointestinal History: Reports: Cholelithiasis, Other (See Below) Other Gastrointestinal History: ulcerative colitis Genitourinary History: Reports: Urinary Incontinence [employer] History: Reports: Musculoskeletal History: Reports: Arthritis Neurological History: Reports: Other (See Below) Other Neuro History: myasthinia gravis Hematologic History: Reports: Other (See Below) Other Hematologic History: is on blood thinners - Infectious Disease History Infectious Disease History: Reports: Chicken Pox, Hepatitis C, Measles, Shingles - Past Surgical History Cardiovascular Surgical History: Reports: Coronary Artery Stent GI Surgical History: Reports: Appendectomy, Cholecystectomy Female Surgical History: Reports: Hysterectomy Social & Family History - Family History Family Medical History: Noncontributory - Tobacco Use Smoking Status *Q: Never Smoker - Caffeine Use Caffeine Use: Reports: Coffee, Soda, Tea Other Caffeine Use: 1-2 cups of coffee and tea per day - Recreational Drug Use Recreational Drug Use: No - Living Situation & Occupation Living situation: Reports: , Alone Occupation: Retired H&P Review of Systems - Review of Systems: Review Of Systems: See Below General: Reports: Malaise, Weakness, Fatigue, Decreased Appetite. Denies: Fever , Chills HEENT: Reports: Hearing Changes Pulmonary: Reports: Shortness of Breath, Wheezing, Cough, Sputum Cardiovascular: Reports: Palpitations, Dyspnea on Exertion, Orthopnea, Edema, Lightheadedness, Blood Pressure Problem. Denies: Chest Pain Gastrointestinal: Reports: Decreased Appetite, Difficulty Swallowing Genitourinary: Reports: Frequency, Incontinence Musculoskeletal: Reports: Back Pain, Joint Pain Skin: Reports: Bruising Psychiatric: Denies: Confusion, Depression, Anxiety, Agitation, Hallucinations Neurological: Reports: Difficulty Walking, Weakness, Gait Disturbance. Denies: Confusion Hematologic/Lymphatic: Reports: Easy Bruising Immunologic: Reports: No Symptoms Exam - Exam Exam: See Below - Vital Signs Vital Signs: Last Vital Signs Temp 36.4 C 02/21/18 21:55 Pulse 111 H 02/21/18 21:55 Resp 18 02/21/18 21:55 BP 136/96 H 02/21/18 21:55 Pulse Ox 97 02/21/18 22:44 Weight: 72.575 kg - Exam Quality Assessment: Supplemental Oxygen General: Alert, Oriented, Cooperative, Mild Distress HEENT: Conjunctiva Clear, EACs Clear, EOMI, Hearing Intact, Mucosa Moist & [place] , Nares Patent, Normal Nasal Septum, Posterior Pharynx Clear, Pupils Equal, Pupils Reactive Neck: Supple, Trachea Midline, +2 Carotid Pulse wo Bruit Lungs: Normal Respiratory Effort, Decreased Breath Sounds, Other (dullness to percussion on right base) Cardiovascular: Irregular Rhythm, Other (Irregular Rate) GI/Abdominal Exam: Normal Bowel Sounds, Soft, Non-Tender, No Organomegaly, No Distention, No Abnormal Bruit, No Mass (Female) Exam: Deferred Rectal (Female) Exam: Deferred Back Exam: Normal Inspection, Decreased Range of Motion Extremities: Normal Inspection, Normal Range of Motion, Non-Tender, Pedal Edema Peripheral Pulses: 2+: Posterior Tibial (L), Posterior Tibial (R), Dorsalis Pedis (L), Dorsalis Pedis (R) Skin: Warm, Dry, Intact Neuro Extensive - Mental Status: Oriented x3, Normal Cognition, Memory Intact Neuro Extensive - Motor, Sensory, Reflexes: CN II-XII Intact, Abnormal Gait Psychiatric: Alert, Normal Affect, Normal Mood - Patient Data Lab Results Last 24 hrs: Laboratory Results - last 24 hr 02/21/18 02/21/18 02/21/18 Range/Units 23:00 23:00 23:00 WBC 7.66 (3.98-10.04) K/mm3 RBC 4.24 (3.98-5.22) M/mm3 Hgb 13.8 (11.2-15.7) gm/L Hct 43.1 (34.1-44.9) % MCV 101.7 H (79.4-94.8) fl MCH 32.5 H (25.6-32.2) pg MCHC 32.0 L (32.2-35.5) g/dl RDW Std Deviation 59.4 H (36.4-46.3) fL Plt Count 85 L (182-369) K/mm3 MPV 12.5 H (9.4-12.3) fl Neutrophils % (Manual) 92 H (40-60) % Band Neutrophils % 0 (0-10) % Lymphocytes % (Manual) 3 L (20-40) % Atypical Lymphs % 0 % Monocytes % (Manual) 5 (2-10) % Eosinophils % (Manual) 0 L (0.7-5.8) % Basophils % (Manual) 0 L (0.1-1.2) Platelet Estimate Decreased Plt Morphology Comment Normal Poikilocytosis 1+ slight Anisocytosis 1+ slight Microcytosis 1+ slight Macrocytosis 1+ slight RBC Morph Comment Abnormal PT 11.4 (9.5-12.1) SECONDS INR 1.05 Sodium 138 (136-145) mEq/L Potassium 3.3 L (3.5-5.1) mEq/L Chloride 98 (98-107) mEq/L Carbon Dioxide 29 (21-32) mEq/L Anion Gap 14.3 (5-15) BUN 17 (7-18) mg/dL Creatinine 1.5 H (0.55-1.02) mg/dL Est Cr Clr Drug Dosing 20.41 mL/min Estimated GFR (MDRD) 33 (>60) mL/min BUN/Creatinine Ratio 11.3 L (14-18) Glucose 118 H (83-115) mg/dL Calcium 9.5 (8.5-10.1) mg/dL Magnesium 2.0 (1.8-2.4) mg/dl Total Bilirubin 1.3 H (0.2-1.0) mg/dL AST 144 H (15-37) U/L ALT 98 H (14-59) U/L Alkaline Phosphatase 364 H (46-116) U/L CK-MB (CK-2) 0.6 (0-3.6) ng/ml Troponin I < 0.017 (0.00-0.056) ng/mL C-Reactive Protein 7.7 H* (<1.0) mg/dL NT-Pro-B Natriuret Pep (0-450) pg/mL Total Protein 7.9 (6.4-8.2) g/dl Albumin 3.1 L (3.4-5.0) g/dl Globulin 4.8 gm/dL Albumin/Globulin Ratio 0.7 L (1-2) 02/21/18 Range/Units 23:00 WBC (3.98-10.04) K/mm3 RBC (3.98-5.22) M/mm3 Hgb (11.2-15.7) gm/L Hct (34.1-44.9) % MCV (79.4-94.8) fl MCH (25.6-32.2) pg MCHC (32.2-35.5) g/dl RDW Std Deviation (36.4-46.3) fL Plt Count (182-369) K/mm3 MPV (9.4-12.3) fl Neutrophils % (Manual) (40-60) % Band Neutrophils % (0-10) % Lymphocytes % (Manual) (20-40) % Atypical Lymphs % % Monocytes % (Manual) (2-10) % Eosinophils % (Manual) (0.7-5.8) % Basophils % (Manual) (0.1-1.2) Platelet Estimate Plt Morphology Comment Poikilocytosis Anisocytosis Microcytosis Macrocytosis RBC Morph Comment PT (9.5-12.1) SECONDS INR Sodium (136-145) mEq/L Potassium (3.5-5.1) mEq/L Chloride (98-107) mEq/L Carbon Dioxide (21-32) mEq/L Anion Gap (5-15) BUN (7-18) mg/dL Creatinine (0.55-1.02) mg/dL Est Cr Clr Drug Dosing mL/min Estimated GFR (MDRD) (>60) mL/min BUN/Creatinine Ratio (14-18) Glucose (83-115) mg/dL Calcium (8.5-10.1) mg/dL Magnesium (1.8-2.4) mg/dl Total Bilirubin (0.2-1.0) mg/dL AST (15-37) U/L ALT (14-59) U/L Alkaline Phosphatase (46-116) U/L CK-MB (CK-2) (0-3.6) ng/ml Troponin I (0.00-0.056) ng/mL C-Reactive Protein (<1.0) mg/dL NT-Pro-B Natriuret Pep 1088 H (0-450) pg/mL Total Protein (6.4-8.2) g/dl Albumin (3.4-5.0) g/dl Globulin gm/dL Albumin/Globulin Ratio (1-2) Result Diagrams: 02/22/18 06:10 02/22/18 06:10 Samuel Results Last 24 hrs: Microbiology 02/21/18 23:00 Influenza Type A Antigen Screen - Final Nasal, Left NEGATIVE INFLUENZA A VIRUS AG Influenza Type B Antigen Screen - Final NEGATIVE INFLUENZA B VIRUS AG EKG INTERPRETATION EKG Date: 02/21/18 Time: 10:03 Rhythm: A-Fib Rate (Beats/Min): 99 QRS: Other (Q wave in III, aVF and V1-V3) QT: Prolonged Problem List Initiated/Reviewed/Updated: Yes Orders Last 24hrs: Active Orders 24 hr Category Date Time Status Admission Status [Patient Status] [ADT] Routine ADT 02/22/18 00:40 Active Ambulate [RC] ASDIRECTED Care 02/22/18 01:22 Active Cardiac Monitoring [RC] CONTINUOUS Care 02/22/18 01:22 Active Height and Weight [RC] DAILY Care 02/22/18 01:22 Active Incentive Spirometry [RT Incentive Spirometry] [RC] Care 02/22/18 01:32 Ordered ASDIRECTED Intake and Output [RC] QSHIFT Care 02/22/18 01:22 Active Oxygen Therapy [RC] ASDIRECTED Care 02/21/18 22:23 Active Oxygen Therapy [RC] PRN Care 02/22/18 01:22 Active RT Aerosol Therapy [RC] ASDIRECTED Care 02/21/18 22:26 Active RT Aerosol Therapy [RC] ASDIRECTED Care 02/22/18 01:24 Active Up ad Mally [RC] ASDIRECTED Care 02/22/18 01:22 Active VTE/DVT Education [RC] PER UNIT ROUTINE Care 02/22/18 01:22 Active Vital Signs [RC] Q4H Care 02/22/18 01:22 Active Consult to Case Management [CONS] Routine Cons 02/22/18 01:24 Active Consult to Surgical [place] [CONS] Routine Cons 02/22/18 01:24 Active Consult to Spiritual Care [CONS] Routine Cons 02/22/18 01:24 Active OT Evaluation and Treatment [CONS] Routine Cons 02/22/18 01:24 Active PT Evaluation and Treatment [CONS] Routine Cons 02/22/18 01:24 Active Respiratory Care Assess and Treatment [CONS] Routine Cons 02/22/18 01:24 Active Fluid Restriction [DIET] Diet 02/22/18 Breakfast Ordered Heart Healthy Diet [DIET] Diet 02/22/18 Breakfast Active Chest 1V Frontal [CR] Stat Exams 02/21/18 22:22 Taken Chest wo Cont [CT] Routine Exams 02/22/18 07:00 Ordered BASIC METABOLIC PANEL,BMP [CHEM] AM Lab 02/22/18 05:11 Ordered BASIC METABOLIC PANEL,BMP [CHEM] AM Lab 02/23/18 05:11 Ordered BASIC METABOLIC PANEL,BMP [CHEM] AM Lab 02/24/18 05:11 Ordered BASIC METABOLIC PANEL,BMP [CHEM] AM Lab 02/25/18 05:11 Ordered BASIC METABOLIC PANEL,BMP [CHEM] AM Lab 02/26/18 05:11 Ordered C-REACTIVE PROTEIN [CHEM] AM Lab 02/22/18 05:11 Ordered C-REACTIVE PROTEIN [CHEM] AM Lab 02/23/18 05:11 Ordered C-REACTIVE PROTEIN [CHEM] AM Lab 02/24/18 05:11 Ordered C-REACTIVE PROTEIN [CHEM] Stat Lab 02/22/18 01:24 Ordered CBC WITH AUTO DIFF [HEME] AM Lab 02/22/18 05:11 Ordered CBC WITH AUTO DIFF [HEME] AM Lab 02/23/18 05:11 Ordered CBC WITH AUTO DIFF [HEME] AM Lab 02/24/18 05:11 Ordered CBC WITH AUTO DIFF [HEME] AM Lab 02/25/18 05:11 Ordered CBC WITH AUTO DIFF [HEME] AM Lab 02/26/18 05:11 Ordered CULTURE BLOOD [BC] Stat Lab 02/21/18 23:00 Received CULTURE BLOOD [BC] Stat Lab 02/21/18 23:10 Received CULTURE SPUTUM + SMEAR [RM] Stat Lab 02/21/18 22:24 Ordered INFLUENZA A+B AG SCREEN [RM] Stat Lab 02/21/18 23:00 Ordered MAGNESIUM [CHEM] AM Lab 02/22/18 05:11 Ordered MAGNESIUM [CHEM] AM Lab 02/23/18 05:11 Ordered MAGNESIUM [CHEM] AM Lab 02/24/18 05:11 Ordered MAGNESIUM [CHEM] AM Lab 02/25/18 05:11 Ordered MAGNESIUM [CHEM] AM Lab 02/26/18 05:11 Ordered Acetaminophen [Tylenol] Med 02/22/18 01:22 Ordered 650 mg PO Q4H PRN Acetaminophen/HYDROcodone [[place] 325-5 MG] Med 02/22/18 01:22 Ordered 1 tab PO Q4H PRN Albuterol/Ipratropium [DuoNeb 3.0-0.5 MG/3 ML] Med 02/22/18 01:22 Ordered 3 ml NEB Q4H PRN Amiodarone [Cordarone] Med 02/22/18 09:00 Ordered 200 mg PO DAILY Aspirin [Halfprin] Med 02/22/18 09:00 Ordered 81 mg PO DAILY Bisacodyl [Dulcolax] Med 02/22/18 01:22 Ordered 5 mg PO DAILY PRN Calcium Citrate/Vitamin D3 Med 02/22/18 07:00 Ordered 1 tab PO BIDMEALS Dextromethorphan/guaiFENesin [Robitussin DM] Med 02/22/18 01:32 Ordered 10 ml PO Q4H PRN Docusate Sodium [Colace] Med 02/22/18 01:22 Ordered 100 mg PO BID PRN Docusate Sodium/Sennosides [Senna Plus] Med 02/22/18 01:22 Ordered 1 tab PO BID PRN Furosemide [Lasix] Med 02/22/18 06:00 Ordered 40 mg PO 0600,1400 HYDROmorphone [Dilaudid] Med 02/22/18 01:22 Ordered 0.25 mg IVPUSH Q2H PRN Hyoscyamine [Levsin] Med 02/22/18 09:00 Ordered 0.125 mg PO TID Immodium Med 02/22/18 01:28 Ordered 2 mg PO ASDIRECTED PRN LORazepam [Ativan] Med 02/22/18 01:22 Ordered 0.25 mg IV Q6H PRN LORazepam [Ativan] Med 02/22/18 01:21 Ordered 2 mg IVPUSH Q4H PRN Losartan [Cozaar] Med 02/22/18 09:00 Ordered 50 mg PO BID Magnesium Rep Pharmacy to Dose [Pharmacy to Dose - Med 02/22/18 01:30 Ordered Magnesium Replacement] 1 dose .XX ASDIRECTED Metoprolol Tartrate [Lopressor] Med 02/22/18 09:00 Ordered 100 mg PO BID Metoprolol Tartrate [Lopressor] Med 02/22/18 01:21 Ordered 5 mg IVPUSH Q4H PRN Ondansetron [Zofran] Med 02/22/18 01:22 Ordered 4 mg IV Q6H PRN Pantoprazole [ProTONIX] Med 02/22/18 06:00 Ordered 40 mg PO ACBREAKFAST Polyethylene Glycol 3350 [MiraLAX] Med 02/22/18 01:22 Ordered 17 gm PO DAILY PRN Potassium Chloride [Potassium Chloride] Med 02/22/18 09:00 Ordered 20 meq PO BID Potassium Rep Pharmacy to Dose [Pharmacy to Dose - Med 02/22/18 01:30 Ordered Potassium Replacement] 1 dose .XX ASDIRECTED Promethazine [Phenergan] 6.25 mg Med 02/22/18 01:22 Ordered Sodium Chloride 0.9% [Normal Saline] 50 ml IV Q6H Pyridostigmine [Mestinon] Med 02/22/18 09:00 Ordered 60 mg PO TID Sodium Chloride 0.9% [Normal Saline] 1,000 ml Med 02/21/18 22:30 Active IV ASDIRECTED Temazepam [Restoril] Med 02/22/18 01:22 Ordered 7.5 mg PO BEDTIME PRN atorvaSTATin Med 05/16/18 09:00 Ordered 40 mg PO DAILY hydrALAZINE [Apresoline] Med 02/22/18 01:21 Ordered 10 mg IVPUSH Q4H PRN predniSONE Med 02/22/18 09:00 Ordered 10 mg PO DAILY sulfaSALAzine Med 02/22/18 09:00 Ordered 500 mg PO BID Blood Culture x2 Reflex Set [OM.PC] Stat Oth 02/21/18 22:38 Ordered Resuscitation Status Routine Resus Stat 02/22/18 01:22 Ordered Medication Orders Acetaminophen (Tylenol) 650 mg PO Q4H PRN PRN Reason: Pain (Mild 1-3)/fever Hydrocodone Bitart/Acetaminophen ([place] 325-5 Mg) 1 tab PO Q4H PRN PRN Reason: Pain (moderate 4-6) Albuterol/Ipratropium (Duoneb 3.0-0.5 Mg/3 Ml) 3 ml NEB Q4H PRN PRN Reason: Shortness Of Breath/wheezing Amiodarone HCl (Cordarone) 200 mg PO DAILY [facility] Aspirin (Halfprin) 81 mg PO DAILY [facility] Bisacodyl (Dulcolax) 5 mg PO DAILY PRN PRN Reason: Constipation Docusate Sodium (Colace) 100 mg PO BID PRN PRN Reason: Constipation Furosemide (Lasix) 40 mg PO 0600,1400 [facility] Guaifenesin/Phenylephrine HCl (Robitussin Dm) 10 ml PO Q4H PRN PRN Reason: Cough Hydralazine HCl (Apresoline) 10 mg IVPUSH Q4H PRN PRN Reason: Hypertension Hydromorphone HCl (Dilaudid) 0.25 mg IVPUSH Q2H PRN PRN Reason: Pain (severe 7-10) Sodium Chloride (Normal Saline) 1,000 mls @ 50 mls/hr IV ASDIRECTED [facility] Last Admin: 02/21/18 23:01 Dose: 50 mls/hr Promethazine HCl 6.25 mg/ (Sodium Chloride) 50.25 mls @ 100 mls/hr IV Q6H PRN PRN Reason: Nausea/Vomiting Lorazepam (Ativan) 2 mg IVPUSH Q4H PRN PRN Reason: Seizures Lorazepam (Ativan) 0.25 mg IV Q6H PRN PRN Reason: Anxiety Losartan Potassium (Cozaar) 50 mg PO BID [facility] Magnesium Sulfate (Pharmacy To Dose - Magnesium Replacement) 1 dose .XX ASDIRECTED [facility] Metoprolol Tartrate (Lopressor) 5 mg IVPUSH Q4H PRN PRN Reason: Tachycardia Metoprolol Tartrate (Lopressor) 100 mg PO BID [facility] Non-Formulary Medication (Atorvastatin) 40 mg PO DAILY [facility] Non-Formulary Medication (Calcium Citrate/Vitamin D3) 1 tab PO BIDMEALS [facility] Non-Formulary Medication (Hyoscyamine [Levsin]) 0.125 mg PO TID [facility] Non-Formulary Medication (Immodium) 2 mg PO ASDIRECTED PRN PRN Reason: Diarrhea Non-Formulary Medication (Potassium Chloride [Potassium Chloride]) 20 meq PO BID [facility] Ondansetron HCl (Zofran) 4 mg IV Q6H PRN PRN Reason: Nausea/Vomiting Pantoprazole Sodium (Protonix) 40 mg PO ACBREAKFAST [facility] Polyethylene Glycol (Miralax) 17 gm PO DAILY PRN PRN Reason: Constipation Potassium Chloride (Pharmacy To Dose - Potassium Replacement) 1 dose .XX ASDIRECTED [facility] Prednisone (Prednisone) 10 mg PO DAILY [facility] Pyridostigmine [place] (Mestinon) 60 mg PO TID [facility] Senna/Docusate Sodium (Senna Plus) 1 tab PO BID PRN PRN Reason: Constipation Sulfasalazine (Sulfasalazine) 500 mg PO BID [facility] Temazepam (Restoril) 7.5 mg PO BEDTIME PRN PRN Reason: Sleep Assessment/Plan Comment:: Assessment/Plan: Acute: Bronchitis w/ Compressive Atelectasis - Not fully convince she has pneumonia - Afebrile w/o leukocytosis - CXR shows increased pleural effusion with Atetectasis - Decongestant/Expectorant - IS as directed B/L Pleural Effusions - Has hx/o HF with Preserved EF 55% 06/23/2017 - Last CXR shows small pleural effusions - CT scan in AM to assess severity or quantify - Last dose of Eliquis at 2100 last night - Will offer thoracentesis in AM Permanent Atrial Fibrillation, HR fairly controlled - Continue Amiodarone 2000 mg po daily and Metoprolol 100 m gpo BID - Hold Eliquis 2.5 mg po BID until thoracentesis Mild Heart Failure - proBNP level 1088 - Heart Failure Protocol - AHA diet and 2L fluid restrictions - Saline lock Mild Hypokalemia - K 3.3 - 2/2 loops diuretic use - Replete and monitor Elevated LFTs - Has hx/o Hep C infection and Acetaminophen for pain control - Will monitor Chronic: Impaired Vision/Hearing HTN HLD CAD/TX S/p Stent Placement Hx/o UC Urinary Incontinence OA/DJD Myasthenia Gravis Plan: Admit to [facility] with Tele Resume Home Meds Routine AM Labs PT/OT/RT consult DVT/GI PPx: Eliquis/SCDs and H2B SW/CM for d/c planning Code status: 1
[2018-02-22] MEDS: Potassium Chloride 20 MEQ Tab.ER PO SCH ×4 (02:56→22:06)
[2018-02-22] MEDS ORDERED: Sodium Chloride 0.9% 10 ML Syringe FLUSH PRN (03:37)
[2018-02-22] MEDS: Pantoprazole 40 MG Tab.CR PO SCH (05:10)
[2018-02-22] MEDS: Furosemide 40 MG Tab PO SCH ×2 (05:55→14:25)
[2018-02-22] MEDS: Calcium Carbonate/Vitamin D3 600 MG-200 Units Tab PO SCH ×2 (05:59→17:23)
[2018-02-22] MEDS: sulfaSALAzine 500 MG Tab PO SCH ×2 (05:59→17:23)
--- NOTE | 2018-02-22 07:55 | CR ---
Chest: Portable view of the chest was obtained. Comparison: Prior chest x-ray of 01/19/18. Small pleural effusions are seen. Pleural effusions have diminished from previous exam. Minimal density is noted within the right lung base. This is most likely due to atelectasis from the pleural effusion. Lungs otherwise are clear. Heart size is normal. Tortuous thoracic aorta is seen. Scoliosis and degenerative change is noted within the spine. Impression: 1. Small bilateral pleural effusions having decreased in size from prior chest x-ray. 2. Mild increased density within the right lung base most likely due to compressive atelectasis from the pleural effusion. 3. Other incidental findings. Diagnostic code #3
[2018-02-22] MEDS: Losartan 100 MG Tab PO SCH ×2 (09:29→22:04)
[2018-02-22] MEDS: Rosuvastatin 10 MG Tab PO SCH (09:33)
[2018-02-22] MEDS: Metoprolol Tartrate 50 MG Tab PO SCH ×2 (09:35→22:03)
[2018-02-22] MEDS: predniSONE 10 MG Tab PO SCH (09:38)
[2018-02-22] MEDS: Amiodarone 200 MG Tab PO SCH (09:38)
[2018-02-22] MEDS: Hyoscyamine 0.125 MG Tab.SL SL SCH ×3 (09:38→22:04)
[2018-02-22] MEDS: Aspirin 81 MG Tab.EC PO SCH (09:38)
[2018-02-22] MEDS: Loperamide 2 MG Cap PO PRN ×2 (10:23→10:26)
--- NOTE | 2018-02-22 10:40 | CT ---
CT chest Technique: Multiple axial sections were obtained from above the lung apices inferiorly through the lung bases. Intravenous contrast was not utilized. Comparison: No prior chest CT, previous chest x-ray of 02/21/18. Findings: Small to moderate size right-sided pleural effusion is seen. Minimal left-sided pleural effusion is noted. Atherosclerotic calcification is seen within the aorta. Mild aneurysmal dilatation of the ascending aorta is seen with AP dimension of 4.2 cm. Coronary artery calcification is noted. Small mediastinal lymph nodes are seen which measure within normal limits. Heart is enlarged. Small portion of the visualized upper abdominal structures show no discrete abnormality. Lungs show no acute parenchymal densities. Minimal atelectasis likely on a compressive basis is seen within both lung bases. Impression: 1. Small to moderate size right-sided pleural effusion with minimal left-sided pleural effusion. Pleural effusions cause minimal atelectasis within both lung bases. 2. Ascending aorta shows aneurysmal dilatation with AP dimension of 4.2 cm. 3. Other incidental findings. Diagnostic code #3
[2018-02-22] MEDS ORDERED: GANCICLOVIR EYELF SCH (10:45)
[2018-02-22] MEDS: GANCICLOVIR EYELF SCH ×3 (12:49→22:06)
--- NOTE | 2018-02-22 15:58 | CR ---
Chest: Portable view of the chest was obtained. Comparison: Prior chest x-ray of 02/21/[address] performed earlier on the same day. Decreased right sided pleural effusion is seen from previous studies. Atelectasis is seen within the right lung base. No pneumothorax is seen at this time. Minimal blunting of the lateral left costophrenic angle is seen which is stable. Heart size is mildly enlarged. Slight tortuosity of the thoracic aorta is seen. Minimal scoliosis is noted within the spine. Impression: 1. Decreased right-sided pleural effusion. Mild right basilar atelectasis remains. No pneumothorax is seen at this time. 2. Blunting of the lateral left costophrenic angle compatible with minimal pleural effusion. 3. Slight cardiomegaly. Diagnostic code #2
--- NOTE | 2018-02-22 16:03 | PCM.PRNOTE ---
- Free Text/Narrative Note: DATE OF PROCEDURE: 02/22/2018 PREOPERATIVE DIAGNOSIS: Right Sided Pleural Effusion POSTOPERATIVE DIAGNOSIS: Right Sided Pleural Effusion PROCEDURE PERFORMED: U/S Guided Diagnostic and Therapeutic Right Sided Thoracentesis SURGEON: Gabriel Sims DO DESCRIPTION OF PROCEDURE: After informed consent was obtained, signed, the patient had ultrasound localization in the right hemithorax. The patient was sterilely prepped and topical lidocaine was induced. Stab incision was made and a thoracentesis catheter was inserted and 450 mL of clear monique fluid was obtained without difficulty. Estimated Blood Loss: Minimal The patient tolerated the procedure well w/o any complications. Post procedure chest x-ray is pending.
[2018-02-22] MEDS ORDERED: Apixaban 5 MG Tab PO ONE (21:57)
[2018-02-23] MEDS: Pantoprazole 40 MG Tab.CR PO SCH (07:37)
[2018-02-23] MEDS: Calcium Carbonate/Vitamin D3 600 MG-200 Units Tab PO SCH ×2 (07:38→17:17)
[2018-02-23] MEDS: sulfaSALAzine 500 MG Tab PO SCH ×2 (07:38→17:17)
[2018-02-23] MEDS: Furosemide 40 MG Tab PO SCH ×2 (07:41→14:10)
[2018-02-23] MEDS: Apixaban 5 MG Tab PO SCH ×2 (09:23→21:17)
[2018-02-23] MEDS: Rosuvastatin 10 MG Tab PO SCH (09:23)
--- NOTE | 2018-02-23 09:24 | PCM.DCSUM1 ---
Discharge Summary - Discharge Data Discharge Date: 02/23/18 (Admit date: 02/22/18) Discharge Disposition: Home, Self-Care 01 Preliminary Cause of *Q: Respiratory Failure Condition: Good - Patient Summary/Data Consults: Consultations 02/22/18 01:24 Consult to Case Management [CONS] Routine Consult to Patient Financial Services Specialist [CONS] Routine Consult to Spiritual Care [CONS] Routine OT Evaluation and Treatment [CONS] Routine PT Evaluation and Treatment [CONS] Routine Respiratory Care Assess and Treatment [CONS] Routine - Discharge Plan Home Medications: Home Meds Aspirin [[place] Aspirin] 81 mg PO DAILY 05/26/14 [History] sulfaSALAzine 500 mg PO BID 05/26/14 [History] Pyridostigmine [place] 60 mg PO TID 06/14/16 [History] Apixaban [Eliquis] 2.5 mg PO BID 04/07/17 [History] Calcium Citrate/Vitamin D3 [Calcium Citrate + D] 1 tab PO BIDMEALS 04/07/17 [ History] Pantoprazole [ProTONIX] 40 mg PO ACBREAKFAST 04/07/17 [History] Prednisone [IJD: Prednisone] 10 mg PO DAILY 04/07/17 [History] Furosemide [Lasix] 40 mg PO 0600,1400 09/25/17 [History] Immodium 2 mg PO ASDIRECTED PRN 09/25/17 [History] atorvaSTATin [Lipitor] 40 mg PO DAILY 09/25/17 [History] Hyoscyamine [Levsin] 0.125 mg PO Q4H 01/15/18 [History] Potassium Chloride 20 meq PO BID 01/15/18 [History] Metoprolol Tartrate 100 mg PO BID #0 01/21/18 [Rx] Amiodarone [Cordarone] 200 mg PO DAILY 02/22/18 [History] Ciprofloxacin [Ciprofloxacin 0.3% Ophth Soln] 1 drop EYELF QID 02/22/18 [History ] Ganciclovir [Zirgan] 1 drop EYELF TID 02/22/18 [History] Losartan [Cozaar] 50 mg PO BID 02/22/18 [History] Forms: ED Department Discharge Referrals: Tom Slaughter MD [Primary Care Provider] - - Patient Data Vitals - Most Recent: Last Vital Signs Temp 99.3 F 02/23/18 03:18 Pulse 84 02/23/18 03:19 Resp 18 02/23/18 03:18 BP 97/55 L 02/23/18 03:19 Pulse Ox 92 L 02/23/18 09:05 Weight - Most Recent: 153 lb I&O - Last 24 hours: Intake & Output 02/22/18 02/23/18 02/23/18 22:59 06:59 14:59 Intake Total 1290 300 Output Total 950 300 Balance 340 0 Lab Results - Last 24 hrs: Laboratory Results - last 24 hr 02/22/18 02/22/18 02/23/18 Range/Units 14:30 15:30 05:25 WBC 4.64 (3.98-10.04) K/mm3 RBC 4.35 (3.98-5.22) M/mm3 Hgb 13.9 (11.2-15.7) gm/L Hct 44.4 (34.1-44.9) % MCV 102.1 H (79.4-94.8) fl MCH 32.0 (25.6-32.2) pg MCHC 31.3 L (32.2-35.5) g/dl RDW Std Deviation 60.6 H (36.4-46.3) fL Plt Count 68 L (182-369) K/mm3 MPV 13.0 H (9.4-12.3) fl Neut % (Auto) 73.1 H (34.0-71.1) % Lymph % (Auto) 9.7 L (19.3-51.7) % [place] % (Auto) 16.2 H (4.7-12.5) % Eos % (Auto) 0.6 L (0.7-5.8) Baso % (Auto) 0.0 L (0.1-1.2) % Neut # (Auto) 3.39 (1.56-6.13) K/mm3 Lymph # (Auto) 0.45 L (1.18-3.74) K/mm3 [place] # (Auto) 0.75 H (0.24-0.36) K/mm3 Eos # (Auto) 0.03 L (0.04-0.36) K/mm3 Baso # (Auto) 0.00 L (0.01-0.08) K/mm3 Manual Slide Review Abnormal smear Sodium (136-145) mEq/L Potassium (3.5-5.1) mEq/L Chloride (98-107) mEq/L Carbon Dioxide (21-32) mEq/L Anion Gap (5-15) BUN (7-18) mg/dL Creatinine (0.55-1.02) mg/dL Est Cr Clr Drug Dosing mL/min Estimated GFR (MDRD) (>60) mL/min BUN/Creatinine Ratio (14-18) Glucose (83-115) mg/dL Calcium (8.5-10.1) mg/dL Magnesium (1.8-2.4) mg/dl C-Reactive Protein (<1.0) mg/dL Urine Color Yellow (Yellow) Urine Appearance Slt cloudy H (Clear) Urine pH 6.5 (5.0-8.0) Ur Specific [place] 1.025 (1.005-1.030) Urine Protein 2+ H (Negative) Urine Glucose (UA) Negative (Negative) Urine Ketones Negative (Negative) Urine Occult Blood 1+ H (Negative) Urine Nitrite Negative (Negative) Urine Bilirubin Negative (Negative) Urine Urobilinogen 0.2 (0.2-1.0) Ur Leukocyte Esterase Trace H (Negative) Urine RBC 5-10 H (0-5) /hpf Urine WBC 5-10 H (0-5) /hpf Ur Epithelial Cells 5-10 H (0-5) /hpf Urine Bacteria Few (FEW) /hpf Hyaline Casts 5-10 H (0-5) /lpf Urine Mucus Not seen (FEW) /hpf Body Fluid Site Thoracentesis Fluid Type Thoracentesis fluid Fluid Volume 492 ML Fluid Color Yellow Fluid Appearance Slightly cloudy Fluid pH 7.5 (4.5-10.0) Fluid WBC 0.31 (0.20-0.60) k/mm*3 Fluid RBC 0.004 (0.00-0.010) 10*6/uL Fluid Diff Comment See note Fluid Seg Neutrophils 14.0 (0-25) % Fluid Lymphocytes 56.0 (0-78) % Fluid Monocytes 10.0 (0-71) % Fl Polymorphonucl Cell Not Reportable Fluid Macrophages 12 Fluid Glucose 149 mg/dL Fluid Total Protein 3.9 gm/dl Fluid Albumin Cancelled Fluid LDH 81 U/L 02/23/18 Range/Units 05:25 WBC (3.98-10.04) K/mm3 RBC (3.98-5.22) M/mm3 Hgb (11.2-15.7) gm/L Hct (34.1-44.9) % MCV (79.4-94.8) fl MCH (25.6-32.2) pg MCHC (32.2-35.5) g/dl RDW Std Deviation (36.4-46.3) fL Plt Count (182-369) K/mm3 MPV (9.4-12.3) fl Neut % (Auto) (34.0-71.1) % Lymph % (Auto) (19.3-51.7) % [place] % (Auto) (4.7-12.5) % Eos % (Auto) (0.7-5.8) Baso % (Auto) (0.1-1.2) % Neut # (Auto) (1.56-6.13) K/mm3 Lymph # (Auto) (1.18-3.74) K/mm3 [place] # (Auto) (0.24-0.36) K/mm3 Eos # (Auto) (0.04-0.36) K/mm3 Baso # (Auto) (0.01-0.08) K/mm3 Manual Slide Review Sodium 139 (136-145) mEq/L Potassium 3.8 (3.5-5.1) mEq/L Chloride 102 (98-107) mEq/L Carbon Dioxide 29 (21-32) mEq/L Anion Gap 11.8 (5-15) BUN 19 H (7-18) mg/dL Creatinine 1.6 H (0.55-1.02) mg/dL Est Cr Clr Drug Dosing 20.10 mL/min Estimated GFR (MDRD) 31 (>60) mL/min BUN/Creatinine Ratio 11.9 L (14-18) Glucose 104 (83-115) mg/dL Calcium 9.5 (8.5-10.1) mg/dL Magnesium 2.1 (1.8-2.4) mg/dl C-Reactive Protein 8.7 H* (<1.0) mg/dL Urine Color (Yellow) Urine Appearance (Clear) Urine pH (5.0-8.0) Ur Specific [place] (1.005-1.030) Urine Protein (Negative) Urine Glucose (UA) (Negative) Urine Ketones (Negative) Urine Occult Blood (Negative) Urine Nitrite (Negative) Urine Bilirubin (Negative) Urine Urobilinogen (0.2-1.0) Ur Leukocyte Esterase (Negative) Urine RBC (0-5) /hpf Urine WBC (0-5) /hpf Ur Epithelial Cells (0-5) /hpf Urine Bacteria (FEW) /hpf Hyaline Casts (0-5) /lpf Urine Mucus (FEW) /hpf Body Fluid Site Fluid Type Fluid Volume ML Fluid Color Fluid Appearance Fluid pH (4.5-10.0) Fluid WBC (0.20-0.60) k/mm*3 Fluid RBC (0.00-0.010) 10*6/uL Fluid Diff Comment Fluid Seg Neutrophils (0-25) % Fluid Lymphocytes (0-78) % Fluid Monocytes (0-71) % Fl Polymorphonucl Cell Fluid Macrophages Fluid Glucose mg/dL Fluid Total Protein gm/dl Fluid Albumin Fluid LDH U/L JEFFY Results - Last 24 hrs: Microbiology 02/22/18 15:30 Gram Stain - Preliminary Thoracentesis Fluid - Right Body Fluid Culture - Preliminary NO GROWTH AFTER 1 DAY 02/22/18 02:55 Gram Stain - Final Sputum - Expectorated Sputum Culture - Preliminary 02/21/18 23:10 Aerobic Blood Culture - Preliminary Blood - Venous - Lab Draw NO GROWTH AFTER 1 DAY Anaerobic Blood Culture - Preliminary NO GROWTH AFTER 1 DAY 02/21/18 23:00 Aerobic Blood Culture - Preliminary Blood - Venous NO GROWTH AFTER 1 DAY Anaerobic Blood Culture - Preliminary NO GROWTH AFTER 1 DAY Med Orders - Current: Current Medications Acetaminophen (Tylenol) 650 mg PO Q4H PRN PRN Reason: Pain (Mild 1-3)/fever Hydrocodone Bitart/Acetaminophen ([place] 325-5 Mg) 1 tab PO Q4H PRN PRN Reason: Pain (moderate 4-6) Albuterol/Ipratropium (Duoneb 3.0-0.5 Mg/3 Ml) 3 ml NEB Q4H PRN PRN Reason: Shortness Of Breath/wheezing Amiodarone HCl (Cordarone) 200 mg PO DAILY [facility] Last Admin: 02/22/18 09:38 Dose: 200 mg Apixaban (Eliquis) 2.5 mg PO BID [facility] Aspirin (Halfprin) 81 mg PO DAILY [facility] Last Admin: 02/22/18 09:38 Dose: 81 mg Bisacodyl (Dulcolax) 5 mg PO DAILY PRN PRN Reason: Constipation Calcium Carbonate (Calcium Carbonate/Vitamin D 600 Mg-200 Unit) 1 tab PO BIDMEALS [facility] Last Admin: 02/23/18 07:38 Dose: 1 tab Ciprofloxacin (Ciloxan 0.3% Ophth Soln) 0 ml EYELF QID [facility] Docusate Sodium (Colace) 100 mg PO BID PRN PRN Reason: Constipation Furosemide (Lasix) 40 mg PO 0600,1400 [facility] Last Admin: 02/23/18 07:41 Dose: 40 mg Guaifenesin/Phenylephrine HCl (Robitussin Dm) 10 ml PO Q4H PRN PRN Reason: Cough Hydralazine HCl (Apresoline) 10 mg IVPUSH Q4H PRN PRN Reason: Hypertension Hydromorphone HCl (Dilaudid) 0.25 mg IVPUSH Q2H PRN PRN Reason: Pain (severe 7-10) Last Admin: 02/22/18 15:11 Dose: 0.25 mg Hyoscyamine (Hyomax-Sl) 0.125 mg SL TID [facility] Last Admin: 02/22/18 22:04 Dose: 0.125 mg Promethazine HCl 6.25 mg/ (Sodium Chloride) 50.25 mls @ 100 mls/hr IV Q6H PRN PRN Reason: Nausea/Vomiting Loperamide HCl (Imodium) 2 mg PO ASDIRECTED PRN PRN Reason: Diarrhea Last Admin: 02/22/18 10:26 Dose: 2 mg Lorazepam (Ativan) 2 mg IVPUSH Q4H PRN PRN Reason: Seizures Lorazepam (Ativan) 0.25 mg IV Q6H PRN PRN Reason: Anxiety Losartan Potassium (Cozaar) 50 mg PO BID [facility] Last Admin: 02/22/18 22:04 Dose: 50 mg Magnesium Sulfate (Pharmacy To Dose - Magnesium Replacement) 1 dose .XX ASDIRECTED [facility] Metoprolol Tartrate (Lopressor) 5 mg IVPUSH Q4H PRN PRN Reason: Tachycardia Metoprolol Tartrate (Lopressor) 100 mg PO BID [facility] Last Admin: 02/22/18 22:03 Dose: Not Given Ondansetron HCl (Zofran) 4 mg IV Q6H PRN PRN Reason: Nausea/Vomiting Last Admin: 02/22/18 17:29 Dose: 4 mg Pantoprazole Sodium (Protonix) 40 mg PO ACBREAKFAST [facility] Last Admin: 02/23/18 07:37 Dose: 40 mg Zirgan Opth Gel 0.15 (%) 0 each EYELF TID [facility] Last Admin: 02/22/18 22:06 Dose: 1 each Ganciclovir [Zirgan] (0.15% Opth Gel) 0 each EYELF TID [facility] Polyethylene Glycol (Miralax) 17 gm PO DAILY PRN PRN Reason: Constipation Potassium Chloride (Pharmacy To Dose - Potassium Replacement) 1 dose .XX ASDIRECTED [facility] Potassium Chloride (Klor-Con M20) 20 meq PO BID [facility] Last Admin: 02/22/18 22:06 Dose: 20 meq Prednisone (Prednisone) 10 mg PO DAILY [facility] Last Admin: 02/22/18 09:38 Dose: 10 mg Pyridostigmine [place] (Mestinon) 60 mg PO TID [facility] Last Admin: 02/22/18 22:03 Dose: 60 mg Rosuvastatin Calcium (Crestor) 10 mg PO DAILY [facility] Last Admin: 02/22/18 09:33 Dose: 10 mg Senna/Docusate Sodium (Senna Plus) 1 tab PO BID PRN PRN Reason: Constipation Sodium Chloride (Saline Flush) 10 ml FLUSH ASDIRECTED PRN PRN Reason: Keep Vein Open Sulfasalazine (Sulfasalazine) 500 mg PO BIDMEALS [facility] Last Admin: 02/23/18 07:38 Dose: 500 mg Temazepam (Restoril) 7.5 mg PO BEDTIME PRN PRN Reason: Sleep Discontinued Medications Albuterol/Ipratropium (Duoneb 3.0-0.5 Mg/3 Ml) 3 ml NEB ONETIME ONE Stop: 02/21/18 22:26 Last Admin: 02/21/18 22:44 Dose: 3 ml Apixaban (Eliquis) 2.5 mg PO ONETIME ONE Stop: 02/22/18 21:58 Last Admin: 02/22/18 22:16 Dose: 2.5 mg Sodium Chloride (Normal Saline) 1,000 mls @ 50 mls/hr IV ASDIRECTED [facility] Last Admin: 02/21/18 23:01 Dose: 50 mls/hr Levofloxacin/Dextrose 750 mg/ (Premix) 150 mls @ 100 mls/hr IV ONETIME ONE Stop: 02/22/18 00:49 Last Admin: 02/21/18 23:26 Dose: 100 mls/hr Zirgan Opth Gel 0.15 (%) 0 each EYELF QID [facility] Last Admin: 02/22/18 13:15 Dose: Not Given Potassium Chloride (Klor-Con M20) 40 meq PO Q4H [facility] Stop: 02/22/18 05:01 Last Admin: 02/22/18 05:10 Dose: 40 meq
[2018-02-23] MEDS: Losartan 100 MG Tab PO SCH (09:27)
[2018-02-23] MEDS: Potassium Chloride 20 MEQ Tab.ER PO SCH ×2 (09:27→21:18)
[2018-02-23] MEDS: Amiodarone 200 MG Tab PO SCH (09:28)
[2018-02-23] MEDS: predniSONE 10 MG Tab PO SCH (09:28)
[2018-02-23] MEDS: Metoprolol Tartrate 50 MG Tab PO SCH ×2 (09:28→21:27)
[2018-02-23] MEDS: Aspirin 81 MG Tab.EC PO SCH (09:28)
[2018-02-23] MEDS: Hyoscyamine 0.125 MG Tab.SL SL SCH ×3 (09:28→21:26)
[2018-02-23] MEDS: Ciprofloxacin 0.3% Ophth Soln 2.5 ML Bottle EYELF SCH ×4 (09:29→20:46)
[2018-02-23] MEDS: GANCICLOVIR EYELF SCH ×3 (09:29→21:20)
[2018-02-23] MEDS: OPTH EYELF SCH ×3 (09:29→20:47)
[2018-02-23] MEDS: GANCICLOVIR 0.15% EYELF SCH ×3 (09:29→20:47)
--- NOTE | 2018-02-23 17:11 | PCM.PN ---
- General Info Date of Service: 02/23/18 Admission Dx/Problem (Free Text): Admission Diagnosis/Problem Admission Diagnosis/Problem Pneumonia Subjective Update: Follow up Functional Status: Reports: Pain Controlled, Tolerating Diet, Ambulating, Urinating - Review of Systems General: Denies: Fever, Weakness, Fatigue, Malaise, Chills HEENT: Reports: No Symptoms Pulmonary: Denies: Shortness of Breath, Cough Cardiovascular: Denies: Chest Pain, Palpitations, Dyspnea on Exertion, Lightheadedness Gastrointestinal: Denies: Abdominal Pain, Nausea, Vomiting Genitourinary: Reports: No Symptoms Musculoskeletal: Reports: No Symptoms Skin: Denies: Cyanosis, Jaundice, Diaphoresis, Rash Neurological: Denies: Confusion, Difficulty Walking, Weakness, Gait Disturbance Psychiatric: Denies: Depression, Anxiety, Hallucinations Systems Review Comment:: No overnight or acute issues. She slept pretty good. She states "I feel much better" after the thoracentesis yesterday. She has no complaints this AM. However her pressure is on the low end this morning. - Patient Data Vitals - Most Recent: Last Vital Signs Temp 37.2 C 02/23/18 15:11 Pulse 85 02/23/18 15:11 Resp 16 02/23/18 15:11 BP 100/50 L 02/23/18 15:47 Pulse Ox 91 L 02/23/18 15:11 Weight - Most Recent: 69.4 kg I&O - Last 24 Hours: Intake & Output 02/23/18 02/23/18 02/23/18 06:59 14:59 22:59 Intake Total 300 300 400 Output Total 300 Balance 0 300 400 Lab Results Last 24 Hours: Laboratory Results - last 24 hr 02/22/18 02/22/18 02/23/18 Range/Units 14:30 15:30 05:25 WBC 4.64 (3.98-10.04) K/mm3 RBC 4.35 (3.98-5.22) M/mm3 Hgb 13.9 (11.2-15.7) gm/L Hct 44.4 (34.1-44.9) % MCV 102.1 H (79.4-94.8) fl MCH 32.0 (25.6-32.2) pg MCHC 31.3 L (32.2-35.5) g/dl RDW Std Deviation 60.6 H (36.4-46.3) fL Plt Count 68 L (182-369) K/mm3 MPV 13.0 H (9.4-12.3) fl Neut % (Auto) 73.1 H (34.0-71.1) % Lymph % (Auto) 9.7 L (19.3-51.7) % [place] % (Auto) 16.2 H (4.7-12.5) % Eos % (Auto) 0.6 L (0.7-5.8) Baso % (Auto) 0.0 L (0.1-1.2) % Neut # (Auto) 3.39 (1.56-6.13) K/mm3 Lymph # (Auto) 0.45 L (1.18-3.74) K/mm3 [place] # (Auto) 0.75 H (0.24-0.36) K/mm3 Eos # (Auto) 0.03 L (0.04-0.36) K/mm3 Baso # (Auto) 0.00 L (0.01-0.08) K/mm3 Manual Slide Review Abnormal smear Sodium (136-145) mEq/L Potassium (3.5-5.1) mEq/L Chloride (98-107) mEq/L Carbon Dioxide (21-32) mEq/L Anion Gap (5-15) BUN (7-18) mg/dL Creatinine (0.55-1.02) mg/dL Est Cr Clr Drug Dosing mL/min Estimated GFR (MDRD) (>60) mL/min BUN/Creatinine Ratio (14-18) Glucose (83-115) mg/dL Calcium (8.5-10.1) mg/dL Magnesium (1.8-2.4) mg/dl C-Reactive Protein (<1.0) mg/dL Urine Color Yellow (Yellow) Urine Appearance Slt cloudy H (Clear) Urine pH 6.5 (5.0-8.0) Ur Specific [place] 1.025 (1.005-1.030) Urine Protein 2+ H (Negative) Urine Glucose (UA) Negative (Negative) Urine Ketones Negative (Negative) Urine Occult Blood 1+ H (Negative) Urine Nitrite Negative (Negative) Urine Bilirubin Negative (Negative) Urine Urobilinogen 0.2 (0.2-1.0) Ur Leukocyte Esterase Trace H (Negative) Urine RBC 5-10 H (0-5) /hpf Urine WBC 5-10 H (0-5) /hpf Ur Epithelial Cells 5-10 H (0-5) /hpf Urine Bacteria Few (FEW) /hpf Hyaline Casts 5-10 H (0-5) /lpf Urine Mucus Not seen (FEW) /hpf Body Fluid Site Thoracentesis Fluid Type Thoracentesis fluid Fluid Volume 492 ML Fluid Color Yellow Fluid Appearance Slightly cloudy Fluid pH 7.5 (4.5-10.0) Fluid WBC 0.31 (0.20-0.60) k/mm*3 Fluid RBC 0.004 (0.00-0.010) 10*6/uL Fluid Diff Comment See note Fluid Seg Neutrophils 14.0 (0-25) % Fluid Lymphocytes 56.0 (0-78) % Fluid Monocytes 10.0 (0-71) % Fl Polymorphonucl Cell Not Reportable Fluid Macrophages 12 Fluid Glucose 149 mg/dL Fluid Total Protein 3.9 gm/dl Fluid Albumin Cancelled Fluid LDH 81 U/L / Range/Units 05:25 WBC (3.98-10.04) K/mm3 RBC (3.98-5.22) M/mm3 Hgb (11.2-15.7) gm/L Hct (34.1-44.9) % MCV (79.4-94.8) fl MCH (25.6-32.2) pg MCHC (32.2-35.5) g/dl RDW Std Deviation (36.4-46.3) fL Plt Count (182-369) K/mm3 MPV (9.4-12.3) fl Neut % (Auto) (34.0-71.1) % Lymph % (Auto) (19.3-51.7) % [place] % (Auto) (4.7-12.5) % Eos % (Auto) (0.7-5.8) Baso % (Auto) (0.1-1.2) % Neut # (Auto) (1.56-6.13) K/mm3 Lymph # (Auto) (1.18-3.74) K/mm3 [place] # (Auto) (0.24-0.36) K/mm3 Eos # (Auto) (0.04-0.36) K/mm3 Baso # (Auto) (0.01-0.08) K/mm3 Manual Slide Review Sodium 139 (136-145) mEq/L Potassium 3.8 (3.5-5.1) mEq/L Chloride 102 (98-107) mEq/L Carbon Dioxide 29 (21-32) mEq/L Anion Gap 11.8 (5-15) BUN 19 H (7-18) mg/dL Creatinine 1.6 H (0.55-1.02) mg/dL Est Cr Clr Drug Dosing 20.10 mL/min Estimated GFR (MDRD) 31 (>60) mL/min BUN/Creatinine Ratio 11.9 L (14-18) Glucose 104 (83-115) mg/dL Calcium 9.5 (8.5-10.1) mg/dL Magnesium 2.1 (1.8-2.4) mg/dl C-Reactive Protein 8.7 H* (<1.0) mg/dL Urine Color (Yellow) Urine Appearance (Clear) Urine pH (5.0-8.0) Ur Specific [place] (1.005-1.030) Urine Protein (Negative) Urine Glucose (UA) (Negative) Urine Ketones (Negative) Urine Occult Blood (Negative) Urine Nitrite (Negative) Urine Bilirubin (Negative) Urine Urobilinogen (0.2-1.0) Ur Leukocyte Esterase (Negative) Urine RBC (0-5) /hpf Urine WBC (0-5) /hpf Ur Epithelial Cells (0-5) /hpf Urine Bacteria (FEW) /hpf Hyaline Casts (0-5) /lpf Urine Mucus (FEW) /hpf Body Fluid Site Fluid Type Fluid Volume ML Fluid Color Fluid Appearance Fluid pH (4.5-10.0) Fluid WBC (0.20-0.60) k/mm*3 Fluid RBC (0.00-0.010) 10*6/uL Fluid Diff Comment Fluid Seg Neutrophils (0-25) % Fluid Lymphocytes (0-78) % Fluid Monocytes (0-71) % Fl Polymorphonucl Cell Fluid Macrophages Fluid Glucose mg/dL Fluid Total Protein gm/dl Fluid Albumin Fluid LDH U/L Samuel Results Last 24 Hours: Microbiology 02/22/18 15:30 Gram Stain - Final Thoracentesis Fluid - Right Body Fluid Culture - Preliminary NO GROWTH AFTER 1 DAY 02/22/18 02:55 Gram Stain - Final Sputum - Expectorated Sputum Culture - Preliminary NORMAL RESPIRATORY MINISTERIO 1 DAY 02/21/18 23:10 Aerobic Blood Culture - Preliminary Blood - Venous - Lab Draw NO GROWTH AFTER 1 DAY Anaerobic Blood Culture - Preliminary NO GROWTH AFTER 1 DAY 02/21/18 23:00 Aerobic Blood Culture - Preliminary Blood - Venous NO GROWTH AFTER 1 DAY Anaerobic Blood Culture - Preliminary NO GROWTH AFTER 1 DAY Med Orders - Current: Current Medications Acetaminophen (Tylenol) 650 mg PO Q4H PRN PRN Reason: Pain (Mild 1-3)/fever Hydrocodone Bitart/Acetaminophen ([place] 325-5 Mg) 1 tab PO Q4H PRN PRN Reason: Pain (moderate 4-6) Albuterol/Ipratropium (Duoneb 3.0-0.5 Mg/3 Ml) 3 ml NEB Q4H PRN PRN Reason: Shortness Of Breath/wheezing Amiodarone HCl (Cordarone) 200 mg PO DAILY [facility] Last Admin: 02/23/18 09:28 Dose: 200 mg Apixaban (Eliquis) 2.5 mg PO BID [facility] Last Admin: 02/23/18 09:23 Dose: 2.5 mg Aspirin (Halfprin) 81 mg PO DAILY [facility] Last Admin: 02/23/18 09:28 Dose: 81 mg Bisacodyl (Dulcolax) 5 mg PO DAILY PRN PRN Reason: Constipation Calcium Carbonate (Calcium Carbonate/Vitamin D 600 Mg-200 Unit) 1 tab PO BIDMEALS [facility] Last Admin: 02/23/18 07:38 Dose: 1 tab Ciprofloxacin (Ciloxan 0.3% [facility]) 0 ml EYELF QID [facility] Last Admin: 02/23/18 13:37 Dose: Not Given Docusate Sodium (Colace) 100 mg PO BID PRN PRN Reason: Constipation Furosemide (Lasix) 40 mg PO 0600,1400 [facility] Last Admin: 02/23/18 14:10 Dose: Not Given Guaifenesin/Phenylephrine HCl (Robitussin Dm) 10 ml PO Q4H PRN PRN Reason: Cough Hydralazine HCl (Apresoline) 10 mg IVPUSH Q4H PRN PRN Reason: Hypertension Hydromorphone HCl (Dilaudid) 0.25 mg IVPUSH Q2H PRN PRN Reason: Pain (severe 7-10) Last Admin: 02/22/18 15:11 Dose: 0.25 mg Hyoscyamine (Hyomax-Sl) 0.125 mg SL TID [facility] Last Admin: 02/23/18 14:46 Dose: 0.125 mg Promethazine HCl 6.25 mg/ (Sodium Chloride) 50.25 mls @ 100 mls/hr IV Q6H PRN PRN Reason: Nausea/Vomiting Loperamide HCl (Imodium) 2 mg PO ASDIRECTED PRN PRN Reason: Diarrhea Last Admin: 02/22/18 10:26 Dose: 2 mg Lorazepam (Ativan) 2 mg IVPUSH Q4H PRN PRN Reason: Seizures Lorazepam (Ativan) 0.25 mg IV Q6H PRN PRN Reason: Anxiety Losartan Potassium (Cozaar) 50 mg PO BID [facility] Last Admin: 02/23/18 09:27 Dose: Not Given Magnesium Sulfate (Pharmacy To Dose - Magnesium Replacement) 1 dose .XX ASDIRECTED [facility] Metoprolol Tartrate (Lopressor) 5 mg IVPUSH Q4H PRN PRN Reason: Tachycardia Metoprolol Tartrate (Lopressor) 100 mg PO BID [facility] Last Admin: 02/23/18 09:28 Dose: Not Given Ondansetron HCl (Zofran) 4 mg IV Q6H PRN PRN Reason: Nausea/Vomiting Last Admin: 02/22/18 17:29 Dose: 4 mg Pantoprazole Sodium (Protonix) 40 mg PO ACBREAKFAST [facility] Last Admin: 02/23/18 07:37 Dose: 40 mg Zirgan Opth Gel 0.15 (%) 0 each EYELF TID [facility] Last Admin: 02/23/18 14:46 Dose: 1 each Ganciclovir [Zirgan] (0.15% Opth Gel) 0 each EYELF TID [facility] Last Admin: 02/23/18 14:47 Dose: Not Given Polyethylene Glycol (Miralax) 17 gm PO DAILY PRN PRN Reason: Constipation Potassium Chloride (Pharmacy To Dose - Potassium Replacement) 1 dose .XX ASDIRECTED [facility] Potassium Chloride (Klor-Con M20) 20 meq PO BID [facility] Last Admin: 02/23/18 09:27 Dose: 20 meq Prednisone (Prednisone) 10 mg PO DAILY [facility] Last Admin: 02/23/18 09:28 Dose: 10 mg Pyridostigmine [place] (Mestinon) 60 mg PO TID [facility] Last Admin: 02/23/18 14:46 Dose: 60 mg Rosuvastatin Calcium (Crestor) 10 mg PO DAILY [facility] Last Admin: 02/23/18 09:23 Dose: 10 mg Senna/Docusate Sodium (Senna Plus) 1 tab PO BID PRN PRN Reason: Constipation Sodium Chloride (Saline Flush) 10 ml FLUSH ASDIRECTED PRN PRN Reason: Keep Vein Open Sulfasalazine (Sulfasalazine) 500 mg PO BIDMEALS [facility] Last Admin: 02/23/18 07:38 Dose: 500 mg Temazepam (Restoril) 7.5 mg PO BEDTIME PRN PRN Reason: Sleep Discontinued Medications Albuterol/Ipratropium (Duoneb 3.0-0.5 Mg/3 Ml) 3 ml NEB ONETIME ONE Stop: 02/21/18 22:26 Last Admin: 02/21/18 22:44 Dose: 3 ml Apixaban (Eliquis) 2.5 mg PO ONETIME ONE Stop: 02/22/18 21:58 Last Admin: 02/22/18 22:16 Dose: 2.5 mg Sodium Chloride (Normal Saline) 1,000 mls @ 50 mls/hr IV ASDIRECTED [facility] Last Admin: 02/21/18 23:01 Dose: 50 mls/hr Levofloxacin/Dextrose 750 mg/ (Premix) 150 mls @ 100 mls/hr IV ONETIME ONE Stop: 02/22/18 00:49 Last Admin: 02/21/18 23:26 Dose: 100 mls/hr Zirgan Opth Gel 0.15 (%) 0 each EYELF QID [facility] Last Admin: 02/22/18 13:15 Dose: Not Given Potassium Chloride (Klor-Con M20) 40 meq PO Q4H [facility] Stop: 02/22/18 05:01 Last Admin: 02/22/18 05:10 Dose: 40 meq - Exam General: Alert, Oriented, Cooperative, No Acute Distress HEENT: Pupils Equal, Pupils Reactive, EOMI, Mucous Membr. Moist/[place] Lungs: Normal Respiratory Effort, Decreased Breath Sounds Cardiovascular: Irregular Rhythm GI/Abdominal Exam: Normal Bowel Sounds, Soft, Non-Tender, No Organomegaly, No Distention, No Abnormal Bruit (Female) Exam: Deferred Back Exam: Normal Inspection, Decreased Range of Motion Extremities: Normal Inspection, Normal Range of Motion, Non-Tender, No Pedal Edema, Normal Capillary Refill Peripheral Pulses: 2+: Dorsalis Pedis (L), Dorsalis Pedis (R) Skin: Warm, Dry, Intact Neurological: No New Focal Deficit Psy/Mental Status: Alert, Normal Affect, Normal Mood - Problem List Review Problem List Initiated/Reviewed/Updated: Yes - My Orders Last 24 Hours: My Active Orders 02/23/18 09:00 Apixaban [Eliquis] 2.5 mg PO BID Ciprofloxacin [Ciloxan 0.3% Ophth Soln] 0 ml EYELF QID Patient's Own Medication [Ptom] 0 each EYELF TID 02/24/18 05:11 BASIC METABOLIC PANEL,BMP [CHEM] AM C-REACTIVE PROTEIN [CHEM] AM CBC WITH AUTO DIFF [HEME] AM MAGNESIUM [CHEM] AM 02/25/18 05:11 BASIC METABOLIC PANEL,BMP [CHEM] AM CBC WITH AUTO DIFF [HEME] AM MAGNESIUM [CHEM] AM 02/26/18 05:11 BASIC METABOLIC PANEL,BMP [CHEM] AM CBC WITH AUTO DIFF [HEME] AM MAGNESIUM [CHEM] AM - Plan Plan:: Assessment/Plan: Acute: Bronchitis w/ Compressive Atelectasis - Not fully convince she has pneumonia - Afebrile w/o leukocytosis - CXR shows increased pleural effusion with Atetectasis; repeat CXR shows decreased right sided pleural effusion - Decongestant/Expectorant - IS as directed B/L Pleural Effusions, S/p Right Sided Thoracentesis - Has hx/o HF with Preserved EF 55% 06/23/2017 - Last CXR shows small pleural effusions - CT scan: showed bilateral pleural effusion R> left - Resume Eliquis last night Permanent Atrial Fibrillation, HR remains controlled - Continue Amiodarone 2000 mg po daily and Metoprolol 100 mg po BID - On Eliquis 2.5 mg po BID Mild Heart Failure - proBNP level 1088 - Heart Failure Protocol - AHA diet and 2L fluid restrictions - Saline lock Relatively Hypotension - 96/59 mmHg - Routine BP check - Will adjust BP medications Elevated LFTs - Has hx/o Hep C infection and Acetaminophen for pain control - Likely Improved Resolved: S/p Mild Hypokalemia - K 3.3--> 3.8 - 2/2 loops diuretic use - Replete and monitor Chronic: Impaired Vision/Hearing HTN HLD CAD/[place] S/p Stent Placement Hx/o UC Urinary Incontinence OA/DJD Myasthenia Gravis Plan: She is clinically stable Routine AM Labs Continue PT/OT/RT Encourage to use IS as directed DVT/GI PPx: Eliquis/SCDs and H2B SW/CM for d/c planning Code status: 1 Possible d/c in AM
[2018-02-23] MEDS: Losartan 25 MG Tab PO SCH (21:26)
[2018-02-24] MEDS: Calcium Carbonate/Vitamin D3 600 MG-200 Units Tab PO SCH (06:54)
[2018-02-24] MEDS: Furosemide 40 MG Tab PO SCH ×2 (06:55→15:07)
[2018-02-24] MEDS: sulfaSALAzine 500 MG Tab PO SCH (06:55)
[2018-02-24] MEDS: Pantoprazole 40 MG Tab.CR PO SCH (06:56)
[2018-02-24] MEDS: predniSONE 10 MG Tab PO SCH (11:25)
[2018-02-24] MEDS: Hyoscyamine 0.125 MG Tab.SL SL SCH ×2 (11:25→15:07)
[2018-02-24] MEDS: Apixaban 5 MG Tab PO SCH (11:25)
[2018-02-24] MEDS: Potassium Chloride 20 MEQ Tab.ER PO SCH (11:26)
[2018-02-24] MEDS: Losartan 25 MG Tab PO SCH (11:26)
[2018-02-24] MEDS: Metoprolol Tartrate 50 MG Tab PO SCH (11:26)
[2018-02-24] MEDS: GANCICLOVIR EYELF SCH ×2 (11:27→15:08)
[2018-02-24] MEDS: Rosuvastatin 10 MG Tab PO SCH (11:27)
[2018-02-24] MEDS: Aspirin 81 MG Tab.EC PO SCH (11:27)
[2018-02-24] MEDS: Amiodarone 200 MG Tab PO SCH (11:27)
[2018-02-24] MEDS: Ciprofloxacin 0.3% Ophth Soln 2.5 ML Bottle EYELF SCH ×2 (11:28→15:08)
[2018-02-24 14:28] VITALS: BP 115/84
--- NOTE | 2018-02-24 15:17 | PCM.DCSUM1 ---
Discharge Summary - Hospital Course Brief History: This is an 82 yo elderly white female with past medical hx/o hearing and vision, atrial fibrillation on eliquis, coronary artery disease, hyperlipidemia, hypertension, history of RI status post stent placement, peripheral edema, history of spinal pleural effusion, ulcerative colitis, urinary incontinence, osteoarthritis/DJD, and myasthenia gravis who was brought into the emergency department for 3 day hx/o worsening productive cough that is dark greenish in color. She denies any fevers or chills. Patient is known me from past numerous admissions for treatment of atrial fibrillation. Her initial workup in the emergency department shows a CBC remarkable for MCV of 101.7, MCH of 32.5, MCHC of 32, RDW of 59.4, platelet count 85, MPV of 12.5, neutrophils of 92%, and lymphocytes of 3%. Her chemistry is remarkable for hypertension and 2.3, creatinine of 1.5, glucose of 118, total bilirubin of 1.3 , AST of 144, ALT of 98, alkaline phosphatase of 364, CRP of 7.7, proBNP of 1088 , and albumin at 3.1. Chest x-ray shows small bilateral pleural effusions with compressive atelectasis. Patient is being admitted for acute bronchitis with possible worsening pleural effusion. She is full code. - Discharge Data Discharge Date: 02/24/18 Discharge Disposition: Home, Self-Care 01 Condition: Good - Discharge Diagnosis/Problem(s) (1) Compressive atelectasis SNOMED Code(s): 63833907 ICD Code: J98.11 - ATELECTASIS Status: Acute Current Visit: Yes (2) Bilateral pleural effusion SNOMED Code(s): 199931142 ICD Code: J90 - PLEURAL EFFUSION, NOT ELSEWHERE CLASSIFIED Status: Acute Current Visit: Yes (3) Atrial fibrillation SNOMED Code(s): 33711110 ICD Code: I48.91 - UNSPECIFIED ATRIAL FIBRILLATION Status: Acute Current Visit: Yes Qualifiers: Atrial fibrillation type: permanent Qualified Code(s): I48.2 - Chronic atrial fibrillation (4) Hypotension SNOMED Code(s): 47670504 ICD Code: I95.9 - HYPOTENSION, UNSPECIFIED Status: Acute Current Visit: Yes Qualifiers: Hypotension type: other hypotension type Qualified Code(s): I95.89 - Other hypotension (5) Hypokalemia SNOMED Code(s): 86855742 ICD Code: E87.6 - HYPOKALEMIA Status: Resolved Current Visit: Yes (6) Elevated LFTs SNOMED Code(s): 022626372, 548416082 ICD Code: R79.89 - OTHER SPECIFIED ABNORMAL FINDINGS OF BLOOD CHEMISTRY Status: Acute Current Visit: Yes (7) Hypotension SNOMED Code(s): 55041786 ICD Code: I95.9 - HYPOTENSION, UNSPECIFIED Status: Acute Current Visit: Yes Qualifiers: Hypotension type: hypotension due to drug Qualified Code(s): I95.2 - Hypotension due to drugs - Patient Summary/Data Operative Procedure(s) Performed: None Complications: None Consults: Consultations 02/22/18 01:24 Consult to Case Management [CONS] Routine Consult to Site Physician [CONS] Routine Consult to Spiritual Care [CONS] Routine OT Evaluation and Treatment [CONS] Routine PT Evaluation and Treatment [CONS] Routine Respiratory Care Assess and Treatment [CONS] Routine Labs Pending at D/C: None Recommended Follow-up Testing/Procedures: None Planned Operative Procedure(s) after DC: None Hospital Course: Patient was primarily admitted for worsening 3 day hx/o productive cough. Her CXR showed pleural effusion and her CT scan showed bilateral pleural R>L with compressive atelectasis. Patient initially received intravenous antibiotic for presumptive diagnosis of pneumonia but immediately discontinued once all her infectious work up were benign. These work up were mainly blood culture, influenza screening and sputum culture. She had remained afebrile and w/o leukocytosis since admission. During this hospitalization, the patient underwent right sided thoracentesis and she tolerated the procedure well without any complications. About 450ml of monique pleural fluid removed from the procedure. Her repeat CXR showed decreased pleural effusion with mild basilar atelectasis. Her hospital course was slightly complicated by hypotension but we made adjustment on her blood pressure regimen and provided BP parameters. The rest of her chronic medical illness remained fairly stable during this hospitalization. Patient was stable upon discharge. She was advised to call or follow up with PCP for any questions or concerns after discharge. She was further advised to come back or seek immediate care should her symptoms persists or gets worse. The patient and her family at bedside expressed understanding and in agreement with the plans as discussed above. All questions were answered. - Patient Instructions Diet: Heart Healthy Diet, Usual Diet as Tolerated, Low Sodium, Fluid Restriction Fluid Restriction: 2000 mL Activity: As Tolerated Driving: Do Not Drive Showering/Bathing: May Shower Notify Provider of: Fever, Increased Pain, Swelling and Redness, Nausea and/or Vomiting Other/Special Instructions: - Resume home all medications along with the new changes. - Follow heart failure dietary and fluid restrictions. - Check your blood pressure least x3 a day and show log on follow up appointment with your PCP. - Follow blood pressure parameters before you take your pills. - Follow up or call your family doctor for any questions or concerns after discharge. - Follow up with your PCP in 1 week. - Come back or seek immediate care should your symptoms persist or get worse - Discharge Plan Prescriptions/Med Rec: Furosemide [Lasix] 20 mg PO ASDIRECTED #120 tab Losartan [Cozaar] 25 mg PO BID #60 tablet Home Medications: Home Meds Aspirin [[place] Aspirin] 81 mg PO DAILY 05/26/14 [History] sulfaSALAzine 500 mg PO BID 05/26/14 [History] Pyridostigmine [place] 60 mg PO TID 06/14/16 [History] Apixaban [Eliquis] 2.5 mg PO BID 04/07/17 [History] Calcium Citrate/Vitamin D3 [Calcium Citrate + D] 1 tab PO BIDMEALS 04/07/17 [ History] Pantoprazole [ProTONIX] 40 mg PO ACBREAKFAST 04/07/17 [History] Prednisone [IJD: Prednisone] 10 mg PO DAILY 04/07/17 [History] Immodium 2 mg PO ASDIRECTED PRN 09/25/17 [History] atorvaSTATin [Lipitor] 40 mg PO DAILY 09/25/17 [History] Hyoscyamine [Levsin] 0.125 mg PO Q4H 01/15/18 [History] Metoprolol Tartrate 100 mg PO BID #0 01/21/18 [Rx] Amiodarone [Cordarone] 200 mg PO DAILY 02/22/18 [History] Ciprofloxacin [Ciprofloxacin 0.3% [facility] Soln] 1 drop EYELF QID 02/22/18 [History ] Ganciclovir [Zirgan] 1 drop EYELF TID 02/22/18 [History] Furosemide [Lasix] 20 mg PO ASDIRECTED #120 tab 02/24/18 [Rx] Losartan [Cozaar] 25 mg PO BID #60 tablet 02/24/18 [Rx] Nystatin [Nystatin Ointment] 1 applic TOP BID 02/24/18 [History] Potassium Chloride 20 meq PO DAILY #0 02/24/18 [Rx] Patient Handouts: Heart-Healthy Eating Plan, [id number], Fluid Restriction, Atelectasis, Adult, Pleural Effusion, Low-Sodium Eating Plan Referrals: Tom Slaughter MD [Primary Care Provider] - 03/02/18 10:15 am (Hospital follow-up appointment made for March 02 @ 10:15am with Brigitte Sargent due to Dr. Slaughter being gone next week. ) - Discharge Summary/Plan Comment DC Time >30 min.: Yes (45 mins) Discharge Summary/Plan Comment: Discharge to Home - General Info Date of Service: 02/24/18 Admission Dx/Problem (Free Text: Admission Diagnosis/Problem Admission Diagnosis/Problem Pneumonia Subjective Update: Follow up Functional Status: Reports: Pain Controlled, Tolerating Diet, Ambulating, Urinating. Denies: New Symptoms - Review of Systems General: Denies: Fever, Weakness, Fatigue, Malaise, Chills HEENT: Reports: No Symptoms Pulmonary: Reports: Cough. Denies: Shortness of Breath Cardiovascular: Denies: Chest Pain, Palpitations, Dyspnea on Exertion, Edema, Lightheadedness Gastrointestinal: Denies: Abdominal Pain, Nausea, Vomiting Genitourinary: Reports: No Symptoms Musculoskeletal: Reports: No Symptoms Skin: Denies: Cyanosis, Jaundice, Mottled, Pallor, Diaphoresis, Pruritis, Rash Neurological: Denies: Confusion, Difficulty Walking, Weakness, Gait Disturbance Psychiatric: Denies: Depression, Anxiety, Agitation, Hallucinations Systems Review Comment: No overnight or acute issues. She is doing relatively well. She feels good this morning and has no complaints. - Patient Data Vitals - Most Recent: Last Vital Signs Temp 36.7 C 02/24/18 11:29 Pulse 71 02/24/18 11:29 Resp 16 02/24/18 11:29 BP 115/84 02/24/18 11:29 Pulse Ox 90 L 02/24/18 11:29 Weight - Most Recent: 70.08 kg I&O - Last 24 hours: Intake & Output 02/24/18 02/24/18 02/24/18 06:59 14:59 22:59 Intake Total 200 300 Balance 200 300 Lab Results - Last 24 hrs: Laboratory Results - last 24 hr 02/24/18 02/24/18 02/24/18 Range/Units 05:40 05:40 05:40 WBC 5.63 (3.98-10.04) K/mm3 RBC 3.61 L (3.98-5.22) M/mm3 Hgb 11.9 (11.2-15.7) gm/L Hct 36.7 (34.1-44.9) % MCV 101.7 H (79.4-94.8) fl MCH 33.0 H (25.6-32.2) pg MCHC 32.4 (32.2-35.5) g/dl RDW Std Deviation 59.8 H (36.4-46.3) fL Plt Count 81 L (182-369) K/mm3 MPV 12.6 H (9.4-12.3) fl Neut % (Auto) 74.8 H (34.0-71.1) % Lymph % (Auto) 11.0 L (19.3-51.7) % [place] % (Auto) 13.1 H (4.7-12.5) % Eos % (Auto) 0.7 (0.7-5.8) Baso % (Auto) 0.2 (0.1-1.2) % Neut # (Auto) 4.21 (1.56-6.13) K/mm3 Lymph # (Auto) 0.62 L (1.18-3.74) K/mm3 [place] # (Auto) 0.74 H (0.24-0.36) K/mm3 Eos # (Auto) 0.04 (0.04-0.36) K/mm3 Baso # (Auto) 0.01 (0.01-0.08) K/mm3 Manual Slide Review Abnormal smear Sodium 137 (136-145) mEq/L Potassium 4.9 (3.5-5.1) mEq/L Chloride 101 (98-107) mEq/L Carbon Dioxide 29 (21-32) mEq/L Anion Gap 11.9 (5-15) BUN 27 H (7-18) mg/dL Creatinine 2.3 H (0.55-1.02) mg/dL Est Cr Clr Drug Dosing 13.98 mL/min Estimated GFR (MDRD) 20 (>60) mL/min BUN/Creatinine Ratio 11.7 L (14-18) Glucose 93 (83-115) mg/dL Calcium 9.2 (8.5-10.1) mg/dL Magnesium 2.0 (1.8-2.4) mg/dl C-Reactive Protein 9.8 H* (<1.0) mg/dL NT-Pro-B Natriuret Pep 362 (0-450) pg/mL JEFFY Results - Last 24 hrs: Microbiology 02/22/18 02:55 Gram Stain - Final Sputum - Expectorated Sputum Culture - Final NORMAL RESPIRATORY MINISTERIO 2 DAYS 02/22/18 15:30 Gram Stain - Final Thoracentesis Fluid - Right Body Fluid Culture - Preliminary NO GROWTH AFTER 2 DAYS 02/21/18 23:10 Aerobic Blood Culture - Preliminary Blood - Venous - Lab Draw NO GROWTH AFTER 2 DAYS Anaerobic Blood Culture - Preliminary NO GROWTH AFTER 2 DAYS 02/21/18 23:00 Aerobic Blood Culture - Preliminary Blood - Venous NO GROWTH AFTER 2 DAYS Anaerobic Blood Culture - Preliminary NO GROWTH AFTER 2 DAYS Med Orders - Current: Current Medications Acetaminophen (Tylenol) 650 mg PO Q4H PRN PRN Reason: Pain (Mild 1-3)/fever Hydrocodone Bitart/Acetaminophen ([place] 325-5 Mg) 1 tab PO Q4H PRN PRN Reason: Pain (moderate 4-6) Albuterol/Ipratropium (Duoneb 3.0-0.5 Mg/3 Ml) 3 ml NEB Q4H PRN PRN Reason: Shortness Of Breath/wheezing Amiodarone HCl (Cordarone) 200 mg PO DAILY [facility] Last Admin: 02/24/18 11:27 Dose: 200 mg Apixaban (Eliquis) 2.5 mg PO BID [facility] Last Admin: 02/24/18 11:25 Dose: 2.5 mg Aspirin (Halfprin) 81 mg PO DAILY [facility] Last Admin: 02/24/18 11:27 Dose: 81 mg Bisacodyl (Dulcolax) 5 mg PO DAILY PRN PRN Reason: Constipation Calcium Carbonate (Calcium Carbonate/Vitamin D 600 Mg-200 Unit) 1 tab PO BIDMEALS [facility] Last Admin: 02/24/18 06:54 Dose: 1 tab Ciprofloxacin (Ciloxan 0.3% Ophth Soln) 0 ml EYELF QID [facility] Last Admin: 02/24/18 15:08 Dose: Not Given Docusate Sodium (Colace) 100 mg PO BID PRN PRN Reason: Constipation Furosemide (Lasix) 20 mg PO 0600,1400 [facility] Last Admin: 02/24/18 15:07 Dose: 20 mg Guaifenesin/Phenylephrine HCl (Robitussin Dm) 10 ml PO Q4H PRN PRN Reason: Cough Hydralazine HCl (Apresoline) 10 mg IVPUSH Q4H PRN PRN Reason: Hypertension Hydromorphone HCl (Dilaudid) 0.25 mg IVPUSH Q2H PRN PRN Reason: Pain (severe 7-10) Last Admin: 02/22/18 15:11 Dose: 0.25 mg Hyoscyamine (Hyomax-Sl) 0.125 mg SL TID [facility] Last Admin: 02/24/18 15:07 Dose: 0.125 mg Promethazine HCl 6.25 mg/ (Sodium Chloride) 50.25 mls @ 100 mls/hr IV Q6H PRN PRN Reason: Nausea/Vomiting Loperamide HCl (Imodium) 2 mg PO ASDIRECTED PRN PRN Reason: Diarrhea Last Admin: 02/22/18 10:26 Dose: 2 mg Lorazepam (Ativan) 2 mg IVPUSH Q4H PRN PRN Reason: Seizures Lorazepam (Ativan) 0.25 mg IV Q6H PRN PRN Reason: Anxiety Losartan Potassium (Cozaar) 25 mg PO BID [facility] Last Admin: 02/24/18 11:26 Dose: 25 mg Magnesium Sulfate (Pharmacy To Dose - Magnesium Replacement) 1 dose .XX ASDIRECTED [facility] Metoprolol Tartrate (Lopressor) 5 mg IVPUSH Q4H PRN PRN Reason: Tachycardia Metoprolol Tartrate (Lopressor) 100 mg PO BID [facility] Last Admin: 02/24/18 11:26 Dose: 100 mg Ondansetron HCl (Zofran) 4 mg IV Q6H PRN PRN Reason: Nausea/Vomiting Last Admin: 02/22/18 17:29 Dose: 4 mg Pantoprazole Sodium (Protonix) 40 mg PO ACBREAKFAST [facility] Last Admin: 02/24/18 06:56 Dose: 40 mg Zirgan Opth Gel 0.15 (%) 0 each EYELF TID [facility] Last Admin: 02/24/18 15:08 Dose: 1 each Polyethylene Glycol (Miralax) 17 gm PO DAILY PRN PRN Reason: Constipation Potassium Chloride (Pharmacy To Dose - Potassium Replacement) 1 dose .XX ASDIRECTED [facility] Potassium Chloride (Klor-Con M20) 20 meq PO BID [facility] Last Admin: 02/24/18 11:26 Dose: 20 meq Prednisone (Prednisone) 10 mg PO DAILY [facility] Last Admin: 02/24/18 11:25 Dose: 10 mg Pyridostigmine [place] (Mestinon) 60 mg PO TID [facility] Last Admin: 02/24/18 15:07 Dose: 60 mg Rosuvastatin Calcium (Crestor) 10 mg PO DAILY [facility] Last Admin: 02/24/18 11:27 Dose: 10 mg Senna/Docusate Sodium (Senna Plus) 1 tab PO BID PRN PRN Reason: Constipation Sodium Chloride (Saline Flush) 10 ml FLUSH ASDIRECTED PRN PRN Reason: Keep Vein Open Sulfasalazine (Sulfasalazine) 500 mg PO BIDMEALS [facility] Last Admin: 02/24/18 06:55 Dose: 500 mg Temazepam (Restoril) 7.5 mg PO BEDTIME PRN PRN Reason: Sleep Discontinued Medications Albuterol/Ipratropium (Duoneb 3.0-0.5 Mg/3 Ml) 3 ml NEB ONETIME ONE Stop: 02/21/18 22:26 Last Admin: 02/21/18 22:44 Dose: 3 ml Apixaban (Eliquis) 2.5 mg PO ONETIME ONE Stop: 02/22/18 21:58 Last Admin: 02/22/18 22:16 Dose: 2.5 mg Furosemide (Lasix) 40 mg PO 0600,1400 [facility] Last Admin: 02/23/18 14:10 Dose: Not Given Sodium Chloride (Normal Saline) 1,000 mls @ 50 mls/hr IV ASDIRECTED [facility] Last Admin: 02/21/18 23:01 Dose: 50 mls/hr Levofloxacin/Dextrose 750 mg/ (Premix) 150 mls @ 100 mls/hr IV ONETIME ONE Stop: 02/22/18 00:49 Last Admin: 02/21/18 23:26 Dose: 100 mls/hr Losartan Potassium (Cozaar) 50 mg PO BID [facility] Last Admin: 02/23/18 09:27 Dose: Not Given Zirgan Opth Gel 0.15 (%) 0 each EYELF QID [facility] Last Admin: 02/22/18 13:15 Dose: Not Given Ganciclovir [Zirgan] (0.15% Opth Gel) 0 each EYELF TID [facility] Last Admin: 02/23/18 20:47 Dose: Not Given Potassium Chloride (Klor-Con M20) 40 meq PO Q4H [facility] Stop: 02/22/18 05:01 Last Admin: 02/22/18 05:10 Dose: 40 meq - Exam General: Reports: Alert, Oriented, Cooperative, No Acute Distress HEENT: Reports: Pupils Equal, Pupils Reactive, EOMI, Mucous Membr. Moist/Esto Neck: Reports: Supple, Trachea Midline, No JVD Lungs: Reports: Normal Respiratory Effort, Decreased Breath Sounds Cardiovascular: Reports: Irregular Rhythm, Other (Irregular Rate) GI/Abdominal Exam: Normal Bowel Sounds, Soft, Non-Tender, No Organomegaly, No Distention, No Abnormal Bruit, No Mass (Female) Exam: Deferred Rectal (Female) Exam: Deferred Back Exam: Reports: Normal Inspection, Decreased Range of Motion Extremities: Normal Inspection, Normal Range of Motion, Non-Tender, No Pedal Edema, Normal Capillary Refill Skin: Reports: Warm, Dry, Intact Neurological: Reports: No New Focal Deficit Psy/Mental Status: Reports: Alert, Normal Affect, Normal Mood
== END 2018-02-24 16:12 | disposition home or self-care (01) | DRG 292 ==
LOC: JD.ED 21:33 → JD.MS 02-22 00:40
PROVIDERS: ADMIT Internal Medicine; ATTEND Internal Medicine
PROC: 0W993ZX Drainage of Right Pleural Cavity, Percutaneous Approach, Diagnostic (ICD-10-PCS; principal; 2018-02-22)
DX: J44.0 Chronic obstructive pulmonary disease with (acute) lower respiratory infection (principal); R06.02 Shortness of breath; J18.9 Pneumonia, unspecified organism; I11.0 Hypertensive heart disease with heart failure; I50.33 Acute on chronic diastolic (congestive) heart failure; K51.90 Ulcerative colitis, unspecified, without complications; J90 Pleural effusion, not elsewhere classified; J44.1 Chronic obstructive pulmonary disease with (acute) exacerbation; J20.9 Acute bronchitis, unspecified; I50.23 Acute on chronic systolic (congestive) heart failure; Z79.899 Other long term (current) drug therapy; Z79.82 Long term (current) use of aspirin; I25.10 Atherosclerotic heart disease of native coronary artery without angina pectoris; I48.2 Chronic atrial fibrillation; J44.9 Chronic obstructive pulmonary disease, unspecified; E78.5 Hyperlipidemia, unspecified; E87.6 Hypokalemia; H54.7 Unspecified visual loss; H91.90 Unspecified hearing loss, unspecified ear; I95.9 Hypotension, unspecified; M19.90 Unspecified osteoarthritis, unspecified site; G70.00 Myasthenia gravis without (acute) exacerbation; R32 Unspecified urinary incontinence; Z79.01 Long term (current) use of anticoagulants; I25.2 Old myocardial infarction; Z95.5 Presence of coronary angioplasty implant and graft; Z88.8 Allergy status to other drugs, medicaments and biological substances; Z88.0 Allergy status to penicillin
CPT/HCPCS: 71045; 83880; 85610; 87040 ×2; 87804 ×2; 93005; 94640; 96365; 99285; J1956; J7040; 36415; 71250; 71250-26; 76942; 80048; 80053; 81001; 82553; 82945; 83615; 83735; 83986; 84157; 84484; 85007; 85025; 85027; 86140; 87070; 87205; 88112-26; 89050; 94760; 94761; 97110-GP; 97116-GP; 97162-GP; 97165-GO; A9270-GY; C1729; J1170; J2405

== ENCOUNTER 2018-04-04 10:05 | Emergency (ER) | payer MEDICARE, BC ==
[2018-04-04 10:21] VITALS: BP 181/80
[2018-04-04] MEDS ORDERED: Dextrose 5%-0.9% NaCl 1,000 ML IV SCH (10:45)
--- NOTE | 2018-04-04 11:07 | EDM.PDOC ---
<Tyler Mayorga - Last Filed: 04/04/18 11:58> ED HPI GENERAL MEDICAL PROBLEM - General Chief Complaint: Gastrointestinal Problem Stated Complaint: [facility] Time Seen by Provider: 04/04/18 10:23 - Related Data Allergies Allergy/AdvReac Type Severity Reaction Status Date / Time amoxicillin [From Augmentin] Allergy Airway Verified 04/04/18 10:13 Tightness clavulanic acid Allergy Airway Verified 04/04/18 10:13 [From Augmentin] Tightness heparin Allergy Anaphylactic Verified 04/04/18 10:13 Shock Home Meds: Home Meds Aspirin [[place] Aspirin] 81 mg PO DAILY 05/26/14 [History] sulfaSALAzine 500 mg PO BID 05/26/14 [History] Pyridostigmine [place] 60 mg PO QID 06/14/16 [History] Apixaban [Eliquis] 2.5 mg PO BID 04/07/17 [History] Calcium Citrate/Vitamin D3 [Calcium Citrate + D] 1 tab PO BIDMEALS 04/07/17 [ History] Pantoprazole [ProTONIX] 40 mg PO ACBREAKFAST 04/07/17 [History] Prednisone [IJD: Prednisone] 40 mg PO DAILY 04/07/17 [History] Immodium 2 mg PO ASDIRECTED PRN 09/25/17 [History] atorvaSTATin [Lipitor] 40 mg PO DAILY 09/25/17 [History] Hyoscyamine [Levsin] 0.125 mg PO TID 01/15/18 [History] Metoprolol Tartrate 100 mg PO BID #0 01/21/18 [Rx] Amiodarone [Cordarone] 200 mg PO DAILY 02/22/18 [History] Losartan [Cozaar] 25 mg PO BID #60 tablet 02/24/18 [Rx] Furosemide [Lasix] 40 mg PO BID 04/04/18 [History] Levothyroxine 25 mcg PO ACBREAKFAST 04/04/18 [History] Potassium Chloride 20 meq PO BID 04/04/18 [History] Course - Vital Signs Last Recorded V/S: Last Vital Signs Temp 97.7 F 04/04/18 10:14 Pulse 59 L 04/04/18 10:14 Resp 18 04/04/18 10:14 BP 181/80 H 04/04/18 10:14 Pulse Ox 88 L 04/04/18 10:14 - Orders/Labs/Meds Orders: Active Orders 24 hr Category Date Time Status CXR [Chest 1V Frontal] [CR] Stat Exams 04/04/18 11:36 Taken Dextrose 5%-0.9% NaCl [Dextrose 5%-Normal Saline] 1,000 Med 04/04/18 10:45 Active ml IV ASDIRECTED Medication Orders Dextrose/Sodium Chloride (Dextrose 5%-Normal Saline) 1,000 mls @ 150 mls/hr IV ASDIRECTED ELVIN Last Admin: 04/04/18 11:29 Dose: 150 mls/hr Labs: Laboratory Tests 04/04/18 04/04/18 04/04/18 Range/Units 10:50 10:50 10:50 WBC 7.48 (3.98-10.04) K/mm3 RBC 3.96 L (3.98-5.22) M/mm3 Hgb 12.7 (11.2-15.7) gm/L Hct 39.7 (34.1-44.9) % MCV 100.3 H (79.4-94.8) fl MCH 32.1 (25.6-32.2) pg MCHC 32.0 L (32.2-35.5) g/dl RDW Std Deviation 56.6 H (36.4-46.3) fL Plt Count 74 L (182-369) K/mm3 MPV 12.9 H (9.4-12.3) fl Neut % (Auto) 89.2 H (34.0-71.1) % Lymph % (Auto) 5.1 L (19.3-51.7) % [place] % (Auto) 5.3 (4.7-12.5) % Eos % (Auto) 0 L (0.7-5.8) Baso % (Auto) 0.1 (0.1-1.2) % Neut # (Auto) 6.67 H (1.56-6.13) K/mm3 Lymph # (Auto) 0.38 L (1.18-3.74) K/mm3 [place] # (Auto) 0.40 H (0.24-0.36) K/mm3 Eos # (Auto) 0.00 L (0.04-0.36) K/mm3 Baso # (Auto) 0.01 (0.01-0.08) K/mm3 Manual Slide Review Normal smear ESR 41 H (0-20) mm/hr Sodium 140 (136-145) mEq/L Potassium 3.4 L (3.5-5.1) mEq/L Chloride 101 (98-107) mEq/L Carbon Dioxide 33 H (21-32) mEq/L Anion Gap 9.4 (5-15) BUN 13 (7-18) mg/dL Creatinine 1.3 H (0.55-1.02) mg/dL Est Cr Clr Drug Dosing 23.14 mL/min Estimated GFR (MDRD) 39 (>60) mL/min BUN/Creatinine Ratio 10.0 L (14-18) Glucose 108 (83-115) mg/dL Calcium 9.3 (8.5-10.1) mg/dL Total Bilirubin 1.1 H (0.2-1.0) mg/dL AST 106 H (15-37) U/L ALT 80 H (14-59) U/L Alkaline Phosphatase 211 H (46-116) U/L C-Reactive Protein 0.4 (<1.0) mg/dL Total Protein 7.4 (6.4-8.2) g/dl Albumin 3.1 L (3.4-5.0) g/dl Globulin 4.3 gm/dL Albumin/Globulin Ratio 0.7 L (1-2) TSH 3rd Generation 4.014 H (0.358-3.74) uIU/mL Meds: Medications Generic Name Dose Route Start Last Admin Trade Name Freq PRN Reason Stop Dose Admin Dextrose/Sodium Chloride 1,000 mls @ 150 mls/hr 04/04/18 10:45 04/04/18 11:29 Dextrose 5%-Normal Saline IV 150 mls/hr ASDIRECTED [facility] Administration - Re-Assessments/Exams Free Text/Narrative Re-Assessment/Exam: 04/04/18 11:58 I evaluated the patient myself and I agree with Emelina's plan and assessment. I ordered an IV NS at 150mL/hr, labs and a CXR. Her WBC was normal at 7.48. Her Hgb was normal at 12.7. Her platelets were low at 74. She has a history of thrombocytopenia. Her ESR was elevated at 41. Her K was low at 3.4. Her creatinine was elevated at 1.3. Her AST was elevated at 106. Her ALT was elevated at 80. Her Alk Phos was 211. Her TSH was elevated at 4.014. I feel she needs to be admitted. She cannot swallow. She may need IVIG. I called [facility] and talked with Dr Vargas the neurologist job setter honing and he felt she needed to be admitted. I also talked with the hospitalist there Dr Bal and he also agreed to the transfer. She will be going by ground ambulance. Departure - Departure Time of Disposition: 12:05 Disposition: DC/Tfer to [facility] Condition: Fair Clinical Impression: Myasthenia gravis with exacerbation, Thrombocytopenia, Dehydration Dysphagia Qualifiers: Dysphagia type: pharyngeal phase Qualified Code(s): R13.13 - Dysphagia, pharyngeal phase - Discharge Information Referrals: Tom Slaughter MD [Primary Care Provider] - Forms: ED Department Discharge - My Orders Last 24 Hours: My Active Orders 04/04/18 10:45 Dextrose 5%-0.9% NaCl [Dextrose 5%-Normal Saline] 1,000 ml IV ASDIRECTED 04/04/18 11:36 CXR [Chest 1V Frontal] [CR] Stat - Assessment/Plan Last 24 Hours: My Active Orders 04/04/18 10:45 Dextrose 5%-0.9% NaCl [Dextrose 5%-Normal Saline] 1,000 ml IV ASDIRECTED 04/04/18 11:36 CXR [Chest 1V Frontal] [CR] Stat <Emelina Tyson - Last Filed: 04/04/18 12:05> ED HPI GENERAL MEDICAL PROBLEM - General Source of Information: Reports: Patient, Family (daughters) History Limitations: Reports: No Limitations - History of Present Illness INITIAL COMMENTS - FREE TEXT/NARRATIVE: 83 yo female presents with family for worsening symptoms of Myasthenia Gravis. They report for the past 4 days she has had increased neck muscle weakness, difficulty swallowing food, liquids and her own saliva. She feels as if her eye muscles are weak as well and has difficulty moving her eyes. She had been started on Levothyroxine 25mcg on Tuesday, the day before her symptoms worsened. She was seen at [place] yesterday and her Prednisone was increased to 40mg daily. She has not noticed any improvement in symptoms. She is having increased difficulty speaking. Onset: Gradual Duration: Day(s): (last 4 days), Getting Worse Location: Reports: Face, Neck Improves with: Reports: None Worsens with: Reports: None Associated Symptoms: Reports: Other (difficulty swallowing) Past Medical History HEENT History: Reports: Hard of Hearing, Impaired Vision Cardiovascular History: Reports: Afib, CAD, High Cholesterol, Hypertension, AL, Stents, Other (See Below) Other Cardiovascular History: edema[place] was clear Other Respiratory History: Current visit small pleural effusion Gastrointestinal History: Reports: Cholelithiasis, Other (See Below) Other Gastrointestinal History: ulcerative colitis Genitourinary History: Reports: Urinary Incontinence Other Genitourinary History: incontinent all the time ICU REGISTERED NURSE History: Reports: Musculoskeletal History: Reports: Arthritis Neurological History: Reports: Other (See Below) Other Neuro History: myasthinia gravis Hematologic History: Reports: Other (See Below) Other Hematologic History: is on blood thinners - Infectious Disease History Infectious Disease History: Reports: Chicken Pox, Hepatitis C, Measles, Shingles - Past Surgical History Cardiovascular Surgical History: Reports: Coronary Artery Stent GI Surgical History: Reports: Appendectomy, Cholecystectomy Female Surgical History: Reports: Hysterectomy Social & Family History - Family History Family Medical History: Noncontributory - Tobacco Use Smoking Status *Q: Never Smoker - Caffeine Use Caffeine Use: Reports: Coffee, Soda, Tea Other Caffeine Use: 1-2 cups of coffee and tea per day - Living Situation & Occupation Living situation: Reports: , Alone Occupation: Retired ED ROS GENERAL - Review of Systems Review Of Systems: See Below Constitutional: Reports: Weakness. Denies: Fever, Chills HEENT: Reports: Other (eye weakness). Denies: Throat Pain, Throat Swelling, Vision Change Respiratory: Reports: No Symptoms. Denies: Shortness of Breath, Wheezing, Cough Cardiovascular: Reports: No Symptoms. Denies: Chest Pain Endocrine: Reports: No Symptoms GI/Abdominal: Reports: Difficulty Swallowing. Denies: Abdominal Pain, Constipation, Diarrhea, Nausea, Vomiting : Reports: No Symptoms Skin: Reports: No Symptoms Neurological: Reports: Trouble Speaking, Weakness. Denies: Confusion, Dizziness , Numbness, Tingling Psychiatric: Reports: No Symptoms Hematologic/Lymphatic: Reports: No Symptoms Immunologic: Reports: No Symptoms ED EXAM, NEURO - Physical Exam Exam: See Below Exam Limited By: No Limitations General Appearance: Alert, WD/WN, Mild Distress Eye Exam: Bilateral Eye: EOMI, PERRL Ears: Normal External Exam, Hearing Grossly Normal Nose: Normal Inspection Throat/Mouth: Normal Inspection, Normal Lips, Normal Oropharynx Head Exam: Atraumatic, Normocephalic Neck: Normal Inspection, Supple, Non-Tender, Full Range of Motion Respiratory/Chest: No Respiratory Distress, Lungs Clear, No Accessory Muscle Use Cardiovascular: Normal Peripheral Pulses, Regular Rate, Rhythm, No Gallop, No JVD, No Murmur Neurological: Alert, Normal Mood/Affect, CN II-XII Intact, No Motor/Sensory Deficits Extremities: Normal Inspection, Normal Range of Motion Psychiatric: Normal Affect, Normal Mood Skin Exam: Warm, Dry, Intact, Normal Color, No Rash Course - Orders/Labs/Meds Labs: Laboratory Tests 04/04/18 04/04/18 04/04/18 Range/Units 10:50 10:50 10:50 WBC 7.48 (3.98-10.04) K/mm3 RBC 3.96 L (3.98-5.22) M/mm3 Hgb 12.7 (11.2-15.7) gm/L Hct 39.7 (34.1-44.9) % MCV 100.3 H (79.4-94.8) fl MCH 32.1 (25.6-32.2) pg MCHC 32.0 L (32.2-35.5) g/dl RDW Std Deviation 56.6 H (36.4-46.3) fL Plt Count 74 L (182-369) K/mm3 MPV 12.9 H (9.4-12.3) fl Neut % (Auto) 89.2 H (34.0-71.1) % Lymph % (Auto) 5.1 L (19.3-51.7) % [place] % (Auto) 5.3 (4.7-12.5) % Eos % (Auto) 0 L (0.7-5.8) Baso % (Auto) 0.1 (0.1-1.2) % Neut # (Auto) 6.67 H (1.56-6.13) K/mm3 Lymph # (Auto) 0.38 L (1.18-3.74) K/mm3 [place] # (Auto) 0.40 H (0.24-0.36) K/mm3 Eos # (Auto) 0.00 L (0.04-0.36) K/mm3 Baso # (Auto) 0.01 (0.01-0.08) K/mm3 Manual Slide Review Normal smear ESR 41 H (0-20) mm/hr Sodium 140 (136-145) mEq/L Potassium 3.4 L (3.5-5.1) mEq/L Chloride 101 (98-107) mEq/L Carbon Dioxide 33 H (21-32) mEq/L Anion Gap 9.4 (5-15) BUN 13 (7-18) mg/dL Creatinine 1.3 H (0.55-1.02) mg/dL Est Cr Clr Drug Dosing 23.14 mL/min Estimated GFR (MDRD) 39 (>60) mL/min BUN/Creatinine Ratio 10.0 L (14-18) Glucose 108 (83-115) mg/dL Calcium 9.3 (8.5-10.1) mg/dL Total Bilirubin 1.1 H (0.2-1.0) mg/dL AST 106 H (15-37) U/L ALT 80 H (14-59) U/L Alkaline Phosphatase 211 H (46-116) U/L C-Reactive Protein 0.4 (<1.0) mg/dL Total Protein 7.4 (6.4-8.2) g/dl Albumin 3.1 L (3.4-5.0) g/dl Globulin 4.3 gm/dL Albumin/Globulin Ratio 0.7 L (1-2) TSH 3rd Generation 4.014 H (0.358-3.74) uIU/mL
--- NOTE | 2018-04-04 16:02 | CR ---
Chest: Frontal view of the chest was obtained. Comparison: Prior chest x-ray of 02/22/18. Blunting of the costophrenic angles are seen which appears stable. Heart is slightly enlarged. Tortuous thoracic aorta is seen. Lungs show no acute parenchymal densities. Mild scoliosis is seen within the spine with degenerative change. Impression: 1. Chronic findings. Nothing acute is appreciated. Diagnostic code #2
== END 2018-04-04 13:13 ==
LOC: JD.ED 10:05
DX: G70.01 Myasthenia gravis with (acute) exacerbation (principal); D69.6 Thrombocytopenia, unspecified; E86.0 Dehydration; R13.13 Dysphagia, pharyngeal phase; I10 Essential (primary) hypertension; E78.00 Pure hypercholesterolemia, unspecified; I48.91 Unspecified atrial fibrillation; I25.2 Old myocardial infarction; Z79.82 Long term (current) use of aspirin; Z88.1 Allergy status to other antibiotic agents; Z88.8 Allergy status to other drugs, medicaments and biological substances; Z79.899 Other long term (current) drug therapy
CPT/HCPCS: 36415; 71045; 80053; 84443; 85025; 85652; 86140; 96360; 96361; 99285; J7042